=== PATIENT | male | born 1955 ===

== ENCOUNTER 2016-08-17 10:22 | Emergency (ER) | payer OTHER ==
[2016-08-17 10:29] VITALS: BMI 25.7
[2016-08-17 10:32] VITALS: RESP 19; O2SAT 100
--- NOTE | 2016-08-17 10:59 | ED PDOC ---
Hyperglycemia/Hypoglycemia Time Seen by Provider: 08/17/16 10:47 Chief Complaint (Provider): High glucose History Per: Patient History/Exam Limitations: no limitations : The patient does not have any of the infectious symptoms listed except for those marked. Treatment Prior To Provider Evaluation: Accucheck Additional Complaint(s): Pt sent from [employer] at his job for elevated glucose, does not know level. Pt states he is on Insulin and Glyburide for diabetes but ran out of Glyburide 1 month ago. Denies CP, SOB, nausea, vomiting, polyuria, polydypsia. Past Medical History Reviewed: Nursing Documentation, Vital Signs Vital Signs: Last Vital Signs Temp 97.6 F 08/17/16 10:29 Pulse 71 08/17/16 10:29 Resp 19 08/17/16 10:29 BP 160/91 H 08/17/16 10:29 Pulse Ox 100 08/17/16 10:29 - Medical History PMH: Arthritis (Bilateral Shoulder), Diabetes, HTN, Pneumonia Denies: Chronic Kidney Disease - Family History Family History: States: Diabetes - Living Arrangements Living Arrangements: With Family - Social History Current smoker - smoking cessation education provided: No Alcohol: None - Home Medications Home Medications: Ambulatory Orders Medication Instructions Recorded Glyburide 10 mg PO DAILY 05/31/14 Metformin HCl 1,000 mg PO BID 05/31/14 Albuterol/Ipratropium [Duoneb 3 3 ml INH RQ4 PRN #0 neb 06/10/14 mg/0.5 mg (3 ml) UD] Albuterol/Ipratropium [Duoneb 3 3 ml INH RQID #0 neb 06/10/14 mg/0.5 mg (3 ml) UD] Ferrous Sulfate [Feosol] 324 mg PO BID #0 ect 06/10/14 Lisinopril [Zestril] 20 mg PO DAILY #0 tab 06/10/14 amLODIPine [Norvasc] 10 mg PO DAILY #0 tab 06/10/14 Ciprofloxacin HCl [Cipro] 500 mg PO BID #20 tab 06/14/14 MetFORMIN [glucoPHAGE] 1,000 mg PO BID #0 tab 06/14/14 glyBURIDE [Micronase] 5 mg PO QAM #14 tab 08/17/16 - Allergies Allergies/Adverse Reactions: Allergies Allergy/AdvReac Type Severity Reaction Status Date / Time No Known Allergies Allergy Verified 05/30/14 18:17 Review of Systems Constitutional: Negative for: Fever, Chills Cardiovascular: Negative for: Chest Pain Respiratory: Negative for: Cough, Shortness of Breath Gastrointestinal: Negative for: Nausea, Vomiting, Abdominal Pain, Diarrhea Genitourinary Male: Negative for: Dysuria Skin: Negative for: Rash Physical Exam - Reviewed Nursing Documentation Reviewed: Yes Vital Signs Reviewed: Yes - Physical Exam Appears: Positive for: Well, No Acute Distress Skin: Positive for: Normal Color, Warm, Dry Eye Exam: Positive for: Normal appearance, EOMI, PERRL Cardiovascular/Chest: Positive for: Regular Rate, Rhythm Respiratory: Positive for: Normal Breath Sounds Gastrointestinal/Abdominal: Positive for: Normal Exam, Bowel Sounds, Soft. Negative for: Tenderness Extremity: Positive for: Normal ROM Neurologic/Psych: Positive for: Alert, outpatient psychiatrist II-XII, Oriented. Negative for: Motor/Sensory Deficits - Laboratory Results Result Diagrams: 08/17/16 11:33 08/17/16 11:33 Urine dip results: Positive for: Blood, Glucose, Protein. Negative for: Leukocyte Esterase, Nitrate, Ketones, Bilirubin - ECG O2 Sat by Pulse Oximetry: 100 Disposition - Clinical Impression Clinical Impression: Diabetes mellitus - Disposition Referrals: [facility] [Outside] Disposition: Routine/Home Disposition Time: 11:59 Condition: GOOD Prescriptions: glyBURIDE [Micronase] 5 mg PO QAM #14 tab Instructions: Diabetes Mellitus Type 2 in Adults (ED) Print Language: BENGALI
[2016-08-17] MEDS: Sodium Chloride 0.9% 500 ML IV STA (11:28)
[2016-08-17 11:42] LABS: BASO % 0.7 % (0.0-2.0); EOS # 0.1 K/uL (0.0-0.7); EOS % 2.4 % (0.0-4.0); HEMATOCRIT 37.1 % (35.0-51.0); LYMPH # 1.8 K/uL (1.0-4.3); LYMPH % 32.8 % (20.0-40.0); MEAN CORPUSCULAR HEMOGLOBIN 30.3 pg (27.0-31.0); MEAN CORPUSCULAR HGB CONC 34.5 g/dL (33.0-37.0); MEAN PLATELET VOLUME 11.5 fl (7.2-11.7); MONO # 0.6 K/uL (0.0-0.8); MONO % 10.5 % (0.0-10.0); NEUT % 53.6 % (50.0-75.0); NRBC % 0.1 % (0.0-0.0); WHITE BLOOD COUNT 5.5 K/uL (4.8-10.8)
[2016-08-17 11:46] LABS: MEAN CELL VOLUME 87.7 fl (80.0-94.0)
[2016-08-17 11:55] LABS: ALB/GLOB RATIO 1.2 (1.0-2.1); ALKALINE PHOSPHATASE 152 U/L (38-126); ALT/SGPT 41 U/L (21-72); AST/SGOT 40 U/L (17-59); BILIRUBIN,TOTAL 0.5 mg/dl (0.2-1.3); BLOOD UREA NITROGEN 16 mg/dl (9-20); CALCIUM 9.2 mg/dL (8.4-10.2); CARBON DIOXIDE 27 mmol/L (22-30); CHLORIDE 102 mmol/L (98-107); GFR AFRICAN-AMERICAN > 60; GLUCOSE,RANDOM 135 mg/dL (75-110); POTASSIUM 4.2 MMOL/L (3.6-5.0); SODIUM 141 mmol/l (132-148)
[2016-08-17 12:58] VITALS: BP 132/74; PULSE 74; TEMP 98.3
== END 2016-08-17 12:58 | disposition home or self-care (01) ==
LOC: H.ER 10:22
DX: E11.9 Type 2 diabetes mellitus without complications (principal); Z79.84 Long term (current) use of oral hypoglycemic drugs; I10 Essential (primary) hypertension

== ENCOUNTER 2016-10-04 11:05 | Day surgery (SDC) | payer SELFPAY ==
[2016-10-04] MEDS ORDERED: Lactated Ringer's 500 ML IV ONE (11:56)
[2016-10-04 12:11] VITALS: TEMP 97
[2016-10-04] MEDS ORDERED: Propofol 10 mg/ml Inj (20 ML) ONE (12:33)
[2016-10-04 13:05] VITALS: O2SAT 100
[2016-10-04 13:25] VITALS: BP 146/79; PULSE 60; RESP 13
== END 2016-10-04 13:27 | disposition home or self-care (01) ==
LOC: H.ENDO 11:05
PROVIDERS: ATTEND Internal Medicine Gastroenterology
DX: Z12.11 Encounter for screening for malignant neoplasm of colon (principal); K64.8 Other hemorrhoids; E11.9 Type 2 diabetes mellitus without complications; E78.5 Hyperlipidemia, unspecified

== ENCOUNTER 2016-10-20 15:53 | Emergency (ER) | payer OTHER, SELFPAY ==
[2016-10-20 15:53] VITALS: BMI 25.7
[2016-10-20 16:03] VITALS: BP 121/88; PULSE 107; RESP 16; TEMP 99; O2SAT 100
--- NOTE | 2016-10-20 16:35 | ED PDOC ---
Upper Extremity Pain/Injury Time Seen by Provider: 10/20/16 16:20 Chief Complaint (Nursing): Upper Extremity Problem/Injury Chief Complaint (Provider): Foot pain History Per: Patient Additional Complaint(s): 61 yo female, PMH of DM, HTN and High Cholesterol, presents to ED for evaluation of draining wound to right foot x 4 days with chills. Patient also c/ o bilateral shoulder pain x 1 day, denies injury or trauma. Past Medical History Reviewed: Historical Data, Nursing Documentation, Vital Signs Vital Signs: Last Vital Signs Temp 99.0 F 10/20/16 15:57 Pulse 107 H 10/20/16 15:57 Resp 16 10/20/16 15:57 BP 121/88 10/20/16 15:57 Pulse Ox 100 10/20/16 15:57 - Medical History PMH: Arthritis (Bilateral Shoulder), Diabetes, HTN, Hypercholesterolemia, Pneumonia Denies: Chronic Kidney Disease - Surgical History Surgical History: No Surg Hx - Family History Family History: States: Diabetes - Living Arrangements Living Arrangements: With Family - Social History Current smoker - smoking cessation education provided: No Alcohol: Social Drugs: Denies - Home Medications Home Medications: Ambulatory Orders Medication Instructions Recorded Glyburide 10 mg PO DAILY 05/31/14 MetFORMIN [glucoPHAGE] 1,000 mg PO BID #0 tab 06/14/14 glyBURIDE [Micronase] 5 mg PO QAM #14 tab 08/17/16 Insulin Lispro [Humalog (Insulin PRN 10/04/16 Lispro)] Amoxicillin/Clavulanate [Augmentin 1 tab PO BID #14 tab 10/20/16 875 MG-125 MG] Mupirocin 2% Cream [Bactroban 30 applic TOP BID #1 tube 10/20/16 Cream] - Allergies Allergies/Adverse Reactions: Allergies Allergy/AdvReac Type Severity Reaction Status Date / Time No Known Allergies Allergy Verified 10/20/16 15:57 Review of Systems ROS Statement: Except As Marked, All Systems Reviewed And Found Negative Skin: Positive for: Other (ulceration) Physical Exam - Reviewed Nursing Documentation Reviewed: Yes Vital Signs Reviewed: Yes - Physical Exam Appears: Positive for: Well, Non-toxic, No Acute Distress Head Exam: Positive for: ATRAUMATIC, NORMAL INSPECTION, NORMOCEPHALIC Skin: Positive for: Normal Color, Warm, DRY Eye Exam: Positive for: EOMI, Normal appearance, PERRL ENT: Positive for: Normal ENT Inspection Neck: Positive for: Normal, Painless ROM Cardiovascular/Chest: Positive for: Regular Rate, Rhythm Respiratory: Positive for: CNT, Normal Breath Sounds Gastrointestinal/Abdominal: Positive for: Normal Exam, Bowel Sounds, Soft Back: Positive for: Normal Inspection Extremity: Positive for: Normal ROM Neurologic/Psych: Positive for: Alert, Oriented Comments: right great toe: (+) ruptured blister area, no surrounding edema or erythema - ECG O2 Sat by Pulse Oximetry: 100 Medical Decision Making Medical Decision Making: XR: NAd, as read by SONG Started on Augmentin PO and referred to podiatry clinic. Wound care discussed at length Disposition - Clinical Impression Clinical Impression: Foot ulcer - Patient ED Disposition Is Patient to be Admitted: No - Disposition Referrals: Podiatry Clinic [Outside] Disposition: Routine/Home Disposition Time: 19:05 Condition: STABLE Prescriptions: Amoxicillin/Clavulanate [Augmentin 875 MG-125 MG] 1 tab PO BID #14 tab Mupirocin 2% Cream [Bactroban Cream] 30 applic TOP BID #1 tube Instructions: Blister (ED) - POA Present On Arrival: None
[2016-10-20] MEDS ORDERED: Amoxicillin-Clav 875-125 mg Tab PO ONE ×2 (16:43→17:00)
--- NOTE | 2016-10-20 17:42 | RAD ---
PROCEDURE: Right Foot Radiographs. HISTORY: ulceration COMPARISON: None available. FINDINGS: BONES: No acute displaced fracture. Calcaneal enthesophyte. JOINTS: No dislocation. SOFT TISSUES: Approximately 10 mm soft tissue lucency involving the medial soft tissues of the distal 1st phalanx. Soft tissue swelling. Vascular calcifications. No evidence of radiopaque foreign body. OTHER FINDINGS: None. IMPRESSION: Approximately 10 mm soft tissue lucency involving the medial soft tissues of the distal 1st phalanx, consistent with provided history of ulceration. Soft tissue swelling.
== END 2016-10-20 19:19 | disposition home or self-care (01) ==
LOC: H.ER 15:53
DX: L97.501 Non-pressure chronic ulcer of other part of unspecified foot limited to breakdown of skin (principal); E11.9 Type 2 diabetes mellitus without complications; E78.00 Pure hypercholesterolemia, unspecified; I10 Essential (primary) hypertension; Z79.4 Long term (current) use of insulin

== ENCOUNTER 2016-10-31 08:34 | Inpatient (IN) | payer OTHER ==
[2016-10-31 08:34] VITALS: BMI 25.7
--- NOTE | 2016-10-31 10:04 | ED PDOC ---
HPI: CCC, URI, Sore Throat Chief Complaint (Provider): Cough, Cold, Congestion History Per: Patient History/Exam Limitations: language barrier ([employer]ro[employer] # [id number]) Onset/Duration Of Symptoms: Hrs (24) Current Symptoms Are (Timing): Still Present Sick Contacts (Context): None Associated Symptoms: Fever, Chills, Cough, Sputum (intermittent greenish sputum) , Myalgias, Nasal Congestion. denies: Neck Pain, Sinus Drainage, Nausea, Vomiting, Diarrhea <Miguel Hastings - Last Filed: 10/31/16 12:43> <Awa Davenport - Last Filed: 10/31/16 15:02> Time Seen by Provider: 10/31/16 09:08 Chief Complaint (Nursing): Cough, Cold, Congestion Additional Complaint(s): Pt. is here today complaining of cold like symptoms including fever, chills, and cough onset over the course of 24 hours. Pt. reports cough is dry but intermittently productive with greenish sputum. Pt. does admit to taking augmentin and Tylenol for "infection" of his big toe on the Right foot. Pt. states he has finished his augmentin yesterday. Pt. reports his toe feels better and only has mild pain in his toe currently. On ROS, pt. denies any headache, chest pain, abdominal pain, nausea, vomiting, diarrhea, fever, chills , dizziness, syncope, lightheadedness, hematuria, dysuria, joint pain, or flank pain. Pt. also states takes his Diabetes medications regularly and that his sugar this morning was 200. (Miguel Hastings) Past Medical History - Medical History PMH: Arthritis (Bilateral Shoulder), Diabetes, HTN, Hypercholesterolemia, Pneumonia Denies: Chronic Kidney Disease - Surgical History Surgical History: No Surg Hx - Family History Family History: States: Diabetes - Social History Current smoker - smoking cessation education provided: No Ex-Smoker (has not smoked in the last 12 months): No Alcohol: None Drugs: Denies <Miguel Hastings - Last Filed: 10/31/16 12:43> <Awa Davenport - Last Filed: 10/31/16 15:02> Vital Signs: Last Vital Signs Temp 97.9 F 10/31/16 13:59 Pulse 85 10/31/16 13:59 Resp 18 10/31/16 14:17 BP 181/91 H 10/31/16 13:59 Pulse Ox 97 10/31/16 13:59 - Home Medications Home Medications: Ambulatory Orders Medication Instructions Recorded MetFORMIN [glucoPHAGE] 1,000 mg PO BID #0 tab 06/14/14 Ferrous Sulfate [Ferosul] 325 mg PO BID 10/31/16 Insulin Aspart Prot/Insuln Asp 10 unit SC BID 10/31/16 [Novolog Mix 70-30 Vial] Multivitamin [Multi-Vitamin Daily] 1 tab PO DAILY 10/31/16 Simvastatin [Zocor] 20 mg PO HS 10/31/16 glyBURIDE [Micronase] 5 mg PO BID 10/31/16 - Allergies Allergies/Adverse Reactions: Allergies Allergy/AdvReac Type Severity Reaction Status Date / Time No Known Allergies Allergy Verified 10/31/16 08:51 Curb-65 Severity Score - CURB-65 Severity Score Confusion: No Bun >19mg/dl (>7mmol/L): No Respiratory Rate greater than/equal to 30: No Systolic BP <90 or Diastolic BP less than/equal 60mmHg: No Age >64: No Curb-65 Score: 0 Percentage 30-day mortality: 0.6% <VenkataMiguel - Last Filed: 10/31/16 12:43> Review of Systems Constitutional: Positive for: Fever (See HPI), Chills (See HPI), Weakness (See HPI) <Miguel Hastings - Last Filed: 10/31/16 12:43> Physical Exam - Reviewed Vital Signs Reviewed: Yes - Physical Exam Appears: Positive for: Non-toxic, No Acute Distress Eye Exam: Positive for: Normal appearance, EOMI, PERRL Neck: Positive for: Painless ROM, Supple Cardiovascular/Chest: Positive for: Tachycardia. Negative for: Murmur Respiratory: Positive for: Normal Breath Sounds. Negative for: Wheezing, Respiratory Distress Gastrointestinal/Abdominal: Positive for: Soft. Negative for: Tenderness Back: Negative for: L CVA Tenderness, R CVA Tenderness Extremity: Positive for: Other (Pedal pulses +1 bilaterally, + RT 1st toe swollen and mildly tender, warm, but no erythema, discharge, or trauma noted) <Miguel Hastings - Last Filed: 10/31/16 12:43> - Laboratory Results Result Diagrams: 10/31/16 10:15 10/31/16 10:15 - ECG O2 Sat by Pulse Oximetry: 98 - Radiology X-Ray: Viewed By Me - Progress Re-evaluation Time: 12:15 Condition: Unchanged <Miguel Hastings - Last Filed: 10/31/16 12:43> - Laboratory Results Result Diagrams: 10/31/16 10:15 10/31/16 10:15 <Awa Davenport - Last Filed: 10/31/16 15:02> - Progress ED Course And Treament: CBC, CMP, Lactic Acid, VBG with Shock panel, BCx x2, UA, UCx Accucheck Normal Saline Bolus x 1 liter Podiatry Consult- 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 Zosyn and Vancomycin (Miguel Hastings) Medical Decision Making <Miguel Hastings - Last Filed: 10/31/16 12:43> <Awa Davenport - Last Filed: 10/31/16 15:02> Medical Decision Makin y.o. male with hx of Diabetes who just finished a course of Augmentin yesterday for Rt. foot Toe "infection" comes in complaining of fever, chills, and weakness found to have WBC of 12 and low blood pressue of 92/55 with a HR of 112 with possible infected RT. foot toe to be admitted for SIRS critera and Rt Foot toe cellulitis. Pt. given one dose of Zosyn and Vancomycin I.V. in the E.D. [facility] called and on board. Pt. with repeat Vitals shows 142/80 with a heart rate of 74 and normal sinus rhythm EKG to be admitted to med surge unit. RT. Foot x-ray official reading pending. (Miguel Hastings) 61 yo with toe pain/redness, tachycardia, hypotension. - induration L 1st digit - IV Abx (Awa Davenport) Disposition - Patient ED Disposition Is Patient to be Admitted: Yes Discussed With DrSarah: Awa Davenport - Disposition Disposition Time: 12:41 <Miguel Hastings - Last Filed: 10/31/16 12:43> <Awa Davenport - Last Filed: 10/31/16 15:02> - Clinical Impression Clinical Impression: SIRS (systemic inflammatory response syndrome), Cellulitis in diabetic foot - Disposition Condition: FAIR
[2016-10-31] MEDS: Sodium Chloride 0.9% 1,000 ML IV SCH ×6 (10:27→22:25)
[2016-10-31 10:29] LABS: VENOUS BLOOD GAS BASE EXCESS 3.3 mmol/L (0.0-2.0); VENOUS BLOOD GAS PCO2 58 mmHg (40-60); VENOUS BLOOD PH 7.33 (7.32-7.43)
[2016-10-31 10:32] LABS: BASO % 0.3 % (0.0-2.0); EOS # 0.2 K/uL (0.0-0.7); EOS % 1.5 % (0.0-4.0); HEMATOCRIT 34.9 % (35.0-51.0); LYMPH # 1.5 K/uL (1.0-4.3); LYMPH % 12.6 % (20.0-40.0); MEAN CELL VOLUME 87.2 fl (80.0-94.0); MEAN CORPUSCULAR HEMOGLOBIN 30.3 pg (27.0-31.0); MEAN CORPUSCULAR HGB CONC 34.8 g/dL (33.0-37.0); MEAN PLATELET VOLUME 8.2 fl (7.2-11.7); MONO # 0.7 K/uL (0.0-0.8); MONO % 5.6 % (0.0-10.0); NEUT # 9.7 K/uL (1.8-7.0); NRBC % 0.1 % (0.0-0.0); RED CELL DISTRIBUTION WIDTH 13.1 % (11.5-14.5); WHITE BLOOD COUNT 12.1 K/uL (4.8-10.8)
[2016-10-31 10:39] LABS: RBC URINE 3 /hpf (0-3); URINE BILIRUBIN NEGATIVE (NEGATIVE); URINE BLOOD NEGATIVE (NEGATIVE); URINE COLOR YELLOW (YELLOW); URINE GLUCOSE (UA) >=500 mg/dL (Normal); URINE KETONE NEGATIVE (NEGATIVE); URINE LEUKOCYTE ESTERASE NEG Leu/uL (Negative); URINE PROTEIN >=500 mg/dL (NEGATIVE); URINE UROBILINOGEN 0.2-1.0 mg/dL (0.2-1.0); WBC URINE 2 /hpf (0-5)
[2016-10-31 10:45] LABS: ALKALINE PHOSPHATASE 153 U/L (38-126); ALT/SGPT 39 U/L (21-72); AST/SGOT 38 U/L (17-59); BILIRUBIN,TOTAL < 0.1 mg/dl (0.2-1.3); BLOOD UREA NITROGEN 18 mg/dl (9-20); CALCIUM 9.3 mg/dL (8.4-10.2); CARBON DIOXIDE 30 mmol/L (22-30); CHLORIDE 101 mmol/L (98-107); GFR AFRICAN-AMERICAN > 60; GLUCOSE,RANDOM 138 mg/dL (75-110); POTASSIUM 4.7 MMOL/L (3.6-5.0); SODIUM 141 mmol/l (132-148); TOTAL PROTEIN 8.2 G/DL (6.3-8.2)
[2016-10-31] MEDS ORDERED: Piperacillin/Tazobact 4.5 GM in Sodium Chloride 0.9% 100 ML IVPB STA (11:51)
[2016-10-31] MEDS ORDERED: Vancomycin 1 g Inj ONE (12:22)
--- NOTE | 2016-10-31 12:30 | RAD ---
PROCEDURE: Right Foot Radiographs. HISTORY: 1st toe infection COMPARISON: None. FINDINGS: BONES: Normal. No fracture. JOINTS: Normal. SOFT TISSUES: Soft tissue swelling seen at the big toe. No evidence of soft tissue pneumatosis. Vascular calcifications seen also in the right foot. OTHER FINDINGS: None. IMPRESSION: No radiographic evidence of osteomyelitis.
--- NOTE | 2016-10-31 13:08 | CP.PCM.HP ---
History of Present Illness - History of Present Illness History of Present Illness: 61 year old male with PMH of uncontrolled DM, HLD presents to ED with complaint of 2 day history of myalgias, generalized fatigue, productive cough with sputum production and associated dizziness this AM while at work. PAtient took theraflu for symptoms. Endorses that right foot infection began approximately 2 weeks ago, began as blister that ruptured on medial aspect of great toe. Patient proceeded to come to [facility] ED for treatment and was prescribed a 10 day course of augmentin. ROS: +dizziness, fatigue, +cough, +green sputum, denies headache, fever, chills , dyspnea, chest pain, abdominal pain, nausea, vomiting, diarrhea, pedal edema. 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 Kahn 03/2016 PMH: uncontrolled DM, HLD Medications: Glyburide 5mg PO BID Metforming 1000mg PO BID Novolog 70/30 10 units SC BID Simvastatin 20mg PO Qhs Allergies: NKDA Surgical Hx: right knee cyst, neck cyst (posterior) Social hx: denies smoking, etoh, illicit drug use ED course: VS: T:99, HR:112, BP:92/55 RR: 20 spo2: 98% CBC: leukocytosis CMP: Cr:1.3 [WNL however increased from pts baseline (0.8)], otherwise unremarkable Alk phos: elevated ESR 97 Foot XR: soft tissue swelling seen at the big toe, no evidence of soft tissue pneumatosis, vascular calcifications seen. no radiographic evidence of osteomyelitis. Zosyn and Vanco x 1 1L NS bolus Present on Admission - Present on Admission Any Indicators Present on Admission: No Past Patient History - Infectious Disease Hx of Infectious Diseases: None - Tetanus Immunizations Tetanus Immunization: Unknown - Past Medical History & Family History Past Medical History?: Yes - Past Social History Alcohol: None Drugs: Denies - CARDIAC Hx Hypercholesterolemia: Yes - PULMONARY Hx Pneumonia: Yes - NEUROLOGICAL Hx Neurological Disorder: No - RENAL Hx Chronic Kidney Disease: No - ENDOCRINE/METABOLIC Hx Endocrine Disorders: Yes Hx Diabetes Mellitus Type 2: Yes - HEMATOLOGICAL/ONCOLOGICAL Hx Blood Disorders: No - INTEGUMENTARY Hx Dermatological Problems: No - MUSCULOSKELETAL/RHEUMATOLOGICAL Hx Arthritis: Yes (Bilateral Shoulder) - GASTROINTESTINAL Hx Gastrointestinal Disorders: No - GENITOURINARY/GYNECOLOGICAL Hx Genitourinary Disorders: No - PSYCHIATRIC Hx Psychophysiologic Disorder: No Hx Substance Use: No - SURGICAL HISTORY Hx Surgeries: Yes Hx Cataract Extraction: Yes - ANESTHESIA Hx Anesthesia: Yes Hx Anesthesia Reactions: No Meds Allergies/Adverse Reactions: Allergies Allergy/AdvReac Type Severity Reaction Status Date / Time No Known Allergies Allergy Verified 10/31/16 08:51 Physical Exam - Constitutional Appears: Non-toxic, No Acute Distress - Head Exam Head Exam: NORMAL INSPECTION - Eye Exam Eye Exam: Normal appearance - ENT Exam ENT Exam: Mucous Membranes Moist - Respiratory Exam Respiratory Exam: Clear to Auscultation Bilateral, NORMAL BREATHING PATTERN - Cardiovascular Exam Cardiovascular Exam: REGULAR RHYTHM, +S1, +S2 - GI/Abdominal Exam GI & Abdominal Exam: Normal Bowel Sounds, Soft. absent: Tenderness - Rectal Exam Rectal Exam: Deferred - Extremities Exam Extremities exam: Positive for: pedal pulses present. Negative for: calf tenderness, pedal edema Additional comments: right great toe wrapped in bandage, wound not visualized, clean and dry no foul odor appreciated - Neurological Exam Neurological exam: Alert, CN II-XII Intact, Oriented x3 - Psychiatric Exam Psychiatric exam: Normal Affect, Normal Mood - Skin Skin Exam: Dry, Normal Color Additional comments: skin right great toe not visualized. Results - Vital Signs Recent Vital Signs: Last Vital Signs Temp 99 F 10/31/16 08:51 Pulse 112 H 10/31/16 08:51 Resp 20 10/31/16 08:51 BP 92/55 L 10/31/16 08:51 Pulse Ox 98 10/31/16 12:43 - Labs Result Diagrams: 10/31/16 10:15 10/31/16 10:15 Assessment & Plan - Assessment and Plan (Free Text) Assessment: 61 year old male with PMH of uncontrolled DM and HLD presented to ED with chills , cough dizziness with hx of right great to infection that failed outpatient treatment with augmentin. Patient was admitted and started on IV antibiotics to treat cellulitis, rule out osteomyelitis. 1. Diabetic foot infection -liekly secondary to cellulitis vs osteomyelitis; ESR 97 -failed out patient treatment with 10 day course of PO augmentin -given 1 dose zosyn, 1 dose vancomycin. will continue for now, consult ID for further recommendations -continue IVF -blood, wound and urine cultures pending -Xray foot: soft tissue swelling seen at the big toe, no evidence of soft tissue pneumatosis, vascular calcifications seen. no radiographic evidence of osteomyelitis. -monitor vital signs for fever, tachycardia, hypotension Follow up: CBC, BMP, CRP, procalcitonin, blood, wound and urine cultures -consider MRI right foot rule out osteomyelitis 2. Cough -given hx of cough with associated chills and sputum production, will rule out pneumonia -follow up CXR report - on broad spectrum antibiotics -monitor oxygen saturation 3. Uncontrolled DM - last HgA1c: 12.0 in 09/21/2016 -- hold metformin 1000mg PO BID for now --continue with home medications: Glybyride 5mg PO BID and Novolog 70/30: 10 units SC q12 - Accuchecks - consistent carbohydrate diet - Insulin Sliding scale - hx of microalbuminuria and increase in creatinine this admission, will monitor creatinine, consider starting PEYTON inhibitor 4: Hyperlipidemia -controlled, ASCVD risk: 9.2% -Total cholesterol 173, LDL 90, HDL 43 -Triglycerides: 145 -continue Simvastatin 20mg qhs 5. DVT prophylaxis -lovenox 40mg SC
--- NOTE | 2016-10-31 13:40 | CARD ---
APPROVED REPORT EKG Measurement Heart [id number] <Conclusion> Normal sinus rhythm Normal ECG
--- NOTE | 2016-10-31 14:10 | CP.PCM.CON ---
History of Present Illness - History of Present Illness History of Present Illness: 61 y/o male with pmhx of uncontrolled DM, HLD seen in the ED after podiatry consultation for pain and swelling in right big toe. Patient states that he noticed pain and swelling in his toe for about 2 weeks. He states that he was given antibiotics and just finished taking the pills yesterday but the toe is still swollen. Patient reports cough, dizziness and fatigue so he came to the ED today. He denies any other pedal complaints. Patient denies nausea, fever, shortness of breath, chest pain. Patient denies any trauma to the toe. pmhx: uncontrolled DM, HLD pshx: unable to obtain SH: denies All: NKDA Review of Systems - Constitutional Constitutional: As Per HPI Past Patient History - Infectious Disease Hx of Infectious Diseases: None - Tetanus Immunizations Tetanus Immunization: Unknown - Past Medical History & Family History Past Medical History?: Yes - Past Social History Alcohol: None Drugs: Denies - CARDIAC Hx Hypercholesterolemia: Yes Hx Hypertension: Yes - PULMONARY Hx Pneumonia: Yes - NEUROLOGICAL Hx Neurological Disorder: No - HEENT Hx HEENT Problems: Yes - RENAL Hx Chronic Kidney Disease: No - ENDOCRINE/METABOLIC Hx Endocrine Disorders: Yes Hx Diabetes Mellitus Type 2: Yes - HEMATOLOGICAL/ONCOLOGICAL Hx Blood Disorders: No - INTEGUMENTARY Hx Dermatological Problems: No - MUSCULOSKELETAL/RHEUMATOLOGICAL Hx Arthritis: Yes (Bilateral Shoulder) - GASTROINTESTINAL Hx Gastrointestinal Disorders: No - GENITOURINARY/GYNECOLOGICAL Hx Genitourinary Disorders: No - PSYCHIATRIC Hx Psychophysiologic Disorder: No Hx Substance Use: No - SURGICAL HISTORY Hx Surgeries: Yes Hx Cataract Extraction: Yes - ANESTHESIA Hx Anesthesia: Yes Hx Anesthesia Reactions: No Meds Allergies/Adverse Reactions: Allergies Allergy/AdvReac Type Severity Reaction Status Date / Time No Known Allergies Allergy Verified 10/31/16 08:51 - Medications Medications: Current Medications Acetaminophen (Tylenol 325mg Tab) 650 mg PO Q6 PRN PRN Reason: Fever >100.4 F Atorvastatin Calcium (Lipitor) 10 mg PO HS RACHEL Enoxaparin Sodium (Lovenox) 40 mg SC DAILY [facility] PRN Reason: Protocol Glyburide (Micronase) 5 mg PO BID [facility] Home Med (Insulin Aspart Prot/Insuln Asp [Novolog Mix 70-30 Vial]) 10 unit SC BID [facility] Sodium Chloride (Sodium Chloride 0.9%) 1,000 mls @ 1,000 mls/hr IV .Q1H RACHEL Stop: 11/01/16 10:00 Last Admin: 10/31/16 10:27 Dose: 1,000 mls/hr Physical Exam - Constitutional Appears: Well, Non-toxic, No Acute Distress - Extremities Exam Additional comments: O: Vasc: DP 2/4, PT 1/4 b/l, TG wnl, CFT < 3 sec to all digits, nonpitting edema to R hallux neuro: grossly diminished derm: localized edema to right hallux, mild erythema, pre ulcerative lesion to dorosmedial hallux with no drainage, no purulence, mild fluctuance, no malodor, no tunneling or undermining, no ascending cellulitis ortho: mild pain on palpation to R hallux - Neurological Exam Neurological exam: Alert, Oriented x3 - Psychiatric Exam Psychiatric exam: Normal Affect, Normal Mood Results - Vital Signs Recent Vital Signs: Last Vital Signs Temp 97.9 F 10/31/16 13:59 Pulse 85 10/31/16 13:59 Resp 18 10/31/16 13:59 BP 181/91 H 10/31/16 13:59 Pulse Ox 97 10/31/16 13:59 - Labs Result Diagrams: 10/31/16 10:15 10/31/16 10:15 Labs: Laboratory Results - last 24 hr 10/31/16 12:45 Influenza Typ A,B (EIA) Negative for flu a/b Assessment & Plan - Assessment and Plan (Free Text) Assessment: 61 y/o male with pmhx of uncontrolled DM, HLD, seen at bedside in ED for right hallux infection secondary to uncontrolled diabetes Plan: patient evaluated and chart reviewed discussed in detail with attending Dr. Bui labs and vitals reviewed; afebrile, WBC 12.1, ESR 97 wound cx obtained applied DSD to right foot ID consult placed continue IV abx X rays show right hallux soft tissue swelling, no evidence of OM podiatry will continue to follow
[2016-10-31] MEDS: Insulin Lispro (humaLOG) 100 Units/ml Inj SC SCH ×2 (16:44→22:24)
[2016-10-31] MEDS: Enoxaparin 40 mg Syringe SC SCH (16:45)
[2016-10-31] MEDS: Insulin Lispro Mix 75/25 100 units/ml (HumaLog) 10ml SC SCH (16:49)
--- NOTE | 2016-10-31 17:33 | CP.PCM.CON ---
History of Present Illness - History of Present Illness History of Present Illness: Infectious Disease Consultation note- Asked to see this patient at the request of family practice team for right toe ulcer r/o OM. HPI- Patient is a pleasant 61 year old male with pmh of uncontrolled DM II, hyperlipidemia who is admitted with right great toe ulcer that apparently started as a small boil 2 weeks ago from rubbing from his shoes and apparently at that time pt. came to ED to be evaluated and he was given a cream for his foot fungus and was d/c on augmentin to treat the ulcer and since the ulcer has not improved and he is now admitted fro IV antibiotics and further evaluation. Pt. states initially he did have some minimal discharge but for the past 10 days or so it has been dry. He denies any fever or chills. he also states he has been having some cough for past few days with mild phlegm yellow color. denies any sob. pt. was found to have minimal elevation in wbc on admission along with very high ESR and hence I'm asked to evaluate and help with antibiotic management and rule out OM. PMD: [facility], last seen by Dr. Santana (internal communications writer) Last seen in podiatry clinic with Dr. Kahn 03/2016 PMH: uncontrolled DM, HLD Medications: Glyburide 5mg PO BID Metforming 1000mg PO BID Novolog 70/30 10 units SC BID Simvastatin 20mg PO Qhs Allergies: NKDA Surgical Hx: right knee cyst, neck cyst (posterior) Social hx: denies smoking, etoh, illicit drug use Review of Systems - Review of Systems Review of Systems: ROS- denies any fever or chills, denies any RAMIREZ, denies any N/V, mild cough with yellow phlegm, denies any sob, denies any chest pain, denies any abd. pain, denies any diarrhea, denies any dysurea. denies any injury or trauma to the toe right great toe with small ulcer for 2 weeks, minimal discharge, denies any malodor, states has had bad toe fungus for few years denies any previous ulcers anywhere Past Patient History - Infectious Disease Hx of Infectious Diseases: None - Tetanus Immunizations Tetanus Immunization: Unknown - Past Medical History & Family History Past Medical History?: Yes - Past Social History Smoking Status: Never Smoked Alcohol: None Drugs: Denies - CARDIAC Hx Hypercholesterolemia: Yes - NEUROLOGICAL Hx Neurological Disorder: No - HEENT Hx HEENT Problems: Yes - RENAL Hx Chronic Kidney Disease: No - ENDOCRINE/METABOLIC Hx Endocrine Disorders: Yes Hx Diabetes Mellitus Type 2: Yes - HEMATOLOGICAL/ONCOLOGICAL Hx Blood Disorders: No - INTEGUMENTARY Hx Dermatological Problems: No - MUSCULOSKELETAL/RHEUMATOLOGICAL Hx Arthritis: Yes (Bilateral Shoulder) - GASTROINTESTINAL Hx Gastrointestinal Disorders: No - GENITOURINARY/GYNECOLOGICAL Hx Genitourinary Disorders: No - PSYCHIATRIC Hx Psychophysiologic Disorder: No Hx Substance Use: No - SURGICAL HISTORY Hx Surgeries: Yes Hx Cataract Extraction: Yes - ANESTHESIA Hx Anesthesia: Yes Hx Anesthesia Reactions: No Meds Allergies/Adverse Reactions: Allergies Allergy/AdvReac Type Severity Reaction Status Date / Time No Known Allergies Allergy Verified 10/31/16 08:51 - Medications Medications: Current Medications Acetaminophen (Tylenol 325mg Tab) 650 mg PO Q6 PRN PRN Reason: Fever >100.4 F Atorvastatin Calcium (Lipitor) 10 mg PO HS [facility] Enoxaparin Sodium (Lovenox) 40 mg SC DAILY [facility] PRN Reason: Protocol Last Admin: 10/31/16 16:45 Dose: 40 mg Glyburide (Micronase) 5 mg PO BID [facility] Last Admin: 10/31/16 16:45 Dose: 5 mg Sodium Chloride (Sodium Chloride 0.9%) 1,000 mls @ 1,000 mls/hr IV .Q1H [facility] Stop: 11/01/16 10:00 Last Admin: 10/31/16 10:27 Dose: 1,000 mls/hr Vancomycin HCl 1 gm/ Sodium (Chloride) 250 mls @ 166.667 mls/hr IVPB Q12 [facility] Piperacillin Sod/Tazobactam (Sod 3.375 gm/ Sodium Chloride) 100 mls @ 100 mls/ hr IVPB Q6 [facility] Insulin Human Lispro (Humalog) 0 units SC ACHS [facility] PRN Reason: Protocol Last Admin: 10/31/16 16:44 Dose: Not Given Insulin Lispro Protam/Lispro Human (Humalog Mix 75/25) 10 units SC BID [facility] Last Admin: 10/31/16 16:49 Dose: 10 units Physical Exam - Constitutional Appears: Non-toxic, No Acute Distress - Head Exam Head Exam: ATRAUMATIC - Eye Exam Eye Exam: EOMI, PERRL - ENT Exam ENT Exam: Normal Oropharynx - Neck Exam Neck exam: Positive for: Full Rom - Respiratory Exam Respiratory Exam: Clear to Auscultation Bilateral, NORMAL BREATHING PATTERN - Cardiovascular Exam Cardiovascular Exam: RRR, +S1, +S2 - GI/Abdominal Exam GI & Abdominal Exam: Normal Bowel Sounds, Soft Additional comments: NT, ND - Extremities Exam Additional comments: No edema in B/L LE right medial great toe with 3 x 4 cm round ulcer with small opening but dry, no active discharge, has minimal malodor, no surrounding erythema, not warm to touch, minimal edema in right great toe region severe onychomycosis of the right great toe and the second and third toes. - Neurological Exam Neurological exam: Alert, Oriented x3 Results - Vital Signs Recent Vital Signs: Last Vital Signs Temp 98.4 F 10/31/16 16:18 Pulse 74 10/31/16 16:18 Resp 20 10/31/16 16:18 BP 161/82 H 10/31/16 16:18 Pulse Ox 100 10/31/16 16:18 - Labs Result Diagrams: 10/31/16 10:15 10/31/16 10:15 Labs: Laboratory Results - last 24 hr 10/31/16 10/31/16 12:45 16:36 POC Glucose (mg/dL) 263 H Influenza Typ A,B (EIA) Negative for flu a/b Laboratory Results - last 72 hr 10/31/16 10/31/16 10/31/16 10:15 10:15 10:15 WBC 12.1 H D RBC 4.01 L Hgb 12.2 Hct 34.9 L MCV 87.2 MCH 30.3 MCHC 34.8 RDW 13.1 Plt Count 368 D MPV 8.2 Neut % (Auto) 80.0 H Lymph % (Auto) 12.6 L [place] % (Auto) 5.6 Eos % (Auto) 1.5 Baso % (Auto) 0.3 Neut # 9.7 H Lymph # 1.5 [place] # 0.7 Eos # 0.2 Baso # 0.0 ESR pO2 VBG pH VBG pCO2 VBG HCO3 VBG Total CO2 VBG O2 Sat (Calc) VBG Base Excess VBG Potassium A-a O2 Difference Glucose Lactate FiO2 Crit Value Called To Crit Value Called By Crit Value Read Back Blood Gas Notified Time Sodium 141 Potassium 4.7 Chloride 101 Carbon Dioxide 30 Anion Gap 15 BUN 18 Creatinine 1.3 Est GFR ( Amer) > 60 Est GFR (Non-Af Amer) 57 POC Glucose (mg/dL) Random Glucose 138 H Lactic Acid 1.7 Calcium 9.3 Total Bilirubin < 0.1 L AST 38 ALT 39 Alkaline Phosphatase 153 H Total Protein 8.2 Albumin 4.0 Globulin 4.2 H Albumin/Globulin Ratio 1.0 Venous Blood Potassium Urine Color Urine Clarity Urine pH Ur Specific Laurier Urine Protein Urine Glucose (UA) Urine Ketones Urine Blood Urine Nitrate Urine Bilirubin Urine Urobilinogen Ur Leukocyte Esterase Urine RBC (Auto) Urine Microscopic WBC Hyaline Casts Influenza Typ A,B (EIA) 10/31/16 10/31/16 10/31/16 10:15 10:30 12:19 WBC RBC Hgb Hct MCV MCH MCHC RDW Plt Count MPV Neut % (Auto) Lymph % (Auto) [place] % (Auto) Eos % (Auto) Baso % (Auto) Neut # Lymph # [place] # Eos # Baso # ESR 97 H pO2 17 L VBG pH 7.33 VBG pCO2 58 VBG HCO3 26.0 VBG Total CO2 32.4 H VBG O2 Sat (Calc) 38.6 L VBG Base Excess 3.3 H VBG Potassium 4.7 A-a O2 Difference 60.0 Glucose 138 H Lactate 1.7 FiO2 21.0 Crit Value Called To Dr clayton leo Crit Value Called By 15 Crit Value Read Back Y Blood Gas Notified Time 1028 Sodium 137.0 Potassium Chloride 103.0 Carbon Dioxide Anion Gap BUN Creatinine Est GFR ( Amer) Est GFR (Non-Af Amer) POC Glucose (mg/dL) Random Glucose Lactic Acid Calcium Total Bilirubin AST ALT Alkaline Phosphatase Total Protein Albumin Globulin Albumin/Globulin Ratio Venous Blood Potassium 4.7 Urine Color Yellow Urine Clarity Clear Urine pH 6.0 Ur Specific Laurier 1.023 Urine Protein >=500 Urine Glucose (UA) >=500 Urine Ketones Negative Urine Blood Negative Urine Nitrate Negative Urine Bilirubin Negative Urine Urobilinogen 0.2-1.0 Ur Leukocyte Esterase Neg Urine RBC (Auto) 3 Urine Microscopic WBC 2 Hyaline Casts >20 H Influenza Typ A,B (EIA) 10/31/16 10/31/16 12:45 16:36 WBC RBC Hgb Hct MCV MCH MCHC RDW Plt Count MPV Neut % (Auto) Lymph % (Auto) [place] % (Auto) Eos % (Auto) Baso % (Auto) Neut # Lymph # [place] # Eos # Baso # ESR pO2 VBG pH VBG pCO2 VBG HCO3 VBG Total CO2 VBG O2 Sat (Calc) VBG Base Excess VBG Potassium A-a O2 Difference Glucose Lactate FiO2 Crit Value Called To Crit Value Called By Crit Value Read Back Blood Gas Notified Time Sodium Potassium Chloride Carbon Dioxide Anion Gap BUN Creatinine Est GFR ( Amer) Est GFR (Non-Af Amer) POC Glucose (mg/dL) 263 H Random Glucose Lactic Acid Calcium Total Bilirubin AST ALT Alkaline Phosphatase Total Protein Albumin Globulin Albumin/Globulin Ratio Venous Blood Potassium Urine Color Urine Clarity Urine pH Ur Specific [place]ier Urine Protein Urine Glucose (UA) Urine Ketones Urine Blood Urine Nitrate Urine Bilirubin Urine Urobilinogen Ur Leukocyte Esterase Urine RBC (Auto) Urine Microscopic WBC Hyaline Casts Influenza Typ A,B (EIA) Negative for flu a/b Accession No. : [id number] Patient Name / ID : ALEXI SCHUSTER / [id number] Exam Date : 10/31/2016 11:13:39 ( Approved ) Study Comment : Sex / Age : M / 61Y Creator : Yazan Craven Dictator : Yazan Craven Raw Hide Trimmer : Licensed Certified Orthotist : Yazan Craven Approver2 : Report Date : 10/31/2016 12:28:14 My Comment : PROCEDURE: Right Foot Radiographs. HISTORY: 1st toe infection COMPARISON: None. FINDINGS: BONES: Normal. No fracture. JOINTS: Normal. SOFT TISSUES: Soft tissue swelling seen at the big toe. No evidence of soft tissue pneumatosis. Vascular calcifications seen also in the right foot. OTHER FINDINGS: None. IMPRESSION: No radiographic evidence of osteomyelitis. Assessment & Plan (1) Foot ulcer Status: Acute (2) Diabetes mellitus Status: Acute (3) Cellulitis in diabetic foot Status: Acute - Assessment and Plan (Free Text) Assessment: A/P- 61 year old male with DM II admitted with right great toe ulcer, rule out OM. pt. is clinically not septic. He is afebrile and has only minimal leukocytosis, however, he has high ESR and hence OM must be ruled out specially since the ulcer has been in place for past 2 weeks. plain foot xray as per report no evidence of OM, however, not the best test for rule out OM. plan- if no contraindications advise to get MRI of the right foot and toe and rule out OM. if possible bedside bone bx and culture so that can have targeted antibiotic therapy. check blood cx x 2. advise to continue with vanco and zosyn for broad spectrum antibiotic coverage pending further results. keep vanco trough <15. Thank you for allowing me to take part in the care of this patient. Pt. seen and examined with the family practice resident and plan discussed. All above also d/w patient and he verbalizes full understanding of all above.
[2016-10-31] MEDS: Piperacillin/Tazobact 3.375 GM in Sodium Chloride 0.9% 100 ML IVPB SCH (22:16)
[2016-11-01] MEDS: Sodium Chloride 0.9% 1,000 ML IV SCH ×6 (01:00→05:03)
[2016-11-01] MEDS: Piperacillin/Tazobact 3.375 GM in Sodium Chloride 0.9% 100 ML IVPB SCH ×4 (03:50→20:08)
[2016-11-01] MEDS ORDERED: guaiFENesin 200 mg/10 ml Syrup UD PO ONE (03:57)
[2016-11-01 06:38] LABS: HEMATOCRIT 33.9 % (35.0-51.0); MEAN CELL VOLUME 87.3 fl (80.0-94.0); MEAN CORPUSCULAR HEMOGLOBIN 29.4 pg (27.0-31.0); MEAN CORPUSCULAR HGB CONC 33.6 g/dL (33.0-37.0); WHITE BLOOD COUNT 7.2 K/uL (4.8-10.8)
[2016-11-01 06:59] LABS: BLOOD UREA NITROGEN 11 mg/dl (9-20); CALCIUM 8.6 mg/dL (8.4-10.2); CARBON DIOXIDE 27 mmol/L (22-30); CHLORIDE 102 mmol/L (98-107); GFR AFRICAN-AMERICAN > 60; GLUCOSE,RANDOM 161 mg/dL (75-110); POTASSIUM 4.2 MMOL/L (3.6-5.0); SODIUM 138 mmol/l (132-148)
--- NOTE | 2016-11-01 08:16 | CP.PCM.PN ---
Subjective - Date & Time of Evaluation Date of Evaluation: 11/01/16 Time of Evaluation: 07:30 - Subjective Subjective: No acute events overnight. Patient remained afebrile, BP elevated. Patient seen and examined bedside. Complaining of persistent cough. No pain in his foot. Denies headache, dyspnea, chest pain, abdominal pain n/v. Tolerating PO diet. Worried about when he can return to work, as his employer is already giving him trouble for not being at work. Patient is for MRI of his right foot today. Objective - Vital Signs/Intake and Output Vital Signs (last 24 hours): Temp Pulse Resp BP Pulse Ox 98.6 F 64 20 155/75 H 99 11/01/16 01:12 11/01/16 01:12 11/01/16 01:12 11/01/16 01:12 11/01/16 01:12 - Medications Medications: Current Medications Acetaminophen (Tylenol 325mg Tab) 650 mg PO Q6 PRN PRN Reason: Fever >100.4 F Atorvastatin Calcium (Lipitor) 10 mg PO HS [facility] Last Admin: 10/31/16 22:16 Dose: 10 mg Enoxaparin Sodium (Lovenox) 40 mg SC DAILY [facility] PRN Reason: Protocol Last Admin: 10/31/16 16:45 Dose: 40 mg Glyburide (Micronase) 5 mg PO BID [facility] Last Admin: 10/31/16 16:45 Dose: 5 mg Sodium Chloride (Sodium Chloride 0.9%) 1,000 mls @ 1,000 mls/hr IV .Q1H [facility] Stop: 11/01/16 10:00 Last Admin: 11/01/16 05:03 Dose: Not Given Vancomycin HCl 1 gm/ Sodium (Chloride) 250 mls @ 166.667 mls/hr IVPB Q12 [facility] Last Admin: 10/31/16 20:35 Dose: 166.667 mls/hr Piperacillin Sod/Tazobactam (Sod 3.375 gm/ Sodium Chloride) 100 mls @ 100 mls/ hr IVPB Q6 [facility] Last Admin: 11/01/16 03:50 Dose: 100 mls/hr Insulin Human Lispro (Humalog) 0 units SC ACHS [facility] PRN Reason: Protocol Last Admin: 10/31/16 22:24 Dose: Not Given Insulin Lispro Protam/Lispro Human (Humalog Mix 75/25) 10 units SC BID [facility] Last Admin: 10/31/16 16:49 Dose: 10 units - Labs Labs: 11/01/16 05:50 11/01/16 05:50 - Constitutional Appears: Non-toxic, No Acute Distress - Head Exam Head Exam: NORMAL INSPECTION - Eye Exam Eye Exam: Normal appearance - ENT Exam ENT Exam: Mucous Membranes Moist - Respiratory Exam Respiratory Exam: Clear to Ausculation Bilateral, NORMAL BREATHING PATTERN - Cardiovascular Exam Cardiovascular Exam: REGULAR RHYTHM, +S1, +S2 - GI/Abdominal Exam GI & Abdominal Exam: Soft, Normal Bowel Sounds. absent: Tenderness - Extremities Exam Extremities Exam: Normal Inspection (right toe wrapped in dressing. wound not visualized) - Neurological Exam Neurological Exam: Alert, Awake, CN II-XII Intact, Oriented x3 - Psychiatric Exam Psychiatric exam: Normal Affect, Normal Mood - Skin Skin Exam: Dry Assessment and Plan - Assessment and Plan (Free Text) Assessment: 61 year old male with PMH of uncontrolled DM and HLD presented to ED with chills , cough dizziness with hx of right great to infection that failed outpatient treatment with augmentin. Patient was admitted and started on IV antibiotics to treat right toe infections likely secondary to cellulitis, rule out osteomyelitis. 1. Sepsis -resolving given patients leukocytosis has resolved, WBC: 7.2, no tachycardia, afebrile intially patient presented with Sepsis -HR 112, BP 92/59, leukocytosis: 12.1, infection of right toe; s/p failed out patient treatment with 10 day course of PO augmentin -likely secondary to diabetic foot infeciton, ?cellulitis vs osteomyelitis; ESR 97, leukocytosis resolved, procalcitonin <0.05, afebrile -day 2 IV zosyn and vanco -ivf held due to BP- monitor -blood, wound and urine cultures pending -Xray foot: soft tissue swelling seen at the big toe, no evidence of soft tissue pneumatosis, vascular calcifications seen. no radiographic evidence of osteomyelitis. -monitor vital signs for fever, tachycardia, hypotension Follow up: CRP, blood, wound and urine cultures, vanco trough 21:30 -patient is for MRI right foot today, follow up report -if MRI + for osteo, discuss with podiatry discontinuing lovenox in AM if patient is to go to OR. -cbc, bmp in AM. 2. diabetic foot infection -on zosyn and vanco day 2. -for MRI today 3. Elevated BP without hx of HTN -no hx of hypertension -monitor -start lisinopril 10mg 3. Cough -given hx of cough with associated chills and sputum production, will rule out pneumonia -CXR negative - on broad spectrum antibiotics -start tessalon 3. Uncontrolled DM - last HgA1c: 12.0 in 09/21/2016 - hold metformin 1000mg PO BID for now - home medications: discontinue glyburide, continue Novolog 70/30: 10 units SC q12 - Insulin Sliding scale - Accuchecks - consistent carbohydrate diet - hx of microalbuminuria -creatinine at baseline: start PEYTON inhibitor given pt has microalbuminuria 4: Hyperlipidemia -controlled, ASCVD risk: 9.2% -Total cholesterol 173, LDL 90, HDL 43 -Triglycerides: 145 -continue Simvastatin 20mg qhs, increase upon discharge to 40mg 5. DVT prophylaxis -lovenox 40mg SC
--- NOTE | 2016-11-01 09:00 | CP.PCM.PN ---
Subjective - Date & Time of Evaluation Date of Evaluation: 11/01/16 Time of Evaluation: 08:58 - Subjective Subjective: 61 y/o male seen at bedside with attending Dr. Bui for edematous right big toe. Patient denies any acute events overnight. He states that he has mild pain in his right big toe. He denies any other pedal complaints. Dressing c/d/i. Patient denies n/f/v/c/d/sob. Objective - Vital Signs/Intake and Output Vital Signs (last 24 hours): Temp Pulse Resp BP Pulse Ox 98.2 F 63 20 164/90 H 98 11/01/16 08:20 11/01/16 08:20 11/01/16 08:20 11/01/16 08:20 11/01/16 08:20 - Medications Medications: Current Medications Acetaminophen (Tylenol 325mg Tab) 650 mg PO Q6 PRN PRN Reason: Fever >100.4 F Atorvastatin Calcium (Lipitor) 10 mg PO HS [facility] Last Admin: 10/31/16 22:16 Dose: 10 mg Enoxaparin Sodium (Lovenox) 40 mg SC DAILY [facility] PRN Reason: Protocol Last Admin: 10/31/16 16:45 Dose: 40 mg Glyburide (Micronase) 5 mg PO BID [facility] Last Admin: 10/31/16 16:45 Dose: 5 mg Sodium Chloride (Sodium Chloride 0.9%) 1,000 mls @ 1,000 mls/hr IV .Q1H [facility] Stop: 11/01/16 10:00 Last Admin: 11/01/16 05:03 Dose: Not Given Vancomycin HCl 1 gm/ Sodium (Chloride) 250 mls @ 166.667 mls/hr IVPB Q12 [facility] Last Admin: 10/31/16 20:35 Dose: 166.667 mls/hr Piperacillin Sod/Tazobactam (Sod 3.375 gm/ Sodium Chloride) 100 mls @ 100 mls/ hr IVPB Q6 [facility] Last Admin: 11/01/16 03:50 Dose: 100 mls/hr Insulin Human Lispro (Humalog) 0 units SC ACHS [facility] PRN Reason: Protocol Last Admin: 10/31/16 22:24 Dose: Not Given Insulin Lispro Protam/Lispro Human (Humalog Mix 75/25) 10 units SC BID [facility] Last Admin: 10/31/16 16:49 Dose: 10 units - Labs Labs: 11/01/16 05:50 11/01/16 05:50 - Constitutional Appears: Well, Non-toxic, No Acute Distress - Extremities Exam Additional comments: O: Vasc: DP 2/4, PT 1/4 b/l, TG wnl, CFT < 3 sec to all digits, nonpitting edema to Right hallux, 2x the size of the left hallux neuro: grossly diminished derm: localized edema to right hallux, mild erythema, pre ulcerative lesion to dorosmedial hallux with no drainage, no purulence, mild fluctuance, no malodor, no tunneling or undermining, no ascending cellulitis ortho: mild pain on palpation to R hallux - Neurological Exam Neurological Exam: Alert, Awake, Oriented x3 - Psychiatric Exam Psychiatric exam: Normal Affect, Normal Mood Assessment and Plan - Assessment and Plan (Free Text) Assessment: 61 y/o male with pmhx of uncontrolled DM, HLD, seen at bedside in ED for right hallux infection secondary to uncontrolled diabetes, rule out OM Plan: patient evaluated and chart reviewed seen at bedside with attending Dr. Bui labs and vitals reviewed; afebrile, WBC 7.2, ESR 97 wound cx obtained applied DSD to right foot ID consult placed- recommends MRI awaiting MRI results continue IV abx - Vanco, Zosyn ordered GABRIEL/PVR to assess vascularity to extremities discussed with patient the possibility if whether the toe can be salvageable based on the depth of the infection podiatry will continue to follow
[2016-11-01] MEDS: Insulin Lispro (humaLOG) 100 Units/ml Inj SC SCH ×5 (09:26→22:23)
[2016-11-01] MEDS: Insulin Lispro Mix 75/25 100 units/ml (HumaLog) 10ml SC SCH ×2 (09:26→17:04)
[2016-11-01] MEDS: Enoxaparin 40 mg Syringe SC SCH (09:27)
--- NOTE | 2016-11-01 10:02 | RAD ---
HISTORY: cough COMPARISON: Comparison is made to 06/08/2014 TECHNIQUE: Chest PA and lateral FINDINGS: LUNGS: No evidence of focal infiltrate or consolidation in the lungs. PLEURA: No significant pleural effusion identified. No pneumothorax apparent. CARDIOVASCULAR: Normal. OSSEOUS STRUCTURES: No significant abnormalities. VISUALIZED UPPER ABDOMEN: Normal. OTHER FINDINGS: None. IMPRESSION: No radiographic evidence of pneumonia.
[2016-11-01] MEDS ORDERED: Gadodiamide 287 MG/ML VIAL (15ML) IV ONE (12:55)
--- NOTE | 2016-11-01 16:48 | MRI ---
PROCEDURE: MRI of the right foot. HISTORY: r/o osteomyelitis COMPARISON: Comparison is made to the previous x-ray dated 10/20/2016 and 10/31/2016 TECHNIQUE: Axial coronal and sagittal MRI images of the right foot were obtained before and after IV contrast administration. FINDINGS: Study demonstrates heterogeneous in bone marrow edema and possible small cortical erosion at the distal phalanx and distal portion of the proximal phalanx of the right big toe suspicious for osteomyelitis. Heterogeneous soft tissue edema and increased enhancement of the soft tissue at the recto more prominent distally consistent with infection/inflammatory process. No evidence of discrete abscess formation. Small amount of fluid seen at the interphalangeal joint of the big toe and the possibility of septic arthritis is not totally excluded. There is mild to moderate hallux valgus deformity noted. IMPRESSION: Findings suspicious for osteomyelitis involving the distal portion of the proximal phalanx and the distal phalanx of the right big toe as described above. Small amount of joint effusion seen at the interphalangeal joint and the possibility of septic arthritis is not totally excluded. Soft tissue edema and inflammatory changes without evidence of discrete fluid collection.
[2016-11-02] MEDS: Piperacillin/Tazobact 3.375 GM in Sodium Chloride 0.9% 100 ML IVPB SCH ×3 (02:10→14:46)
[2016-11-02 03:06] LABS: RBC URINE 2 /hpf (0-3); URINE BACTERIA RARE (<OCC); URINE BILIRUBIN NEGATIVE (NEGATIVE); URINE BLOOD NEGATIVE (NEGATIVE); URINE COLOR YELLOW (YELLOW); URINE GLUCOSE (UA) 50 mg/dL (Normal); URINE KETONE NEGATIVE (NEGATIVE); URINE LEUKOCYTE ESTERASE NEG Leu/uL (Negative); URINE PROTEIN 100 mg/dL (NEGATIVE); URINE UROBILINOGEN 0.2-1.0 mg/dL (0.2-1.0); WBC URINE < 1 /hpf (0-5)
--- NOTE | 2016-11-02 06:40 | CP.PCM.PN ---
Subjective - Date & Time of Evaluation Date of Evaluation: 11/02/16 Time of Evaluation: 08:00 - Subjective Subjective: Overnight: + night sweat, afebrile. hypertensive. Patient reports he feels well. He is seen sitting upright in chair, eating breakfast. Has no pain. Patient refusing surgical intervention due to social issues. Patient lives alone in [place], has no support,and is unable to quit working. Objective - Vital Signs/Intake and Output Vital Signs (last 24 hours): Temp Pulse Resp BP Pulse Ox 98.7 F 64 18 168/84 H 97 11/02/16 00:34 11/02/16 00:34 11/02/16 00:34 11/02/16 00:34 11/02/16 00:34 - Medications Medications: Current Medications Acetaminophen (Tylenol 325mg Tab) 650 mg PO Q6 PRN PRN Reason: Fever >100.4 F Atorvastatin Calcium (Lipitor) 10 mg PO HS [facility] Last Admin: 11/01/16 21:28 Dose: 10 mg Enoxaparin Sodium (Lovenox) 40 mg SC DAILY [facility] PRN Reason: Protocol Last Admin: 11/01/16 09:27 Dose: 40 mg Guaifenesin/Codeine Phosphate (Robitussin W/Codeine) 5 ml PO Q6 PRN PRN Reason: Cough Vancomycin HCl 1 gm/ Sodium (Chloride) 250 mls @ 166.667 mls/hr IVPB Q12 [facility] Last Admin: 11/01/16 21:25 Dose: 166.667 mls/hr Piperacillin Sod/Tazobactam (Sod 3.375 gm/ Sodium Chloride) 100 mls @ 100 mls/ hr IVPB 0200,0800,1400,2000 [facility] Last Admin: 11/02/16 02:10 Dose: 100 mls/hr Insulin Human Lispro (Humalog) 0 units SC ACHS [facility] PRN Reason: Protocol Last Admin: 11/01/16 22:23 Dose: Not Given Insulin Lispro Protam/Lispro Human (Humalog Mix 75/25) 10 units SC BID [facility] Last Admin: 11/01/16 17:04 Dose: 10 units Lisinopril (Zestril) 10 mg PO DAILY [facility] Last Admin: 11/01/16 17:02 Dose: 10 mg - Labs Labs: 11/01/16 05:50 11/01/16 05:50 - Constitutional Appears: No Acute Distress - Head Exam Head Exam: NORMAL INSPECTION - Eye Exam Eye Exam: EOMI, Normal appearance - ENT Exam ENT Exam: Mucous Membranes Moist - Respiratory Exam Respiratory Exam: Clear to Ausculation Bilateral, NORMAL BREATHING PATTERN - Cardiovascular Exam Cardiovascular Exam: REGULAR RHYTHM, +S1, +S2 - GI/Abdominal Exam GI & Abdominal Exam: Soft, Normal Bowel Sounds. absent: Tenderness - Extremities Exam Extremities Exam: absent: Pedal Edema, Tenderness Additional comments: toe not visualized due to dressing. - Neurological Exam Neurological Exam: Alert, Awake, CN II-XII Intact, Oriented x3 - Psychiatric Exam Psychiatric exam: Normal Affect, Normal Mood - Skin Skin Exam: Dry Assessment and Plan - Assessment and Plan (Free Text) Assessment: Assessment: 61 year old male with PMH of uncontrolled DM and HLD presented to ED with chills , cough dizziness with hx of right great to infection that failed outpatient treatment with augmentin. Patient was admitted and started on IV antibiotics to treat right toe infections likely secondary osteomyelitis vs septic arthritis. Patient is refusing surgival intervention due to financial reasons. 1. diabetic foot infection -secondary to osteomyelitis vs septic arthritis. -afebrile, no tachycardia -day 3 iv abx: zosyn and vancomycin -Cultures: blood: negative x 24 hrs. wound: acitinobacter baumannii, coagulase negative staph, sensitivities reviewed. urine: gram neg balwinder -labs reviewed: vanco trough: 11.3, -crp >15, ESR: 97, BUN/Cr WNL -podiatry recommending surgery, patient is refusing at this time. -Awaiting ID recommendations Follow up: cbc, bmp in AM 2. Sepsis -resolved. 3. Elevated BP without hx of HTN -new onset, uncontrolled: add norvasc, continue lisinopril 10 mg -likely due to stress vs undiagnosed htn -monitor 3. Cough -CXR negative - on broad spectrum antibiotics -cough syrup 3. Uncontrolled DM - last HgA1c: 12.0 in 09/21/2016 - hold metformin 1000mg PO BID for now - home medications: discontinue glyburide, continue Novolog 70/30: 10 units SC q12 - increase based on requirements. - Insulin Sliding scale - Accuchecks - consistent carbohydrate diet - hx of microalbuminuria -creatinine at baseline: start PEYTON inhibitor given pt has microalbuminuria 4: Hyperlipidemia -controlled, ASCVD risk: 9.2% -Total cholesterol 173, LDL 90, HDL 43 -Triglycerides: 145 -continue Simvastatin 20mg qhs, increase upon discharge to 40mg 5. DVT prophylaxis -lovenox 40mg SC
--- NOTE | 2016-11-02 08:17 | CP.PCM.PN ---
Subjective - Date & Time of Evaluation Date of Evaluation: 11/02/16 Time of Evaluation: 08:14 - Subjective Subjective: 61 y/o male seen at bedside for edematous right big toe. Patient denies any acute events overnight. He states that he has mild pain in his right big toe. He denies any other pedal complaints. Dressing c/d/i. Patient denies n/f/v/c/d/ sob. Objective - Vital Signs/Intake and Output Vital Signs (last 24 hours): Temp Pulse Resp BP Pulse Ox 98.6 F 64 20 184/88 H 98 11/02/16 07:28 11/02/16 07:28 11/02/16 07:28 11/02/16 07:28 11/02/16 07:28 - Medications Medications: Current Medications Acetaminophen (Tylenol 325mg Tab) 650 mg PO Q6 PRN PRN Reason: Fever >100.4 F Atorvastatin Calcium (Lipitor) 10 mg PO HS [facility] Last Admin: 11/01/16 21:28 Dose: 10 mg Enoxaparin Sodium (Lovenox) 40 mg SC DAILY [facility] PRN Reason: Protocol Last Admin: 11/01/16 09:27 Dose: 40 mg Guaifenesin/Codeine Phosphate (Robitussin W/Codeine) 5 ml PO Q6 PRN PRN Reason: Cough Vancomycin HCl 1 gm/ Sodium (Chloride) 250 mls @ 166.667 mls/hr IVPB Q12 [facility] Last Admin: 11/01/16 21:25 Dose: 166.667 mls/hr Piperacillin Sod/Tazobactam (Sod 3.375 gm/ Sodium Chloride) 100 mls @ 100 mls/ hr IVPB 0200,0800,1400,2000 [facility] Last Admin: 11/02/16 02:10 Dose: 100 mls/hr Insulin Human Lispro (Humalog) 0 units SC ACHS [facility] PRN Reason: Protocol Last Admin: 11/01/16 22:23 Dose: Not Given Insulin Lispro Protam/Lispro Human (Humalog Mix 75/25) 10 units SC BID [facility] Last Admin: 11/01/16 17:04 Dose: 10 units Lisinopril (Zestril) 10 mg PO DAILY [facility] Last Admin: 11/01/16 17:02 Dose: 10 mg - Labs Labs: 11/01/16 05:50 11/01/16 05:50 - Constitutional Appears: Well, Non-toxic, No Acute Distress - Extremities Exam Additional comments: O: Vasc: DP 2/4, PT 1/4 b/l, TG wnl, CFT < 3 sec to all digits, nonpitting edema to Right hallux, 2x the size of the left hallux neuro: grossly diminished derm: localized edema to right hallux, mild erythema, pre ulcerative lesion to dorosmedial hallux with no drainage, no purulence, mild fluctuance, no malodor, no tunneling or undermining, no ascending cellulitis ortho: mild pain on palpation to R hallux - Neurological Exam Neurological Exam: Alert, Awake, Oriented x3 - Psychiatric Exam Psychiatric exam: Normal Affect, Normal Mood Assessment and Plan - Assessment and Plan (Free Text) Assessment: 61 y/o male with pmhx of uncontrolled DM, HLD, seen at bedside in ED for right hallux infection secondary to uncontrolled diabetes, rule out OM Plan: patient evaluated and chart reviewed discussed with attending Dr. Bui labs and vitals reviewed; afebrile wound cx obtained- preliminary result: gram negative balwinder applied DSD to right foot MRI of right foot-suspicious of OM at the proximal and distal phalanx of R hallux, possible septic arthritis continue IV abx - Vanco, Zosyn f/u GABRIEL/PVR after discussing with Dr. Bui, ID, and medicine team- we explained all of the risks, benefits, complications of amputation vs. IV antibiotics after thorough discussion, patient decided to have amputation performed tomorrow patient going to OR tomorrow am 9:45 for hallux amputation patient to Be NPO after midnight podiatry will continue to follow
[2016-11-02] MEDS: Insulin Lispro (humaLOG) 100 Units/ml Inj SC SCH ×4 (08:18→21:57)
[2016-11-02] MEDS: Insulin Lispro Mix 75/25 100 units/ml (HumaLog) 10ml SC SCH ×2 (08:19→16:21)
[2016-11-02] MEDS: Enoxaparin 40 mg Syringe SC SCH (08:19)
[2016-11-02 09:13] LABS: BLOOD UREA NITROGEN 18 mg/dl (9-20); CALCIUM 8.9 mg/dL (8.4-10.2); CARBON DIOXIDE 26 mmol/L (22-30); CHLORIDE 102 mmol/L (98-107); GFR AFRICAN-AMERICAN > 60; GLUCOSE,RANDOM 250 mg/dL (75-110); POTASSIUM 4.9 MMOL/L (3.6-5.0); SODIUM 135 mmol/l (132-148)
[2016-11-02] MEDS ORDERED: Lidocaine 1% Inj (20ml) ONE (13:59)
--- NOTE | 2016-11-02 14:27 | PCM.SURG1 ---
Surgeon's Initial Post Op Note - Surgeon's Notes Surgeon: Ewa Alford Television Installer Helper: None Type of Anesthesia: Local Pre-Operative Diagnosis: Poor venous access Operative Findings: Patent left basilic vein. Post-Operative Diagnosis: Poor venous access Operation Performed: Single lumen picc placement left basilic vein, 39 cm. Tip in SVC. Specimen/Specimens Removed: None Estimated Blood Loss: EBL {In ML}: 2 Blood Products Given: N/A Drains Used: No Drains Post-Op Condition: Fair Date of Surgery/Procedure: 11/02/16 Time of Surgery/Procedure: 14:20
--- NOTE | 2016-11-02 15:54 | CP.PCM.PN ---
Subjective - Date & Time of Evaluation Date of Evaluation: 11/02/16 Time of Evaluation: 17:00 - Subjective Subjective: ID Note- Pt. seen and examined with family practice resident. Pt. denies any fever or chills and states he feels fine. MRI was reported as OM and spoke with the solution engineer who states pt. would benefit from toe amputation, however, pt. is hesitant about this. pt. states he must go back to work. Objective - Vital Signs/Intake and Output Vital Signs (last 24 hours): Temp Pulse Resp BP Pulse Ox 97.7 F 69 20 188/90 H 99 11/02/16 14:50 11/02/16 14:50 11/02/16 14:50 11/02/16 14:50 11/02/16 14:50 - Medications Medications: Current Medications Acetaminophen (Tylenol 325mg Tab) 650 mg PO Q6 PRN PRN Reason: Fever >100.4 F Amlodipine Besylate (Norvasc) 5 mg PO DAILY [facility] Atorvastatin Calcium (Lipitor) 10 mg PO HS [facility] Last Admin: 11/01/16 21:28 Dose: 10 mg Enoxaparin Sodium (Lovenox) 40 mg SC DAILY [facility] PRN Reason: Protocol Last Admin: 11/02/16 08:19 Dose: 40 mg Guaifenesin/Codeine Phosphate (Robitussin W/Codeine) 5 ml PO Q6 PRN PRN Reason: Cough Vancomycin HCl 1 gm/ Sodium (Chloride) 250 mls @ 166.667 mls/hr IVPB Q12 [facility] Last Admin: 11/02/16 10:08 Dose: 166.667 mls/hr Piperacillin Sod/Tazobactam (Sod 3.375 gm/ Sodium Chloride) 100 mls @ 100 mls/ hr IVPB 0200,0800,1400,2000 [facility] Last Admin: 11/02/16 14:46 Dose: 100 mls/hr Insulin Human Lispro (Humalog) 0 units SC ACHS [facility] PRN Reason: Protocol Last Admin: 11/02/16 12:23 Dose: 4 units Insulin Lispro Protam/Lispro Human (Humalog Mix 75/25) 10 units SC BID [facility] Last Admin: 11/02/16 08:19 Dose: 10 units Lisinopril (Zestril) 10 mg PO DAILY [facility] Last Admin: 11/02/16 08:17 Dose: 10 mg - Labs Labs: - Additional Findings Additional findings: - Constitutional Appears: Non-toxic, No Acute Distress - Head Exam Head Exam: ATRAUMATIC - Eye Exam Eye Exam: EOMI, PERRL - ENT Exam ENT Exam: Normal Oropharynx - Neck Exam Neck exam: Positive for: Full Rom - Respiratory Exam Respiratory Exam: Clear to Auscultation Bilateral, NORMAL BREATHING PATTERN - Cardiovascular Exam Cardiovascular Exam: RRR, +S1, +S2 - GI/Abdominal Exam GI & Abdominal Exam: Normal Bowel Sounds, Soft Additional comments: NT, ND - Extremities Exam Additional comments: No edema in B/L LE right medial great toe with 3 x 4 cm round ulcer with small opening but dry, no active discharge, no malodor now no surrounding erythema, not warm to touch, minimal edema in right great toe region severe onychomycosis of the right great toe and the second and third toes. - Neurological Exam Neurological exam: Alert, Oriented x 3 Laboratory Results - last 72 hr 10/31/16 10/31/16 10/31/16 09:59 10:15 10:15 WBC 12.1 H D RBC 4.01 L Hgb 12.2 Hct 34.9 L MCV 87.2 MCH 30.3 MCHC 34.8 RDW 13.1 Plt Count 368 D MPV 8.2 Neut % (Auto) 80.0 H Lymph % (Auto) 12.6 L [place] % (Auto) 5.6 Eos % (Auto) 1.5 Baso % (Auto) 0.3 Neut # 9.7 H Lymph # 1.5 [place] # 0.7 Eos # 0.2 Baso # 0.0 ESR pO2 VBG pH VBG pCO2 VBG HCO3 VBG Total CO2 VBG O2 Sat (Calc) VBG Base Excess VBG Potassium A-a O2 Difference Glucose Lactate FiO2 Crit Value Called To Crit Value Called By Crit Value Read Back Blood Gas Notified Time Sodium 141 Potassium 4.7 Chloride 101 Carbon Dioxide 30 Anion Gap 15 BUN 18 Creatinine 1.3 Est GFR ( Amer) > 60 Est GFR (Non-Af Amer) 57 POC Glucose (mg/dL) 162 H Random Glucose 138 H Lactic Acid Calcium 9.3 Total Bilirubin < 0.1 L AST 38 ALT 39 Alkaline Phosphatase 153 H C-React Prot High Sens Total Protein 8.2 Albumin 4.0 Globulin 4.2 H Albumin/Globulin Ratio 1.0 Procalcitonin Venous Blood Potassium Urine Color Urine Clarity Urine pH Ur Specific [place] Urine Protein Urine Glucose (UA) Urine Ketones Urine Blood Urine Nitrate Urine Bilirubin Urine Urobilinogen Ur Leukocyte Esterase Urine RBC (Auto) Urine Microscopic WBC Urine Bacteria Hyaline Casts Vancomycin Trough Complement C3 Complement C4 Influenza Typ A,B (EIA) 10/31/16 10/31/16 10/31/16 10:15 10:15 10:30 WBC RBC Hgb Hct MCV MCH MCHC RDW Plt Count MPV Neut % (Auto) Lymph % (Auto) [place] % (Auto) Eos % (Auto) Baso % (Auto) Neut # Lymph # [place] # Eos # Baso # ESR pO2 17 L VBG pH 7.33 VBG pCO2 58 VBG HCO3 26.0 VBG Total CO2 32.4 H VBG O2 Sat (Calc) 38.6 L VBG Base Excess 3.3 H VBG Potassium 4.7 A-a O2 Difference 60.0 Glucose 138 H Lactate 1.7 FiO2 21.0 Crit Value Called To Dr clayton leo Crit Value Called By 15 Crit Value Read Back Y Blood Gas Notified Time 1028 Sodium 137.0 Potassium Chloride 103.0 Carbon Dioxide Anion Gap BUN Creatinine Est GFR ( Amer) Est GFR (Non-Af Amer) POC Glucose (mg/dL) Random Glucose Lactic Acid 1.7 Calcium Total Bilirubin AST ALT Alkaline Phosphatase C-React Prot High Sens Total Protein Albumin Globulin Albumin/Globulin Ratio Procalcitonin Venous Blood Potassium 4.7 Urine Color Yellow Urine Clarity Clear Urine pH 6.0 Ur Specific [place] 1.023 Urine Protein >=500 Urine Glucose (UA) >=500 Urine Ketones Negative Urine Blood Negative Urine Nitrate Negative Urine Bilirubin Negative Urine Urobilinogen 0.2-1.0 Ur Leukocyte Esterase Neg Urine RBC (Auto) 3 Urine Microscopic WBC 2 Urine Bacteria Hyaline Casts >20 H Vancomycin Trough Complement C3 Complement C4 Influenza Typ A,B (EIA) 10/31/16 10/31/16 10/31/16 12:19 12:45 13:15 WBC RBC Hgb Hct MCV MCH MCHC RDW Plt Count MPV Neut % (Auto) Lymph % (Auto) [place] % (Auto) Eos % (Auto) Baso % (Auto) Neut # Lymph # [place] # Eos # Baso # ESR 97 H pO2 VBG pH VBG pCO2 VBG HCO3 VBG Total CO2 VBG O2 Sat (Calc) VBG Base Excess VBG Potassium A-a O2 Difference Glucose Lactate FiO2 Crit Value Called To Crit Value Called By Crit Value Read Back Blood Gas Notified Time Sodium Potassium Chloride Carbon Dioxide Anion Gap BUN Creatinine Est GFR ( Amer) Est GFR (Non-Af Amer) POC Glucose (mg/dL) Random Glucose Lactic Acid Calcium Total Bilirubin AST ALT Alkaline Phosphatase C-React Prot High Sens Total Protein Albumin Globulin Albumin/Globulin Ratio Procalcitonin < 0.05 L Venous Blood Potassium Urine Color Urine Clarity Urine pH Ur Specific [place] Urine Protein Urine Glucose (UA) Urine Ketones Urine Blood Urine Nitrate Urine Bilirubin Urine Urobilinogen Ur Leukocyte Esterase Urine RBC (Auto) Urine Microscopic WBC Urine Bacteria Hyaline Casts Vancomycin Trough Complement C3 Complement C4 Influenza Typ A,B (EIA) Negative for flu a/b 10/31/16 10/31/16 11/01/16 16:36 22:24 05:37 WBC RBC Hgb Hct MCV MCH MCHC RDW Plt Count MPV Neut % (Auto) Lymph % (Auto) [place] % (Auto) Eos % (Auto) Baso % (Auto) Neut # Lymph # [place] # Eos # Baso # ESR pO2 VBG pH VBG pCO2 VBG HCO3 VBG Total CO2 VBG O2 Sat (Calc) VBG Base Excess VBG Potassium A-a O2 Difference Glucose Lactate FiO2 Crit Value Called To Crit Value Called By Crit Value Read Back Blood Gas Notified Time Sodium Potassium Chloride Carbon Dioxide Anion Gap BUN Creatinine Est GFR ( Amer) Est GFR (Non-Af Amer) POC Glucose (mg/dL) 263 H 207 H 178 H Random Glucose Lactic Acid Calcium Total Bilirubin AST ALT Alkaline Phosphatase C-React Prot High Sens Total Protein Albumin Globulin Albumin/Globulin Ratio Procalcitonin Venous Blood Potassium Urine Color Urine Clarity Urine pH Ur Specific [place] Urine Protein Urine Glucose (UA) Urine Ketones Urine Blood Urine Nitrate Urine Bilirubin Urine Urobilinogen Ur Leukocyte Esterase Urine RBC (Auto) Urine Microscopic WBC Urine Bacteria Hyaline Casts Vancomycin Trough Complement C3 Complement C4 Influenza Typ A,B (EIA) 11/01/16 11/01/16 11/01/16 05:50 05:50 05:50 WBC 7.2 RBC 3.88 L Hgb 11.4 L Hct 33.9 L MCV 87.3 MCH 29.4 MCHC 33.6 RDW 13.0 Plt Count 369 MPV Neut % (Auto) Lymph % (Auto) [place] % (Auto) Eos % (Auto) Baso % (Auto) Neut # Lymph # [place] # Eos # Baso # ESR pO2 VBG pH VBG pCO2 VBG HCO3 VBG Total CO2 VBG O2 Sat (Calc) VBG Base Excess VBG Potassium A-a O2 Difference Glucose Lactate FiO2 Crit Value Called To Crit Value Called By Crit Value Read Back Blood Gas Notified Time Sodium 138 Potassium 4.2 Chloride 102 Carbon Dioxide 27 Anion Gap 13 BUN 11 Creatinine 0.8 Est GFR ( Amer) > 60 Est GFR (Non-Af Amer) > 60 POC Glucose (mg/dL) Random Glucose 161 H Lactic Acid Calcium 8.6 Total Bilirubin AST ALT Alkaline Phosphatase C-React Prot High Sens > 15.00 H Total Protein Albumin Globulin Albumin/Globulin Ratio Procalcitonin Venous Blood Potassium Urine Color Urine Clarity Urine pH Ur Specific [place] Urine Protein Urine Glucose (UA) Urine Ketones Urine Blood Urine Nitrate Urine Bilirubin Urine Urobilinogen Ur Leukocyte Esterase Urine RBC (Auto) Urine Microscopic WBC Urine Bacteria Hyaline Casts Vancomycin Trough Complement C3 Complement C4 Influenza Typ A,B (EIA) 11/01/16 11/01/16 11/01/16 11:20 16:01 20:31 WBC RBC Hgb Hct MCV MCH MCHC RDW Plt Count MPV Neut % (Auto) Lymph % (Auto) [place] % (Auto) Eos % (Auto) Baso % (Auto) Neut # Lymph # [place] # Eos # Baso # ESR pO2 VBG pH VBG pCO2 VBG HCO3 VBG Total CO2 VBG O2 Sat (Calc) VBG Base Excess VBG Potassium A-a O2 Difference Glucose Lactate FiO2 Crit Value Called To Crit Value Called By Crit Value Read Back Blood Gas Notified Time Sodium Potassium Chloride Carbon Dioxide Anion Gap BUN Creatinine Est GFR ( Amer) Est GFR (Non-Af Amer) POC Glucose (mg/dL) 299 H 175 H Random Glucose Lactic Acid Calcium Total Bilirubin AST ALT Alkaline Phosphatase C-React Prot High Sens Total Protein Albumin Globulin Albumin/Globulin Ratio Procalcitonin Venous Blood Potassium Urine Color Urine Clarity Urine pH Ur Specific [place] Urine Protein Urine Glucose (UA) Urine Ketones Urine Blood Urine Nitrate Urine Bilirubin Urine Urobilinogen Ur Leukocyte Esterase Urine RBC (Auto) Urine Microscopic WBC Urine Bacteria Hyaline Casts Vancomycin Trough 11.3 H Complement C3 Complement C4 Influenza Typ A,B (EIA) 11/01/16 11/02/16 11/02/16 22:08 02:30 05:46 WBC RBC Hgb Hct MCV MCH MCHC RDW Plt Count MPV Neut % (Auto) Lymph % (Auto) [place] % (Auto) Eos % (Auto) Baso % (Auto) Neut # Lymph # [place] # Eos # Baso # ESR pO2 VBG pH VBG pCO2 VBG HCO3 VBG Total CO2 VBG O2 Sat (Calc) VBG Base Excess VBG Potassium A-a O2 Difference Glucose Lactate FiO2 Crit Value Called To Crit Value Called By Crit Value Read Back Blood Gas Notified Time Sodium Potassium Chloride Carbon Dioxide Anion Gap BUN Creatinine Est GFR ( Amer) Est GFR (Non-Af Amer) POC Glucose (mg/dL) 148 H 270 H Random Glucose Lactic Acid Calcium Total Bilirubin AST ALT Alkaline Phosphatase C-React Prot High Sens Total Protein Albumin Globulin Albumin/Globulin Ratio Procalcitonin Venous Blood Potassium Urine Color Yellow Urine Clarity Clear Urine pH 7.0 Ur Specific [place] 1.013 Urine Protein 100 Urine Glucose (UA) 50 Urine Ketones Negative Urine Blood Negative Urine Nitrate Negative Urine Bilirubin Negative Urine Urobilinogen 0.2-1.0 Ur Leukocyte Esterase Neg Urine RBC (Auto) 2 Urine Microscopic WBC < 1 Urine Bacteria Rare Hyaline Casts Vancomycin Trough Complement C3 Complement C4 Influenza Typ A,B (EIA) 11/02/16 11/02/16 11/02/16 06:05 09:05 10:49 WBC RBC Hgb Hct MCV MCH MCHC RDW Plt Count MPV Neut % (Auto) Lymph % (Auto) [place] % (Auto) Eos % (Auto) Baso % (Auto) Neut # Lymph # [place] # Eos # Baso # ESR pO2 VBG pH VBG pCO2 VBG HCO3 VBG Total CO2 VBG O2 Sat (Calc) VBG Base Excess VBG Potassium A-a O2 Difference Glucose Lactate FiO2 Crit Value Called To Crit Value Called By Crit Value Read Back Blood Gas Notified Time Sodium 135 Potassium 4.9 Chloride 102 Carbon Dioxide 26 Anion Gap 13 BUN 18 Creatinine 1.0 Est GFR ( Amer) > 60 Est GFR (Non-Af Amer) > 60 POC Glucose (mg/dL) 238 H Random Glucose 250 H Lactic Acid Calcium 8.9 Total Bilirubin AST ALT Alkaline Phosphatase C-React Prot High Sens Total Protein Albumin Globulin Albumin/Globulin Ratio Procalcitonin Venous Blood Potassium Urine Color Urine Clarity Urine pH Ur Specific [place] Urine Protein Urine Glucose (UA) Urine Ketones Urine Blood Urine Nitrate Urine Bilirubin Urine Urobilinogen Ur Leukocyte Esterase Urine RBC (Auto) Urine Microscopic WBC Urine Bacteria Hyaline Casts Vancomycin Trough Complement C3 121.0 Complement C4 35.7 Influenza Typ A,B (EIA) 11/02/16 15:47 WBC RBC Hgb Hct MCV MCH MCHC RDW Plt Count MPV Neut % (Auto) Lymph % (Auto) [place] % (Auto) Eos % (Auto) Baso % (Auto) Neut # Lymph # [place] # Eos # Baso # ESR pO2 VBG pH VBG pCO2 VBG HCO3 VBG Total CO2 VBG O2 Sat (Calc) VBG Base Excess VBG Potassium A-a O2 Difference Glucose Lactate FiO2 Crit Value Called To Crit Value Called By Crit Value Read Back Blood Gas Notified Time Sodium Potassium Chloride Carbon Dioxide Anion Gap BUN Creatinine Est GFR ( Amer) Est GFR (Non-Af Amer) POC Glucose (mg/dL) 226 H Random Glucose Lactic Acid Calcium Total Bilirubin AST ALT Alkaline Phosphatase C-React Prot High Sens Total Protein Albumin Globulin Albumin/Globulin Ratio Procalcitonin Venous Blood Potassium Urine Color Urine Clarity Urine pH Ur Specific [place] Urine Protein Urine Glucose (UA) Urine Ketones Urine Blood Urine Nitrate Urine Bilirubin Urine Urobilinogen Ur Leukocyte Esterase Urine RBC (Auto) Urine Microscopic WBC Urine Bacteria Hyaline Casts Vancomycin Trough Complement C3 Complement C4 Influenza Typ A,B (EIA) Microbiology 10/31/16 12:25 Foot - Right Gram Stain - Final 10/31/16 12:25 Foot - Right Wound Culture - Final Acinetobacter Baumannii Coagulase Neg Staphylococcus 10/31/16 10:15 Blood-Venous Blood Culture - Preliminary NO GROWTH AFTER 48 HOURS 10/31/16 10:10 Blood-Venous Blood Culture - Preliminary NO GROWTH AFTER 48 HOURS 11/01/16 05:50 Blood-Venous Blood Culture - Preliminary NO GROWTH AFTER 24 HOURS 10/31/16 10:15 Urine,Random Urine Culture - Final Gram Negative Torsten Accession No. : [id number] Patient Name / ID : ALEXI SCHUSTER / [id number] Exam Date : 11/01/2016 13:22:32 ( Approved ) Study Comment : Sex / Age : M / 61Y Creator : Yazan Craven Dictator : Yazan Craven C Java Developer : Furniture Manager : Yazan Craven Approver2 : Report Date : 11/01/2016 16:42:56 My Comment : PROCEDURE: MRI of the right foot. HISTORY: r/o osteomyelitis COMPARISON: Comparison is made to the previous x-ray dated 10/20/2016 and 10/31/2016 TECHNIQUE: Axial coronal and sagittal MRI images of the right foot were obtained before and after IV contrast administration. FINDINGS: Study demonstrates heterogeneous in bone marrow edema and possible small cortical erosion at the distal phalanx and distal portion of the proximal phalanx of the right big toe suspicious for osteomyelitis. Heterogeneous soft tissue edema and increased enhancement of the soft tissue at the recto more prominent distally consistent with infection/inflammatory process. No evidence of discrete abscess formation. Small amount of fluid seen at the interphalangeal joint of the big toe and the possibility of septic arthritis is not totally excluded. There is mild to moderate hallux valgus deformity noted. IMPRESSION: Findings suspicious for osteomyelitis involving the distal portion of the proximal phalanx and the distal phalanx of the right big toe as described above. Small amount of joint effusion seen at the interphalangeal joint and the possibility of septic arthritis is not totally excluded. Soft tissue edema and inflammatory changes without evidence of discrete fluid collection. Assessment and Plan (1) Foot ulcer Status: Acute (2) Diabetes mellitus Status: Acute (3) Cellulitis in diabetic foot Status: Acute - Assessment and Plan (Free Text) Assessment: A/P- 61 year old male with DM II admitted with right great toe ulcer, rule out OM. remains afebrile Minimal leukocytosis has resolved. blood cx- neg x2 wound cx- acinetobacter and coag neg staph MRI as per report suggestive of OM. plan- decision in regards to partial toe amputation or total amputation of the great toe as per patient and solution engineer decision. If no amputation then I recommend at least 6 -8 weeks of IV antibiotics namely vancomycin and meropenem to treat the coag neg staph and the acinetobacter. meropenem can be given 1 gram q12 hours and vanco 1 gram q 12hours as well. keep vanco trough <15. check weekly trough and creatinine levels while on vancomycin. check for any hearing deficits while on vanco and if so to notify his PCP and and switch to another abx at that time. 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 pt. to have close f/u with his solution engineer as outpatient. Pt. seen and examined with the family practice resident and plan discussed. All above also d/w patient and he verbalizes full understanding of all above.
[2016-11-02] MEDS: guaiFENesin-Codeine 100-10mg/5ml Syrup (5 ml) UD PO PRN ×2 (16:24→23:20)
[2016-11-02] MEDS ORDERED: Meropenem 1 GM in Sodium Chloride 0.9% 100 ML IVPB SCH (18:15)
[2016-11-02] MEDS ORDERED: Potassium Ch 20mEq in D5-1/2NS 1,000 ML IV SCH (23:59)
[2016-11-03] MEDS: Meropenem 1 GM in Sodium Chloride 0.9% 100 ML IVPB SCH ×3 (04:24→19:55)
--- NOTE | 2016-11-03 06:39 | CP.PCM.PN ---
Subjective - Date & Time of Evaluation Date of Evaluation: 11/03/16 Time of Evaluation: 13:12 - Subjective Subjective: Patient seen and examined post procedure. Patient is in no distress. No pain presently. Sad about his current situation with his foot. Would like to return to his normal activites after this resolves , like work and sports. He feels well, no fevers/chills, abdominal pain, nausea vomting or diarrhea. Right foot wrapped in bandage that is clean and dry, foot elevated. Nurse bedside taking vital signs reviewed by me, within normal limits. Objective - Vital Signs/Intake and Output Vital Signs (last 24 hours): Temp Pulse Resp BP Pulse Ox 97.9 F 71 19 177/87 H 100 11/03/16 00:33 11/03/16 00:33 11/03/16 00:33 11/03/16 00:33 11/03/16 00:33 - Medications Medications: Current Medications Acetaminophen (Tylenol 325mg Tab) 650 mg PO Q6 PRN PRN Reason: Fever >100.4 F Amlodipine Besylate (Norvasc) 5 mg PO DAILY [facility] Last Admin: 11/02/16 16:16 Dose: 5 mg Atorvastatin Calcium (Lipitor) 10 mg PO HS [facility] Last Admin: 11/02/16 21:30 Dose: 10 mg Enoxaparin Sodium (Lovenox) 40 mg SC DAILY [facility] PRN Reason: Protocol Last Admin: 11/02/16 08:19 Dose: 40 mg Guaifenesin/Codeine Phosphate (Robitussin W/Codeine) 5 ml PO Q6 PRN PRN Reason: Cough Last Admin: 11/02/16 23:20 Dose: 5 ml Vancomycin HCl 1 gm/ Sodium (Chloride) 250 mls @ 166.667 mls/hr IVPB Q12 [facility] Last Admin: 11/02/16 21:26 Dose: 166.667 mls/hr Potassium Chloride/Dextrose/Sod Cl (Potassium Chl 20 Meq In D5-1/2ns) 1,000 mls @ 115 mls/hr IV .Q8H42M [facility] Stop: 11/03/16 17:53 Last Admin: 11/02/16 23:24 Dose: 115 mls/hr Meropenem 1 gm/ Sodium (Chloride) 100 mls @ 100 mls/hr IVPB Q8@0400,1200,2000 [facility] Last Admin: 11/03/16 04:24 Dose: 100 mls/hr Insulin Human Lispro (Humalog) 0 units SC ACHS [facility] PRN Reason: Protocol Last Admin: 11/02/16 21:57 Dose: Not Given Insulin Lispro Protam/Lispro Human (Humalog Mix 75/25) 10 units SC BID [facility] Last Admin: 11/02/16 16:21 Dose: 10 units Lisinopril (Zestril) 10 mg PO DAILY [facility] Last Admin: 11/02/16 08:17 Dose: 10 mg - Labs Labs: 11/01/16 05:50 11/02/16 09:05 - Constitutional Appears: No Acute Distress - Head Exam Head Exam: NORMAL INSPECTION - Eye Exam Eye Exam: Normal appearance - ENT Exam ENT Exam: Mucous Membranes Moist - Respiratory Exam Respiratory Exam: Clear to Ausculation Bilateral, NORMAL BREATHING PATTERN - Cardiovascular Exam Cardiovascular Exam: REGULAR RHYTHM, +S1, +S2 - GI/Abdominal Exam GI & Abdominal Exam: Soft, Normal Bowel Sounds. absent: Distended, Guarding, Tenderness - Rectal Exam Rectal Exam: Deferred - Extremities Exam Extremities Exam: absent: Pedal Edema, Tenderness - Neurological Exam Neurological Exam: Alert, Awake, CN II-XII Intact, Oriented x3 Additional comments: nonweightbearing - Skin Skin Exam: Dry, Intact, Normal Color, Warm Assessment and Plan - Assessment and Plan (Free Text) Assessment: POD#0 s/p right 1st partial ray amputation 61 year old male with PMH of uncontrolled DM and HLD presented to ED with chills , cough dizziness with hx of right great to infection that failed outpatient treatment with augmentin. Patient was admitted and started on IV antibiotics. Nonweight bearing status. Resume diet. Pain control. 1. diabetic foot infection -secondary to osteomyelitis s/p right 1st partial ray amputation -afebrile, no tachycardia -day 4 iv abx: vancomycin : BMP WNL -Day 1: Meropenem - Zosyn 10/31 - 11/02 -Cultures: blood: negative x 48 hrs. wound: acitinobacter baumannii, coagulase negative staph, sensitivities reviewed. urine: +gram neg balwinder -podiatry is following -appreciate ID (Dr. Curtis) recommendations Follow up: BMP, CBC in AM, xray right foot s/p surgery. 2. Sepsis -resolved. 3. Elevated BP without hx of HTN -new onset, uncontrolled: add norvasc, continue lisinopril 10 mg -likely due to stress vs undiagnosed htn -BP controlled s/p procedure, possibly secondary to sedation, will monitor 3. Cough -CXR negative - on broad spectrum antibiotics -cough syrup PRN 3. Uncontrolled DM - last HgA1c: 12.0 in 09/21/2016 - hold metformin 1000mg PO BID for now - home medications: increase Novolog 70/30: to 13 units SC q12 - Insulin Sliding scale - Accuchecks - consistent carbohydrate diet - hx of microalbuminuria -creatinine at baseline: start PEYTON inhibitor given pt has microalbuminuria 4: Hyperlipidemia -controlled, ASCVD risk: 9.2% -Total cholesterol 173, LDL 90, HDL 43 -Triglycerides: 145 -continue Simvastatin 20mg qhs, increase upon discharge to 40mg 5. DVT prophylaxis held due to procedure -lovenox 40mg SC
--- NOTE | 2016-11-03 08:05 | CP.PCM.PN ---
Subjective - Date & Time of Evaluation Date of Evaluation: 11/03/16 Time of Evaluation: 08:03 - Subjective Subjective: 61 y/o male seen at bedside this morning for right foot hallux infection. Patient denies any acute events overnight. Patient is going to OR today for right hallux amputation with Dr. Bui. Patient confirms NPO status. He denies any n/f/c/d/v/sob. Dressing remains clean,dry,intact to right lower extremity. Objective - Vital Signs/Intake and Output Vital Signs (last 24 hours): Temp Pulse Resp BP Pulse Ox 97.9 F 71 19 177/87 H 100 11/03/16 00:33 11/03/16 00:33 11/03/16 00:33 11/03/16 00:33 11/03/16 00:33 - Medications Medications: Current Medications Acetaminophen (Tylenol 325mg Tab) 650 mg PO Q6 PRN PRN Reason: Fever >100.4 F Amlodipine Besylate (Norvasc) 5 mg PO DAILY [facility] Last Admin: 11/02/16 16:16 Dose: 5 mg Atorvastatin Calcium (Lipitor) 10 mg PO HS [facility] Last Admin: 11/02/16 21:30 Dose: 10 mg Enoxaparin Sodium (Lovenox) 40 mg SC DAILY [facility] PRN Reason: Protocol Last Admin: 11/02/16 08:19 Dose: 40 mg Guaifenesin/Codeine Phosphate (Robitussin W/Codeine) 5 ml PO Q6 PRN PRN Reason: Cough Last Admin: 11/02/16 23:20 Dose: 5 ml Vancomycin HCl 1 gm/ Sodium (Chloride) 250 mls @ 166.667 mls/hr IVPB Q12 [facility] Last Admin: 11/02/16 21:26 Dose: 166.667 mls/hr Potassium Chloride/Dextrose/Sod Cl (Potassium Chl 20 Meq In D5-1/2ns) 1,000 mls @ 115 mls/hr IV .Q8H42M [facility] Stop: 11/03/16 17:53 Last Admin: 11/02/16 23:24 Dose: 115 mls/hr Meropenem 1 gm/ Sodium (Chloride) 100 mls @ 100 mls/hr IVPB Q8@0400,1200,2000 [facility] Last Admin: 11/03/16 04:24 Dose: 100 mls/hr Insulin Human Lispro (Humalog) 0 units SC ACHS [facility] PRN Reason: Protocol Last Admin: 11/02/16 21:57 Dose: Not Given Insulin Lispro Protam/Lispro Human (Humalog Mix 75/25) 10 units SC BID [facility] Last Admin: 11/02/16 16:21 Dose: 10 units Lisinopril (Zestril) 10 mg PO DAILY [facility] Last Admin: 11/02/16 08:17 Dose: 10 mg - Labs Labs: 11/01/16 05:50 11/02/16 09:05 - Constitutional Appears: Well, Non-toxic, No Acute Distress - Extremities Exam Additional comments: dressing remains clean,dry,intact no calf pain or tenderness to palpation - Neurological Exam Neurological Exam: Alert, Awake, Oriented x3 - Psychiatric Exam Psychiatric exam: Normal Affect, Normal Mood Assessment and Plan - Assessment and Plan (Free Text) Assessment: 61 y/o male seen at bedside for right hallux osteomyelitis, going to OR this morning for right hallux amputation Plan: patient evaluated and chart reviewed discussed in detail with attending Dr. Bui labs and vitals reviewed; afebrile patient to OR this AM for right hallux amp dressing left intact NPO status confirmed Pt understands all risks, benefits and complications of procedure lovenox held Cont. IV abx as per ID, patient received picc line yesterday podiatry will continue to follow while patient remains in house
[2016-11-03] MEDS ORDERED: Lidocaine 1% Inj (20ml) IJ ONE (08:54)
[2016-11-03] MEDS ORDERED: Bupivacaine 0.5% Inj(30mL) IJ ONE (08:54)
[2016-11-03] MEDS ORDERED: Sodium Chloride 0.9% 500 ML IV SCH (09:00)
[2016-11-03] MEDS: Insulin Lispro Mix 75/25 100 units/ml (HumaLog) 10ml SC SCH ×2 (09:00→16:46)
[2016-11-03] MEDS ORDERED: Propofol 10 mg/ml Inj (20 ML) ONE ×2 (09:12→10:30)
[2016-11-03] MEDS ORDERED: Midazolam 2 MG/2 ML VIAL ONE (09:13)
[2016-11-03] MEDS ORDERED: Bupivacaine 0.5% Inj(30mL) ONE (09:17)
[2016-11-03] MEDS ORDERED: Lidocaine 1% Inj (20ml) ONE (09:17)
[2016-11-03] MEDS ORDERED: Bacitracin Ointment 30 GM TUBE ONE (09:44)
[2016-11-03] MEDS ORDERED: Mineral Oil Light Sterile 25 ml ONE (09:44)
[2016-11-03] MEDS ORDERED: Lactated Ringer's 1,000 ML IV ONE (10:04)
[2016-11-03] MEDS ORDERED: ePHEDrine 50 mg/ml Inj ONE (10:15)
[2016-11-03] MEDS ORDERED: HEMOSTATIC MATRIX 10 ML DIS.NEEDLE TOP ONE (11:00)
--- NOTE | 2016-11-03 11:26 | PCM.SURG1 ---
Surgeon's Initial Post Op Note - Surgeon's Notes Surgeon: Dr. Bui Mysql Database Administrator: Dr. Gallo Type of Anesthesia: IV Sedation, Local Anesthesia Administered By: Dr. Montiel Pre-Operative Diagnosis: right foot hallux gangrene Operative Findings: see dictation Post-Operative Diagnosis: same as preop Operation Performed: right 1st partial ray amputation Specimen/Specimens Removed: bone and soft tissue Estimated Blood Loss: EBL {In ML}: 50 Blood Products Given: N/A Drains Used: No Drains Post-Op Condition: Good Date of Surgery/Procedure: 11/03/16 Time of Surgery/Procedure: 10:00
[2016-11-03] MEDS ORDERED: HYDROmorphone 0.5 mg/0.5 ml ISec IVP PRN (11:27)
[2016-11-03] MEDS ORDERED: Oxycodone/Acetaminophen 5/325 mg Tab PO PRN ×2 (11:27)
[2016-11-03 12:09] LABS: HEMATOCRIT 31.6 % (35.0-51.0)
[2016-11-03 12:17] LABS: BLOOD UREA NITROGEN 13 mg/dl (9-20); CALCIUM 8.6 mg/dL (8.4-10.2); CARBON DIOXIDE 25 mmol/L (22-30); CHLORIDE 103 mmol/L (98-107); GFR AFRICAN-AMERICAN > 60; GLUCOSE,RANDOM 245 mg/dL (75-110); POTASSIUM 4.4 MMOL/L (3.6-5.0); SODIUM 134 mmol/l (132-148)
[2016-11-03] MEDS: Insulin Lispro (humaLOG) 100 Units/ml Inj SC SCH ×3 (14:30→22:28)
--- NOTE | 2016-11-03 15:38 | VASCULAR ---
PROCEDURE: Date of procedure: 11/02/2016 Procedure: 1. Placement of a left arm PICC with ultrasound and fluoroscopic guidance, CPT 71253 2. PICC tip confirmation with spot radiograph and is in the superior vena cava Medications: 1 percent lidocaine Total Fluoro time: 6.7 seconds Radiation: 0.66 MGy EBL: 3 cc HISTORY: Bacteremia requiring long-term IV antibiotics TECHNIQUE: Following informed consent and procedure time-out, the patient placed supine on the interventional table and the left arm prepped and draped in the usual sterile fashion. Ultrasound showed a patent and compressible left basilic vein. After the skin was anesthetized with lidocaine, the basilic vein was accessed with micro micropuncture technique using ultrasound guidance. A guidewire was then advanced under fluoroscopic guidance into the superior vena cava. An image documenting ultrasound guidance for vascular access was permanently saved. The length of a single-lumen 5 [place] PICC was trimmed to 39 cm and advanced through a peel-away sheath. The PICC was position with tip of PICC confirm a spot radiograph the superior vena cava. The PICC was secured to the patient's skin. The PICC was flushed. A biopatch and sterile dressing was applied. IMPRESSION: Placement of a single-lumen 5 Australian PICC left basilic vein trimmed to 39 cm. The tip of the PICC is confirmed with spot radiograph and is in the superior vena cava.
--- NOTE | 2016-11-03 17:36 | RAD ---
PROCEDURE: Right Foot Radiographs. HISTORY: s/p right foot surgery COMPARISON: 10/31/2016 preoperative study. FINDINGS: BONES: Postoperative findings following resection of the 1st metatarsal and 1st digit. JOINTS: Normal. SOFT TISSUES: Expected soft tissue findings in the surgical bed. OTHER FINDINGS: None. IMPRESSION: Satisfactory postoperative status following 1st metatarsal ectomy. Considerable plantar soft tissue swelling.
[2016-11-03] MEDS: Lactated Ringer's 1,000 ML IV SCH (19:44)
[2016-11-04] MEDS: Meropenem 1 GM in Sodium Chloride 0.9% 100 ML IVPB SCH ×3 (04:58→20:20)
--- NOTE | 2016-11-04 06:37 | CP.PCM.PN ---
Subjective - Date & Time of Evaluation Date of Evaluation: 11/04/16 Time of Evaluation: 06:37 - Subjective Subjective: 61 y/o male seen at bedside this morning 1 day s/p right foot partial ray amputation. Patient denies any acute events overnight. He denies any n/f/c/d/v/ sob. Dressing remains clean,dry,intact to right lower extremity. Objective - Vital Signs/Intake and Output Vital Signs (last 24 hours): Temp Pulse Resp BP Pulse Ox 97.9 F 78 20 162/80 H 99 11/03/16 23:30 11/03/16 23:30 11/03/16 23:30 11/03/16 23:30 11/03/16 23:30 Intake and Output: 11/03/16 11/04/16 18:59 06:59 Intake Total 950 Balance 950 - Medications Medications: Current Medications Acetaminophen (Tylenol 325mg Tab) 650 mg PO Q6 PRN PRN Reason: Fever >100.4 F Amlodipine Besylate (Norvasc) 5 mg PO DAILY [facility] Last Admin: 11/03/16 08:54 Dose: 5 mg Atorvastatin Calcium (Lipitor) 10 mg PO HS [facility] Last Admin: 11/03/16 21:18 Dose: 10 mg Enoxaparin Sodium (Lovenox) 40 mg SC DAILY [facility] PRN Reason: Protocol Last Admin: 11/02/16 08:19 Dose: 40 mg Guaifenesin/Codeine Phosphate (Robitussin W/Codeine) 5 ml PO Q6 PRN PRN Reason: Cough Last Admin: 11/02/16 23:20 Dose: 5 ml Hydromorphone HCl (Dilaudid) 0.5 mg IVP Q10M PRN PRN Reason: Pain, moderate (4-7) Vancomycin HCl 1 gm/ Sodium (Chloride) 250 mls @ 166.667 mls/hr IVPB Q12 [facility] Last Admin: 11/03/16 20:00 Dose: 166.667 mls/hr Meropenem 1 gm/ Sodium (Chloride) 100 mls @ 100 mls/hr IVPB Q8@0400,1200,2000 [facility] Last Admin: 11/04/16 04:58 Dose: 100 mls/hr Lactated Ringer's (Lactated Ringer's) 1,000 mls @ 125 mls/hr IV .Q8H [facility] Last Admin: 11/03/16 19:44 Dose: Not Given Insulin Human Lispro (Humalog) 0 units SC ACHS [facility] PRN Reason: Protocol Last Admin: 11/03/16 22:28 Dose: 2 units Insulin Lispro Protam/Lispro Human (Humalog Mix 75/25) 13 units SC BID [facility] Lisinopril (Zestril) 10 mg PO DAILY [facility] Last Admin: 11/03/16 08:53 Dose: 10 mg Oxycodone/Acetaminophen (Percocet 5/325 Mg Tab) 1 tab PO Q4 PRN PRN Reason: Pain, Mild (1-3) Stop: 11/06/16 11:28 Oxycodone/Acetaminophen (Percocet 5/325 Mg Tab) 2 tab PO Q4 PRN PRN Reason: Pain, severe (8-10) Stop: 11/06/16 11:28 Last Admin: 11/03/16 22:23 Dose: 2 tab - Labs Labs: 11/03/16 11:58 11/03/16 11:58 - Constitutional Appears: Well, Non-toxic, No Acute Distress - Extremities Exam Additional comments: dressing clean,dry,intact cft < 3 sec no calf pain or tenderness - Neurological Exam Neurological Exam: Alert, Awake, Oriented x3 - Psychiatric Exam Psychiatric exam: Normal Affect, Normal Mood Assessment and Plan - Assessment and Plan (Free Text) Assessment: 61 y/o male seen at bedside 1 day s/p right foot partial 1st ray amputation Plan: patient evaluated and chart reviewed discussed in detail with attending Dr. Bui labs and vitals reviewed; afebrile dressing left intact resume lovenox Cont. IV abx as per ID, patient received picc line podiatry will continue to follow while patient remains in house
[2016-11-04 07:01] LABS: BLOOD UREA NITROGEN 19 mg/dl (9-20); CALCIUM 8.7 mg/dL (8.4-10.2); CARBON DIOXIDE 27 mmol/L (22-30); CHLORIDE 100 mmol/L (98-107); GFR AFRICAN-AMERICAN > 60; GLUCOSE,RANDOM 261 mg/dL (75-110); POTASSIUM 4.4 MMOL/L (3.6-5.0); SODIUM 134 mmol/l (132-148)
[2016-11-04 07:08] LABS: BASO % 0.3 % (0.0-2.0); EOS # 0.2 K/uL (0.0-0.7); EOS % 2.1 % (0.0-4.0); HEMATOCRIT 32.5 % (35.0-51.0); LYMPH # 1.7 K/uL (1.0-4.3); LYMPH % 18.4 % (20.0-40.0); MEAN CELL VOLUME 87.2 fl (80.0-94.0); MEAN CORPUSCULAR HEMOGLOBIN 29.6 pg (27.0-31.0); MEAN CORPUSCULAR HGB CONC 33.9 g/dL (33.0-37.0); MEAN PLATELET VOLUME 8.6 fl (7.2-11.7); MONO # 0.8 K/uL (0.0-0.8); MONO % 8.8 % (0.0-10.0); NEUT # 6.7 K/uL (1.8-7.0); NEUT % 70.4 % (50.0-75.0); RED CELL DISTRIBUTION WIDTH 13.1 % (11.5-14.5); WHITE BLOOD COUNT 9.5 K/uL (4.8-10.8)
--- NOTE | 2016-11-04 07:48 | CP.PCM.PN ---
Subjective - Date & Time of Evaluation Date of Evaluation: 11/04/16 Time of Evaluation: 08:50 - Subjective Subjective: POD#1 s/p right 1st partial ray amputation No acute events overnight. Patient seen and examined bedside. No complaints at present, mild pain in right foot. Tolerating PO diet. Noticed blood glucose was high, reassured patient. Nonweight bearing status. Objective - Vital Signs/Intake and Output Vital Signs (last 24 hours): Temp Pulse Resp BP Pulse Ox 98.8 F 72 20 139/76 99 11/04/16 07:28 11/04/16 07:28 11/04/16 07:28 11/04/16 07:28 11/04/16 07:28 - Medications Medications: Current Medications Acetaminophen (Tylenol 325mg Tab) 650 mg PO Q6 PRN PRN Reason: Fever >100.4 F Amlodipine Besylate (Norvasc) 5 mg PO DAILY [facility] Last Admin: 11/03/16 08:54 Dose: 5 mg Atorvastatin Calcium (Lipitor) 10 mg PO HS [facility] Last Admin: 11/03/16 21:18 Dose: 10 mg Enoxaparin Sodium (Lovenox) 40 mg SC DAILY [facility] PRN Reason: Protocol Last Admin: 11/02/16 08:19 Dose: 40 mg Guaifenesin/Codeine Phosphate (Robitussin W/Codeine) 5 ml PO Q6 PRN PRN Reason: Cough Last Admin: 11/02/16 23:20 Dose: 5 ml Hydromorphone HCl (Dilaudid) 0.5 mg IVP Q10M PRN PRN Reason: Pain, moderate (4-7) Vancomycin HCl 1 gm/ Sodium (Chloride) 250 mls @ 166.667 mls/hr IVPB Q12 [facility] Last Admin: 11/03/16 20:00 Dose: 166.667 mls/hr Meropenem 1 gm/ Sodium (Chloride) 100 mls @ 100 mls/hr IVPB Q8@0400,1200,2000 [facility] Last Admin: 11/04/16 04:58 Dose: 100 mls/hr Lactated Ringer's (Lactated Ringer's) 1,000 mls @ 125 mls/hr IV .Q8H [facility] Last Admin: 11/03/16 19:44 Dose: Not Given Insulin Human Lispro (Humalog) 0 units SC ACHS [facility] PRN Reason: Protocol Last Admin: 11/03/16 22:28 Dose: 2 units Insulin Lispro Protam/Lispro Human (Humalog Mix 75/25) 13 units SC BID [facility] Lisinopril (Zestril) 10 mg PO DAILY [facility] Last Admin: 11/03/16 08:53 Dose: 10 mg Oxycodone/Acetaminophen (Percocet 5/325 Mg Tab) 1 tab PO Q4 PRN PRN Reason: Pain, Mild (1-3) Stop: 11/06/16 11:28 Oxycodone/Acetaminophen (Percocet 5/325 Mg Tab) 2 tab PO Q4 PRN PRN Reason: Pain, severe (8-10) Stop: 11/06/16 11:28 Last Admin: 11/03/16 22:23 Dose: 2 tab - Labs Labs: 11/04/16 05:55 11/04/16 05:55 Assessment and Plan - Assessment and Plan (Free Text) Assessment: POD#1 s/p right 1st partial ray amputation 61 year old male with PMH of uncontrolled DM and HLD presented to ED with chills , cough dizziness with hx of right great to infection that failed outpatient treatment with augmentin. Patient was admitted and started on IV antibiotics. Nonweight bearing status. Pain control. Senna for constipation. Patient for OR on Monday AM. 1. diabetic foot infection -secondary to osteomyelitis s/p right 1st partial ray amputation -afebrile, no tachycardia, no leukocytosis -day 5 iv abx: vancomycin : BMP WNL -Day 2: Meropenem - Zosyn 10/31 - 11/02 -Cultures: blood: negative x 72 hrs. wound: acitinobacter baumannii, coagulase negative staph, sensitivities reviewed. urine: +gram neg balwinder -podiatry is following -appreciate ID (Dr. Curtis) recommendations xray: Satisfactory postoperative status following 1st metatarsalectomy. Considerable plantar soft tissue swelling. 2. Sepsis -resolved. 3. Elevated BP without hx of HTN -new onset, improved control. continue norvasc 5mg, continue lisinopril 10 mg -likely due to stress vs undiagnosed htn -will monitor 3. Cough -CXR negative - on broad spectrum antibiotics -cough syrup PRN 3. Uncontrolled DM - last HgA1c: 12.0 in 09/21/2016 - hold metformin 1000mg PO BID for now - home medications: increase Novolog 70/30: to 13 units SC q12 - Insulin Sliding scale - Accuchecks - consistent carbohydrate diet - hx of microalbuminuria -creatinine at baseline: start PEYTON inhibitor given pt has microalbuminuria 4: Hyperlipidemia -controlled, ASCVD risk: 9.2% -Total cholesterol 173, LDL 90, HDL 43 -Triglycerides: 145 -continue Simvastatin 20mg qhs, increase upon discharge to 40mg 5. DVT prophylaxis -lovenox 40mg SC -hold monday night for OR on Monday morning
[2016-11-04] MEDS: guaiFENesin-Codeine 100-10mg/5ml Syrup (5 ml) UD PO PRN ×3 (08:25→22:47)
[2016-11-04] MEDS: Insulin Lispro Mix 75/25 100 units/ml (HumaLog) 10ml SC SCH ×2 (08:28→17:36)
[2016-11-04] MEDS: Insulin Lispro (humaLOG) 100 Units/ml Inj SC SCH ×4 (08:29→22:48)
--- NOTE | 2016-11-04 08:31 | OP ---
PROCEDURE DATE: 11/03/2016 SURGEON: Dr. Bui POND SUPERVISOR: Dr. Edwards, PGY-1 SOLE LEVELER: Dr. Montiel ANESTHESIA: IV sedation with local. PREOPERATIVE DIAGNOSIS: Right hallux osteomyelitis, gangrene, and diabetes. POSTOPERATIVE DIAGNOSIS: Right hallux osteomyelitis, gangrene, and diabetes. NAME OF PROCEDURE: Right Hallux amputaion and partial first ray resectin Right foot INDICATIONS/FINDINGS The patient is a 61-year-old male with the above diagnosis. The patient signed the consent after careful explanation with yi translation of risks, benefits, complication and alternatives for surgical procedure. No guarantees were given nor implied. Deep penetrating right hallux ulceration to bone with extensive necrotic tissue noted. MRI right hallux reveals findings consistent with osteomyelitis. Patient was evaluated by Dr. Barcenas and Dr. Bui reviewed case with Dr. Barcenas. PREPARATION: The patient was brought into the operating room and placed on the operating room table in a supine position. A timeout was performed for identification of the correct patient and procedure. After induction of IV sedation, the patient received a total of 20 mL of a 1:1 mixture of 1% lidocaine plain and 0.5% Marcaine plain in a local block fashion to the right foot. Once local anesthesia was achieved, the right foot was then prepped and draped in normal sterile manner and the procedure began. No tourniquet was used during the procedure. PROCEDURE: Right Hallux amputaion and partial first ray resectin Right foot Attention was then directed to the first metatarsal where a racquet type incision was made circumferentially at the level of the first metatarsophalangeal joint using a #15 blade. The incision was then extended down through the subcutaneous layers down to the level of bone. During the dissection, it was noted that there was deep penetrating right hallux ulceration to bone with extensive necrotic tissue noted. Using a bone clamp to stabilize the toe, the first digit was then disarticulated from the foot at the level of the first metatarsophalangeal joint. This specimen was then passed from the operative field and sent to pathology. Using a fresh #15 blade, all necrotic and nonviable tissue was then excisionally debrided from surgical site. The first metatarsal was protruding into the wound. Next, utilizing a #15 blade, all periosteal tissue was carefully resected of the metatarsal. Using a sagittal saw, the proximal aspect of the first metatarsal shaft was then resected to viable bone margins and passed from the operative field. All rough edges were then smoothed using a rongeur, rasp and sagittal saw. The surgical site was then irrigated with Simpulse 3 liters of sterile saline mixed with bacitracin. 3CC of flow-seal was then injected for hemostasis into the surgical site. Next, one-quarter inch of iodoform packing was used. Then, the right foot was dressed with Xeroform, 4 x 4 gauze, ABD pads, Kerlix and Flex. POSTOPERATIVE CONDITION: The patient tolerated anesthesia and procedure well and was escorted to the PACU with vital signs stable and neurovascular status intact to the right foot. The patient is nonweightbearing to the right lower extremity and podiatry will continue to follow while inhouse and will follow up with Dr. Bui upon discharge. BAYRON EDWARDS DPM Gurvinder Bui DPM cc: [id number] TT: 11/03/2016 18:34:37 sn MTDD
[2016-11-04] MEDS: Lactated Ringer's 1,000 ML IV SCH ×2 (10:35→23:48)
[2016-11-04] MEDS: Oxycodone/Acetaminophen 5/325 mg Tab PO PRN (16:24)
[2016-11-04] MEDS: Docusate-Senna 50 mg-8.6 mg Tab PO SCH (21:37)
[2016-11-05] MEDS: Meropenem 1 GM in Sodium Chloride 0.9% 100 ML IVPB SCH ×3 (04:20→20:34)
[2016-11-05] MEDS: Lactated Ringer's 1,000 ML IV SCH ×3 (04:22→21:41)
[2016-11-05] MEDS: Insulin Lispro (humaLOG) 100 Units/ml Inj SC SCH ×4 (07:50→21:42)
[2016-11-05] MEDS: Enoxaparin 40 mg Syringe SC SCH (08:58)
[2016-11-05] MEDS: Insulin Lispro Mix 75/25 100 units/ml (HumaLog) 10ml SC SCH ×2 (08:59→17:19)
[2016-11-05] MEDS: Oxycodone/Acetaminophen 5/325 mg Tab PO PRN (09:19)
--- NOTE | 2016-11-05 12:57 | CP.PCM.PN ---
Subjective - Date & Time of Evaluation Date of Evaluation: 11/05/16 Time of Evaluation: 12:57 - Subjective Subjective: Patient is POD#2 s/p right 1st partial ray amputation No acute events overnight. Patient seen and examined bedside. No complaints at present, mild pain in right foot alleviated with PO medication. Patient tolerating PO diet. PT following [id number] bearing status. Had normal bowel movement yesterday. Objective - Vital Signs/Intake and Output Vital Signs (last 24 hours): Temp Pulse Resp BP Pulse Ox 98.8 F 82 20 159/78 H 99 11/05/16 08:16 11/05/16 08:16 11/05/16 08:16 11/05/16 09:02 11/05/16 08:16 - Medications Medications: Current Medications Acetaminophen (Tylenol 325mg Tab) 650 mg PO Q6 PRN PRN Reason: Fever >100.4 F Acetaminophen (Tylenol 325mg Tab) 650 mg PO Q6 PRN PRN Reason: Pain, Mild (1-3) Amlodipine Besylate (Norvasc) 10 mg PO DAILY [facility] Atorvastatin Calcium (Lipitor) 10 mg PO HS [facility] Last Admin: 11/04/16 21:37 Dose: 10 mg Enoxaparin Sodium (Lovenox) 40 mg SC DAILY [facility] PRN Reason: Protocol Last Admin: 11/05/16 08:58 Dose: 40 mg Guaifenesin/Codeine Phosphate (Robitussin W/Codeine) 5 ml PO Q6 PRN PRN Reason: Cough Last Admin: 11/04/16 22:47 Dose: 5 ml Vancomycin HCl 1 gm/ Sodium (Chloride) 250 mls @ 166.667 mls/hr IVPB Q12 [facility] Last Admin: 11/05/16 08:57 Dose: 166.667 mls/hr Meropenem 1 gm/ Sodium (Chloride) 100 mls @ 100 mls/hr IVPB Q8@0400,1200,2000 [facility] Last Admin: 11/05/16 04:20 Dose: 100 mls/hr Lactated Ringer's (Lactated Ringer's) 1,000 mls @ 125 mls/hr IV .Q8H [facility] Last Admin: 11/05/16 11:33 Dose: Not Given Insulin Human Lispro (Humalog) 0 units SC ACHS [facility] PRN Reason: Protocol Last Admin: 11/05/16 12:29 Dose: 6 units Insulin Lispro Protam/Lispro Human (Humalog Mix 75/25) 13 units SC BID [facility] Last Admin: 11/05/16 08:59 Dose: 13 units Lisinopril (Zestril) 10 mg PO DAILY [facility] Last Admin: 11/05/16 09:02 Dose: 10 mg Oxycodone/Acetaminophen (Percocet 5/325 Mg Tab) 2 tab PO Q4 PRN PRN Reason: Pain, severe (8-10) Stop: 11/06/16 11:28 Last Admin: 11/03/16 22:23 Dose: 2 tab Oxycodone/Acetaminophen (Percocet 5/325 Mg Tab) 1 tab PO Q4 PRN PRN Reason: Pain, moderate (4-7) Stop: 11/06/16 11:28 Last Admin: 11/05/16 09:19 Dose: 1 tab Senna/Docusate Sodium (Senokot S 50 Mg-8.6 Mg) 2 tab PO [facility] Last Admin: 11/04/16 21:37 Dose: 2 tab Sennosides (Senokot Tab) 8.6 mg PO [facility] Last Admin: 11/04/16 21:37 Dose: 8.6 mg - Labs Labs: 11/04/16 05:55 11/04/16 05:55 Assessment and Plan - Assessment and Plan (Free Text) Assessment: POD#1 s/p right 2st partial ray amputation 61 year old male with PMH of uncontrolled DM and HLD presented to ED with chills , cough dizziness with hx of right great to infection that failed outpatient treatment with augmentin. Patient was admitted and started on IV antibiotics. Nonweight bearing status. Pain control. Senna for constipation. Patient for OR on Monday AM. 1. diabetic foot infection -secondary to osteomyelitis s/p right 1st partial ray amputation -afebrile, no tachycardia, no leukocytosis -day 6 iv abx: vancomycin : BMP WNL -Day 3: Meropenem - Zosyn 10/31 - 11/02 -Cultures: blood: negative x 72 hrs. wound: acitinobacter baumannii, coagulase negative staph, sensitivities reviewed. urine: +gram neg balwinder -podiatry is following -appreciate ID (Dr. Curtis) recommendations xray: Satisfactory postoperative status following 1st metatarsalectomy. Considerable plantar soft tissue swelling. 2. Sepsis -resolved. 3. Elevated BP without hx of HTN -new onset, improved control. Increased norvasc 5 mg to 10 mg; will monitor blood pressure. -continue lisinopril 10 mg -likely due to stress vs undiagnosed htn -will monitor 3. Cough -CXR negative - on broad spectrum antibiotics -cough syrup PRN 3. Uncontrolled DM - last HgA1c: 12.0 in 09/21/2016 - hold metformin 1000mg PO BID for now - home medications: increase Novolog 70/30: to 13 units SC q12 - Insulin Sliding scale - Accuchecks - consistent carbohydrate diet - hx of microalbuminuria -creatinine at baseline: start PEYTON inhibitor given pt has microalbuminuria 4: Hyperlipidemia -controlled, ASCVD risk: 9.2% -Total cholesterol 173, LDL 90, HDL 43 -Triglycerides: 145 -continue Simvastatin 20mg qhs, increase upon discharge to 40mg 5. DVT prophylaxis -lovenox 40mg SC -hold monday night for OR on Monday morning
--- NOTE | 2016-11-05 15:45 | CP.PCM.PN ---
Subjective - Date & Time of Evaluation Date of Evaluation: 11/05/16 Time of Evaluation: 11:00 - Subjective Subjective: 61 y/o male seen at bedside this morning 2 day s/p right foot partial ray amputation. Dressing to Right foot appears clean dry and intact. Patient denies any acute events overnight. Patient denies of any pain to the surgical site except when changing the dressing. He denies any n/f/c/d/v/sob. Objective - Vital Signs/Intake and Output Vital Signs (last 24 hours): Temp Pulse Resp BP Pulse Ox 98.8 F 82 20 159/78 H 99 11/05/16 08:16 11/05/16 08:16 11/05/16 08:16 11/05/16 09:02 11/05/16 08:16 - Medications Medications: Current Medications Acetaminophen (Tylenol 325mg Tab) 650 mg PO Q6 PRN PRN Reason: Fever >100.4 F Acetaminophen (Tylenol 325mg Tab) 650 mg PO Q6 PRN PRN Reason: Pain, Mild (1-3) Amlodipine Besylate (Norvasc) 10 mg PO DAILY [facility] Atorvastatin Calcium (Lipitor) 10 mg PO HS [facility] Last Admin: 11/04/16 21:37 Dose: 10 mg Enoxaparin Sodium (Lovenox) 40 mg SC DAILY [facility] PRN Reason: Protocol Last Admin: 11/05/16 08:58 Dose: 40 mg Guaifenesin/Codeine Phosphate (Robitussin W/Codeine) 5 ml PO Q6 PRN PRN Reason: Cough Last Admin: 11/04/16 22:47 Dose: 5 ml Vancomycin HCl 1 gm/ Sodium (Chloride) 250 mls @ 166.667 mls/hr IVPB Q12 [facility] Last Admin: 11/05/16 08:57 Dose: 166.667 mls/hr Meropenem 1 gm/ Sodium (Chloride) 100 mls @ 100 mls/hr IVPB Q8@0400,1200,2000 [facility] Last Admin: 11/05/16 12:57 Dose: 100 mls/hr Lactated Ringer's (Lactated Ringer's) 1,000 mls @ 125 mls/hr IV .Q8H [facility] Last Admin: 11/05/16 11:33 Dose: Not Given Insulin Human Lispro (Humalog) 0 units SC ACHS [facility] PRN Reason: Protocol Last Admin: 11/05/16 12:29 Dose: 6 units Insulin Lispro Protam/Lispro Human (Humalog Mix 75/25) 13 units SC BID [facility] Last Admin: 11/05/16 08:59 Dose: 13 units Lisinopril (Zestril) 10 mg PO DAILY [facility] Last Admin: 11/05/16 09:02 Dose: 10 mg Oxycodone/Acetaminophen (Percocet 5/325 Mg Tab) 2 tab PO Q4 PRN PRN Reason: Pain, severe (8-10) Stop: 11/06/16 11:28 Last Admin: 11/03/16 22:23 Dose: 2 tab Oxycodone/Acetaminophen (Percocet 5/325 Mg Tab) 1 tab PO Q4 PRN PRN Reason: Pain, moderate (4-7) Stop: 11/06/16 11:28 Last Admin: 11/05/16 09:19 Dose: 1 tab Senna/Docusate Sodium (Senokot S 50 Mg-8.6 Mg) 2 tab PO [facility] Last Admin: 11/04/16 21:37 Dose: 2 tab Sennosides (Senokot Tab) 8.6 mg PO [facility] Last Admin: 11/04/16 21:37 Dose: 8.6 mg - Labs Labs: 11/04/16 05:55 11/04/16 05:55 - Constitutional Appears: Well, Non-toxic, No Acute Distress - Head Exam Head Exam: ATRAUMATIC, NORMAL INSPECTION - Extremities Exam Additional comments: DERM: Right foot 1st ray amputation site is left open for delayed primary closure. the wound edges appear slightly macerated. the base appears granular with healthy bleeding. No erythema is noted, No purulent discharge is noted. No sign of acute infections is noted. Vasc: DP 2/4, PT 1/4 b/l, TG wnl, CFT < 3 sec to all digits, nonpitting edema to Right hallux, 2x the size of the left hallux neuro: grossly diminished ortho: mild pain on palpation to R hallux - Neurological Exam Neurological Exam: Alert, Awake, Oriented x3 - Psychiatric Exam Psychiatric exam: Normal Affect, Normal Mood - Skin Skin Exam: Normal Color, Warm Assessment and Plan - Assessment and Plan (Free Text) Assessment: 61 y/o male 2 days s/p right 1s ray amputation Plan: patient evaluated and chart reviewed discussed with attending Dr. Bui labs and vitals reviewed; afebrile wound cx - preliminary result: gram negative balwinder Right foot irrigated with sterile normal saline, applied packing, DSD, ABD podiatry will continue to follow
[2016-11-05 18:01] LABS: PARTIAL THROMBOPLASTIN TIME 37.3 Seconds (25.6-37.1)
[2016-11-05] MEDS: Docusate-Senna 50 mg-8.6 mg Tab PO SCH (21:41)
[2016-11-05] MEDS: guaiFENesin-Codeine 100-10mg/5ml Syrup (5 ml) UD PO PRN (21:57)
[2016-11-06] MEDS: Meropenem 1 GM in Sodium Chloride 0.9% 100 ML IVPB SCH ×3 (04:22→19:54)
--- NOTE | 2016-11-06 07:16 | CP.PCM.PN ---
Subjective - Date & Time of Evaluation Date of Evaluation: 11/06/16 Time of Evaluation: 08:15 - Subjective Subjective: POD#3 s/p right 1st partial ray amputation due to osteomyelitis Overnight patient reports FS, given snack by nurses, but reports he was asymptomatic Patient seen and examined bedside. Patient awaiting OR monday. Feels well otherwise. Complaint of high FSG, usually administers insulin 30-40 minutes before breakfast/dinner. Has been receiving insulin after meals here. Continues to require insulin coverage with sliding scale. Will adjust dosing/ administration time. Hold Lovenox today for OR tomorrow. Objective - Vital Signs/Intake and Output Vital Signs (last 24 hours): Temp Pulse Resp BP Pulse Ox 97.8 F 75 18 149/79 96 11/05/16 16:08 11/05/16 16:08 11/05/16 16:08 11/05/16 16:08 11/05/16 16:08 - Medications Medications: Current Medications Acetaminophen (Tylenol 325mg Tab) 650 mg PO Q6 PRN PRN Reason: Fever >100.4 F Acetaminophen (Tylenol 325mg Tab) 650 mg PO Q6 PRN PRN Reason: Pain, Mild (1-3) Amlodipine Besylate (Norvasc) 10 mg PO DAILY [facility] Atorvastatin Calcium (Lipitor) 10 mg PO HS [facility] Last Admin: 11/05/16 21:40 Dose: 10 mg Enoxaparin Sodium (Lovenox) 40 mg SC DAILY [facility] PRN Reason: Protocol Last Admin: 11/05/16 08:58 Dose: 40 mg Guaifenesin/Codeine Phosphate (Robitussin W/Codeine) 5 ml PO Q6 PRN PRN Reason: Cough Last Admin: 11/05/16 21:57 Dose: 5 ml Vancomycin HCl 1 gm/ Sodium (Chloride) 250 mls @ 166.667 mls/hr IVPB Q12 [facility] Last Admin: 11/05/16 21:39 Dose: 166.667 mls/hr Meropenem 1 gm/ Sodium (Chloride) 100 mls @ 100 mls/hr IVPB Q8@0400,1200,2000 [facility] Last Admin: 11/06/16 04:22 Dose: 100 mls/hr Lactated Ringer's (Lactated Ringer's) 1,000 mls @ 125 mls/hr IV .Q8H [facility] Last Admin: 11/05/16 21:41 Dose: Not Given Insulin Human Lispro (Humalog) 0 units SC ACHS [facility] PRN Reason: Protocol Last Admin: 11/05/16 21:42 Dose: Not Given Insulin Lispro Protam/Lispro Human (Humalog Mix 75/25) 13 units SC BID [facility] Last Admin: 11/05/16 17:19 Dose: 13 units Lisinopril (Zestril) 10 mg PO DAILY [facility] Last Admin: 11/05/16 09:02 Dose: 10 mg Oxycodone/Acetaminophen (Percocet 5/325 Mg Tab) 2 tab PO Q4 PRN PRN Reason: Pain, severe (8-10) Stop: 11/06/16 11:28 Last Admin: 11/03/16 22:23 Dose: 2 tab Oxycodone/Acetaminophen (Percocet 5/325 Mg Tab) 1 tab PO Q4 PRN PRN Reason: Pain, moderate (4-7) Stop: 11/06/16 11:28 Last Admin: 11/05/16 09:19 Dose: 1 tab Senna/Docusate Sodium (Senokot S 50 Mg-8.6 Mg) 2 tab PO HS [facility] Last Admin: 11/05/16 21:41 Dose: 2 tab Sennosides (Senokot Tab) 8.6 mg PO [facility] Last Admin: 11/05/16 21:41 Dose: 8.6 mg - Labs Labs: 11/04/16 05:55 11/04/16 05:55 PT 12.4 Seconds (9.8-13.1) 11/05/16 16:46 INR 1.1 (0.9-1.2) 11/05/16 16:46 APTT 37.3 Seconds (25.6-37.1) H 11/05/16 16:46 - Constitutional Appears: Well, No Acute Distress - Head Exam Head Exam: NORMAL INSPECTION - Eye Exam Eye Exam: Normal appearance - ENT Exam ENT Exam: Mucous Membranes Moist - Respiratory Exam Respiratory Exam: NORMAL BREATHING PATTERN - Cardiovascular Exam Cardiovascular Exam: REGULAR RHYTHM - GI/Abdominal Exam Additional comments: unremarkable - Extremities Exam Additional comments: wound not visualized. No malodor. - Neurological Exam Neurological Exam: Alert, Awake, CN II-XII Intact, Oriented x3 - Psychiatric Exam Psychiatric exam: Normal Affect, Normal Mood Assessment and Plan - Assessment and Plan (Free Text) Assessment: POD#3 s/p right 1st partial ray amputation due to osteomyelitis 61 year old male with PMH of uncontrolled DM and HLD presented to ED with chills , cough dizziness with hx of right great to infection that failed outpatient treatment with augmentin. Patient was admitted and started on IV antibiotics. Nonweight bearing status. Pain control. Senna for constipation. Patient for OR on Monday AM. NPO aftermidnight. 1. diabetic foot infection -secondary to osteomyelitis s/p right 1st partial ray amputation -day 7 iv abx: vancomycin : BMP WNL -Day 4: Meropenem - Zosyn / - 11/02 -Cultures: blood: negative x 72 hrs. wound: acitinobacter baumannii, coagulase negative staph, sensitivities reviewed. urine: +gram neg balwinder -podiatry is following -ID (Dr. Curtis) is following 2. Sepsis -resolved. 3. Elevated BP without hx of HTN -new onset, improved control. -Norvasc 10mg (DAY 2),continue to monitor blood pressure. -continue lisinopril 10 mg -likely due to stress vs undiagnosed htn 3. Cough -CXR negative - on broad spectrum antibiotics -cough syrup PRN 3. Uncontrolled DM - last HgA1c: 12.0 in 09/21/2016 - hold metformin 1000mg PO BID for now - home medications: increase Novolog 70/30: to 13 units SC q12, will try and have pt administered before meals. if no improvement, will consider increasing morning dose. - Insulin Sliding scale - Accuchecks - consistent carbohydrate diet - hx of microalbuminuria -creatinine at baseline: start PEYTON inhibitor given pt has microalbuminuria 4: Hyperlipidemia -controlled, ASCVD risk: 9.2% -Total cholesterol 173, LDL 90, HDL 43 -Triglycerides: 145 -continue Simvastatin 20mg qhs, increase upon discharge to 40mg
[2016-11-06] MEDS: Lactated Ringer's 1,000 ML IV SCH ×4 (07:57→21:22)
[2016-11-06] MEDS: Insulin Lispro Mix 75/25 100 units/ml (HumaLog) 10ml SC SCH ×2 (09:38→21:25)
[2016-11-06] MEDS: Insulin Lispro (humaLOG) 100 Units/ml Inj SC SCH ×5 (09:38→21:23)
--- NOTE | 2016-11-06 11:46 | CP.PCM.PN ---
Addendum entered and electronically signed by Devan Peterson DPM 11/06/16 22:00: Patient to OR tomorrow ( 11/07/16) at 7: 45 am for right foot 1st ray delayed primary closure. Patient will be on NPO after midnight. Original Note: Subjective - Date & Time of Evaluation Date of Evaluation: 11/06/16 Time of Evaluation: 12:38 - Subjective Subjective: 61 y/o male seen at bedside this morning 3 days s/p right foot partial ray amputation. Dressing to Right foot appears clean dry and intact. Patient denies any acute events overnight. Patient denies of any pain to the surgical site today. He denies any n/f/c/d/v/sob. Objective - Vital Signs/Intake and Output Vital Signs (last 24 hours): Temp Pulse Resp BP Pulse Ox 98.2 F 70 20 153/69 H 100 11/06/16 08:21 11/06/16 08:21 11/06/16 08:21 11/06/16 08:21 11/06/16 08:21 - Medications Medications: Current Medications Acetaminophen (Tylenol 325mg Tab) 650 mg PO Q6 PRN PRN Reason: Fever >100.4 F Acetaminophen (Tylenol 325mg Tab) 650 mg PO Q6 PRN PRN Reason: Pain, Mild (1-3) Amlodipine Besylate (Norvasc) 10 mg PO DAILY [facility] Last Admin: 11/06/16 08:15 Dose: 10 mg Atorvastatin Calcium (Lipitor) 10 mg PO HS [facility] Last Admin: 11/05/16 21:40 Dose: 10 mg Enoxaparin Sodium (Lovenox) 40 mg SC DAILY [facility] PRN Reason: Protocol Last Admin: 11/05/16 08:58 Dose: 40 mg Guaifenesin/Codeine Phosphate (Robitussin W/Codeine) 5 ml PO Q6 PRN PRN Reason: Cough Last Admin: 11/05/16 21:57 Dose: 5 ml Vancomycin HCl 1 gm/ Sodium (Chloride) 250 mls @ 166.667 mls/hr IVPB Q12 [facility] Last Admin: 11/06/16 08:16 Dose: 166.667 mls/hr Meropenem 1 gm/ Sodium (Chloride) 100 mls @ 100 mls/hr IVPB Q8@0400,1200,2000 [facility] Last Admin: 11/06/16 04:22 Dose: 100 mls/hr Lactated Ringer's (Lactated Ringer's) 1,000 mls @ 125 mls/hr IV .Q8H [facility] Last Admin: 11/06/16 07:57 Dose: Not Given Insulin Human Lispro (Humalog) 0 units SC ACHS [facility] PRN Reason: Protocol Last Admin: 11/06/16 09:39 Dose: 4 units Insulin Lispro Protam/Lispro Human (Humalog Mix 75/25) 13 units SC Q12 [facility] Last Admin: 11/06/16 09:38 Dose: 13 units Lisinopril (Zestril) 10 mg PO DAILY [facility] Last Admin: 11/06/16 08:16 Dose: 10 mg Senna/Docusate Sodium (Senokot S 50 Mg-8.6 Mg) 2 tab PO HS [facility] Last Admin: 11/05/16 21:41 Dose: 2 tab Sennosides (Senokot Tab) 8.6 mg PO [facility] Last Admin: 11/05/16 21:41 Dose: 8.6 mg - Labs Labs: 11/04/16 05:55 11/04/16 05:55 PT 12.4 Seconds (9.8-13.1) 11/05/16 16:46 INR 1.1 (0.9-1.2) 11/05/16 16:46 APTT 37.3 Seconds (25.6-37.1) H 11/05/16 16:46 - Constitutional Appears: Well, Non-toxic, No Acute Distress - Extremities Exam Additional comments: DERM: Right foot 1st ray amputation site is left open for delayed primary closure. the wound edges appear slightly macerated. the base appears granular with healthy bleeding. No erythema is noted, No purulent discharge is noted. No sign of acute infections is noted. Vasc: DP 2/4, PT 1/4 b/l, TG wnl, CFT < 3 sec to all digits, nonpitting edema to Right hallux, 2x the size of the left hallux neuro: grossly diminished ortho: mild pain on palpation to R hallux - Neurological Exam Neurological Exam: Alert, Awake, Oriented x3 - Psychiatric Exam Psychiatric exam: Normal Affect, Normal Mood - Skin Skin Exam: Normal Color, Warm Assessment and Plan - Assessment and Plan (Free Text) Assessment: 61 y/o male 3 days s/p right 1s ray amputation Plan: patient evaluated and chart reviewed discussed with attending Dr. Bui labs and vitals reviewed; afebrile wound cx - preliminary result: gram negative balwinder Right foot irrigated with sterile normal saline, applied packing, Betadine soaked DSD, ABD podiatry will continue to follow
[2016-11-06] MEDS ORDERED: Povidone Iodine Topical 10% Sol ONE (15:12)
[2016-11-06] MEDS ORDERED: Oxycodone/Acetaminophen 5/325 mg Tab PO PRN (15:32)
[2016-11-06] MEDS: Docusate-Senna 50 mg-8.6 mg Tab PO SCH (21:23)
[2016-11-07] MEDS: Lactated Ringer's 1,000 ML IV SCH ×3 (04:28→23:37)
[2016-11-07] MEDS: Meropenem 1 GM in Sodium Chloride 0.9% 100 ML IVPB SCH ×3 (04:32→20:04)
--- NOTE | 2016-11-07 06:39 | CP.PCM.PN ---
Subjective - Date & Time of Evaluation Date of Evaluation: 11/07/16 Time of Evaluation: 06:30 - Subjective Subjective: 61 y/o male seen at bedside this morning 4 days s/p right foot partial amputation. Pt seen resting comfortably in bed at time of visit, AAOx3 NAD. Admits to NPO since midnight last night. Denies f/n/v/c/sob/cp at this time. Is aware and ready for OR this morning with Dr. Bui to close the wound. Objective - Vital Signs/Intake and Output Vital Signs (last 24 hours): Temp Pulse Resp BP Pulse Ox 98.5 F 70 20 134/63 99 11/07/16 01:00 11/07/16 01:00 11/07/16 01:00 11/07/16 01:00 11/07/16 01:00 - Medications Medications: Current Medications Acetaminophen (Tylenol 325mg Tab) 650 mg PO Q6 PRN PRN Reason: Fever >100.4 F Acetaminophen (Tylenol 325mg Tab) 650 mg PO Q6 PRN PRN Reason: Pain, Mild (1-3) Amlodipine Besylate (Norvasc) 10 mg PO DAILY [facility] Last Admin: 11/06/16 08:15 Dose: 10 mg Atorvastatin Calcium (Lipitor) 10 mg PO HS [facility] Last Admin: 11/06/16 21:22 Dose: 10 mg Enoxaparin Sodium (Lovenox) 40 mg SC DAILY [facility] PRN Reason: Protocol Last Admin: 11/05/16 08:58 Dose: 40 mg Guaifenesin/Codeine Phosphate (Robitussin W/Codeine) 5 ml PO Q6 PRN PRN Reason: Cough Last Admin: 11/05/16 21:57 Dose: 5 ml Vancomycin HCl 1 gm/ Sodium (Chloride) 250 mls @ 166.667 mls/hr IVPB Q12 [facility] Last Admin: 11/06/16 21:26 Dose: 166.667 mls/hr Meropenem 1 gm/ Sodium (Chloride) 100 mls @ 100 mls/hr IVPB Q8@0400,1200,2000 [facility] Last Admin: 11/07/16 04:32 Dose: 100 mls/hr Lactated Ringer's (Lactated Ringer's) 1,000 mls @ 125 mls/hr IV .Q8H [facility] Last Admin: 11/07/16 04:28 Dose: Not Given Insulin Human Lispro (Humalog) 0 units SC ACHS [facility] PRN Reason: Protocol Last Admin: 11/06/16 21:23 Dose: 2 units Insulin Lispro Protam/Lispro Human (Humalog Mix 75/25) 13 units SC Q12 [facility] Last Admin: 11/06/16 21:25 Dose: 13 units Lisinopril (Zestril) 10 mg PO DAILY [facility] Last Admin: 11/06/16 08:16 Dose: 10 mg Oxycodone/Acetaminophen (Percocet 5/325 Mg Tab) 1 tab PO Q6 PRN PRN Reason: Pain, moderate (4-7) Stop: 11/09/16 15:33 Last Admin: 11/06/16 15:43 Dose: 1 tab Senna/Docusate Sodium (Senokot S 50 Mg-8.6 Mg) 2 tab PO HS [facility] Last Admin: 11/06/16 21:23 Dose: 2 tab - Labs Labs: 11/04/16 05:55 11/04/16 05:55 PT 12.4 Seconds (9.8-13.1) 11/05/16 16:46 INR 1.1 (0.9-1.2) 11/05/16 16:46 APTT 37.3 Seconds (25.6-37.1) H 11/05/16 16:46 - Constitutional Appears: Well, Non-toxic, No Acute Distress - Extremities Exam Additional comments: Dressing to right foot appears c/d/i with no strikethrough evident - Neurological Exam Neurological Exam: Alert, Awake, Oriented x3 - Psychiatric Exam Psychiatric exam: Normal Affect, Normal Mood Assessment and Plan - Assessment and Plan (Free Text) Assessment: 61 y/o male 4 days s/p right 1s ray amputation Plan: Pt S&E at bedside Chart labs and vitals reviewed NPO status was confirmed All Pre-op testing and clearance was in the chart Pt has exhausted all conservative treatment at this time and no requires sx intervention Pt was explained procedure and post-operative course All pt's questions were answered to satisfaction No guarantees were made Pt understands all risks, benefits and complications of procedure Pt is for OR this morning 11/07 for delayed primary closed right foot surgical wound.
[2016-11-07] MEDS: Insulin Lispro (humaLOG) 100 Units/ml Inj SC SCH ×4 (07:12→22:48)
[2016-11-07] MEDS ORDERED: Lidocaine 1% Inj (20ml) ONE (07:21)
[2016-11-07] MEDS ORDERED: Bupivacaine 0.5% Inj(30mL) ONE (07:21)
[2016-11-07] MEDS ORDERED: Mineral Oil Light Sterile 25 ml ONE (07:21)
[2016-11-07] MEDS ORDERED: Bacitracin Ointment 30 GM TUBE ONE (07:22)
[2016-11-07] MEDS ORDERED: Propofol 10 mg/ml Inj (20 ML) ONE (07:29)
[2016-11-07] MEDS ORDERED: Midazolam 2 MG/2 ML VIAL ONE (07:29)
[2016-11-07] MEDS ORDERED: Lactated Ringer's 1,000 ML IV ONE (07:41)
--- NOTE | 2016-11-07 07:41 | CP.PCM.PN ---
Subjective - Date & Time of Evaluation Date of Evaluation: 11/07/16 Time of Evaluation: 07:41 - Subjective Subjective: POD#4 s/p right 1st partial ray amputation due to osteomyelitis, with delayed closure on 11/07/16 Patient in OR for delayed closure of wound. As per nurse, patient maintained NPO status. 10:00: Patient seen and examined post-op. No complaints at time of visit. Requesting food and shower. He feels well otherwise, denies nausea or pain. Start regular diet. Pain medication as per anesthesia/podiatry. Will inquire about recommendations with podiatry. Continue IV antibiotics. Objective - Vital Signs/Intake and Output Vital Signs (last 24 hours): Temp Pulse Resp BP Pulse Ox 99.0 F 76 20 149/71 99 11/07/16 07:33 11/07/16 07:33 11/07/16 07:33 11/07/16 07:33 11/07/16 07:33 - Medications Medications: Current Medications Acetaminophen (Tylenol 325mg Tab) 650 mg PO Q6 PRN PRN Reason: Fever >100.4 F Acetaminophen (Tylenol 325mg Tab) 650 mg PO Q6 PRN PRN Reason: Pain, Mild (1-3) Amlodipine Besylate (Norvasc) 10 mg PO DAILY [facility] Last Admin: 11/06/16 08:15 Dose: 10 mg Atorvastatin Calcium (Lipitor) 10 mg PO HS [facility] Last Admin: 11/06/16 21:22 Dose: 10 mg Enoxaparin Sodium (Lovenox) 40 mg SC DAILY [facility] PRN Reason: Protocol Last Admin: 11/05/16 08:58 Dose: 40 mg Guaifenesin/Codeine Phosphate (Robitussin W/Codeine) 5 ml PO Q6 PRN PRN Reason: Cough Last Admin: 11/05/16 21:57 Dose: 5 ml Vancomycin HCl 1 gm/ Sodium (Chloride) 250 mls @ 166.667 mls/hr IVPB Q12 [facility] Last Admin: 11/06/16 21:26 Dose: 166.667 mls/hr Meropenem 1 gm/ Sodium (Chloride) 100 mls @ 100 mls/hr IVPB Q8@0400,1200,2000 [facility] Last Admin: 11/07/16 04:32 Dose: 100 mls/hr Lactated Ringer's (Lactated Ringer's) 1,000 mls @ 125 mls/hr IV .Q8H [facility] Last Admin: 11/07/16 04:28 Dose: Not Given Insulin Human Lispro (Humalog) 0 units SC ACHS [facility] PRN Reason: Protocol Last Admin: 11/06/16 21:23 Dose: 2 units Insulin Lispro Protam/Lispro Human (Humalog Mix 75/25) 13 units SC Q12 [facility] Last Admin: 11/06/16 21:25 Dose: 13 units Lisinopril (Zestril) 10 mg PO DAILY [facility] Last Admin: 11/06/16 08:16 Dose: 10 mg Oxycodone/Acetaminophen (Percocet 5/325 Mg Tab) 1 tab PO Q6 PRN PRN Reason: Pain, moderate (4-7) Stop: 11/09/16 15:33 Last Admin: 11/06/16 15:43 Dose: 1 tab Senna/Docusate Sodium (Senokot S 50 Mg-8.6 Mg) 2 tab PO HS [facility] Last Admin: 11/06/16 21:23 Dose: 2 tab - Labs Labs: 11/04/16 05:55 11/04/16 05:55 PT 12.4 Seconds (9.8-13.1) 11/05/16 16:46 INR 1.1 (0.9-1.2) 11/05/16 16:46 APTT 37.3 Seconds (25.6-37.1) H 11/05/16 16:46 - Constitutional Appears: Non-toxic, No Acute Distress (no pain presently) - Head Exam Head Exam: NORMAL INSPECTION - Eye Exam Pupil Exam: NORMAL ACCOMODATION - ENT Exam ENT Exam: Normal Exam - Respiratory Exam Respiratory Exam: NORMAL BREATHING PATTERN - Cardiovascular Exam Cardiovascular Exam: REGULAR RHYTHM, +S1, +S2 - GI/Abdominal Exam GI & Abdominal Exam: Soft, Normal Bowel Sounds. absent: Tenderness - Extremities Exam Additional comments: RLE: wrapped in dressing that is clean dry and intact. - Neurological Exam Neurological Exam: Alert, Awake, CN II-XII Intact, Oriented x3 - Psychiatric Exam Psychiatric exam: Normal Affect, Normal Mood - Skin Skin Exam: Normal Color Assessment and Plan - Assessment and Plan (Free Text) Assessment: POD#4 s/p right 1st partial ray amputation due to osteomyelitis, with delayed closure on 11/07/16 61 year old male with PMH of uncontrolled DM and HLD presented to ED with chills , cough dizziness with hx of right great to infection that failed outpatient treatment with augmentin. Patient was admitted and started on IV antibiotics. Nonweight bearing status. Pain control. Senna for constipation. 1. Diabetic Foot Infection -secondary to osteomyelitis s/p right 1st partial ray amputation now s/p delayed wound closure this AM. -day 8 iv abx: vancomycin : BMP WNL -Day 5: Meropenem - Zosyn 10/31 - 11/02 -Cultures: blood: negative x 72 hrs. wound: acitinobacter baumannii, coagulase negative staph, sensitivities reviewed. urine: +gram neg balwinder -podiatry is following -ID (Dr. Curtis) is following -f/u vanco level 2. Sepsis -resolved. 3. Elevated BP without hx of HTN -new onset, improved control. -Norvasc 10mg -continue lisinopril 10 mg -likely due to stress vs undiagnosed htn 3. Cough -CXR negative - on broad spectrum antibiotics -cough syrup PRN 3. Uncontrolled DM - last HgA1c: 12.0 in 09/21/2016 - hold metformin 1000mg PO BID for now - home medications: increase Novolog 70/30: to 13 units SC q12 - Insulin Sliding scale - Accuchecks - consistent carbohydrate diet - hx of microalbuminuria -creatinine at baseline: start PEYTON inhibitor given pt has microalbuminuria 4: Hyperlipidemia -controlled, ASCVD risk: 9.2% -Total cholesterol 173, LDL 90, HDL 43 -Triglycerides: 145 -continue Simvastatin 20mg qhs, increase upon discharge to 40mg
[2016-11-07] MEDS ORDERED: Vancomycin 1 g Inj IVPB ONE (07:55)
[2016-11-07] MEDS ORDERED: ePHEDrine 50 mg/ml Inj ONE (08:08)
[2016-11-07] MEDS: Insulin Lispro Mix 75/25 100 units/ml (HumaLog) 10ml SC SCH ×2 (08:31→22:45)
[2016-11-07] MEDS ORDERED: HYDROmorphone 0.5 mg/0.5 ml ISec IVP PRN (08:47)
--- NOTE | 2016-11-07 08:48 | PCM.SURG1 ---
Surgeon's Initial Post Op Note - Surgeon's Notes Surgeon: Dr. Bui Clinical Secretary: Dr. Mi PGY-1 Type of Anesthesia: MAC, Local Anesthesia Administered By: Dr. Mcclure Pre-Operative Diagnosis: open wound right foot Operative Findings: see operative report Post-Operative Diagnosis: same Operation Performed: skin plasty/wound closure right foot Specimen/Specimens Removed: none Estimated Blood Loss: EBL {In ML}: 5 Blood Products Given: N/A Drains Used: No Drains Post-Op Condition: Good Date of Surgery/Procedure: 11/07/16 Time of Surgery/Procedure: 07:45
[2016-11-07] MEDS: Docusate-Senna 50 mg-8.6 mg Tab PO SCH (22:47)
[2016-11-08] MEDS: Meropenem 1 GM in Sodium Chloride 0.9% 100 ML IVPB SCH ×3 (04:20→19:53)
[2016-11-08] MEDS: Lactated Ringer's 1,000 ML IV SCH ×5 (04:20→20:25)
--- NOTE | 2016-11-08 06:53 | CP.PCM.PN ---
Subjective - Date & Time of Evaluation Date of Evaluation: 11/08/16 Time of Evaluation: 08:30 - Subjective Subjective: POD#5 s/p right 1st partial ray amputation due to osteomyelitis, with delayed closure on 11/07/16 No acute events overnight. Patient seen and examined bedside. Has PICC line on left arm. No complaints of pain at present. Tolerating regular diet. Will be evaluated by PT. Discussed with podiatry, partial weight bearing status. Patient needs packing removed in the AM. Will discuss with ID regarding duration of antibiotics. Denies fevers, chest pain, dyspnea, abdominal pain, pedal edema. Objective - Vital Signs/Intake and Output Vital Signs (last 24 hours): Temp Pulse Resp BP Pulse Ox 99.2 F 86 19 128/61 97 11/08/16 00:50 11/08/16 00:50 11/08/16 00:50 11/08/16 00:50 11/08/16 00:50 Intake and Output: 11/07/16 11/08/16 18:59 06:59 Intake Total 460 Balance 460 - Medications Medications: Current Medications Acetaminophen (Tylenol 325mg Tab) 650 mg PO Q6 PRN PRN Reason: Fever >100.4 F Acetaminophen (Tylenol 325mg Tab) 650 mg PO Q6 PRN PRN Reason: Pain, Mild (1-3) Amlodipine Besylate (Norvasc) 10 mg PO DAILY [facility] Last Admin: 11/07/16 11:30 Dose: 10 mg Atorvastatin Calcium (Lipitor) 10 mg PO HS [facility] Last Admin: 11/07/16 22:47 Dose: 10 mg Enoxaparin Sodium (Lovenox) 40 mg SC DAILY [facility] PRN Reason: Protocol Last Admin: 11/05/16 08:58 Dose: 40 mg Vancomycin HCl 1 gm/ Sodium (Chloride) 250 mls @ 166.667 mls/hr IVPB Q12 [facility] Last Admin: 11/07/16 22:44 Dose: 166.667 mls/hr Meropenem 1 gm/ Sodium (Chloride) 100 mls @ 100 mls/hr IVPB Q8@0400,1200,2000 [facility] Last Admin: 11/08/16 04:20 Dose: 100 mls/hr Lactated Ringer's (Lactated Ringer's) 1,000 mls @ 125 mls/hr IV .Q8H [facility] Last Admin: 11/08/16 05:38 Dose: Not Given Insulin Human Lispro (Humalog) 0 units SC ACHS [facility] PRN Reason: Protocol Last Admin: 11/07/16 22:48 Dose: Not Given Insulin Lispro Protam/Lispro Human (Humalog Mix 75/25) 13 units SC Q12 [facility] Last Admin: 11/07/16 22:45 Dose: 13 units Lisinopril (Zestril) 10 mg PO DAILY [facility] Last Admin: 11/07/16 11:30 Dose: 10 mg Oxycodone/Acetaminophen (Percocet 5/325 Mg Tab) 1 tab PO Q6 PRN PRN Reason: Pain, moderate (4-7) Stop: 11/09/16 15:33 Last Admin: 11/06/16 15:43 Dose: 1 tab Senna/Docusate Sodium (Senokot S 50 Mg-8.6 Mg) 2 tab PO HS [facility] Last Admin: 11/07/16 22:47 Dose: 2 tab - Labs Labs: 11/04/16 05:55 11/04/16 05:55 PT 12.4 Seconds (9.8-13.1) 11/05/16 16:46 INR 1.1 (0.9-1.2) 11/05/16 16:46 APTT 37.3 Seconds (25.6-37.1) H 11/05/16 16:46 - Constitutional Appears: Non-toxic, No Acute Distress - Head Exam Head Exam: NORMAL INSPECTION - Eye Exam Eye Exam: Normal appearance - ENT Exam ENT Exam: Mucous Membranes Moist - Respiratory Exam Respiratory Exam: NORMAL BREATHING PATTERN - Cardiovascular Exam Cardiovascular Exam: REGULAR RHYTHM - GI/Abdominal Exam GI & Abdominal Exam: Soft, Normal Bowel Sounds. absent: Distended, Firm, Tenderness - Extremities Exam Extremities Exam: absent: Pedal Edema Additional comments: RLE: wrapped in banadge, appears clean and dry. no malodor. Dressing was not removed. Wound was not visualized. RUE: picc in place. no erythema/drainage - Neurological Exam Neurological Exam: Alert, Awake, CN II-XII Intact, Oriented x3 - Psychiatric Exam Psychiatric exam: Normal Affect, Normal Mood - Skin Skin Exam: Dry. absent: Pallor Assessment and Plan - Assessment and Plan (Free Text) Assessment: POD#5 s/p right 1st partial ray amputation due to osteomyelitis, with delayed closure on 11/07/16 61 year old male with PMH of uncontrolled DM and HLD admitted for right diabetic foot infection. Found to have osteomyelitis. Status post surgery with delayed closure. Patient has a PICC line on left side, is on IV antibiotics. Partial weight bearing status. Pain control. Senna for constipation. 1. Diabetic Foot Infection -secondary to osteomyelitis s/p right 1st partial ray amputation now s/p delayed wound closure 11/07/16 - PICC line LEFT arm -day 9 iv abx: vancomycin. renal function WNL. -Day 6: Meropenem - Zosyn 10/31 - 11/02 -Cultures: blood: negative x 5 days.. wound: acitinobacter baumannii, coagulase negative staph, sensitivities reviewed. urine: +gram neg balwinder -podiatry is following. -ID (Dr. Curtis) is following. 2. Sepsis -resolved. 3. Elevated BP without hx of HTN -new onset, improved control. -Norvasc 10mg -continue lisinopril 10 mg -likely due to stress vs undiagnosed htn 3. Cough -CXR negative - on broad spectrum antibiotics -cough syrup PRN 3. Uncontrolled DM - last HgA1c: 12.0 in 09/21/2016 - hold metformin 1000mg PO BID: will start Metformin 500mg PO, start glipizide 5mg po daily - Hold PM dose of Humalog mix 75/25 - Insulin Sliding scale - Accuchecks - consistent carbohydrate diet - hx of microalbuminuria -creatinine at baseline: start PEYTON inhibitor given pt has microalbuminuria 4: Hyperlipidemia -controlled, ASCVD risk: 9.2% -Total cholesterol 173, LDL 90, HDL 43 -Triglycerides: 145 -continue Simvastatin 20mg qhs, increase upon discharge to 40mg
[2016-11-08 07:59] LABS: HEMATOCRIT 29.1 % (35.0-51.0); MEAN CELL VOLUME 88.3 fl (80.0-94.0); MEAN CORPUSCULAR HEMOGLOBIN 29.6 pg (27.0-31.0); MEAN CORPUSCULAR HGB CONC 33.6 g/dL (33.0-37.0); RED CELL DISTRIBUTION WIDTH 13.4 % (11.5-14.5); WHITE BLOOD COUNT 9.8 K/uL (4.8-10.8)
[2016-11-08 08:18] LABS: BLOOD UREA NITROGEN 19 mg/dl (9-20); CALCIUM 8.7 mg/dL (8.4-10.2); CARBON DIOXIDE 29 mmol/L (22-30); CHLORIDE 101 mmol/L (98-107); GFR AFRICAN-AMERICAN > 60; GLUCOSE,RANDOM 166 mg/dL (75-110); POTASSIUM 4.3 MMOL/L (3.6-5.0); SODIUM 137 mmol/l (132-148)
--- NOTE | 2016-11-08 08:35 | CP.PCM.PN ---
Subjective - Date & Time of Evaluation Date of Evaluation: 11/08/16 Time of Evaluation: 08:30 - Subjective Subjective: 61 y/o male was seen at beside today for 5 days s/p right 1st ray amputation and s/p day 1 of primary wound closure. Pt is AAOx3 and NAD. Seen resting comfortably at bedside. Denies any discomfort/pain. Patient denies any n/v/sob/f /cp or chills at this moment. No other pedal complaints at this time. Objective - Vital Signs/Intake and Output Vital Signs (last 24 hours): Temp Pulse Resp BP Pulse Ox 98.7 F 63 18 133/67 96 11/08/16 07:37 11/08/16 07:37 11/08/16 07:37 11/08/16 07:37 11/08/16 07:37 - Medications Medications: Current Medications Acetaminophen (Tylenol 325mg Tab) 650 mg PO Q6 PRN PRN Reason: Fever >100.4 F Acetaminophen (Tylenol 325mg Tab) 650 mg PO Q6 PRN PRN Reason: Pain, Mild (1-3) Amlodipine Besylate (Norvasc) 10 mg PO DAILY [facility] Last Admin: 11/07/16 11:30 Dose: 10 mg Atorvastatin Calcium (Lipitor) 10 mg PO HS [facility] Last Admin: 11/07/16 22:47 Dose: 10 mg Enoxaparin Sodium (Lovenox) 40 mg SC DAILY [facility] PRN Reason: Protocol Last Admin: 11/05/16 08:58 Dose: 40 mg Vancomycin HCl 1 gm/ Sodium (Chloride) 250 mls @ 166.667 mls/hr IVPB Q12 [facility] Last Admin: 11/07/16 22:44 Dose: 166.667 mls/hr Meropenem 1 gm/ Sodium (Chloride) 100 mls @ 100 mls/hr IVPB Q8@0400,1200,2000 [facility] Last Admin: 11/08/16 04:20 Dose: 100 mls/hr Lactated Ringer's (Lactated Ringer's) 1,000 mls @ 125 mls/hr IV .Q8H [facility] Last Admin: 11/08/16 05:38 Dose: Not Given Insulin Human Lispro (Humalog) 0 units SC ACHS [facility] PRN Reason: Protocol Last Admin: 11/07/16 22:48 Dose: Not Given Insulin Lispro Protam/Lispro Human (Humalog Mix 75/25) 13 units SC Q12 [facility] Last Admin: 11/07/16 22:45 Dose: 13 units Lisinopril (Zestril) 10 mg PO DAILY [facility] Last Admin: 11/07/16 11:30 Dose: 10 mg Oxycodone/Acetaminophen (Percocet 5/325 Mg Tab) 1 tab PO Q6 PRN PRN Reason: Pain, moderate (4-7) Stop: 11/09/16 15:33 Last Admin: 11/06/16 15:43 Dose: 1 tab Senna/Docusate Sodium (Senokot S 50 Mg-8.6 Mg) 2 tab PO HS [facility] Last Admin: 11/07/16 22:47 Dose: 2 tab - Labs Labs: 11/08/16 06:50 11/08/16 06:50 PT 12.4 Seconds (9.8-13.1) 11/05/16 16:46 INR 1.1 (0.9-1.2) 11/05/16 16:46 APTT 37.3 Seconds (25.6-37.1) H 11/05/16 16:46 - Constitutional Appears: Well, Non-toxic, No Acute Distress - Extremities Exam Additional comments: Dressing to right foot appears C/D/I with no strikethrough noted. - Neurological Exam Neurological Exam: Alert, Awake, Oriented x3 - Psychiatric Exam Psychiatric exam: Normal Affect, Normal Mood Assessment and Plan - Assessment and Plan (Free Text) Assessment: 61 y/o male day 1 s/p delayed primary closure of right foot wound . Plan: Patient was seen and evaluated at bedside Discussed plan with Dr. Bui Chart labs and vitals reviewed Packing to be pulled with resuturing tomorrow morning 11/09/16 Weight bearing as tolerated to heel with surgical shoe PT recommends discharge home Patient is stable on podiatry standpoint Will continue to monitor in house
[2016-11-08] MEDS: Insulin Lispro (humaLOG) 100 Units/ml Inj SC SCH ×4 (09:16→21:39)
[2016-11-08] MEDS: Insulin Lispro Mix 75/25 100 units/ml (HumaLog) 10ml SC SCH (09:16)
[2016-11-08] MEDS: Enoxaparin 40 mg Syringe SC SCH (11:53)
[2016-11-08] MEDS: Docusate-Senna 50 mg-8.6 mg Tab PO SCH (21:24)
[2016-11-09] MEDS: Meropenem 1 GM in Sodium Chloride 0.9% 100 ML IVPB SCH ×2 (03:26→11:50)
[2016-11-09] MEDS: Lactated Ringer's 1,000 ML IV SCH (03:28)
--- NOTE | 2016-11-09 05:42 | OP ---
PROCEDURE DATE: 11/07/2016 SURGEON: Dr. Gurvinder Bui. CASE REVIEWER: Dr. John, PGY-1. BATH HOUSE ATTENDANT: Dr. Mcclure. ANESTHESIA: IV sedation with local. PREOPERATIVE DIAGNOSIS: Right foot open wound. POSTOPERATIVE DIAGNOSIS: Right foot open wound. NAME OF PROCEDURE: Skin plasty with wound closure of right foot. INDICATIONS: The patient is a 61-year-old male with the above diagnosis. Of note, the patient is 3 days status post a partial first ray amputation secondary to diagnosed osteomyelitis of the right foot. The patient signed the consent after careful explanation of all risks, benefits, complications, and alternatives for surgical procedure. No guarantees were given nor implied. The patient is receiving IV vancomycin and meropenem on the floors. N.p.o. status was confirmed prior to taking patient to the operating room. PREPARATION: The patient was brought into the operating room and placed on the operating table in a supine position. Ankle tourniquet was not required for this procedure. After induction of IV sedation, the patient received a total of 20 mL of a 1:1 mixture consisting of 0.5% Marcaine plain and 1% lidocaine plain in a local block fashion to the right foot. Once local anesthesia was achieved, the right foot was then prepped and draped in the usual sterile manner. An Esmarch was also utilized to exsanguinate the right foot at the ankle level and the procedure began. DESCRIPTION OF PROCEDURE: Attention was then drawn to the previous surgical incision of the right foot at medial distal aspect where an open gaping wound was noted, measuring approximately 8.0 x 3.0 x 3.0 cm. It should also be noted that the wound bed and wound borders were 100% granular and appeared to be healing well. No evidence of purulent discharge noted. Attention was then drawn to the wound borders where a #15 blade was utilized to freshen the wound border edges of the perimeter of the wound. Next, a fresh # 15 blade was utilized to debulk subcutaneous tissue of the wound bed to allow for adequate closure of the wound. Next, Simpulse pulse lavage was utilized with normal saline and bacitracin to copiously flush the wound bed. Once the wound bed was cleansed 1/4-inch plain packing was utilized to pack the wound bed to allow for adequate drainage. Using a hemostat, the packing was advanced from distally to proximally through the wound and tails were left with suture and secured with coban to be pulled later this week at bedside. Next number 4-0 nylon suture was utilized to reapproximate the skin edges of the wound. Next, #3-0 nylon suture was utilized to finish the closure of the wound using both horizontal mattress in an interrupted suture technique. At this time, the foot was then cleansed with normal sterile saline and dried. Next, Betadine soaked Adaptic was placed over the incision site, and the foot was then dressed with DSD, Kerlix, and a lightly wrapped Flex bandage. Dr. Bui , was present during the entire case. POSTOPERATIVE CONDITION: The patient tolerated the anesthesia and procedure well, and was escorted to the recovery room with vital signs stable and neurovascular status intact to the right foot. The patient will remain nonweightbearing postoperatively today. We will have physical therapy evaluate the patient, and will transition the patient to full weightbearing to the heel as tolerated with a surgical shoe tomorrow. The patient will be followed closely on the floors, and will follow up with Dr. Bui as an outpatient in the office to have sutures removed in 2-3 weeks. PRINCE JOHN DPEwa Gurvinder Bui DPM cc: [id number] TT: 11/08/2016 14:10:27 [place]
--- NOTE | 2016-11-09 07:07 | CP.PCM.PN ---
Subjective - Date & Time of Evaluation Date of Evaluation: 11/09/16 Time of Evaluation: 07:30 - Subjective Subjective: POD#6 s/p right 1st partial ray amputation due to osteomyelitis, POD#2 s/p delayed closure No acute events overnight. Patient seen and examined bedside with podiatry team. Dressing removed, packing removed. No complaints this AM. Tolerating PO diet. Able to ambulate-partial weight bearing, heel strike only. Pt has PICC line, currently on Meropenem and Vancomycin. As per ID will continue IV antibiotics for 9 more days. Awaiting further input from ID. Objective - Vital Signs/Intake and Output Vital Signs (last 24 hours): Temp Pulse Resp BP Pulse Ox 98.4 F 74 18 99/62 L 96 11/09/16 00:09 11/09/16 00:09 11/09/16 00:09 11/09/16 00:09 11/09/16 00:09 - Medications Medications: Current Medications Acetaminophen (Tylenol 325mg Tab) 650 mg PO Q6 PRN PRN Reason: Fever >100.4 F Acetaminophen (Tylenol 325mg Tab) 650 mg PO Q6 PRN PRN Reason: Pain, Mild (1-3) Last Admin: 11/08/16 21:28 Dose: 650 mg Amlodipine Besylate (Norvasc) 10 mg PO DAILY [facility] Last Admin: 11/08/16 09:17 Dose: 10 mg Atorvastatin Calcium (Lipitor) 10 mg PO HS [facility] Last Admin: 11/08/16 21:23 Dose: 10 mg Enoxaparin Sodium (Lovenox) 40 mg SC DAILY [facility] PRN Reason: Protocol Last Admin: 11/08/16 11:53 Dose: 40 mg Vancomycin HCl 1 gm/ Sodium (Chloride) 250 mls @ 166.667 mls/hr IVPB Q12 [facility] Last Admin: 11/08/16 21:28 Dose: 166.667 mls/hr Meropenem 1 gm/ Sodium (Chloride) 100 mls @ 100 mls/hr IVPB Q8@0400,1200,2000 [facility] Last Admin: 11/09/16 03:26 Dose: 100 mls/hr Lactated Ringer's (Lactated Ringer's) 1,000 mls @ 125 mls/hr IV .Q8H [facility] Last Admin: 11/09/16 03:28 Dose: 125 mls/hr Insulin Human Lispro (Humalog) 0 units SC ACHS [facility] PRN Reason: Protocol Last Admin: 11/08/16 21:39 Dose: Not Given Insulin Lispro Protam/Lispro Human (Humalog Mix 75/25) 13 units SC Q12 [facility] Last Admin: 11/08/16 09:16 Dose: 13 units Lisinopril (Zestril) 10 mg PO DAILY [facility] Last Admin: 11/08/16 09:20 Dose: 10 mg Metformin HCl (Glucophage) 500 mg PO DAILY [facility] Last Admin: 11/08/16 13:13 Dose: 500 mg Oxycodone/Acetaminophen (Percocet 5/325 Mg Tab) 1 tab PO Q6 PRN PRN Reason: Pain, moderate (4-7) Stop: 11/09/16 15:33 Last Admin: 11/06/16 15:43 Dose: 1 tab Senna/Docusate Sodium (Senokot S 50 Mg-8.6 Mg) 2 tab PO HS [facility] Last Admin: 11/08/16 21:24 Dose: Not Given - Labs Labs: 11/08/16 06:50 11/08/16 06:50 PT 12.4 Seconds (9.8-13.1) 11/05/16 16:46 INR 1.1 (0.9-1.2) 11/05/16 16:46 APTT 37.3 Seconds (25.6-37.1) H 11/05/16 16:46 - Constitutional Appears: Non-toxic, No Acute Distress - Head Exam Head Exam: NORMAL INSPECTION - Eye Exam Eye Exam: Normal appearance - ENT Exam ENT Exam: Mucous Membranes Moist - Neck Exam Neck Exam: Full ROM - Respiratory Exam Respiratory Exam: Clear to Ausculation Bilateral, NORMAL BREATHING PATTERN - Cardiovascular Exam Cardiovascular Exam: REGULAR RHYTHM, +S1, +S2 - GI/Abdominal Exam GI & Abdominal Exam: Soft, Normal Bowel Sounds. absent: Tenderness - Extremities Exam Extremities Exam: absent: Pedal Edema, Tenderness Additional comments: right foot: incision clean and dry. packing removed, minimal blood visible. no active bleeding. - Neurological Exam Neurological Exam: Alert, Awake, CN II-XII Intact, Oriented x3 - Psychiatric Exam Psychiatric exam: Normal Affect, Normal Mood - Skin Skin Exam: Dry, Intact Assessment and Plan - Assessment and Plan (Free Text) Assessment: POD#6 s/p right 1st partial ray amputation due to osteomyelitis, POD#2 s/p delayed closure 61 year old male with PMH of uncontrolled DM and HLD admitted for right diabetic foot infection. Found to have osteomyelitis. Status post surgery with delayed closure. Patient has a PICC line on left side, is on IV antibiotics. Partial weight bearing status. Pain control. Senna for constipation. 1. Diabetic Foot Infection -secondary to osteomyelitis s/p right 1st partial ray amputation now s/p delayed wound closure 6 -Bone pathology report reviewed: gangrene skin and soft tissue with acute osteomyelitis, bone margin no osteomyleitis, skin tissue with focal necrosis. - PICC line LEFT arm -day 10 iv abx: vancomycin. renal function WNL. Vanco trough: 15.8 -Day 7: Meropenem -Zosyn 10/31 - 11/02 -Cultures: blood: negative x 5 days.. wound: acitinobacter baumannii, coagulase negative staph, sensitivities reviewed. urine: +gram neg balwinder -podiatry is following. -ID (Dr. Curtis) is following. Awaiting further input regarding medications. 2. Sepsis -resolved. 3. Elevated BP without hx of HTN -new onset, improved control. -Norvasc 10mg -continue lisinopril 10 mg -likely due to stress vs undiagnosed htn 3. Cough - on broad spectrum antibiotics - cough syrup PRN 3. Uncontrolled DM - last HgA1c: 12.0 in 09/21/2016 - hold metformin 1000mg PO BID: will start Metformin 500mg PO, start glipizide 10 mg po daily - Hold Humalog mix 75/25 - Insulin Sliding scale - Accuchecks - consistent carbohydrate diet - hx of microalbuminuria -creatinine at baseline: start PEYTON inhibitor given pt has microalbuminuria 4: Hyperlipidemia -controlled, ASCVD risk: 9.2% -Total cholesterol 173, LDL 90, HDL 43 -Triglycerides: 145 -continue Simvastatin 20mg qhs, increase upon discharge to 40mg
--- NOTE | 2016-11-09 07:46 | CP.PCM.PN ---
Subjective - Date & Time of Evaluation Date of Evaluation: 11/09/16 Time of Evaluation: 08:00 - Subjective Subjective: 61 y/o male seen at bedside today for POD#5 s/p partial 1st ray amputation, right foot (DOS: 11/04/16) and POD#2 s/p delayed primary closure (DOS: 11/07/16). Patient appears AAOx3 and NAD. Patient denies any pain to surgical site, says he has been ambulating with surgical shoe without difficulty. Patient denies n/v /f/d/sob/cp. No other pedal complaints. Objective - Vital Signs/Intake and Output Vital Signs (last 24 hours): Temp Pulse Resp BP Pulse Ox 98.8 F 74 20 110/55 L 100 11/09/16 07:42 11/09/16 07:42 11/09/16 07:42 11/09/16 07:42 11/09/16 07:42 - Medications Medications: Current Medications Acetaminophen (Tylenol 325mg Tab) 650 mg PO Q6 PRN PRN Reason: Fever >100.4 F Acetaminophen (Tylenol 325mg Tab) 650 mg PO Q6 PRN PRN Reason: Pain, Mild (1-3) Last Admin: 11/08/16 21:28 Dose: 650 mg Amlodipine Besylate (Norvasc) 10 mg PO DAILY [facility] Last Admin: 11/08/16 09:17 Dose: 10 mg Atorvastatin Calcium (Lipitor) 10 mg PO HS [facility] Last Admin: 11/08/16 21:23 Dose: 10 mg Enoxaparin Sodium (Lovenox) 40 mg SC DAILY [facility] PRN Reason: Protocol Last Admin: 11/08/16 11:53 Dose: 40 mg Vancomycin HCl 1 gm/ Sodium (Chloride) 250 mls @ 166.667 mls/hr IVPB Q12 [facility] Last Admin: 11/08/16 21:28 Dose: 166.667 mls/hr Meropenem 1 gm/ Sodium (Chloride) 100 mls @ 100 mls/hr IVPB Q8@0400,1200,2000 [facility] Last Admin: 11/09/16 03:26 Dose: 100 mls/hr Lactated Ringer's (Lactated Ringer's) 1,000 mls @ 125 mls/hr IV .Q8H [facility] Last Admin: 06/21/17 03:28 Dose: 125 mls/hr Insulin Human Lispro (Humalog) 0 units SC ACHS [facility] PRN Reason: Protocol Last Admin: 11/08/16 21:39 Dose: Not Given Insulin Lispro Protam/Lispro Human (Humalog Mix 75/25) 13 units SC Q12 [facility] Last Admin: 11/08/16 09:16 Dose: 13 units Lisinopril (Zestril) 10 mg PO DAILY [facility] Last Admin: 11/08/16 09:20 Dose: 10 mg Metformin HCl (Glucophage) 500 mg PO DAILY [facility] Last Admin: 11/08/16 13:13 Dose: 500 mg Oxycodone/Acetaminophen (Percocet 5/325 Mg Tab) 1 tab PO Q6 PRN PRN Reason: Pain, moderate (4-7) Stop: 11/09/16 15:33 Last Admin: 11/06/16 15:43 Dose: 1 tab Senna/Docusate Sodium (Senokot S 50 Mg-8.6 Mg) 2 tab PO HS [facility] Last Admin: 11/08/16 21:24 Dose: Not Given - Labs Labs: 11/08/16 06:50 11/08/16 06:50 PT 12.4 Seconds (9.8-13.1) 11/05/16 16:46 INR 1.1 (0.9-1.2) 11/05/16 16:46 APTT 37.3 Seconds (25.6-37.1) H 11/05/16 16:46 - Constitutional Appears: Well, Non-toxic, No Acute Distress - Extremities Exam Additional comments: Right foot focused: Dressing appears c.d.i with no strikethrough noted. VASC- DP/PT pulses are palpable, TG runs warm to cool, cap refill < 3 sec to digits x 4, no pedal edema DERM: Sutures appear well-approximated with no dehiscence noted, no erythema, no purulence, no fluctuance, no malodor, no ascending cellulitis NEURO: pedal sensation is diminished ORTHO: slight tenderness noted on palpation of incision site - Neurological Exam Neurological Exam: Alert, Awake, Oriented x3 - Psychiatric Exam Psychiatric exam: Normal Affect Assessment and Plan - Assessment and Plan (Free Text) Assessment: 61 y/o male POD#5 right partial 1st ray amputation and POD#2 delayed primary closure right foot wound Plan: Patient seen and evaluated at bedside Discussed with attending Dr. Bui Chart, labs, and vitals reviewed: afebrile, Packing pulled and proximal and distal ends of incision sutured in place. Pt tolerated well without incident. Patient is WBAT to R heel with surgical shoe, keep dressing c.d.i PT recommends discharge home Bone pathology report reviewed: gangrene skin and soft tissue with acute osteomyelitis, bone margin no osteomyleitis, skin tissue with focal necrosis. Per ID Dr. Curtis: 7-10 days of IV abx (cipro 400 mg IV BID + vanco 1 gram qd Then switch to 1 week oral abx cipro 500 mg BID + clindamycin 600 mg q8 PO . Patient stable from podiatry standpoint. Will continue to follow while in house.
[2016-11-09] MEDS: Insulin Lispro (humaLOG) 100 Units/ml Inj SC SCH ×4 (08:32→23:02)
[2016-11-09] MEDS: Enoxaparin 40 mg Syringe SC SCH (08:36)
--- NOTE | 2016-11-09 09:02 | CP.PCM.PN ---
Subjective - Date & Time of Evaluation Date of Evaluation: 11/09/16 Time of Evaluation: 07:45 - Subjective Subjective: No acute events overnight. Patient seen and examined bedside with podiatry team. Dressing removed, packing removed. No complaints this AM. Tolerating PO diet. Able to ambulate-partial weight bearing, heel strike only. As per ID will continue IV antibiotics for 9 more days. Currently on Meropenem and Vancomycin. Pt has PICC. Awaiting further input from ID. Objective - Vital Signs/Intake and Output Vital Signs (last 24 hours): Temp Pulse Resp BP Pulse Ox 98.8 F 73 20 110/70 100 11/09/16 07:42 11/09/16 08:40 11/09/16 07:42 11/09/16 08:40 11/09/16 07:42 - Medications Medications: Current Medications Acetaminophen (Tylenol 325mg Tab) 650 mg PO Q6 PRN PRN Reason: Fever >100.4 F Acetaminophen (Tylenol 325mg Tab) 650 mg PO Q6 PRN PRN Reason: Pain, Mild (1-3) Last Admin: 11/08/16 21:28 Dose: 650 mg Amlodipine Besylate (Norvasc) 10 mg PO DAILY [facility] Last Admin: 11/09/16 08:39 Dose: 10 mg Atorvastatin Calcium (Lipitor) 10 mg PO HS [facility] Last Admin: 11/08/16 21:23 Dose: 10 mg Enoxaparin Sodium (Lovenox) 40 mg SC DAILY [facility] PRN Reason: Protocol Last Admin: 11/09/16 08:36 Dose: 40 mg Vancomycin HCl 1 gm/ Sodium (Chloride) 250 mls @ 166.667 mls/hr IVPB Q12 [facility] Last Admin: 11/09/16 08:45 Dose: 166.667 mls/hr Meropenem 1 gm/ Sodium (Chloride) 100 mls @ 100 mls/hr IVPB Q8@0400,1200,2000 [facility] Last Admin: 11/09/16 03:26 Dose: 100 mls/hr Lactated Ringer's (Lactated Ringer's) 1,000 mls @ 125 mls/hr IV .Q8H [facility] Last Admin: 11/09/16 03:28 Dose: 125 mls/hr Insulin Human Lispro (Humalog) 0 units SC ACHS [facility] PRN Reason: Protocol Last Admin: 11/09/16 08:32 Dose: 3 units Insulin Lispro Protam/Lispro Human (Humalog Mix 75/25) 13 units SC Q12 [facility] Last Admin: 11/08/16 09:16 Dose: 13 units Lisinopril (Zestril) 10 mg PO DAILY [facility] Last Admin: 11/09/16 08:40 Dose: 10 mg Metformin HCl (Glucophage) 500 mg PO DAILY [facility] Last Admin: 11/09/16 08:36 Dose: 500 mg Oxycodone/Acetaminophen (Percocet 5/325 Mg Tab) 1 tab PO Q6 PRN PRN Reason: Pain, moderate (4-7) Stop: 11/09/16 15:33 Last Admin: 11/06/16 15:43 Dose: 1 tab Senna/Docusate Sodium (Senokot S 50 Mg-8.6 Mg) 2 tab PO HS [facility] Last Admin: 11/08/16 21:24 Dose: Not Given - Labs Labs: 11/08/16 06:50 11/08/16 06:50 PT 12.4 Seconds (9.8-13.1) 11/05/16 16:46 INR 1.1 (0.9-1.2) 11/05/16 16:46 APTT 37.3 Seconds (25.6-37.1) H 11/05/16 16:46
--- NOTE | 2016-11-09 14:02 | CP.PCM.PCO ---
Assessment & Plan (1) Foot ulcer Assessment and Plan: Status: Acute (2) Diabetes mellitus Assessment and Plan: Since pt. is s/p partial toe amputation by podiatry adn as per podiatry team all the necrotic bone was excised and since he has remained afebrile with normal wbc count he no longer would require superintendent container terminal antibiotics since the treatment of choice is debridement/amputation which he had done. Hence advise only 7-10 days of abx namely cipro 400 mg IV BID for the acinectobacter and vanco 1 gram daily for the coag neg staph. after IV abc pt. can be switched to a week of oral abx namely oral cipro 500 mg BID along with clindamycin 600 mg q8 PO . All above d/w Dr.Pierre Griggs and the team. Status: Acute (3) Cellulitis in diabetic foot Status: Acute
[2016-11-09] MEDS: Ciprofloxacin 400mg/200ml D5W 400 MG/200 ML BAG IVPB SCH (21:20)
[2016-11-09] MEDS: Docusate-Senna 50 mg-8.6 mg Tab PO SCH (23:03)
--- NOTE | 2016-11-10 06:44 | CP.PCM.PN ---
Subjective - Date & Time of Evaluation Date of Evaluation: 11/10/16 Time of Evaluation: 08:15 - Subjective Subjective: POD#7 s/p right 1st partial ray amputation due to osteomyelitis, POD#3 s/p delayed closure No acute events overnight. No pain. Tolerating regular diet. Continue with IV antibiotics. Patient is feeling well. Metformin 500mg BID, Glipizide 10mg , Will monitor glucose. Objective - Vital Signs/Intake and Output Vital Signs (last 24 hours): Temp Pulse Resp BP Pulse Ox 98.6 F 75 18 134/70 98 11/10/16 00:28 11/10/16 00:28 11/10/16 00:28 11/10/16 00:28 11/10/16 00:28 - Medications Medications: Current Medications Acetaminophen (Tylenol 325mg Tab) 650 mg PO Q6 PRN PRN Reason: Fever >100.4 F Acetaminophen (Tylenol 325mg Tab) 650 mg PO Q6 PRN PRN Reason: Pain, Mild (1-3) Last Admin: 11/08/16 21:28 Dose: 650 mg Amlodipine Besylate (Norvasc) 10 mg PO DAILY [facility] Last Admin: 11/09/16 08:39 Dose: 10 mg Atorvastatin Calcium (Lipitor) 10 mg PO HS [facility] Last Admin: 11/09/16 23:02 Dose: 10 mg Enoxaparin Sodium (Lovenox) 40 mg SC DAILY [facility] PRN Reason: Protocol Last Admin: 11/09/16 08:36 Dose: 40 mg Glipizide (Glucotrol) 10 mg PO ACB [facility] Last Admin: 11/09/16 12:19 Dose: 10 mg Ciprofloxacin (Cipro 400mg/200ml Dsw) 400 mg in 200 mls @ 200 mls/hr IVPB Q12 [facility] Last Admin: 11/09/16 21:20 Dose: 200 mls/hr Vancomycin HCl 1 gm/ Sodium (Chloride) 250 mls @ 166.667 mls/hr IVPB DAILY [facility] Insulin Human Lispro (Humalog) 0 units SC ACHS [facility] PRN Reason: Protocol Last Admin: 11/09/16 23:02 Dose: Not Given Insulin Lispro Protam/Lispro Human (Humalog Mix 75/25) 13 units SC Q12 [facility] Last Admin: 11/08/16 09:16 Dose: 13 units Lisinopril (Zestril) 10 mg PO DAILY [facility] Last Admin: 11/09/16 08:40 Dose: 10 mg Metformin HCl (Glucophage) 500 mg PO BIDWM [facility] Last Admin: 11/09/16 16:53 Dose: 500 mg Senna/Docusate Sodium (Senokot S 50 Mg-8.6 Mg) 2 tab PO HS [facility] Last Admin: 11/09/16 23:03 Dose: Not Given - Labs Labs: 11/08/16 06:50 11/08/16 06:50 PT 12.4 Seconds (9.8-13.1) 11/05/16 16:46 INR 1.1 (0.9-1.2) 11/05/16 16:46 APTT 37.3 Seconds (25.6-37.1) H 11/05/16 16:46 - Constitutional Appears: Non-toxic, In Acute Distress - Head Exam Head Exam: NORMAL INSPECTION - Eye Exam Eye Exam: Normal appearance - ENT Exam ENT Exam: Mucous Membranes Moist - Respiratory Exam Respiratory Exam: Clear to Ausculation Bilateral, NORMAL BREATHING PATTERN - GI/Abdominal Exam GI & Abdominal Exam: Soft, Normal Bowel Sounds. absent: Distended, Guarding, Tenderness - Extremities Exam Additional comments: RLE dressing intact - Neurological Exam Neurological Exam: Alert, Awake, CN II-XII Intact - Psychiatric Exam Psychiatric exam: Normal Affect, Normal Mood - Skin Skin Exam: Dry, Intact Assessment and Plan - Assessment and Plan (Free Text) Assessment: POD#7 s/p right 1st partial ray amputation due to osteomyelitis, POD#3 s/p delayed closure 61 year old male with PMH of uncontrolled DM and HLD admitted for right diabetic foot infection. Found to have osteomyelitis. Status post surgery with delayed closure. Patient has a PICC line on left side, is on IV antibiotics. Partial weight bearing status. Pain control. Senna for constipation. 1. Diabetic Foot Infection -secondary to osteomyelitis s/p right 1st partial ray amputation now s/p delayed wound closure 11/07/16, culture + for acitinobacter baumannii, coagulase negative staph, sensitivities reviewed. -PICC line LEFT arm -Appreciate antibiotic recommendations from ID:7-10 days of IV abx (cipro 400 mg IV BID + vanco 1 gram qd, Then switch to 1 week oral abx cipro 500 mg BID + clindamycin 600 mg q8 PO . -day 11 iv abx: vancomycin. -Meropenem 11/03-11/09 -Zosyn 10/31 - 11/02 2. Sepsis -resolved. 3. Elevated BP without hx of HTN -new onset, controlled. -Norvasc 10mg -continue lisinopril 10 mg -likely due to stress vs undiagnosed htn 3. Cough - on broad spectrum antibiotics - cough syrup PRN 3. Uncontrolled DM - last HgA1c: 12.0 in 09/21/2016 - hold metformin 1000mg PO BID: increase Metformin 500mg to BID, start glipizide 10 mg po daily - Hold Humalog mix 75/25 - Insulin Sliding scale - Accuchecks 4: Hyperlipidemia -controlled, ASCVD risk: 9.2% -Total cholesterol 173, LDL 90, HDL 43-Triglycerides: 145 -continue Simvastatin 20mg qhs, increase upon discharge to 40mg
--- NOTE | 2016-11-10 07:06 | CP.PCM.PN ---
Subjective - Date & Time of Evaluation Date of Evaluation: 11/10/16 Time of Evaluation: 07:04 - Subjective Subjective: 61 y/o M seen at bedside for POD#6 (DOS: 11/04/16) partial 1st ray amputation and POD#3 (DOS: 11/07/16) delayed primary closure. Patient seen resting comfortably and NAD. Patient denies any pain to surgical site. Patient denies N/ V/F/D/C/CP/SOB. No other pedal complaints. Objective - Vital Signs/Intake and Output Vital Signs (last 24 hours): Temp Pulse Resp BP Pulse Ox 98.6 F 75 18 134/70 98 11/10/16 00:28 11/10/16 00:28 11/10/16 00:28 11/10/16 00:28 11/10/16 00:28 - Medications Medications: Current Medications Acetaminophen (Tylenol 325mg Tab) 650 mg PO Q6 PRN PRN Reason: Fever >100.4 F Acetaminophen (Tylenol 325mg Tab) 650 mg PO Q6 PRN PRN Reason: Pain, Mild (1-3) Last Admin: 11/08/16 21:28 Dose: 650 mg Amlodipine Besylate (Norvasc) 10 mg PO DAILY [facility] Last Admin: 11/09/16 08:39 Dose: 10 mg Atorvastatin Calcium (Lipitor) 10 mg PO HS [facility] Last Admin: 11/09/16 23:02 Dose: 10 mg Enoxaparin Sodium (Lovenox) 40 mg SC DAILY [facility] PRN Reason: Protocol Last Admin: 11/09/16 08:36 Dose: 40 mg Glipizide (Glucotrol) 10 mg PO ACB [facility] Last Admin: 11/09/16 12:19 Dose: 10 mg Ciprofloxacin (Cipro 400mg/200ml Dsw) 400 mg in 200 mls @ 200 mls/hr IVPB Q12 [facility] Last Admin: 11/09/16 21:20 Dose: 200 mls/hr Vancomycin HCl 1 gm/ Sodium (Chloride) 250 mls @ 166.667 mls/hr IVPB DAILY [facility] Insulin Human Lispro (Humalog) 0 units SC ACHS [facility] PRN Reason: Protocol Last Admin: 11/09/16 23:02 Dose: Not Given Insulin Lispro Protam/Lispro Human (Humalog Mix 75/25) 13 units SC Q12 [facility] Last Admin: 11/08/16 09:16 Dose: 13 units Lisinopril (Zestril) 10 mg PO DAILY [facility] Last Admin: 11/09/16 08:40 Dose: 10 mg Metformin HCl (Glucophage) 500 mg PO BIDWM [facility] Last Admin: 11/09/16 16:53 Dose: 500 mg Senna/Docusate Sodium (Senokot S 50 Mg-8.6 Mg) 2 tab PO HS [facility] Last Admin: 11/09/16 23:03 Dose: Not Given - Labs Labs: 11/08/16 06:50 11/08/16 06:50 PT 12.4 Seconds (9.8-13.1) 11/05/16 16:46 INR 1.1 (0.9-1.2) 11/05/16 16:46 APTT 37.3 Seconds (25.6-37.1) H 11/05/16 16:46 - Constitutional Appears: Well, Non-toxic, No Acute Distress - Extremities Exam Additional comments: Focused RLE exam: Vasc: DP and PT pulses palpable. Skin temperature warm to cool from proximal to distal. CFT WNL to all digits tested. Neuro: Gross sensation diminished. Derm: Sutures appear well-approximated with no wound dehiscence noted. No erythema, fluctuance, malodor noted. Ortho: Tenderness to palpation noted to surgical site. - Neurological Exam Neurological Exam: Alert, Awake, Oriented x3 - Psychiatric Exam Psychiatric exam: Normal Affect, Normal Mood Assessment and Plan - Assessment and Plan (Free Text) Assessment: 61 y/o male POD#6 right partial 1st ray amp and POD#3 delayed primary closure right foot wound Plan: Patient seen and evaluated at bedside. Discussed with attending Dr. Bui Chart, labs, vitals reviewed Continue WB as tolerated to right heel Dressings changed with betadine soaked adaptic, 4x4s, kerlix, and PEYTON PT recommends discharge home. Appreciate antibiotic recommendations from ID:7-10 days of IV abx (cipro 400 mg IV BID + vanco 1 gram qd Then switch to 1 week oral abx cipro 500 mg BID + clindamycin 600 mg q8 PO . Patient stable from podiatry standpoint, will continue to follow while in-house Pt will follow-up with Dr. Bui in 2 weeks in office for removal of surgery.
[2016-11-10] MEDS: Ciprofloxacin 400mg/200ml D5W 400 MG/200 ML BAG IVPB SCH (08:05)
[2016-11-10] MEDS: Enoxaparin 40 mg Syringe SC SCH (08:13)
[2016-11-10] MEDS: Insulin Lispro (humaLOG) 100 Units/ml Inj SC SCH ×2 (08:17→12:47)
--- NOTE | 2016-11-10 14:58 | CP.PCM.DIS ---
Provider - Provider Date of Admission: 10/31/16 12:34 Attending physician: Yohana Saunders MD Consults: Infectious Disease Time Spent in preparation of Discharge (in minutes): 30 Diagnosis - Discharge Diagnosis (1) Osteomyelitis Status: Acute Hospital Course - Lab Results Lab Results: Microbiology 11/03/16 12:00 Foot - Right Gram Stain - Final 11/03/16 12:00 Foot - Right Wound Culture - Final No Growth 11/01/16 05:50 Blood-Venous Blood Culture - Final NO GROWTH AFTER 5 DAYS 11/01/16 05:50 Blood-Venous Gram Stain - Final TEST NOT PERFORMED 10/31/16 10:15 Blood-Venous Blood Culture - Final NO GROWTH AFTER 5 DAYS 10/31/16 10:15 Blood-Venous Gram Stain - Final TEST NOT PERFORMED 10/31/16 10:10 Blood-Venous Blood Culture - Final NO GROWTH AFTER 5 DAYS 10/31/16 10:10 Blood-Venous Gram Stain - Final 10/31/16 12:25 Foot - Right Gram Stain - Final 10/31/16 12:25 Foot - Right Wound Culture - Final Acinetobacter Baumannii Coagulase Neg Staphylococcus 10/31/16 10:15 Urine,Random Urine Culture - Final Gram Negative [place] No Known Allergies Allergy (Verified 10/31/16 08:51) Micro Results 11/03/16 12:00 Foot - Right Gram Stain - Final 11/03/16 12:00 Foot - Right Wound Culture - Final No Growth 11/01/16 05:50 Blood-Venous Blood Culture - Final NO GROWTH AFTER 5 DAYS 11/01/16 05:50 Blood-Venous Gram Stain - Final TEST NOT PERFORMED Most Recent Lab Values WBC 9.8 K/uL (4.8-10.8) 11/08/16 06:50 RBC 3.30 Mil/uL (4.40-5.90) L 11/08/16 06:50 Hgb 9.8 g/dL (12.0-18.0) L 11/08/16 06:50 Hct 29.1 % (35.0-51.0) L 11/08/16 06:50 MCV 88.3 fl (80.0-94.0) 11/08/16 06:50 MCH 29.6 pg (27.0-31.0) 11/08/16 06:50 MCHC 33.6 g/dL (33.0-37.0) 11/08/16 06:50 RDW 13.4 % (11.5-14.5) 11/08/16 06:50 Plt Count 350 K/uL (130-400) 11/08/16 06:50 MPV 8.6 fl (7.2-11.7) 11/04/16 05:55 Neut % (Auto) 70.4 % (50.0-75.0) 11/04/16 05:55 Lymph % (Auto) 18.4 % (20.0-40.0) L 11/04/16 05:55 [place] % (Auto) 8.8 % (0.0-10.0) 11/04/16 05:55 Eos % (Auto) 2.1 % (0.0-4.0) 11/04/16 05:55 Baso % (Auto) 0.3 % (0.0-2.0) 11/04/16 05:55 Neut # 6.7 K/uL (1.8-7.0) 11/04/16 05:55 Lymph # 1.7 K/uL (1.0-4.3) 11/04/16 05:55 [place] # 0.8 K/uL (0.0-0.8) 11/04/16 05:55 Eos # 0.2 K/uL (0.0-0.7) 11/04/16 05:55 Baso # 0.0 K/uL (0.0-0.2) 11/04/16 05:55 ESR 97 mm/hr (0-20) H 10/31/16 12:19 PT 12.4 Seconds (9.8-13.1) 11/05/16 16:46 INR 1.1 (0.9-1.2) 11/05/16 16:46 APTT 37.3 Seconds (25.6-37.1) H 11/05/16 16:46 pO2 17 mm/Hg (30-55) L 10/31/16 10:30 VBG pH 7.33 (7.32-7.43) 10/31/16 10:30 VBG pCO2 58 mmHg (40-60) 10/31/16 10:30 VBG HCO3 26.0 mmol/L 10/31/16 10:30 VBG Total CO2 32.4 mmol/L (22-28) H 10/31/16 10:30 VBG O2 Sat (Calc) 38.6 % (40-65) L 10/31/16 10:30 VBG Base Excess 3.3 mmol/L (0.0-2.0) H 10/31/16 10:30 VBG Potassium 4.7 mmol/L (3.6-5.2) 10/31/16 10:30 A-a O2 Difference 60.0 mm/Hg 10/31/16 10:30 Sodium 137.0 mmol/L (132-148) 10/31/16 10:30 Chloride 103.0 mmol/L (98-107) 10/31/16 10:30 Glucose 138 mg/dL (75-110) H 10/31/16 10:30 Lactate 1.7 mmol/L (0.7-2.1) 10/31/16 10:30 FiO2 21.0 % 10/31/16 10:30 Crit Value Called To Dr clayton leo 10/31/16 10:30 Crit Value Called By 15 10/31/16 10:30 Crit Value Read Back Y 10/31/16 10:30 Blood Gas Notified Time 1028 10/31/16 10:30 Sodium 137 mmol/l (132-148) 11/08/16 06:50 Potassium 4.3 MMOL/L (3.6-5.0) 11/08/16 06:50 Chloride 101 mmol/L (98-107) 11/08/16 06:50 Carbon Dioxide 29 mmol/L (22-30) 11/08/16 06:50 Anion Gap 12 (10-20) 11/08/16 06:50 BUN 19 mg/dl (9-20) 11/08/16 06:50 Creatinine 1.0 mg/dL (0.8-1.5) 11/08/16 06:50 Est GFR ( Amer) > 60 11/08/16 06:50 Est GFR (Non-Af Amer) > 60 11/08/16 06:50 POC Glucose (mg/dL) 332 mg/dL (65-110) H 11/10/16 10:50 Random Glucose 166 mg/dL (75-110) H 11/08/16 06:50 Lactic Acid 1.7 MMOL/L (0.7-2.1) 10/31/16 10:15 Calcium 8.7 mg/dL (8.4-10.2) 11/08/16 06:50 Total Bilirubin < 0.1 mg/dl (0.2-1.3) L 10/31/16 10:15 AST 38 U/L (17-59) 10/31/16 10:15 ALT 39 U/L (21-72) 10/31/16 10:15 Alkaline Phosphatase 153 U/L (38-126) H 10/31/16 10:15 C-React Prot High Sens > 15.00 mg/L (1.00-3.00) H 11/01/16 05:50 Total Protein 8.2 G/DL (6.3-8.2) 10/31/16 10:15 Albumin 4.0 g/dL (3.5-5.0) 10/31/16 10:15 Globulin 4.2 gm/dL (2.2-3.9) H 10/31/16 10:15 Albumin/Globulin Ratio 1.0 (1.0-2.1) 10/31/16 10:15 Procalcitonin < 0.05 NG/ML (0.19-0.49) L 10/31/16 13:15 Venous Blood Potassium 4.7 mmol/L (3.6-5.2) 10/31/16 10:30 Urine Color Yellow (YELLOW) 11/02/16 02:30 Urine Clarity Clear (Clear) 11/02/16 02:30 Urine pH 7.0 (5.0-8.0) 11/02/16 02:30 Ur Specific [place] 1.013 (1.003-1.030) 11/02/16 02:30 Urine Protein 100 mg/dL (NEGATIVE) 11/02/16 02:30 Urine Glucose (UA) 50 mg/dL (Normal) 11/02/16 02:30 Urine Ketones Negative mg/dL (NEGATIVE) 11/02/16 02:30 Urine Blood Negative (NEGATIVE) 11/02/16 02:30 Urine Nitrate Negative (NEGATIVE) 11/02/16 02:30 Urine Bilirubin Negative (NEGATIVE) 11/02/16 02:30 Urine Urobilinogen 0.2-1.0 mg/dL (0.2-1.0) 11/02/16 02:30 Ur Leukocyte Esterase Neg [place]/uL (Negative) 11/02/16 02:30 Urine RBC (Auto) 2 /hpf (0-3) 11/02/16 02:30 Urine Microscopic WBC < 1 /hpf (0-5) 11/02/16 02:30 Urine Bacteria Rare (<OCC) 11/02/16 02:30 Hyaline Casts >20 /hpf (0-2) H 10/31/16 10:15 Vancomycin Trough 15.8 ug/mL (5.0-10.0) H 11/08/16 20:20 Random Vancomycin 24.3 ug/mL 11/07/16 11:10 Complement C3 121.0 mg/dL (88.0-165.0) 11/02/16 06:05 Complement C4 35.7 mg/dL (14.0-44.0) 11/02/16 06:05 Tot Complement (CH50) >60 U/mL (31-60) H 11/02/16 06:05 Influenza Typ A,B (EIA) Negative for flu a/b (NEGATIVE) 10/31/16 12:45 - Hospital Course Hospital Course: 61 year old male patient with uncontrolled diabetes admitted for right hallux infection that failed outpatient treatment with PO antibiotics. Patient is POD# 7 s/p right 1st partial ray amputation due to osteomyelitis, POD#3 s/p delayed closure of wound and has completed 11 days of IV antibiotics which included, vancomycin, zosyn, meropenem and ciprofloxacin for +wound culture for : acitinobacter baumannii, coagulase negative staph. urine culture +, blood cultures negative. Patient remained afebrile and without leukocytosis for the duration of the admission. ESR was elevated. Patient has left arm PICC line and will be discharged with the line for 8 more days of continued treatement with IV ciprofloxacin 400mg qday, and IV Vancomycin 1gm qday. Patient will need adjustment of DM medications as outpatient. Discharged with 8 days of IV ciprofloxacin 400mg daily and 8 days of IV vancomycin 1gm daily Will have repeat labs and removal of PICC after last dose of IV antibiotics. Resume home medications Novolin 70/30 10 units BID Metformin 1000 mg BID Discontinue Glyburide. Start Lisinopril 5mg daily Glipizide 10mg daily Rx sent to [facility]. Discharge Plan - Discharge Medications Prescriptions: GlipiZIDE [Glucotrol] 10 mg PO ACB #30 tab Glipizide [Glucotrol] 10 mg PO DAILY #30 tablet Lisinopril [Zestril] 5 mg PO DAILY #30 tablet Lisinopril [Zestril] 5 mg PO DAILY #30 tab Simvastatin 40 mg PO HS #30 tablet - Follow Up Plan Condition: FAIR Disposition: HOME/ ROUTINE Additional Instructions: Follow up with at [facility] with Dr. Pierce at 09:00AM Referrals: Gurvinder Bui, DPM [[facility]] -
[2016-11-10 16:02] VITALS: BP 129/65; PULSE 75; RESP 16; TEMP 98.1; O2SAT 98
== END 2016-11-10 18:20 | disposition home or self-care (01) | DRG 581 ==
LOC: H.ER 08:34 → H.ERHOLD 12:34 → H.MEDSURG1 13:41
PROVIDERS: ADMIT Family Medicine Geriatric Medicine; ATTEND Family Medicine Geriatric Medicine
PROC: 02HV33Z Insertion of Infusion Device into Superior Vena Cava, Percutaneous Approach (ICD-10-PCS; principal; 2016-11-02)
PROC: 0Y6P0Z0 Detachment at Right 1st Toe, Complete, Open Approach (ICD-10-PCS; 2016-11-03)
PROC: 0QBN0ZZ Excision of Right Metatarsal, Open Approach (ICD-10-PCS; 2016-11-03)
PROC: 0JBQ0ZZ Excision of Right Foot Subcutaneous Tissue and Fascia, Open Approach (ICD-10-PCS; 2016-11-03)
PROC: 0HQMXZZ Repair Right Foot Skin, External Approach (ICD-10-PCS; 2016-11-07)
PROC: 0HDMXZZ Extraction of Right Foot Skin, External Approach (ICD-10-PCS; 2016-11-07)
DX: A41.9 Sepsis, unspecified organism (principal); M86.171 Other acute osteomyelitis, right ankle and foot; E11.52 Type 2 diabetes mellitus with diabetic peripheral angiopathy with gangrene; E11.621 Type 2 diabetes mellitus with foot ulcer; E11.65 Type 2 diabetes mellitus with hyperglycemia; L97.519 Non-pressure chronic ulcer of other part of right foot with unspecified severity; E11.69 Type 2 diabetes mellitus with other specified complication; B95.7 Other staphylococcus as the cause of diseases classified elsewhere; M19.012 Primary osteoarthritis, left shoulder; M19.011 Primary osteoarthritis, right shoulder; E78.00 Pure hypercholesterolemia, unspecified; E78.5 Hyperlipidemia, unspecified; K59.00 Constipation, unspecified; R03.0 Elevated blood-pressure reading, without diagnosis of hypertension; R05 Cough

== ENCOUNTER 2018-04-09 14:17 | Inpatient (IN) | payer OTHER, SELFPAY ==
[2018-04-09 14:17] VITALS: BMI 27.4
[2018-04-09 16:01] LABS: BASO % 0.3 % (0.0-2.0); EOS # 0.1 K/uL (0.0-0.7); EOS % 0.8 % (0.0-4.0); HEMOGLOBIN 11.7 g/dL (12.0-18.0); LYMPH # 1.1 K/uL (1.0-4.3); LYMPH % 9.9 % (20.0-40.0); MEAN CELL VOLUME 89.4 fl (80.0-94.0); MEAN CORPUSCULAR HEMOGLOBIN 29.6 pg (27.0-31.0); MEAN CORPUSCULAR HGB CONC 33.1 g/dL (33.0-37.0); MONO # 1.1 K/uL (0.0-0.8); MONO % 10.4 % (0.0-10.0); NEUT # 8.5 K/uL (1.8-7.0); NEUT % 78.6 % (50.0-75.0); PLATELET COUNT 197 K/uL (130-400); RBC 3.96 Mil/uL (4.40-5.90); WHITE BLOOD COUNT 10.9 K/uL (4.8-10.8)
[2018-04-09 16:07] LABS: INR 1.1; PROTHROMBIN TIME 12.2 Seconds (9.8-13.1)
[2018-04-09 16:10] LABS: PARTIAL THROMBOPLASTIN TIME 31.2 Seconds (25.6-37.1)
[2018-04-09] MEDS ORDERED: Tdap Vaccine 0.5 ml Vial (10-64 yrs) IM ONE ×2 (16:25→19:07)
[2018-04-09] MEDS ORDERED: Piperacillin/Tazobact 4.5 GM in Sodium Chloride 0.9% 100 ML IVPB STA (16:26)
[2018-04-09 16:27] LABS: ALB/GLOB RATIO 1.1 (1.0-2.1); ALBUMIN 3.8 g/dL (3.5-5.0); CALCIUM 8.7 mg/dL (8.4-10.2)
[2018-04-09] MEDS ORDERED: Sodium Chloride 0.9% 1,000 ML IV STA (16:31)
--- NOTE | 2018-04-09 16:34 | ED PDOC ---
Lower Extremity Pain/Injury Time Seen by Provider: 04/09/18 15:18 Chief Complaint (Nursing): Lower Extremity Problem/Injury Chief Complaint (Provider): Lower Extremity Problem/Injury History Per: Patient History/Exam Limitations: no limitations Onset/Duration Of Symptoms: Days (x3 days ago) Current Symptoms Are (Timing): Still Present Additional Complaint(s): Neymar Germain is a 63 year old male with a past medical history of diabetes, who presents to the emergency room after sustaining an injury to his left foot, onset x3 days ago. Patient states he stepped on a nail that went through the shoe. He is complaining of his foot being red, painful, and swollen. Patient denies any fever. PMD: No provider Past Medical History Reviewed: Historical Data, Nursing Documentation, Vital Signs Vital Signs: Last Vital Signs Temp 98.9 F 04/09/18 14:32 Pulse 85 04/09/18 14:32 Resp 16 04/09/18 14:32 BP 120/62 04/09/18 14:32 Pulse Ox 100 04/09/18 14:32 - Medical History PMH: Arthritis (Bilateral Shoulder), Diabetes, HTN, Hypercholesterolemia, Pneumonia Denies: Chronic Kidney Disease - Surgical History Surgical History: No Surg Hx - Family History Family History: States: Diabetes - Home Medications Home Medications: Ambulatory Orders Medication Instructions Recorded Aspirin [Ecotrin] 81 mg PO DAILY 04/09/18 Insulin NPH Hum/Reg Insulin Hm 10 unit SC BID 04/09/18 [Humulin 70-30 Vial] - Allergies Allergies/Adverse Reactions: Allergies Allergy/AdvReac Type Severity Reaction Status Date / Time No Known Allergies Allergy Verified 04/09/18 14:31 Review of Systems ROS Statement: Except As Marked, All Systems Reviewed And Found Negative Musculoskeletal: Positive for: Foot Pain (left swollen, red foot pain) Physical Exam - Reviewed Nursing Documentation Reviewed: Yes Vital Signs Reviewed: Yes - Physical Exam Appears: Positive for: Non-toxic, No Acute Distress Head Exam: Positive for: ATRAUMATIC, NORMOCEPHALIC Skin: Positive for: Normal Color Cardiovascular/Chest: Positive for: Regular Rate, Rhythm. Negative for: Murmur Respiratory: Positive for: Normal Breath Sounds. Negative for: Respiratory Distress Extremity: Positive for: Other (left foot on the plantar distal puncture wound with erythema and edema; looks macerated 3rd digit with black discoloration sensation intact; anterior erythematous with edema (-) creptitus; hot to touch) - Laboratory Results Result Diagrams: 04/11/18 08:12 04/11/18 08:12 - ECG O2 Sat by Pulse Oximetry: 100 (RA) Pulse Ox Interpretation: Normal Medical Decision Making Medical Decision Making: Initial Time: 15:42 Initial Impression: Cellulitis with toe gangrene Plan: 15:18 --Provider contacted Podiatry after seeing patient 15:42 --EKG --CMP --ED urine dipstick --Cbc with differential --PTT --PT --Chest xray --Glucose POC --Sodium chloride 1,000 ml --Blood culture --Glucose blood --Foot left x-ray 1625 --Adacel 10-64 yrs 0.5 ml IM --Sodium chloride 1,000 ml --Vancomycin inj 1 gm sodium chloride 0.9% 250 ml IVPB --Zosyn 4.5 gm Sodium chloride 0.9% 100 ml IVPB --Admited to hospital 16:48 --Humulin R 8 untis IV 16:45 Patient instructed NPO after breakfast tomorrow with possible OR. Foot X-ray FINDINGS: BONES: Normal. No fracture. JOINTS: Normal. SOFT TISSUES: Normal. No visualized radiopaque foreign body. OTHER FINDINGS: None. IMPRESSION: No significant or acute findings to account for/ related to the clinical presentation. Chest X-ray FINDINGS: LUNGS: Clear. PLEURA: No pneumothorax or pleural fluid seen. CARDIOVASCULAR: No aortic atherosclerotic calcification present. Normal. OSSEOUS STRUCTURES: No significant abnormalities. VISUALIZED UPPER ABDOMEN: Normal. OTHER FINDINGS: None. IMPRESSION: No active disease. No acute/significant interval changes. Scribe Attestation: Documented by Zeferino Maldonado, acting as a scribe for Awa Davenport MD. Provider Scribe Attestation: All medical record entries made by the Scribe were at my direction and personally dictated by me. I have reviewed the chart and agree that the record accurately reflects my personal performance of the history, physical exam, medical decision making, and the department course for this patient. I have also personally directed, reviewed, and agree with the discharge instructions and disposition. Disposition - Clinical Impression Clinical Impression: Cellulitis in diabetic foot, Toe gangrene - Patient ED Disposition Is Patient to be Admitted: Yes - Disposition Disposition Time: 16:35 Condition: STABLE - Pt Status Changed To: Hospital Disposition Of: Inpatient - Admit Certification Admit to Inpatient:: After my assessment, the patient will require hospitaliza tion for at least two midnights. This is because of the severity of symptoms shown, intensity of services needed, and/or the medical risk in this patient being treated as an outpatient. - POA Present On Arrival: Poor Glycemic Control
[2018-04-09] MEDS ORDERED: Insulin Regular 100 units/ml IV STA (16:48)
--- NOTE | 2018-04-09 17:03 | RAD ---
Date of service: 04/09/2018 PROCEDURE: CHEST RADIOGRAPH, 1 VIEW HISTORY: Admission COMPARISON: 10/31/2016 FINDINGS: LUNGS: Clear. PLEURA: No pneumothorax or pleural fluid seen. CARDIOVASCULAR: No aortic atherosclerotic calcification present. Normal. OSSEOUS STRUCTURES: No significant abnormalities. VISUALIZED UPPER ABDOMEN: Normal. OTHER FINDINGS: None. IMPRESSION: No active disease. No acute/significant interval changes.
--- NOTE | 2018-04-09 17:04 | RAD ---
Date of service: 04/09/2018 PROCEDURE: Left Foot Radiographs. HISTORY: Puncture wound COMPARISON: None. FINDINGS: BONES: Normal. No fracture. JOINTS: Normal. SOFT TISSUES: Normal. No visualized radiopaque foreign body. OTHER FINDINGS: None. IMPRESSION: No significant or acute findings to account for/ related to the clinical presentation.
--- NOTE | 2018-04-09 17:08 | CP.PCM.HP ---
History of Present Illness - History of Present Illness History of Present Illness: This is a 63 yo male with PMH of DM2 on insulin, Hypercholesterlemia controlled with diet, present to ED due to Foot pain. 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 On Monday morning he woke up and noticed that his leg is swollen and puss was coming out and it was painful to touch. Today morning his foot became more swollen and his middle toe became dark, he also checked his sugar and it was over 300 (normally he have it 140-160) that when he decided to come to ER for check up. Allergy: none PMD: Dr. 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 Full Code Surrogate: Brother, Arya Huitron ED course Upon admission patient Vitals WNL With WBC of 10.8 BMP: GFR <58 with Bun of 27 possible GEMA Foot xray No significant or acute findings to account for/ related to the clinical presentation. Chest xray: negative for acute disease Tetanus vaccine given BLood culture ordered Patient put on fluid 1L Vancomycin inj 1 gm sodium chloride 0.9% 250 ml IVPB Zosyn 4.5 gm Sodium chloride 0.9% 100 ml IVPB Podiatry consulted, Patient to be NPO after breakfast for possible OR Patient was admitted for Left food cellulites with middle toe gangrene Present on Admission - Present on Admission Any Indicators Present on Admission: No Review of Systems - Constitutional Constitutional: Chills. absent: Anorexia, Fatigue, Fever, Headache, Increased Appetite, Malaise, Night Sweats, Weight Loss - EENT Eyes: absent: Blind Spots, Blurred Vision, Change in Vision Ears: absent: Decreased Hearing, Ear Discharge, Dizziness Nose/Mouth/Throat: As Per HPI. absent: Epistaxis - Cardiovascular Cardiovascular: As Per HPI. absent: Chest Pain, Chest Pain at Rest, Chest Pain with Activity, Claudication, Diaphoresis - Respiratory Respiratory: absent: Cough, Dyspnea, Hemoptysis, Snoring, Stridor - Gastrointestinal Gastrointestinal: As Per HPI. absent: Bloating, Change in Bowel Habits, Coffee Ground Emesis, Diarrhea - Genitourinary Genitourinary: absent: Dysuria, Pyuria, Nocturia - Musculoskeletal Musculoskeletal: Tingling. absent: Abnormal Gait, Arthralgias, Back Pain, Loss of Height, Numbness - Integumentary Integumentary: Wounds. absent: Bleeding Lesions, Dry Skin - Neurological Neurological: absent: Dizziness, Numbness, Focal Weakness, Radicular Pain, Tremor, Weakness - Psychiatric Psychiatric: absent: Behavioral Changes, Difficulty Concentrating, Paranoia - Endocrine Endocrine: absent: Change in Libido, Deepening of Voice, Excessive Sweating - Hematologic/Lymphatic Hematologic: As Per HPI Past Patient History - Infectious Disease Hx of Infectious Diseases: None - Tetanus Immunizations Tetanus Immunization: Unknown - Past Medical History & Family History Past Medical History?: Yes - Past Social History Smoking Status: Never Smoked - CARDIAC Hx Hypercholesterolemia: Yes Hx Hypertension: Yes - PULMONARY Hx Pneumonia: Yes - NEUROLOGICAL Hx Neurological Disorder: No - HEENT Hx HEENT Problems: Yes - RENAL Hx Chronic Kidney Disease: No - ENDOCRINE/METABOLIC Hx Endocrine Disorders: Yes Hx Diabetes Mellitus Type 2: Yes - HEMATOLOGICAL/ONCOLOGICAL Hx Blood Disorders: No - INTEGUMENTARY Hx Dermatological Problems: No - MUSCULOSKELETAL/RHEUMATOLOGICAL Hx Arthritis: Yes (Bilateral Shoulder) - GASTROINTESTINAL Hx Gastrointestinal Disorders: No - GENITOURINARY/GYNECOLOGICAL Hx Genitourinary Disorders: No - PSYCHIATRIC Hx Psychophysiologic Disorder: No Hx Substance Use: No - SURGICAL HISTORY Hx Musculoskeletal Surgery: Yes (left great toe) Other/Comment: Rt knee I&D, picc-line left arm - ANESTHESIA Hx Anesthesia: Yes Hx Anesthesia Reactions: No Meds Allergies/Adverse Reactions: Allergies Allergy/AdvReac Type Severity Reaction Status Date / Time No Known Allergies Allergy Verified 04/09/18 14:31 Physical Exam - Constitutional Appears: Well, Non-toxic, No Acute Distress - Head Exam Head Exam: ATRAUMATIC, NORMAL INSPECTION, NORMOCEPHALIC - Eye Exam Eye Exam: EOMI, Normal appearance, PERRL Pupil Exam: NORMAL ACCOMODATION, PERRL - ENT Exam ENT Exam: Mucous Membranes Moist, Normal Exam - Neck Exam Neck exam: Positive for: Normal Inspection. Negative for: Lymphadenopathy - Respiratory Exam Respiratory Exam: Clear to Auscultation Bilateral, NORMAL BREATHING PATTERN - Cardiovascular Exam Cardiovascular Exam: REGULAR RHYTHM, +S1, +S2 - GI/Abdominal Exam GI & Abdominal Exam: Normal Bowel Sounds, Soft - Extremities Exam Extremities exam: Positive for: calf tenderness, tenderness, pedal pulses present Additional comments: LEFT foot wrapped with gauze from podiatry, there is a lesion/ulcer noted under middle toe, gangrenous middle phalange, celulites dorsal foot with lesion noted. Pedal edema from foot to knee, warm and tender to touch, calf tenderness noted. RIGHT: Hallux not present, surgical scar noted. - Back Exam Additional comments: surgical scar noted on back due to abscess drainage - Neurological Exam Neurological exam: Alert, Normal Gait, Oriented x3 - Psychiatric Exam Psychiatric exam: Normal Affect, Normal Mood - Skin Skin Exam: Dry, Intact, Normal Color, Warm Results - Vital Signs Recent Vital Signs: Last Vital Signs Temp 98.9 F 04/09/18 14:32 Pulse 85 04/09/18 14:32 Resp 16 04/09/18 14:32 BP 120/62 04/09/18 14:32 Pulse Ox 100 04/09/18 16:35 - Labs Result Diagrams: 04/09/18 15:55 04/09/18 15:55 Labs: Laboratory Results - last 24 hr 04/09/18 04/09/18 04/09/18 15:47 15:55 15:55 WBC 10.9 H RBC 3.96 L Hgb 11.7 L Hct 35.4 MCV 89.4 MCH 29.6 MCHC 33.1 RDW 13.0 Plt Count 197 D MPV 10.0 Neut % (Auto) 78.6 H Lymph % (Auto) 9.9 L Parker % (Auto) 10.4 H Eos % (Auto) 0.8 Baso % (Auto) 0.3 Neut # (Auto) 8.5 H Lymph # (Auto) 1.1 Parker # (Auto) 1.1 H Eos # (Auto) 0.1 Baso # (Auto) 0.0 PT INR APTT Sodium 130 L Potassium 4.8 Chloride 94 L Carbon Dioxide 26 Anion Gap 15 BUN 27 H Creatinine 1.5 Est GFR ( Amer) 58 Est GFR (Non-Af Amer) 48 POC Glucose (mg/dL) 373 H Random Glucose 403 H* D Calcium 8.7 Total Bilirubin 0.5 AST 42 ALT 47 Alkaline Phosphatase 149 H Total Protein 7.3 Albumin 3.8 Globulin 3.5 Albumin/Globulin Ratio 1.1 04/09/18 15:55 WBC RBC Hgb Hct MCV MCH MCHC RDW Plt Count MPV Neut % (Auto) Lymph % (Auto) Parker % (Auto) Eos % (Auto) Baso % (Auto) Neut # (Auto) Lymph # (Auto) Parker # (Auto) Eos # (Auto) Baso # (Auto) PT 12.2 INR 1.1 APTT 31.2 Sodium Potassium Chloride Carbon Dioxide Anion Gap BUN Creatinine Est GFR ( Amer) Est GFR (Non-Af Amer) POC Glucose (mg/dL) Random Glucose Calcium Total Bilirubin AST ALT Alkaline Phosphatase Total Protein Albumin Globulin Albumin/Globulin Ratio Assessment & Plan - Assessment and Plan (Free Text) Assessment: This is a 63 yo male with PMH of DM2 on insulin, Hypercholesterlemia controlled with diet, present to ED due to Foot pain. Patient was seen by podiatry, patient will be admitted to treat middle toe gangrene with left foot cellulites Left Middle toe gangrene with cellulites Afebrile, WBC 10.8 tetanus vaccine given in ED Podiatry consulted, NPO after breakfast, possible OR tomorrow Vancomycin inj 1 gm sodium chloride 0.9% 250 ml IVPB Day 1 Zosyn 4.5 gm Sodium chloride 0.9% 100 ml IVPB day 1 F/u CBC, CMP tomorrow F/u EKG report from ED Follow up further podiatry recommendation Uncontrolled diabetes Chronic, Uncontrolled Sliding scale hypoglycemia protocol Acute kidney injury Received 1 L in ED Will continue with d5 45% normal saline at 125ml/hr Pseudohyponatremia Na 130 most likely due to Hyperglycemia. Calf tenderness evaluate for DVT F/u U/S of Left foot. Hypercholesterolemia Low cholesterol diet DVT prophilaxis SCD
[2018-04-09] MEDS ORDERED: Dextrose 50% SYRINGE Inj (50 ml) IV PRN (17:50)
[2018-04-09] MEDS ORDERED: Glucagon Recombinant 1 mg Inj IM PRN (17:50)
[2018-04-09 17:59] LABS: LYMPHOCYTE 9 % (20-50); MONOCYTE 7 % (0-10); NEUTROPHIL 84 % (42-75); PLATELET ESTIMATE NORMAL (NORMAL); TOTAL CELLS COUNTED 100
[2018-04-09] MEDS ORDERED: Dextrose 5%/0.45% NS 1,000 ML IV SCH (18:00)
[2018-04-09] MEDS ORDERED: Insulin Regular 100 units/ml ONE (19:07)
[2018-04-09] MEDS ORDERED: Vancomycin 1 g Inj ONE (19:08)
[2018-04-09] MEDS: Sodium Chloride 0.9% 1,000 ML IV STA ×2 (19:11→21:12)
[2018-04-09] MEDS: Insulin Lispro (humaLOG) 100 Units/ml Inj SC SCH (23:20)
[2018-04-10] MEDS: Piperacillin/Tazobact 4.5 GM in Sodium Chloride 0.9% 100 ML IVPB SCH ×3 (00:08→16:49)
[2018-04-10 06:17] LABS: BASO % 0.5 % (0.0-2.0); EOS # 0.2 K/uL (0.0-0.7); EOS % 2.3 % (0.0-4.0); HEMOGLOBIN 10.7 g/dL (12.0-18.0); LYMPH # 1.1 K/uL (1.0-4.3); LYMPH % 11.8 % (20.0-40.0); MEAN CELL VOLUME 91.3 fl (80.0-94.0); MEAN CORPUSCULAR HEMOGLOBIN 30.2 pg (27.0-31.0); MEAN PLATELET VOLUME 9.6 fl (7.2-11.7); MONO # 1.1 K/uL (0.0-0.8); NEUT % 73.4 % (50.0-75.0); NRBC % 0.2 % (0.0-0.0); RBC 3.54 Mil/uL (4.40-5.90); WHITE BLOOD COUNT 9.5 K/uL (4.8-10.8)
[2018-04-10 06:38] LABS: ALB/GLOB RATIO 0.9 (1.0-2.1); ALT/SGPT 48 U/L (21-72); AST/SGOT 43 U/L (17-59); BLOOD UREA NITROGEN 21 mg/dl (9-20); CALCIUM 7.9 mg/dL (8.4-10.2); GFR NON-AFRICAN AMERICAN > 60
[2018-04-10] MEDS ORDERED: Povidone Iodine Topical 10% Sol ONE (08:04)
[2018-04-10] MEDS ORDERED: Insulin Detemir 100 Units/ml Inj SC STA (08:12)
[2018-04-10] MEDS: Insulin Lispro (humaLOG) 100 Units/ml Inj SC SCH ×4 (08:44→22:16)
[2018-04-10] MEDS ORDERED: Lidocaine 1% Inj (20ml) ONE (09:04)
[2018-04-10] MEDS ORDERED: Bupivacaine HCl 0.5% PF (30 ml) Inj ONE (09:04)
--- NOTE | 2018-04-10 09:07 | CARD ---
APPROVED REPORT Date of service: 04/09/2018 EKG Measurement Heart [id number] <Conclusion> Normal sinus rhythm Normal ECG
[2018-04-10] MEDS ORDERED: Propofol 10 mg/ml Inj (20 ML) ONE (09:19)
[2018-04-10] MEDS ORDERED: Midazolam 2 MG/2 ML VIAL ONE (09:19)
[2018-04-10] MEDS ORDERED: Bupivacaine 0.5% Inj(30mL) IJ ONE (09:25)
[2018-04-10] MEDS ORDERED: Lidocaine 2% Inj (20ml) IJ ONE (09:25)
[2018-04-10] MEDS ORDERED: Sodium Chloride 0.9% 1,000 ML IV SCH (09:30)
[2018-04-10] MEDS ORDERED: Lactated Ringer's 1,000 ML IV ONE (09:35)
[2018-04-10] MEDS ORDERED: Succinylcholine 200 mg/10 ml Inj IV ONE (09:54)
--- NOTE | 2018-04-10 09:55 | US ---
Date of service: 04/09/2018 HISTORY: calf tenderness. PRIORS: None. FINDINGS: 2-D, color and duplex Doppler analysis of the lower extremity venous circulation using routine protocol from the femoral veins through the popliteal veins. Venous compressibility: Normal. Flow and augmentation patterns: Normal. Visualized veins upper third of calf: Normal. Chavarria cyst: None. Incidentally noted left inguinal lymph node, 11 mm in short axis. IMPRESSION: No sonographic or Doppler evidence for DVT in left lower extremity. The preliminary findings for this examination were reported by [facility] Radiology at 8 p.m. on 04/09/2018. There is concurrence of this report with the preliminary findings.
--- NOTE | 2018-04-10 10:10 | CP.PCM.CON ---
History of Present Illness - History of Present Illness History of Present Illness: Podiatry consult note for Dr. Grullon 63 yo male with pmhx of DM seen and evaluated in ED after stepping on a nail with his left foot on Monday. States that he was wearing workboots at the time and the nail went through the shoe. States that he did not notice much pain at first but saw the discoloration and associated pain in his third toe so came to the ED. States he cleaned the area himself with soap and water when he noticed i t. 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 States he had his right great toe amputated in the past. Denies N/V/F/C/SOB/CP today and has no other pedal complaints. PMHx - IDDM PSHx - right great toe amputation All - NKDA Past Patient History - Infectious Disease Hx of Infectious Diseases: None - Tetanus Immunizations Tetanus Immunization: Unknown - Past Medical History & Family History Past Medical History?: Yes - Past Social History Smoking Status: Never Smoked - CARDIAC Hx Cardiac Disorders: Yes - PULMONARY Hx Respiratory Disorders: Yes - NEUROLOGICAL Hx Neurological Disorder: No - HEENT Hx HEENT Problems: No - RENAL Hx Chronic Kidney Disease: No - ENDOCRINE/METABOLIC Hx Endocrine Disorders: Yes - HEMATOLOGICAL/ONCOLOGICAL Hx Blood Disorders: No - INTEGUMENTARY Hx Dermatological Problems: No - MUSCULOSKELETAL/RHEUMATOLOGICAL Hx Musculoskeletal Disorders: Yes - GASTROINTESTINAL Hx Gastrointestinal Disorders: No - GENITOURINARY/GYNECOLOGICAL Hx Genitourinary Disorders: No - PSYCHIATRIC Hx Psychophysiologic Disorder: No - SURGICAL HISTORY Hx Surgeries: Yes Hx Musculoskeletal Surgery: Yes (left great toe) Other/Comment: Rt knee I&D, picc-line left arm, neck cyst removal. - ANESTHESIA Hx Anesthesia: Yes Hx Anesthesia Reactions: No Meds Allergies/Adverse Reactions: Allergies Allergy/AdvReac Type Severity Reaction Status Date / Time No Known Allergies Allergy Verified 04/09/18 14:31 - Medications Medications: Current Medications Acetaminophen (Tylenol 325mg Tab) 650 mg PO Q6 PRN PRN Reason: Fever >100.4 F Last Admin: 04/09/18 23:10 Dose: 650 mg Dextrose (Dextrose 50% Inj) 0 ml IV STAT PRN; Protocol PRN Reason: Hypoglycemia Protocol Dextrose (Glutose 15) 0 gm PO ONCE PRN; Protocol PRN Reason: Hypoglycemia Protocol Glucagon (Glucagen Diagnostic Kit) 0 mg IM STAT PRN; Protocol PRN Reason: Hypoglycemia Protocol Vancomycin HCl 1 gm/ Sodium (Chloride) 250 mls @ 166.667 mls/hr IVPB DAILY RACHEL; Protocol Piperacillin Sod/Tazobactam (Sod 4.5 gm/ Sodium Chloride) 100 mls @ 100 mls/hr IVPB Q8 RACHEL; Protocol Last Admin: 04/10/18 08:27 Dose: 100 mls/hr Sodium Chloride (Sodium Chloride 0.9%) 1,000 mls @ 0 mls/hr IV .Q0M RACHEL Stop: 04/11/18 09:25 Insulin Human Lispro (Humalog) 0 units SC ACHS RACHEL; Protocol Last Admin: 04/10/18 08:44 Dose: 8 unit Physical Exam - Constitutional Appears: Well, Non-toxic, No Acute Distress - Head Exam Head Exam: ATRAUMATIC, NORMOCEPHALIC - Extremities Exam Additional comments: LLE focused Vasc: DP and PT pulses palpable; cap refill <3 seconds to digits 1,2,4,5; temp gradient warm to warm from proximal to distal; edema noted to the LE compared to contralateral limb Derm: evidence of puncture wound on plantar surface 1 cm proximal to the third digit, possible evidence of exit wound but no drainage or open wound at site on dorsum of foot where superficial abrasion exists; third digit exhibits gangrenous changes and darkening with purple/black development, mild fluctuance at the distal aspect of the digit, maceration/open wound present in second interspace with mild drainage, serosanguinous drainage present; erythema appreciated at the forefoot adjacent to puncture wound and third digit; signs of infection noted Ortho: pain on palpation of the third digit and upon motion of digit; no pain on ROM at the ankle or upon palpation of the proximal leg - Neurological Exam Neurological exam: Alert, Oriented x3 - Psychiatric Exam Psychiatric exam: Normal Affect, Normal Mood Results - Vital Signs Recent Vital Signs: Last Vital Signs Temp 97.5 F L 04/10/18 07:51 Pulse 71 04/10/18 07:51 Resp 20 04/10/18 07:51 BP 162/80 H 04/10/18 07:51 Pulse Ox 98 04/10/18 07:51 - Labs Result Diagrams: 04/10/18 05:55 04/10/18 05:55 Labs: Laboratory Results - last 24 hr 04/09/18 04/09/18 04/09/18 15:47 15:55 15:55 WBC 10.9 H RBC 3.96 L Hgb 11.7 L Hct 35.4 MCV 89.4 MCH 29.6 MCHC 33.1 RDW 13.0 Plt Count 197 D MPV 10.0 Neut % (Auto) 78.6 H Lymph % (Auto) 9.9 L [place] % (Auto) 10.4 H Eos % (Auto) 0.8 Baso % (Auto) 0.3 Neut # (Auto) 8.5 H Lymph # (Auto) 1.1 [place] # (Auto) 1.1 H Eos # (Auto) 0.1 Baso # (Auto) 0.0 Neutrophils % (Manual) 84 H Lymphocytes % (Manual) 9 L Monocytes % (Manual) 7 Platelet Estimate Normal RBC Morphology Normal PT INR APTT Sodium 130 L Potassium 4.8 Chloride 94 L Carbon Dioxide 26 Anion Gap 15 BUN 27 H Creatinine 1.5 Est GFR ( Amer) 58 Est GFR (Non-Af Amer) 48 POC Glucose (mg/dL) 373 H Random Glucose 403 H* D Calcium 8.7 Total Bilirubin 0.5 AST 42 ALT 47 Alkaline Phosphatase 149 H Total Protein 7.3 Albumin 3.8 Globulin 3.5 Albumin/Globulin Ratio 1.1 TSH 3rd Generation 1.07 04/09/18 04/09/18 04/09/18 15:55 20:18 23:12 WBC RBC Hgb Hct MCV MCH MCHC RDW Plt Count MPV Neut % (Auto) Lymph % (Auto) [place] % (Auto) Eos % (Auto) Baso % (Auto) Neut # (Auto) Lymph # (Auto) [place] # (Auto) Eos # (Auto) Baso # (Auto) Neutrophils % (Manual) Lymphocytes % (Manual) Monocytes % (Manual) Platelet Estimate RBC Morphology PT 12.2 INR 1.1 APTT 31.2 Sodium Potassium Chloride Carbon Dioxide Anion Gap BUN Creatinine Est GFR ( Amer) Est GFR (Non-Af Amer) POC Glucose (mg/dL) 331 H 368 H Random Glucose Calcium Total Bilirubin AST ALT Alkaline Phosphatase Total Protein Albumin Globulin Albumin/Globulin Ratio TSH 3rd Generation 04/09/18 04/10/18 04/10/18 23:16 05:34 05:55 WBC 9.5 RBC 3.54 L Hgb 10.7 L Hct 32.4 L MCV 91.3 MCH 30.2 MCHC 33.0 RDW 13.0 Plt Count 222 MPV 9.6 Neut % (Auto) 73.4 Lymph % (Auto) 11.8 L [place] % (Auto) 12.0 H Eos % (Auto) 2.3 Baso % (Auto) 0.5 Neut # (Auto) 7.0 Lymph # (Auto) 1.1 [place] # (Auto) 1.1 H Eos # (Auto) 0.2 Baso # (Auto) 0.0 Neutrophils % (Manual) Lymphocytes % (Manual) Monocytes % (Manual) Platelet Estimate RBC Morphology PT INR APTT Sodium Potassium Chloride Carbon Dioxide Anion Gap BUN Creatinine Est GFR ( Amer) Est GFR (Non-Af Amer) POC Glucose (mg/dL) 321 H 352 H Random Glucose Calcium Total Bilirubin AST ALT Alkaline Phosphatase Total Protein Albumin Globulin Albumin/Globulin Ratio TSH 3rd Generation 04/10/18 04/10/18 05:55 09:18 WBC RBC Hgb Hct MCV MCH MCHC RDW Plt Count MPV Neut % (Auto) Lymph % (Auto) [place] % (Auto) Eos % (Auto) Baso % (Auto) Neut # (Auto) Lymph # (Auto) [place] # (Auto) Eos # (Auto) Baso # (Auto) Neutrophils % (Manual) Lymphocytes % (Manual) Monocytes % (Manual) Platelet Estimate RBC Morphology PT INR APTT Sodium 132 Potassium 5.1 H Chloride 101 Carbon Dioxide 23 Anion Gap 13 BUN 21 H Creatinine 1.2 Est GFR ( Amer) > 60 Est GFR (Non-Af Amer) > 60 POC Glucose (mg/dL) 318 H Random Glucose 346 H Calcium 7.9 L Total Bilirubin 0.5 AST 43 ALT 48 Alkaline Phosphatase 131 H Total Protein 6.3 Albumin 3.0 L D Globulin 3.2 Albumin/Globulin Ratio 0.9 L TSH 3rd Generation Assessment & Plan - Assessment and Plan (Free Text) Assessment: 63M pmhx IDDM with puncture wound and associated gangrenous changes at left third digit Plan: Patient seen and evaluated Discussed in detail with Dr. Grullon Febrile, WBC 10.9 Started on Vanc/zosyn in ED L foot x-ray - no significant or acute findings LE venous US - no DVT Possible amputation for tomorrow, NPO after breakfast Discussed with patient significance of toe changes and infection and patient demonstrated understanding and is agreeable to amputation Will follow while in house Thank you for the consult - Date & Time Date: 04/09/18 Time: 16:00
--- NOTE | 2018-04-10 10:27 | CP.PCM.PN ---
Subjective - Date & Time of Evaluation Date of Evaluation: 04/10/18 Time of Evaluation: 10:24 - Subjective Subjective: Podiatry progress note for Dr. Grullon 63M seen and evaluated at bedside. Resting comfortably. Reports mild fever and states that he is having some pain in his left foot but pain medication helps. States that he is aware of the possible risk of infection spreading and agreeable to amputation of third toe. States that he has not eaten yet this morning and ate last night at 11:30PM. States that he has not had reactions to anesthesia in the past. Denies N/V/CP/SOB today. Objective - Vital Signs/Intake and Output Vital Signs (last 24 hours): Temp Pulse Resp BP Pulse Ox 97.5 F L 71 20 162/80 H 98 04/10/18 07:51 04/10/18 07:51 04/10/18 07:51 04/10/18 07:51 04/10/18 07:51 Intake and Output: 04/10/18 04/10/18 06:59 18:59 Intake Total 1000 Balance 1000 - Medications Medications: Current Medications Acetaminophen (Tylenol 325mg Tab) 650 mg PO Q6 PRN PRN Reason: Fever >100.4 F Last Admin: 04/09/18 23:10 Dose: 650 mg Dextrose (Dextrose 50% Inj) 0 ml IV STAT PRN; Protocol PRN Reason: Hypoglycemia Protocol Dextrose (Glutose 15) 0 gm PO ONCE PRN; Protocol PRN Reason: Hypoglycemia Protocol Glucagon (Glucagen Diagnostic Kit) 0 mg IM STAT PRN; Protocol PRN Reason: Hypoglycemia Protocol Vancomycin HCl 1 gm/ Sodium (Chloride) 250 mls @ 166.667 mls/hr IVPB DAILY RACHEL; Protocol Piperacillin Sod/Tazobactam (Sod 4.5 gm/ Sodium Chloride) 100 mls @ 100 mls/hr IVPB Q8 RACHEL; Protocol Last Admin: 04/10/18 08:27 Dose: 100 mls/hr Sodium Chloride (Sodium Chloride 0.9%) 1,000 mls @ 0 mls/hr IV .Q0M RACHEL Stop: 04/11/18 09:25 Insulin Human Lispro (Humalog) 0 units SC ACHS RACHEL; Protocol Last Admin: 04/10/18 08:44 Dose: 8 unit - Labs Labs: 04/10/18 05:55 04/10/18 05:55 PT 12.2 Seconds (9.8-13.1) 04/09/18 15:55 INR 1.1 04/09/18 15:55 APTT 31.2 Seconds (25.6-37.1) 04/09/18 15:55 - Constitutional Appears: Well, Non-toxic, No Acute Distress - Head Exam Head Exam: ATRAUMATIC, NORMOCEPHALIC - Extremities Exam Additional comments: LLE focused Vasc: DP and PT pulses palpable; cap refill <3 seconds to digits 1,2,4,5; temp gradient warm to warm from proximal to distal; edema noted to the LE compared to contralateral limb Derm: evidence of puncture wound on plantar surface 1 cm proximal to the third digit, possible evidence of exit wound but no drainage or open wound at site on dorsum of foot where superficial abrasion exists; third digit exhibits gangrenous changes and darkening with purple/black development - gotten more severe overnight as toe looks completely black today, mild fluctuance at the distal aspect of the digit, maceration/open wound present in second interspace with mild drainage, serosanguinous drainage present; erythema appreciated at the forefoot adjacent to puncture wound and third digit; signs of infection noted Ortho: pain on palpation of the third digit and upon motion of digit; no pain on ROM at the ankle or upon palpation of the proximal leg Neuro: gross and protective sensation mildly diminished - Neurological Exam Neurological Exam: Alert, Awake, Oriented x3 - Psychiatric Exam Psychiatric exam: Normal Affect, Normal Mood Assessment and Plan - Assessment and Plan (Free Text) Assessment: 63M pmhx IDDM with puncture wound and associated gangrenous changes at left third digit Plan: Patient seen and evaluated Discussed in detail with Dr. Grullon Febrile, WBC 9.5 Continue abx regimen L foot x-ray - no significant or acute findings LE venous US - no DVT Discussed risks and benefits with patient regarding amputation of third digit, patient demonstrated understanding and is agreeable to amputation NPO status confirmed Will follow while in house and patient will follow up with Dr. Grullon upon discharge
[2018-04-10] MEDS ORDERED: Oxycodone/Acetaminophen 5/325 mg Tab PO PRN (11:00)
--- NOTE | 2018-04-10 11:14 | CP.PCM.PN ---
<Gregorio Miranda - Last Filed: 04/10/18 11:07> Subjective - Date & Time of Evaluation Date of Evaluation: 04/10/18 Time of Evaluation: 11:07 - Subjective Subjective: 63 y/o male patient seen and evaluated at the PACU S/P left 3rd toe amputation because of cellulitis of the left LE and gangrene of the left 3rd toe. Patient state that he is doing well. No pain since yesterday. No overnight acute events. No overnight F/N/V/C or SOB. No N/V or SOB after the surgery. Objective - Vital Signs/Intake and Output Vital Signs (last 24 hours): Temp Pulse Resp BP Pulse Ox 98 F 74 20 112/61 100 04/10/18 10:30 04/10/18 10:30 04/10/18 10:30 04/10/18 10:30 04/10/18 10:30 Intake and Output: 04/10/18 04/10/18 06:59 18:59 Intake Total 1000 0 Balance 1000 0 - Medications Medications: Current Medications Acetaminophen (Tylenol 325mg Tab) 650 mg PO Q6 PRN PRN Reason: Fever >100.4 F Last Admin: 04/09/18 23:10 Dose: 650 mg Acetaminophen (Tylenol 325mg Tab) 650 mg PO Q6 PRN PRN Reason: Pain, Mild (1-3) Dextrose (Dextrose 50% Inj) 0 ml IV STAT PRN; Protocol PRN Reason: Hypoglycemia Protocol Dextrose (Glutose 15) 0 gm PO ONCE PRN; Protocol PRN Reason: Hypoglycemia Protocol Glucagon (Glucagen Diagnostic Kit) 0 mg IM STAT PRN; Protocol PRN Reason: Hypoglycemia Protocol Hydromorphone HCl (Dilaudid) 0.5 mg IVP Q5M PRN PRN Reason: Pain, severe (8-10) Stop: 04/10/18 12:33 Vancomycin HCl 1 gm/ Sodium (Chloride) 250 mls @ 166.667 mls/hr IVPB DAILY [facility]; Protocol Piperacillin Sod/Tazobactam (Sod 4.5 gm/ Sodium Chloride) 100 mls @ 100 mls/hr IVPB Q8 [facility]; Protocol Last Admin: 04/10/18 08:27 Dose: 100 mls/hr Sodium Chloride (Sodium Chloride 0.9%) 1,000 mls @ 0 mls/hr IV .Q0M [facility] Stop: 04/11/18 09:25 Insulin Human Lispro (Humalog) 0 units SC ACHS [facility]; Protocol Last Admin: 04/10/18 08:44 Dose: 8 unit Ondansetron HCl (Zofran Inj) 4 mg IVP ONCE PRN PRN Reason: Nausea/Vomiting Stop: 04/10/18 12:33 Oxycodone/Acetaminophen (Percocet 5/325 Mg Tab) 2 tab PO Q4 PRN PRN Reason: Pain, severe (8-10) Stop: 04/13/18 11:01 Oxycodone/Acetaminophen (Percocet 5/325 Mg Tab) 1 tab PO Q4 PRN PRN Reason: Pain, moderate (4-7) Stop: 04/13/18 11:01 - Labs Labs: 04/10/18 05:55 04/10/18 05:55 PT 12.2 Seconds (9.8-13.1) 04/09/18 15:55 INR 1.1 04/09/18 15:55 APTT 31.2 Seconds (25.6-37.1) 04/09/18 15:55 - Constitutional Appears: Well, No Acute Distress - Head Exam Head Exam: ATRAUMATIC, NORMOCEPHALIC - Eye Exam Eye Exam: EOMI, Normal appearance, PERRL Pupil Exam: NORMAL ACCOMODATION, PERRL - ENT Exam ENT Exam: Mucous Membranes Moist, Normal Exam - Neck Exam Neck Exam: Full ROM, Normal Inspection - Respiratory Exam Respiratory Exam: Clear to Ausculation Bilateral, NORMAL BREATHING PATTERN - Cardiovascular Exam Cardiovascular Exam: REGULAR RHYTHM, RRR - GI/Abdominal Exam GI & Abdominal Exam: Soft, Normal Bowel Sounds - Extremities Exam Extremities Exam: Full ROM, Normal Capillary Refill, Normal Inspection Additional comments: LEFT foot wrapped with dressing and leatha bandage S/P left 3rd toe amputation. - Back Exam Back Exam: NORMAL INSPECTION - Neurological Exam Neurological Exam: Alert, Awake, Oriented x3 Neuro motor strength exam: Left Upper Extremity: 5, Right Upper Extremity: 5, Left Lower Extremity: 5, Right Lower Extremity: 5 - Psychiatric Exam Psychiatric exam: Normal Affect, Normal Mood - Skin Skin Exam: Dry, Intact, Normal Color, Warm Assessment and Plan - Assessment and Plan (Free Text) Assessment: 63 y/o male patient seen and evaluated at the PACU S/P left 3rd toe amputation because of cellulitis of the left LE and gangrene of the left 3rd toe Plan: Left Middle toe gangrene with cellulites Afebrile, WBC 9.5 Podiatry consulted, Reccs appreciated Continue Vancomycin inj 1 gm sodium chloride 0.9% 250 ml IVPB Day 1 Continue Zosyn 4.5 gm Sodium chloride 0.9% 100 ml IVPB day 1 Left 3rd toe amputation done today in the OR under local anesthesia and IV sedation. c/w pain medications according to the pain level Uncontrolled diabetes (CAD equivalant) Chronic, Uncontrolled c/w Sliding scale hypoglycemia protocol Ordered Eccho; F/U results Acute kidney injury continue with d5 45% normal saline at 125ml/hr Pseudohyponatremia Na 132 today Calf tenderness evaluate for DVT U/S of Left LE negative for DVT. Hypercholesterolemia Low cholesterol diet DVT prophilaxis SCD <Elvia Cerda - Last Filed: 04/10/18 16:24> Objective - Vital Signs/Intake and Output Vital Signs (last 24 hours): Temp Pulse Resp BP Pulse Ox 100 F H 85 20 157/78 H 96 04/10/18 14:28 04/10/18 15:54 04/10/18 15:54 04/10/18 15:54 04/10/18 15:54 Intake and Output: 04/10/18 04/10/18 06:59 18:59 Intake Total 1000 120 Balance 1000 120 - Medications Medications: Current Medications Acetaminophen (Tylenol 325mg Tab) 650 mg PO Q6 PRN PRN Reason: Fever >100.4 F Last Admin: 04/10/18 14:28 Dose: 650 mg Acetaminophen (Tylenol 325mg Tab) 650 mg PO Q6 PRN PRN Reason: Pain, Mild (1-3) Dextrose (Dextrose 50% Inj) 0 ml IV STAT PRN; Protocol PRN Reason: Hypoglycemia Protocol Dextrose (Glutose 15) 0 gm PO ONCE PRN; Protocol PRN Reason: Hypoglycemia Protocol Glucagon (Glucagen Diagnostic Kit) 0 mg IM STAT PRN; Protocol PRN Reason: Hypoglycemia Protocol Vancomycin HCl 1 gm/ Sodium (Chloride) 250 mls @ 166.667 mls/hr IVPB DAILY [facility]; Protocol Piperacillin Sod/Tazobactam (Sod 4.5 gm/ Sodium Chloride) 100 mls @ 100 mls/hr IVPB Q8 [facility]; Protocol Last Admin: 04/10/18 08:27 Dose: 100 mls/hr Sodium Chloride (Sodium Chloride 0.9%) 1,000 mls @ 0 mls/hr IV .Q0M [facility] Stop: 04/11/18 09:25 Insulin Human Lispro (Humalog) 0 units SC ACHS [facility]; Protocol Last Admin: 04/10/18 12:34 Dose: 4 unit Insulin Lispro Protam/Lispro Human (Humalog Mix 75/25) 10 units SC BID [facility] Oxycodone/Acetaminophen (Percocet 5/325 Mg Tab) 2 tab PO Q4 PRN PRN Reason: Pain, severe (8-10) Stop: 04/13/18 11:01 Oxycodone/Acetaminophen (Percocet 5/325 Mg Tab) 1 tab PO Q4 PRN PRN Reason: Pain, moderate (4-7) Stop: 04/13/18 11:01 - Labs Labs: 04/10/18 14:33 04/10/18 05:55 PT 12.2 Seconds (9.8-13.1) 04/09/18 15:55 INR 1.1 04/09/18 15:55 APTT 31.2 Seconds (25.6-37.1) 04/09/18 15:55 Attending/Attestation - Attestation I have personally seen and examined this patient.: Yes I have fully participated in the care of the patient.: Yes I have reviewed all pertinent clinical information, including history, physical exam and plan: Yes Notes (Text): 1. Left 3rd Digit Gangrene with Foot Cellulitis - s/p 3rd Digit Amputation and Metatarsal Head Resection - cont IV vanco and Zosyn - PT for crutch training 2. DM type II with Hyperglycemia with Insulin Use - accucheck -start 75/25 Insulin 10 bid 3. HTN -start Losartan 50 mg daily
--- NOTE | 2018-04-10 11:35 | PCM.SURG1 ---
Surgeon's Initial Post Op Note - Surgeon's Notes Surgeon: Dr. Antony Grullon Preflight Inspector: Jojo Marquez, PGY 1 Vasu Goetz MS4 Type of Anesthesia: IV Sedation, Local Anesthesia Administered By: Dr. jones Pre-Operative Diagnosis: left third toe gangrene Operative Findings: see dictaation. materials: none. injectibles: 18 cc of 1% lidocaine plain and .5% marcaine plain Post-Operative Diagnosis: left third digit gangrene with necrotic changes to the third metatarsal and fourth digit Operation Performed: Left third digit amputation and metatarsal head resection with wound vac application Specimen/Specimens Removed: bone pathology- 3rd digit and metatarsal head. Estimated Blood Loss: EBL {In ML}: 50 Blood Products Given: N/A Drains Used: No Drains Post-Op Condition: Good Date of Surgery/Procedure: 04/10/18 Time of Surgery/Procedure: 11:35
--- NOTE | 2018-04-10 12:10 | RAD ---
Date of service: 04/10/2018 PROCEDURE: Left Foot Radiographs. HISTORY: s/p left third digit amp and met head resection COMPARISON: None. FINDINGS: BONES: Limited portable examination. Status post amputation 3rd digit distal diaphysis of the 3rd metatarsal. No acute fracture. Remaining visualized osseous structures are intact. JOINTS: Normal. SOFT TISSUES: Surgical drain is seen in the dorsal soft tissues of the foot. OTHER FINDINGS: None. IMPRESSION: Status post amputation 3rd digit.
[2018-04-10 16:01] LABS: MEAN CELL VOLUME 91.1 fl (80.0-94.0); MEAN CORPUSCULAR HGB CONC 32.9 g/dL (33.0-37.0); RBC 3.33 Mil/uL (4.40-5.90); RED CELL DISTRIBUTION WIDTH 12.8 % (11.5-14.5); WHITE BLOOD COUNT 9.3 K/uL (4.8-10.8)
[2018-04-10] MEDS ORDERED: Insulin Lispro Mix 75/25 100 units/ml (HumaLog) 10ml SC SCH (17:00)
[2018-04-10 17:27] LABS: HEMOGLOBIN 9.4 g/dL (12.0-18.0)
[2018-04-10] MEDS: Oxycodone/Acetaminophen 5/325 mg Tab PO PRN (17:37)
--- NOTE | 2018-04-10 18:37 | CP.PCM.PCO ---
Assessment/Plan - Assessment and Plan (Free Text) Assessment: S/p Left third digit amputation and metatarsal head resection Pt seen and examined by bedside post op. Post-up course sig for elevated Temp, as high as 101.6 but has gradually decreased. Pt is awake, alert and oriented. Endorsing minimal pain in LLE but well controlled with pain meds. Noted moving LLE, ankle and knee. Denies chest pain, dyspnea, palpatations, n/v/d/c, tolerating PO post op. VS reviewed, afebrile, low grade GEN: NAD C: S1S2 no additional heart sounds L: clear breath sounds b/l A: Bs+ NT Neuro: AAO x 3 Ext: LLE in dressing, mild edema in the distal leg, NT. Moving ankle, knees. Leg is normal temp. A/P: 63 YO male, s/p Left third digit amputation and metatarsal head resection with wound vac application. Doing well post-op. -fever likely from anesthetic, currently improving -cont to monitor vitals -Tylenol for fever prn -Pain management
[2018-04-11] MEDS: Piperacillin/Tazobact 4.5 GM in Sodium Chloride 0.9% 100 ML IVPB SCH ×3 (00:25→17:51)
[2018-04-11 08:20] LABS: HEMOGLOBIN 9.9 g/dL (12.0-18.0); MEAN CELL VOLUME 91.5 fl (80.0-94.0); MEAN CORPUSCULAR HEMOGLOBIN 30.2 pg (27.0-31.0); RBC 3.27 Mil/uL (4.40-5.90); WHITE BLOOD COUNT 11.7 K/uL (4.8-10.8)
[2018-04-11] MEDS: Insulin Lispro (humaLOG) 100 Units/ml Inj SC SCH ×4 (08:30→22:21)
[2018-04-11 08:48] LABS: BLOOD UREA NITROGEN 16 mg/dl (9-20); CALCIUM 7.6 mg/dL (8.4-10.2); GFR NON-AFRICAN AMERICAN > 60
[2018-04-11] MEDS: Insulin Lispro Mix 75/25 100 units/ml (HumaLog) 10ml SC SCH ×2 (09:48→17:53)
--- NOTE | 2018-04-11 10:04 | CP.PCM.CON ---
History of Present Illness - History of Present Illness History of Present Illness: Evaluation for PVD in patient presenting with gangrenous toes post traumatic nail injury HPI: As per admit HPI This is a 63 yo male with PMH of DM2 on insulin, Hypercholesterlemia controlled with diet, present to ED due to Foot pain. 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 On Monday morning he woke up and noticed that his leg is swollen and puss was coming out and it was painful to touch. Today morning his foot became more swollen and his middle toe became dark, he also checked his sugar and it was over 300 (normally he have it 140-160) that when he decided to come to ER for check up. Allergy: none PMD: Dr. 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 Full Code Surrogate: Brother, Arya Huitron Review of Systems - Review of Systems Systems not reviewed;Unavailable: Acuity of Condition - Constitutional Constitutional: As Per HPI - EENT Eyes: As Per HPI Ears: As Per HPI Nose/Mouth/Throat: As Per HPI - Cardiovascular Cardiovascular: As Per HPI - Respiratory Respiratory: As Per HPI - Gastrointestinal Gastrointestinal: As Per HPI - Genitourinary Genitourinary: As Per HPI - Reproductive: Male Reproductive:Male: As Per HPI - Musculoskeletal Musculoskeletal: As Per HPI - Integumentary Integumentary: As Per HPI - Neurological Neurological: As Per HPI - Psychiatric Psychiatric: As Per HPI - Endocrine Endocrine: As Per HPI - Hematologic/Lymphatic Hematologic: As Per HPI Past Patient History - Infectious Disease Hx of Infectious Diseases: None - Tetanus Immunizations Tetanus Immunization: Unknown - Past Medical History & Family History Past Medical History?: Yes - Past Social History Smoking Status: Never Smoked - CARDIAC Hx Cardiac Disorders: Yes - PULMONARY Hx Respiratory Disorders: Yes - NEUROLOGICAL Hx Neurological Disorder: No - HEENT Hx HEENT Problems: No - RENAL Hx Chronic Kidney Disease: No - ENDOCRINE/METABOLIC Hx Endocrine Disorders: Yes - HEMATOLOGICAL/ONCOLOGICAL Hx Blood Disorders: No - INTEGUMENTARY Hx Dermatological Problems: No - MUSCULOSKELETAL/RHEUMATOLOGICAL Hx Musculoskeletal Disorders: Yes - GASTROINTESTINAL Hx Gastrointestinal Disorders: No - GENITOURINARY/GYNECOLOGICAL Hx Genitourinary Disorders: No - PSYCHIATRIC Hx Psychophysiologic Disorder: No - SURGICAL HISTORY Hx Surgeries: Yes Hx Musculoskeletal Surgery: Yes (left great toe) Other/Comment: Rt knee I&D, picc-line left arm, neck cyst removal. - ANESTHESIA Hx Anesthesia: Yes Hx Anesthesia Reactions: No Meds Allergies/Adverse Reactions: Allergies Allergy/AdvReac Type Severity Reaction Status Date / Time No Known Allergies Allergy Verified 04/09/18 14:31 - Medications Medications: Current Medications Acetaminophen (Tylenol 325mg Tab) 650 mg PO Q6 PRN PRN Reason: Fever >100.4 F Last Admin: 04/10/18 14:28 Dose: 650 mg Acetaminophen (Tylenol 325mg Tab) 650 mg PO Q6 PRN PRN Reason: Pain, Mild (1-3) Dextrose (Dextrose 50% Inj) 0 ml IV STAT PRN; Protocol PRN Reason: Hypoglycemia Protocol Dextrose (Glutose 15) 0 gm PO ONCE PRN; Protocol PRN Reason: Hypoglycemia Protocol Docusate Sodium (Colace) 100 mg PO BID [facility] Last Admin: 04/11/18 08:25 Dose: 100 mg Ferrous Sulfate (Feosol) 325 mg PO DAILY [facility] Last Admin: 04/11/18 08:28 Dose: 325 mg Glucagon (Glucagen Diagnostic Kit) 0 mg IM STAT PRN; Protocol PRN Reason: Hypoglycemia Protocol Vancomycin HCl 1 gm/ Sodium (Chloride) 250 mls @ 166.667 mls/hr IVPB DAILY [facility]; Protocol Last Admin: 04/11/18 08:43 Dose: 166.667 mls/hr Piperacillin Sod/Tazobactam (Sod 4.5 gm/ Sodium Chloride) 100 mls @ 100 mls/hr IVPB Q8 [facility]; Protocol Last Admin: 04/11/18 08:42 Dose: 100 mls/hr Insulin Human Lispro (Humalog) 0 units SC ACHS [facility]; Protocol Last Admin: 04/11/18 08:30 Dose: 4 unit Insulin Lispro Protam/Lispro Human (Humalog Mix 75/25) 15 units SC BID [facility] Losartan Potassium (Cozaar) 50 mg PO DAILY [facility] Last Admin: 04/11/18 08:26 Dose: 50 mg Oxycodone/Acetaminophen (Percocet 5/325 Mg Tab) 2 tab PO Q4 PRN PRN Reason: Pain, severe (8-10) Stop: 04/13/18 11:01 Last Admin: 04/10/18 17:37 Dose: 2 tab Oxycodone/Acetaminophen (Percocet 5/325 Mg Tab) 1 tab PO Q4 PRN PRN Reason: Pain, moderate (4-7) Stop: 04/13/18 11:01 Physical Exam - Constitutional Appears: Well - Head Exam Head Exam: ATRAUMATIC, NORMAL INSPECTION, NORMOCEPHALIC - Eye Exam Eye Exam: EOMI, Normal appearance, PERRL Pupil Exam: NORMAL ACCOMODATION, PERRL - ENT Exam ENT Exam: Mucous Membranes Moist, Normal Exam - Neck Exam Neck exam: Positive for: Normal Inspection - Respiratory Exam Respiratory Exam: Clear to Auscultation Bilateral, NORMAL BREATHING PATTERN - Cardiovascular Exam Cardiovascular Exam: REGULAR RHYTHM - GI/Abdominal Exam GI & Abdominal Exam: Normal Bowel Sounds, Soft. absent: Tenderness - Extremities Exam Additional comments: gangrenous toes - Back Exam Back exam: NORMAL INSPECTION - Neurological Exam Neurological exam: Alert, CN II-XII Intact, Normal Gait, Oriented x3, Reflexes Normal - Psychiatric Exam Psychiatric exam: Normal Affect, Normal Mood - Skin Skin Exam: Dry, Intact, Normal Color, Warm Results - Vital Signs Recent Vital Signs: Last Vital Signs Temp 99.6 F 04/11/18 08:34 Pulse 85 04/11/18 08:34 Resp 20 04/11/18 08:34 BP 169/81 H 04/11/18 08:34 Pulse Ox 95 04/11/18 08:34 - Labs Result Diagrams: 04/11/18 08:12 04/11/18 08:12 Labs: Laboratory Results - last 24 hr 04/09/18 04/10/18 04/10/18 15:55 05:34 09:18 WBC RBC Hgb Hct MCV MCH MCHC RDW Plt Count Sodium 130 L Potassium 4.8 Chloride 94 L Carbon Dioxide 26 Anion Gap 15 BUN 27 H Creatinine 1.5 Est GFR ( Amer) 58 Est GFR (Non-Af Amer) 48 POC Glucose (mg/dL) 352 H 318 H Random Glucose 403 H* D Calcium 8.7 Total Bilirubin 0.5 AST 42 ALT 47 Alkaline Phosphatase 149 H Total Protein 7.3 Albumin 3.8 Globulin 3.5 Albumin/Globulin Ratio 1.1 TSH 3rd Generation 1.07 Vancomycin Trough Blood Type Blood Type Confirm Antibody Screen BBK History Checked 04/10/18 04/10/18 04/10/18 10:35 14:33 16:08 WBC 9.3 RBC 3.33 L Hgb 10.0 L Hct 30.3 L MCV 91.1 MCH 30.0 MCHC 32.9 L RDW 12.8 Plt Count 211 Sodium Potassium Chloride Carbon Dioxide Anion Gap BUN Creatinine Est GFR ( Amer) Est GFR (Non-Af Amer) POC Glucose (mg/dL) 254 H 263 H Random Glucose Calcium Total Bilirubin AST ALT Alkaline Phosphatase Total Protein Albumin Globulin Albumin/Globulin Ratio TSH 3rd Generation Vancomycin Trough Blood Type Blood Type Confirm Antibody Screen BBK History Checked 04/10/18 04/10/18 04/10/18 16:46 18:16 21:00 WBC RBC Hgb 9.4 L Hct 28.1 L MCV MCH MCHC RDW Plt Count Sodium Potassium Chloride Carbon Dioxide Anion Gap BUN Creatinine Est GFR ( Amer) Est GFR (Non-Af Amer) POC Glucose (mg/dL) Random Glucose Calcium Total Bilirubin AST ALT Alkaline Phosphatase Total Protein Albumin Globulin Albumin/Globulin Ratio TSH 3rd Generation Vancomycin Trough Blood Type O POSITIVE Blood Type Confirm O POSITIVE Antibody Screen Negative BBK History Checked No verified bt 04/10/18 04/11/18 04/11/18 22:14 05:00 08:12 WBC 11.7 H RBC 3.27 L Hgb 9.9 L Hct 30.0 L MCV 91.5 MCH 30.2 MCHC 33.0 RDW 13.0 Plt Count 227 Sodium Potassium Chloride Carbon Dioxide Anion Gap BUN Creatinine Est GFR ( Amer) Est GFR (Non-Af Amer) POC Glucose (mg/dL) 245 H 273 H Random Glucose Calcium Total Bilirubin AST ALT Alkaline Phosphatase Total Protein Albumin Globulin Albumin/Globulin Ratio TSH 3rd Generation Vancomycin Trough Blood Type Blood Type Confirm Antibody Screen BBK History Checked 04/11/18 04/11/18 08:12 08:12 WBC RBC Hgb Hct MCV MCH MCHC RDW Plt Count Sodium 131 L Potassium 4.4 Chloride 100 Carbon Dioxide 22 Anion Gap 13 BUN 16 Creatinine 1.2 Est GFR ( Amer) > 60 Est GFR (Non-Af Amer) > 60 POC Glucose (mg/dL) Random Glucose 262 H Calcium 7.6 L Total Bilirubin AST ALT Alkaline Phosphatase Total Protein Albumin Globulin Albumin/Globulin Ratio TSH 3rd Generation Vancomycin Trough 9.6 Blood Type Blood Type Confirm Antibody Screen BBK History Checked Assessment & Plan (1) PVD (peripheral vascular disease) Status: Acute (2) Cellulitis in diabetic foot Status: Acute (3) Toe gangrene Status: Acute (4) Diabetes mellitus Status: Acute
[2018-04-11] MEDS ORDERED: Tetanus/Diphtheria Toxoids 0.5 ml Syringe IM ONE (11:05)
[2018-04-11 11:08] LABS: HDL CHOLESTEROL 25 MG/DL (30-70)
--- NOTE | 2018-04-11 11:09 | CP.PCM.PN ---
<Gregorio Miranda - Last Filed: 04/11/18 10:56> Subjective - Date & Time of Evaluation Date of Evaluation: 04/11/18 Time of Evaluation: 10:56 - Subjective Subjective: 63 y/o male patient seen and evaluated at the bedside 1 day S/P left 3rd toe amputation because of cellulitis of the left LE and gangrene of the left 3rd toe. Patient state that he is doing well. No pain since yesterday. Patient had some fever yesterday. He denies any overnight N/V/C or SOB. No N/V or SOB after the surgery. Objective - Vital Signs/Intake and Output Vital Signs (last 24 hours): Temp Pulse Resp BP Pulse Ox 99.6 F 85 20 169/81 H 95 04/11/18 08:34 04/11/18 08:34 04/11/18 08:34 04/11/18 08:34 04/11/18 08:34 - Medications Medications: Current Medications Acetaminophen (Tylenol 325mg Tab) 650 mg PO Q6 PRN PRN Reason: Fever >100.4 F Last Admin: 04/10/18 14:28 Dose: 650 mg Acetaminophen (Tylenol 325mg Tab) 650 mg PO Q6 PRN PRN Reason: Pain, Mild (1-3) Aspirin (Aspirin Chewable) 81 mg PO DAILY [facility] Atorvastatin Calcium (Lipitor) 20 mg PO DAILY [facility] Clopidogrel Bisulfate (Plavix) 75 mg PO DAILY [facility] Dextrose (Dextrose 50% Inj) 0 ml IV STAT PRN; Protocol PRN Reason: Hypoglycemia Protocol Dextrose (Glutose 15) 0 gm PO ONCE PRN; Protocol PRN Reason: Hypoglycemia Protocol Docusate Sodium (Colace) 100 mg PO BID [facility] Last Admin: 04/11/18 08:25 Dose: 100 mg Ferrous Sulfate (Feosol) 325 mg PO DAILY [facility] Last Admin: 04/11/18 08:28 Dose: 325 mg Glucagon (Glucagen Diagnostic Kit) 0 mg IM STAT PRN; Protocol PRN Reason: Hypoglycemia Protocol Vancomycin HCl 1 gm/ Sodium (Chloride) 250 mls @ 166.667 mls/hr IVPB DAILY [facility]; Protocol Last Admin: 04/11/18 08:43 Dose: 166.667 mls/hr Piperacillin Sod/Tazobactam (Sod 4.5 gm/ Sodium Chloride) 100 mls @ 100 mls/hr IVPB Q8 [facility]; Protocol Last Admin: 04/11/18 08:42 Dose: 100 mls/hr Insulin Human Lispro (Humalog) 0 units SC ACHS [facility]; Protocol Last Admin: 04/11/18 08:30 Dose: 4 unit Insulin Lispro Protam/Lispro Human (Humalog Mix 75/25) 15 units SC BID [facility] Last Admin: 04/11/18 09:48 Dose: 15 units Losartan Potassium (Cozaar) 50 mg PO DAILY [facility] Last Admin: 04/11/18 08:26 Dose: 50 mg Oxycodone/Acetaminophen (Percocet 5/325 Mg Tab) 2 tab PO Q4 PRN PRN Reason: Pain, severe (8-10) Stop: 04/13/18 11:01 Last Admin: 04/10/18 17:37 Dose: 2 tab Oxycodone/Acetaminophen (Percocet 5/325 Mg Tab) 1 tab PO Q4 PRN PRN Reason: Pain, moderate (4-7) Stop: 04/13/18 11:01 - Labs Labs: 04/11/18 08:12 04/11/18 08:12 PT 12.2 Seconds (9.8-13.1) 04/09/18 15:55 INR 1.1 04/09/18 15:55 APTT 31.2 Seconds (25.6-37.1) 04/09/18 15:55 - Constitutional Appears: Well, Non-toxic, No Acute Distress - Head Exam Head Exam: ATRAUMATIC, NORMOCEPHALIC - Cardiovascular Exam Cardiovascular Exam: REGULAR RHYTHM, RRR - GI/Abdominal Exam GI & Abdominal Exam: Soft, Normal Bowel Sounds - Extremities Exam Extremities Exam: Full ROM, Normal Capillary Refill Additional comments: LEFT foot wrapped with dressing and leatha bandage S/P left 3rd toe amputation. - Back Exam Back Exam: NORMAL INSPECTION - Neurological Exam Neurological Exam: Alert, Awake, Oriented x3 Neuro motor strength exam: Left Upper Extremity: 5, Right Upper Extremity: 5, Left Lower Extremity: 5, Right Lower Extremity: 5 - Psychiatric Exam Psychiatric exam: Normal Affect, Normal Mood - Skin Skin Exam: Dry, Intact, Normal Color, Warm Assessment and Plan - Assessment and Plan (Free Text) Assessment: 63 y/o male patient seen and evaluated at the bedside 1 day S/P left 3rd toe amputation because of cellulitis of the left LE and gangrene of the left 3rd toe Plan: Left Middle toe gangrene with cellulites Afebrile, WBC 11.7 Podiatry consulted, Reccs appreciated Continue Vancomycin inj 1 gm sodium chloride 0.9% 250 ml IVPB Day 2 Continue Zosyn 4.5 gm Sodium chloride 0.9% 100 ml IVPB day 2 Left 3rd toe amputation done today in the OR under local anesthesia and IV sedation. c/w pain medications according to the patient's pain level Ordered TD vaccine shot 0.5 ml IM injection Uncontrolled diabetes (CAD equivalant) Chronic, Uncontrolled c/w Sliding scale Lispro 15 units SC BID hypoglycemia protocol Ordered Eccho; F/U results Pseudohyponatremia Na 131 today Calf tenderness evaluate for DVT U/S of Left LE negative for DVT. Hypercholesterolemia Low cholesterol diet DVT prophilaxis SCD <Elvia Cerda Bonita - Last Filed: 04/11/18 18:22> Objective - Vital Signs/Intake and Output Vital Signs (last 24 hours): Temp Pulse Resp BP Pulse Ox 98.7 F 72 18 124/63 96 04/11/18 16:06 04/11/18 16:06 04/11/18 16:06 04/11/18 16:06 04/11/18 16:06 - Medications Medications: Current Medications Acetaminophen (Tylenol 325mg Tab) 650 mg PO Q6 PRN PRN Reason: Fever >100.4 F Last Admin: 04/10/18 14:28 Dose: 650 mg Acetaminophen (Tylenol 325mg Tab) 650 mg PO Q6 PRN PRN Reason: Pain, Mild (1-3) Aspirin (Aspirin Chewable) 81 mg PO DAILY [facility] Last Admin: 04/11/18 12:09 Dose: 81 mg Atorvastatin Calcium (Lipitor) 20 mg PO DAILY [facility] Clopidogrel Bisulfate (Plavix) 75 mg PO DAILY [facility] Last Admin: 04/11/18 12:09 Dose: 75 mg Dextrose (Dextrose 50% Inj) 0 ml IV STAT PRN; Protocol PRN Reason: Hypoglycemia Protocol Dextrose (Glutose 15) 0 gm PO ONCE PRN; Protocol PRN Reason: Hypoglycemia Protocol Docusate Sodium (Colace) 100 mg PO BID [facility] Last Admin: 04/11/18 16:18 Dose: 100 mg Ferrous Sulfate (Feosol) 325 mg PO DAILY [facility] Last Admin: 04/11/18 08:28 Dose: 325 mg Glucagon (Glucagen Diagnostic Kit) 0 mg IM STAT PRN; Protocol PRN Reason: Hypoglycemia Protocol Vancomycin HCl 1 gm/ Sodium (Chloride) 250 mls @ 166.667 mls/hr IVPB DAILY [facility]; Protocol Last Admin: 04/11/18 08:43 Dose: 166.667 mls/hr Piperacillin Sod/Tazobactam (Sod 4.5 gm/ Sodium Chloride) 100 mls @ 100 mls/hr IVPB Q8 [facility]; Protocol Last Admin: 04/11/18 17:51 Dose: 100 mls/hr Insulin Human Lispro (Humalog) 0 units SC ACHS [facility]; Protocol Last Admin: 04/11/18 16:18 Dose: 2 unit Insulin Lispro Protam/Lispro Human (Humalog Mix 75/25) 15 units SC BID [facility] Last Admin: 04/11/18 17:53 Dose: 15 units Losartan Potassium (Cozaar) 50 mg PO DAILY [facility] Last Admin: 04/11/18 08:26 Dose: 50 mg Oxycodone/Acetaminophen (Percocet 5/325 Mg Tab) 2 tab PO Q4 PRN PRN Reason: Pain, severe (8-10) Stop: 04/13/18 11:01 Last Admin: 04/11/18 14:43 Dose: 2 tab Oxycodone/Acetaminophen (Percocet 5/325 Mg Tab) 1 tab PO Q4 PRN PRN Reason: Pain, moderate (4-7) Stop: 04/13/18 11:01 - Labs Labs: 04/11/18 08:12 04/11/18 08:12 PT 12.2 Seconds (9.8-13.1) 04/09/18 15:55 INR 1.1 04/09/18 15:55 APTT 31.2 Seconds (25.6-37.1) 04/09/18 15:55 Attending/Attestation - Attestation I have personally seen and examined this patient.: Yes I have fully participated in the care of the patient.: Yes I have reviewed all pertinent clinical information, including history, physical exam and plan: Yes Notes (Text): 1. Left 3rd Digit Gangrene with Foot Cellulitis - s/p 3rd Digit Amputation and Metatarsal Head Resection - cont IV vanco and Zosyn - PT for crutch training - + popliteal and Dorsalis pedis pulse 2. DM type II with Hyperglycemia with Insulin Use - accucheck -Increase 75/25 Insulin 15 bid 3. HTN -start Losartan 50 mg daily
[2018-04-11 11:19] LABS: LDL CHOLESTEROL 61 mg/dL (0-129)
[2018-04-11] MEDS ORDERED: Iodixanol 320 MG/ML 100 ML BOTTLE IV ONE ×2 (12:24→12:25)
[2018-04-11] MEDS ORDERED: Sodium Chloride 0.9% 50 ML IV ONE (12:25)
--- NOTE | 2018-04-11 13:30 | CP.PCM.PN ---
Subjective - Date & Time of Evaluation Date of Evaluation: 04/11/18 Time of Evaluation: 13:27 - Subjective Subjective: Podiatry progress note for Dr. Mitchel SantoM seen and evaluated at bedside POD 1 left third digit and metatarsal head amputation. VAC in place and functioning. Patient states he was able to sleep last night with no acute events. States he is in no pain today. Denies N/V/F/C/SOB/CP and has no other pedal complaints. Objective - Vital Signs/Intake and Output Vital Signs (last 24 hours): Temp Pulse Resp BP Pulse Ox 99.6 F 85 20 169/81 H 95 04/11/18 08:34 04/11/18 08:34 04/11/18 08:34 04/11/18 08:34 04/11/18 08:34 - Medications Medications: Current Medications Acetaminophen (Tylenol 325mg Tab) 650 mg PO Q6 PRN PRN Reason: Fever >100.4 F Last Admin: 04/10/18 14:28 Dose: 650 mg Acetaminophen (Tylenol 325mg Tab) 650 mg PO Q6 PRN PRN Reason: Pain, Mild (1-3) Aspirin (Aspirin Chewable) 81 mg PO DAILY [facility] Last Admin: 04/11/18 12:09 Dose: 81 mg Atorvastatin Calcium (Lipitor) 20 mg PO DAILY [facility] Clopidogrel Bisulfate (Plavix) 75 mg PO DAILY [facility] Last Admin: 04/11/18 12:09 Dose: 75 mg Dextrose (Dextrose 50% Inj) 0 ml IV STAT PRN; Protocol PRN Reason: Hypoglycemia Protocol Dextrose (Glutose 15) 0 gm PO ONCE PRN; Protocol PRN Reason: Hypoglycemia Protocol Docusate Sodium (Colace) 100 mg PO BID [facility] Last Admin: 04/11/18 08:25 Dose: 100 mg Ferrous Sulfate (Feosol) 325 mg PO DAILY [facility] Last Admin: 04/11/18 08:28 Dose: 325 mg Glucagon (Glucagen Diagnostic Kit) 0 mg IM STAT PRN; Protocol PRN Reason: Hypoglycemia Protocol Vancomycin HCl 1 gm/ Sodium (Chloride) 250 mls @ 166.667 mls/hr IVPB DAILY [facility]; Protocol Last Admin: 04/11/18 08:43 Dose: 166.667 mls/hr Piperacillin Sod/Tazobactam (Sod 4.5 gm/ Sodium Chloride) 100 mls @ 100 mls/hr IVPB Q8 [facility]; Protocol Last Admin: 04/11/18 08:42 Dose: 100 mls/hr Insulin Human Lispro (Humalog) 0 units SC ACHS [facility]; Protocol Last Admin: 04/11/18 12:10 Dose: 6 unit Insulin Lispro Protam/Lispro Human (Humalog Mix 75/25) 15 units SC BID [facility] Last Admin: 04/11/18 09:48 Dose: 15 units Losartan Potassium (Cozaar) 50 mg PO DAILY [facility] Last Admin: 04/11/18 08:26 Dose: 50 mg Oxycodone/Acetaminophen (Percocet 5/325 Mg Tab) 2 tab PO Q4 PRN PRN Reason: Pain, severe (8-10) Stop: 04/13/18 11:01 Last Admin: 04/10/18 17:37 Dose: 2 tab Oxycodone/Acetaminophen (Percocet 5/325 Mg Tab) 1 tab PO Q4 PRN PRN Reason: Pain, moderate (4-7) Stop: 04/13/18 11:01 - Labs Labs: 04/11/18 08:12 04/11/18 08:12 PT 12.2 Seconds (9.8-13.1) 04/09/18 15:55 INR 1.1 04/09/18 15:55 APTT 31.2 Seconds (25.6-37.1) 04/09/18 15:55 - Constitutional Appears: Well, Non-toxic, No Acute Distress - Head Exam Head Exam: ATRAUMATIC, NORMOCEPHALIC - Extremities Exam Additional comments: LLE focused Vasc: DP and PT pulses palpable; cap refill <3 seconds to remaining digits; temp gradient warm to cool from proximal to distal; mild edema noted to lower extremity, nonpitting Neuro: gross and protective sensation intact Derm: surgical site VAC dressing taken down - site is clean and dry, no evidence of hematoma or much sanguinous drainage; no sinus tract appreciated or tunneling; distal aspect and tissue adjacent to fourth digit is dark and potentially nonviable, will continue to monitor; granular tissue appreciated at wound bed Ortho: mild pain on palpation of surgical site, no pain proximally at midfoot or rearfoot/LE - Neurological Exam Neurological Exam: Alert, Awake, Oriented x3 - Psychiatric Exam Psychiatric exam: Normal Affect, Normal Mood Assessment and Plan - Assessment and Plan (Free Text) Assessment: 63M POD 1 left third digit and metatarsal head amputation Plan: Patient seen and evaluated Discussed in detail with Dr. Grullon VAC dressing taken down and wound cleansed with sterile saline VAC reapplied, functioning - about 7cc appreciated in canister this morning Wound cx - no growth after 24 hours Blood cx - no growth after 24 hours X-ray - no signs of OM noted Vascular consult, Dr. Rossi - recs appreciated Abdominal angio ordered - f/u results Continue medications per medicine Podiatry will continue to follow
[2018-04-11] MEDS: Oxycodone/Acetaminophen 5/325 mg Tab PO PRN (14:43)
--- NOTE | 2018-04-11 14:53 | CT ---
Date of service: 04/11/2018 PROCEDURE: CT Angiography Abdomen, Pelvis and Lower Extremity with Contrast HISTORY: gangrene of toes COMPARISON: None available. TECHNIQUE: Technique: CT angiography of the abdomen, pelvis and bilateral lower extremities performed in the arterial phase of enhancement. Coronal and sagittal reformats, and well as rotating MIP images of the vessels generated at the workstation. Intravenous contrast dose: 100 cubic centimeters Visipaque 320 Radiation dose: Total exam DLP = 999.69 mGy-cm. This CT exam was performed using one or more of the following dose reduction techniques: Automated exposure control, adjustment of the mA and/or kV according to patient size, and/or use of iterative reconstruction technique. FINDINGS: CT ANGIOGRAPHY: ABDOMINAL AORTA:: MAJOR AORTIC BRANCHES: Celiac [place]: Unremarkable. Superior mesenteric artery: Unremarkable. Inferior mesenteric artery: Unremarkable. Renal arteries: Unremarkable. PELVIC ARTERIES: Right Common Iliac: Unremarkable. Right External Iliac: Unremarkable. Right Internal Iliac: Unremarkable. Left Common Iliac: Unremarkable. Left External Iliac: Unremarkable. Left Internal Iliac: Unremarkable. RIGHT LOWER EXTREMITY ARTERIES: Right Common Femoral: Unremarkable. Right Superficial Femoral: Unremarkable. Right Profunda Femoris: Unremarkable. Right Popliteal:Unremarkable. Right Anterior Tibial: There is no stenosis anterior tibial are artery. However, moderate calcific plaque of the distal anterior tibial artery extending into the pelvis pedis artery. No stenosis. Right Tibioperoneal Trunk: Unremarkable. Right Posterior Tibial: Patent. There is moderate calcific plaque in the distal posterior tibial artery extending into the lateral plantar artery. Right Peroneal: Unremarkable. Right dorsalis pedis : Unremarkable. LEFT LOWER EXTREMITY ARTERIES: Left Common Femoral: Unremarkable. Left Superficial Femoral: Unremarkable. Left Profunda Femoris: Unremarkable. Left Popliteal: Unremarkable. Left Anterior Tibial: Anterior tibial is patent no stenosis. However, there is moderate calcific plaque in the distal anterior tibial artery extending a dorsalis pedis artery. Left Tibioperoneal Trunk: Unremarkable. Left Posterior Tibial: Patent with no stenosis. There is distal calcific plaque extending to the lateral plantar artery. Left Peronea: Unremarkable. Left Dorsalis pedis: Unremarkable. NON-ANGIOGRAPHIC ASPECT OF THE EXAM: LOWER THORAX: Unremarkable. LIVER: Unremarkable. No gross lesion or ductal dilatation. GALLBLADDER AND BILE DUCTS: Unremarkable. PANCREAS: Unremarkable. No gross lesion or ductal dilatation. SPLEEN: Unremarkable. ADRENALS: Unremarkable. No mass. KIDNEYS AND URETERS: Unremarkable. No hydronephrosis. No solid mass. STOMACH AND BOWEL: Limited evaluation of PO contrast. No obstruction. There is circumferential slight thickening of the rectum. APPENDIX: Normal appendix. PERITONEUM: Unremarkable. No free fluid. No free air. LYMPH NODES: Unremarkable. No enlarged lymph nodes. BLADDER: Unremarkable. REPRODUCTIVE: Unremarkable. BONES: No acute fracture. OTHER FINDINGS: None. IMPRESSION: CT ANGIOGRAM ABDOMEN/PELVIS: 1. Unremarkable CT angiogram of the abdomen pelvis. RIGHT LOWER EXTREMITY CT ANGIOGRAM: 1. Essentially unremarkable CT angiogram right lower extremity. There is no significant peripheral disease and no stenosis. There is a wire over moderate calcific plaque of the distal anterior tibial artery and posterior tibial artery extending into the pedal vessels. LEFT LOWER EXTREMITY CT ANGIOGRAM: 1. Essentially unremarkable CT angiogram left lower extremity. There is no significant peripheral disease and no stenosis. There is a wire over moderate calcific plaque of the distal anterior tibial artery and posterior tibial artery extending into the pedal vessels. NONVASCULAR FINDINGS: Circumferential thickening of the rectum. This is of uncertain significance. Correlation with recent colonoscopy is recommended.
--- NOTE | 2018-04-11 16:50 | CARD ---
APPROVED REPORT Date of service: 04/11/2018 EXAM: Two-dimensional and M-mode echocardiogram with Doppler and color Doppler. Other Information Quality : GoodRhythm : NSR INDICATION LV Function:SystolicDiastolic 2D DIMENSIONS IVSd0.89 (0.7-1.1cm)LVDd3.75 (3.9-5.9cm) LVOT Diameter2.11 (1.8-2.4cm)PWd1.06 (0.7-1.1cm) IVSs1.23 (0.8-1.2cm)LVDs2.62 (2.5-4.0cm) FS (%) 30.1 %PWs1.15 (0.8-1.2cm) M-Mode DIMENSIONS Left Atrium (MM)3.74 (2.5-4.0cm)Aortic Root3.76 (2.2-3.7cm) Aortic Cusp Exc.2.03 (1.5-2.0cm) Aortic Valve AoV Peak Jxanyahf757.5cm/sAoV VTI32.4cmAO Peak GR.9mmHg LVOT Peak Qoerhdiv807.8cm/sLVOT VTI24.34cmAO Mean GR.6mmHg KAHLIL (VMAX)1.21tr3LFO (VTI)1.50cm2 Mitral Valve MV E Kogjsjlz91.3cm/sMV DECEL MBEB367loQS A Hsazipdj53.5cm/s MV NJD70jgV/A ratio1.1MVA (PHT)4.07cm2 TDI Lateral E' Peak V10.59cm/sMedial E' Peak V7.74cm/sE/Lateral E'7.1 E/Medial E'9.7 LEFT VENTRICLE The left ventricle is normal size. There is normal left ventricular wall thickness. The left ventricular systolic function is normal. The estimated ejection fraction is 60-65% No regional wall motion abnormalities noted.. Transmitral Doppler flow pattern is Grade I-abnormal relaxation pattern. No left ventricle thrombus noted on this study. There is no ventricular septal defect visualized. There is no left ventricular aneurysm. There is no mass noted in the left ventricle. RIGHT VENTRICLE The right ventricle is normal size. There is normal right ventricular wall thickness. The right ventricular systolic function is normal. ATRIA The left atrium size is normal. The right atrium size is normal. The interatrial septum is intact with no evidence for an atrial septal defect. AORTIC VALVE The aortic valve is normal in structure. No aortic regurgitation is present. There is no aortic valvular stenosis. There is no aortic valvular vegetation. MITRAL VALVE The mitral valve is normal in structure. There is no evidence of mitral valve prolapse. There is no mitral valve stenosis. There is no mitral valve regurgitation noted. TRICUSPID VALVE The tricuspid valve is normal in structure. There is trace tricuspid valve regurgitation noted. There is no tricuspid valve prolapse or vegetation. There is no tricuspid valve stenosis. PULMONIC VALVE The pulmonary valve is normal in structure. There is no pulmonic valvular regurgitation. There is no pulmonic valvular stenosis. GREAT VESSELS The aortic root is normal in size. The ascending aorta is normal in size. The pulmonary artery is normal. The IVC is normal in size and collapses >50% with inspiration. PERICARDIAL EFFUSION There is no pericardial effusion. There is no pleural effusion. <Conclusion> The estimated ejection fraction is 60-65% Transmitral Doppler flow pattern is Grade I-abnormal relaxation pattern. The left atrium size is normal. There is trace tricuspid valve regurgitation noted.
--- NOTE | 2018-04-11 23:31 | OP ---
PROCEDURE DATE: 04/10/2018 PATIENT AGE: A 63-year-old male. SURGEON: Antony Diamond DPM [employer] SUPERVISOR: Jojo Marquez, PGY-1 ANESTHESIOLOGIST: Isabel Mcclure MD ANESTHESIA: IV sedation with local anesthesia, 18 mL of 1:1 mixture of 0.5% Marcaine plain and 1% lidocaine plain. PREOPERATIVE DIAGNOSIS: Gangrenous changes to the left third toe. POSTOPERATIVE DIAGNOSIS: Gangrenous changes to the left third toe and possible osteomyelitis of the third metatarsal with nonviable tissue in the fourth digit. NAME OF THE PROCEDURE: Left partial third ray amputation with wound vacuum-assisted closure application. INDICATIONS: The patient is a 63-year-old male with the above diagnosis. The patient has exhausted all conservative treatments at this time and now requires surgical intervention. The patient signed the consent after careful explanation of risks, benefits, complications, alternatives for the surgical procedure. No guarantees were given nor implied. PREPARATION: The patient was brought into the operating room and placed on the operating room table in a supine position. Time-out was performed for identification of the correct patient and procedure. After induction of IV sedation, the patient received a total of 18 mL of 1:1 mixture of 1% lidocaine plain and 0.5% Marcaine plain. No tourniquet was used during the procedure. The left foot and ankle were then prepped and draped in a normal sterile manner. DESCRIPTION OF PROCEDURE: Attention was directed to the distal dorsal aspect of the left third toe where gangrenous changes in the third toe were noted. A necrotic scab was also noted on the dorsal aspect of the left third midfoot area. A racquet type incision was made from the dorsal aspect of the third metatarsal to the focus of the third digit. Using a sterile #15 blade, incision was made, taking care of all neurovascular structures. The incision was then extended down to the subcutaneous layer down to the level of the bone. Using a bone clamp to stabilize the third toe, the third toe was then disarticulated from the foot at the level of the MPJ, and the third digit was passed off from the operative field and sent to Pathology. Using a fresh #15 blade, nonviable tissue was then excised from the site. At this time, necrotic tissue was noted on the dorsal aspect of the third metatarsal. The necrotic tissue was then excisionally debrided. Using a sagittal saw, the head and distal one third of the third metatarsal was resected and passed from the operative field and sent to Pathology. Wound cultures from the wound were also taken at this time. The wound was then copiously flushed with sterile saline water. A wound VAC was then applied to the wound, and the wound was left open. The wound VAC was at 125 mmHg and was properly sealed. The left foot was then dressed with gauze, ABD dressing, and Kerlix. The patient will be followed on the floor. POSTOPERATIVE CONDITION: The patient tolerated the local anesthesia and procedure well and was escorted to the recovery room with neurovascular status intact in the left foot and vital signs stable. The patient is to remain nonweightbearing at this time. The patient will be followed on the floor by Podiatry. The patient will continue to receive IV antibiotics while inpatient at the hospital. JOOJ MARQUEZ Antony Diamond DPM [employer]UNCION
[2018-04-12] MEDS: Piperacillin/Tazobact 4.5 GM in Sodium Chloride 0.9% 100 ML IVPB SCH ×3 (00:15→16:58)
[2018-04-12] MEDS: Oxycodone/Acetaminophen 5/325 mg Tab PO PRN (05:48)
[2018-04-12 06:24] LABS: HEMOGLOBIN 9.3 g/dL (12.0-18.0); MEAN CELL VOLUME 89.5 fl (80.0-94.0); MEAN CORPUSCULAR HEMOGLOBIN 30.4 pg (27.0-31.0); RBC 3.06 Mil/uL (4.40-5.90); RED CELL DISTRIBUTION WIDTH 12.9 % (11.5-14.5); WHITE BLOOD COUNT 10.1 K/uL (4.8-10.8)
[2018-04-12 06:35] LABS: BLOOD UREA NITROGEN 12 mg/dl (9-20); CALCIUM 7.8 mg/dL (8.4-10.2); GFR NON-AFRICAN AMERICAN > 60
--- NOTE | 2018-04-12 07:49 | CP.PCM.PN ---
Subjective - Date & Time of Evaluation Date of Evaluation: 04/12/18 Time of Evaluation: 11:36 - Subjective Subjective: The patient was seen and examined at bedside this morning. There are no acute events overnight, NAD. Patient had CT angio yesterday which was unremarkable. Patient denies pain and is sitting comfortably in bed. Patient has no other complaints, denies headache, chest pain, dyspnea, abdominal pain, nausea, vomiting, diarrhea, dysuria, or fever. Objective - Vital Signs/Intake and Output Vital Signs (last 24 hours): Temp Pulse Resp BP Pulse Ox 99.3 F 76 19 139/77 98 04/12/18 02:39 04/12/18 02:39 04/12/18 02:39 04/12/18 02:39 04/12/18 02:39 - Medications Medications: Current Medications Acetaminophen (Tylenol 325mg Tab) 650 mg PO Q6 PRN PRN Reason: Fever >100.4 F Last Admin: 04/10/18 14:28 Dose: 650 mg Acetaminophen (Tylenol 325mg Tab) 650 mg PO Q6 PRN PRN Reason: Pain, Mild (1-3) Aspirin (Aspirin Chewable) 81 mg PO DAILY [facility] Last Admin: 04/11/18 12:09 Dose: 81 mg Atorvastatin Calcium (Lipitor) 20 mg PO DAILY [facility] Clopidogrel Bisulfate (Plavix) 75 mg PO DAILY [facility] Last Admin: 04/11/18 12:09 Dose: 75 mg Dextrose (Dextrose 50% Inj) 0 ml IV STAT PRN; Protocol PRN Reason: Hypoglycemia Protocol Dextrose (Glutose 15) 0 gm PO ONCE PRN; Protocol PRN Reason: Hypoglycemia Protocol Docusate Sodium (Colace) 100 mg PO BID [facility] Last Admin: 04/11/18 16:18 Dose: 100 mg Ferrous Sulfate (Feosol) 325 mg PO DAILY [facility] Last Admin: 04/11/18 08:28 Dose: 325 mg Glucagon (Glucagen Diagnostic Kit) 0 mg IM STAT PRN; Protocol PRN Reason: Hypoglycemia Protocol Vancomycin HCl 1 gm/ Sodium (Chloride) 250 mls @ 166.667 mls/hr IVPB DAILY [facility]; Protocol Last Admin: 04/11/18 08:43 Dose: 166.667 mls/hr Piperacillin Sod/Tazobactam (Sod 4.5 gm/ Sodium Chloride) 100 mls @ 100 mls/hr IVPB Q8 [facility]; Protocol Last Admin: 04/12/18 00:15 Dose: 100 mls/hr Insulin Human Lispro (Humalog) 0 units SC ACHS [facility]; Protocol Last Admin: 04/11/18 22:21 Dose: Not Given Insulin Lispro Protam/Lispro Human (Humalog Mix 75/25) 15 units SC BID [facility] Last Admin: 04/11/18 17:53 Dose: 15 units Losartan Potassium (Cozaar) 50 mg PO DAILY [facility] Last Admin: 04/11/18 08:26 Dose: 50 mg Oxycodone/Acetaminophen (Percocet 5/325 Mg Tab) 2 tab PO Q4 PRN PRN Reason: Pain, severe (8-10) Stop: 04/13/18 11:01 Last Admin: 04/12/18 05:48 Dose: 2 tab Oxycodone/Acetaminophen (Percocet 5/325 Mg Tab) 1 tab PO Q4 PRN PRN Reason: Pain, moderate (4-7) Stop: 04/13/18 11:01 - Labs Labs: 04/12/18 06:05 04/12/18 06:05 PT 12.2 Seconds (9.8-13.1) 04/09/18 15:55 INR 1.1 04/09/18 15:55 APTT 31.2 Seconds (25.6-37.1) 04/09/18 15:55 - Constitutional Appears: Non-toxic, No Acute Distress - Head Exam Head Exam: ATRAUMATIC, NORMAL INSPECTION, NORMOCEPHALIC - Eye Exam Eye Exam: Normal appearance - ENT Exam ENT Exam: Mucous Membranes Moist - Respiratory Exam Respiratory Exam: Clear to Ausculation Bilateral, NORMAL BREATHING PATTERN. absent: Decreased Breath Sounds, Rales, Rhonchi, Wheezes, Respiratory Distress - Cardiovascular Exam Cardiovascular Exam: REGULAR RHYTHM, RRR. absent: Tachycardia - GI/Abdominal Exam GI & Abdominal Exam: Soft, Normal Bowel Sounds. absent: Distended, Tenderness - Extremities Exam Additional comments: LEFT foot wrapped with dressing and leatha bandage S/P left 3rd toe amputation. - Neurological Exam Neurological Exam: Alert, Awake, Oriented x3 - Psychiatric Exam Psychiatric exam: Normal Affect, Normal Mood - Skin Skin Exam: Dry, Normal Color, Warm Assessment and Plan - Assessment and Plan (Free Text) Assessment: 63 y/o man w/ pmh of IDDM2 seen and evaluated at the bedside POD#2 S/P left 3rd toe amputation because of cellulitis of the left LE and gangrene of the left 3rd toe Plan: Left Middle toe gangrene with cellulites Afebrile, WBC 10.1 Podiatry consulted, Reccs appreciated Continue Vancomycin inj 1 gm sodium chloride 0.9% 250 ml IVPB Day 3 Continue Zosyn 4.5 gm Sodium chloride 0.9% 100 ml IVPB day 3 POD#2 s/p Left 3rd toe amputation done in the OR under local anesthesia and IV sedation. c/w pain medications according to the patient's pain level Ordered TD vaccine shot 0.[address] angio 04/11/2018: unremarkable CTA of the abdomen/pelvis Uncontrolled diabetes (CAD equivalant) Chronic, Uncontrolled c/w Sliding scale Lispro 15 units SC BID hypoglycemia protocol Echo: EF 60-65%, normal size of left atrium, trace tricuspid regurgitation Pseudohyponatremia Na 131 today Calf tenderness evaluate for DVT U/S of Left LE negative for DVT. Hypercholesterolemia Low cholesterol diet DVT prophilaxis lovenox 40 mg SC daily
[2018-04-12] MEDS: Insulin Lispro Mix 75/25 100 units/ml (HumaLog) 10ml SC SCH ×2 (09:25→16:59)
[2018-04-12] MEDS: Insulin Lispro (humaLOG) 100 Units/ml Inj SC SCH ×4 (09:26→23:17)
--- NOTE | 2018-04-12 10:18 | CP.PCM.PN ---
Subjective - Date & Time of Evaluation Date of Evaluation: 04/12/18 Time of Evaluation: 10:14 - Subjective Subjective: Podiatry progress note for Dr. Grullon 63M seen and evaluated at bedside POD 2 left third digit and metatarsal head amputation. VAC in place and functioning. Patient states he was able to sleep last night with no acute events. States he is in no pain today. Denies N/V/F/C/SOB/CP and has no other pedal complaints. Objective - Vital Signs/Intake and Output Vital Signs (last 24 hours): Temp Pulse Resp BP Pulse Ox 97.4 F L 68 60 H 132/75 96 04/12/18 08:01 04/12/18 09:24 04/12/18 08:01 04/12/18 09:24 04/12/18 08:01 - Medications Medications: Current Medications Acetaminophen (Tylenol 325mg Tab) 650 mg PO Q6 PRN PRN Reason: Fever >100.4 F Last Admin: 04/10/18 14:28 Dose: 650 mg Acetaminophen (Tylenol 325mg Tab) 650 mg PO Q6 PRN PRN Reason: Pain, Mild (1-3) Aspirin (Aspirin Chewable) 81 mg PO DAILY [facility] Last Admin: 04/12/18 09:24 Dose: 81 mg Atorvastatin Calcium (Lipitor) 20 mg PO DAILY [facility] Last Admin: 04/12/18 09:24 Dose: 20 mg Clopidogrel Bisulfate (Plavix) 75 mg PO DAILY [facility] Last Admin: 04/12/18 09:24 Dose: 75 mg Dextrose (Dextrose 50% Inj) 0 ml IV STAT PRN; Protocol PRN Reason: Hypoglycemia Protocol Dextrose (Glutose 15) 0 gm PO ONCE PRN; Protocol PRN Reason: Hypoglycemia Protocol Docusate Sodium (Colace) 100 mg PO BID [facility] Last Admin: 04/12/18 09:24 Dose: 100 mg Ferrous Sulfate (Feosol) 325 mg PO DAILY [facility] Last Admin: 04/12/18 09:24 Dose: 325 mg Glucagon (Glucagen Diagnostic Kit) 0 mg IM STAT PRN; Protocol PRN Reason: Hypoglycemia Protocol Vancomycin HCl 1 gm/ Sodium (Chloride) 250 mls @ 166.667 mls/hr IVPB DAILY [facility]; Protocol Last Admin: 04/12/18 09:29 Dose: 166.667 mls/hr Piperacillin Sod/Tazobactam (Sod 4.5 gm/ Sodium Chloride) 100 mls @ 100 mls/hr IVPB Q8 [facility]; Protocol Last Admin: 04/12/18 09:28 Dose: 100 mls/hr Insulin Human Lispro (Humalog) 0 units SC ACHS [facility]; Protocol Last Admin: 04/12/18 09:26 Dose: 2 unit Insulin Lispro Protam/Lispro Human (Humalog Mix 75/25) 15 units SC BID [facility] Last Admin: 04/12/18 09:25 Dose: 15 units Losartan Potassium (Cozaar) 50 mg PO DAILY [facility] Last Admin: 04/12/18 09:24 Dose: 50 mg Oxycodone/Acetaminophen (Percocet 5/325 Mg Tab) 2 tab PO Q4 PRN PRN Reason: Pain, severe (8-10) Stop: 04/13/18 11:01 Last Admin: 04/12/18 05:48 Dose: 2 tab Oxycodone/Acetaminophen (Percocet 5/325 Mg Tab) 1 tab PO Q4 PRN PRN Reason: Pain, moderate (4-7) Stop: 04/13/18 11:01 - Labs Labs: 04/12/18 06:05 04/12/18 06:05 PT 12.2 Seconds (9.8-13.1) 04/09/18 15:55 INR 1.1 04/09/18 15:55 APTT 31.2 Seconds (25.6-37.1) 04/09/18 15:55 - Constitutional Appears: Well, Non-toxic - Head Exam Head Exam: ATRAUMATIC - Extremities Exam Additional comments: wound vac functioning at 125 mmHg from previous note: LLE focused Vasc: DP and PT pulses palpable; cap refill <3 seconds to remaining digits; temp gradient warm to cool from proximal to distal; mild edema noted to lower extremity, nonpitting Neuro: gross and protective sensation intact Derm: surgical site VAC dressing taken down - site is clean and dry, no evidence of hematoma or much sanguinous drainage; no sinus tract appreciated or tunneling; distal aspect and tissue adjacent to fourth digit is dark and potentially nonviable, will continue to monitor; granular tissue appreciated at wound bed Ortho: mild pain on palpation of surgical site, no pain proximally at midfoot or rearfoot/LE - Neurological Exam Neurological Exam: Alert, Normal Gait - Psychiatric Exam Psychiatric exam: Normal Affect Assessment and Plan - Assessment and Plan (Free Text) Assessment: 63M POD 2 left third digit and metatarsal head amputation Plan: Patient seen and evaluated Discussed in detail with Dr. Grullon 9cc appreciated in canister this morning Wound cx - no growth after 24 hours Blood cx - no growth after 24 hours X-ray - no signs of OM noted Vascular consult, Dr. Rossi - reckatherine appreciated Abdominal angio ordered - f/u results bone pathology pending Continue medications per medicine Podiatry will continue to follow
[2018-04-12] MEDS: Enoxaparin 40 mg Syringe SC SCH (16:59)
[2018-04-13] MEDS: Piperacillin/Tazobact 4.5 GM in Sodium Chloride 0.9% 100 ML IVPB SCH ×3 (00:49→16:51)
--- NOTE | 2018-04-13 06:47 | CP.PCM.PN ---
Subjective - Date & Time of Evaluation Date of Evaluation: 04/13/18 Time of Evaluation: 12:20 - Subjective Subjective: The patient was seen and examined at bedside this morning. There are no acute events overnight, NAD. Patient denies pain and is sitting comfortably in bed. Patient has no other complaints, denies headache, chest pain, dyspnea, abdominal pain, nausea, vomiting, diarrhea, dysuria, or fever. Objective - Vital Signs/Intake and Output Vital Signs (last 24 hours): Temp Pulse Resp BP Pulse Ox 99.9 F H 77 18 148/67 96 04/13/18 00:07 04/13/18 02:00 04/13/18 00:07 04/13/18 02:00 04/13/18 00:07 - Medications Medications: Current Medications Acetaminophen (Tylenol 325mg Tab) 650 mg PO Q6 PRN PRN Reason: Fever >100.4 F Last Admin: 04/10/18 14:28 Dose: 650 mg Acetaminophen (Tylenol 325mg Tab) 650 mg PO Q6 PRN PRN Reason: Pain, Mild (1-3) Aspirin (Aspirin Chewable) 81 mg PO DAILY [facility] Last Admin: 04/12/18 09:24 Dose: 81 mg Atorvastatin Calcium (Lipitor) 20 mg PO DAILY [facility] Last Admin: 04/12/18 09:24 Dose: 20 mg Clopidogrel Bisulfate (Plavix) 75 mg PO DAILY [facility] Last Admin: 04/12/18 09:24 Dose: 75 mg Dextrose (Dextrose 50% Inj) 0 ml IV STAT PRN; Protocol PRN Reason: Hypoglycemia Protocol Dextrose (Glutose 15) 0 gm PO ONCE PRN; Protocol PRN Reason: Hypoglycemia Protocol Docusate Sodium (Colace) 100 mg PO BID [facility] Last Admin: 04/12/18 17:00 Dose: 100 mg Enoxaparin Sodium (Lovenox) 40 mg SC DAILY [facility]; Protocol Last Admin: 04/12/18 16:59 Dose: 40 mg Ferrous Sulfate (Feosol) 325 mg PO DAILY [facility] Last Admin: 04/12/18 09:24 Dose: 325 mg Glucagon (Glucagen Diagnostic Kit) 0 mg IM STAT PRN; Protocol PRN Reason: Hypoglycemia Protocol Vancomycin HCl 1 gm/ Sodium (Chloride) 250 mls @ 166.667 mls/hr IVPB DAILY [facility]; Protocol Last Admin: 04/12/18 09:29 Dose: 166.667 mls/hr Piperacillin Sod/Tazobactam (Sod 4.5 gm/ Sodium Chloride) 100 mls @ 100 mls/hr IVPB Q8 [facility]; Protocol Last Admin: 04/13/18 00:49 Dose: 100 mls/hr Insulin Human Lispro (Humalog) 0 units SC ACHS [facility]; Protocol Last Admin: 04/12/18 23:17 Dose: Not Given Insulin Lispro Protam/Lispro Human (Humalog Mix 75/25) 15 units SC BID [facility] Last Admin: 04/12/18 16:59 Dose: 15 units Losartan Potassium (Cozaar) 50 mg PO DAILY [facility] Last Admin: 04/12/18 09:24 Dose: 50 mg Oxycodone/Acetaminophen (Percocet 5/325 Mg Tab) 2 tab PO Q4 PRN PRN Reason: Pain, severe (8-10) Stop: 04/13/18 11:01 Last Admin: 04/12/18 05:48 Dose: 2 tab Oxycodone/Acetaminophen (Percocet 5/325 Mg Tab) 1 tab PO Q4 PRN PRN Reason: Pain, moderate (4-7) Stop: 04/13/18 11:01 - Labs Labs: 04/12/18 06:05 04/12/18 06:05 PT 12.2 Seconds (9.8-13.1) 04/09/18 15:55 INR 1.1 04/09/18 15:55 APTT 31.2 Seconds (25.6-37.1) 04/09/18 15:55 - Constitutional Appears: Non-toxic, No Acute Distress - Head Exam Head Exam: ATRAUMATIC, NORMAL INSPECTION, NORMOCEPHALIC - Eye Exam Eye Exam: Normal appearance - ENT Exam ENT Exam: Mucous Membranes Moist - Neck Exam Neck Exam: Full ROM. absent: Tenderness - Respiratory Exam Respiratory Exam: Clear to Ausculation Bilateral, NORMAL BREATHING PATTERN. absent: Decreased Breath Sounds, Rales, Rhonchi, Wheezes, Respiratory Distress - Cardiovascular Exam Cardiovascular Exam: REGULAR RHYTHM, RRR - GI/Abdominal Exam GI & Abdominal Exam: Soft, Normal Bowel Sounds. absent: Distended, Tenderness - Extremities Exam Additional comments: LEFT foot wrapped with dressing and leatha bandage S/P left 3rd toe amputation. - Neurological Exam Neurological Exam: Alert, Awake, Oriented x3 - Psychiatric Exam Psychiatric exam: Normal Affect, Normal Mood - Skin Skin Exam: Dry, Normal Color, Warm Assessment and Plan - Assessment and Plan (Free Text) Assessment: 63 y/o man w/ pmh of IDDM2 seen and evaluated at the bedside POD#3 S/P left 3rd toe amputation because of cellulitis of the left LE and gangrene of the left 3rd toe Plan: Left Middle toe gangrene with cellulites Afebrile, WBC 10.1 Podiatry consulted, Reccs appreciated Continue Vancomycin inj 1 gm sodium chloride 0.9% 250 ml IVPB Day 4 Continue Zosyn 4.5 gm Sodium chloride 0.9% 100 ml IVPB day 4 POD#3 s/p Left 3rd toe amputation done in the OR under local anesthesia and IV sedation. c/w pain medications according to the patient's pain level Ordered TD vaccine shot 0.[address] angio 04/11/2018: unremarkable CTA of the abdomen/pelvis awaiting pathology results Uncontrolled diabetes (CAD equivalant) Chronic, Uncontrolled c/w Sliding scale Lispro 15 units SC BID hypoglycemia protocol Echo: EF 60-65%, normal size of left atrium, trace tricuspid regurgitation Pseudohyponatremia Na 131 today Calf tenderness evaluate for DVT U/S of Left LE negative for DVT. Hypercholesterolemia Low cholesterol diet DVT prophilaxis lovenox 40 mg SC daily
[2018-04-13] MEDS: Enoxaparin 40 mg Syringe SC SCH (09:28)
[2018-04-13] MEDS: Insulin Lispro Mix 75/25 100 units/ml (HumaLog) 10ml SC SCH ×2 (09:31→16:55)
[2018-04-13] MEDS: Insulin Lispro (humaLOG) 100 Units/ml Inj SC SCH ×4 (09:32→22:30)
--- NOTE | 2018-04-13 16:14 | CP.PCM.PN ---
Subjective - Date & Time of Evaluation Date of Evaluation: 04/13/18 Time of Evaluation: 16:12 - Subjective Subjective: Podiatry progress note for Dr. Grullon 63M seen and evaluated at bedside POD 3 left third digit and metatarsal head amputation. VAC in place and functioning. Patient states he was able to sleep last night with no acute events. States he is in no pain today. Denies N/V/F/C/SOB/CP and has no other pedal complaints. Objective - Vital Signs/Intake and Output Vital Signs (last 24 hours): Temp Pulse Resp BP Pulse Ox 97.5 F L 92 H 20 149/73 100 04/13/18 08:40 04/13/18 08:40 04/13/18 08:40 04/13/18 08:40 04/13/18 08:40 - Medications Medications: Current Medications Acetaminophen (Tylenol 325mg Tab) 650 mg PO Q6 PRN PRN Reason: Fever >100.4 F Last Admin: 04/10/18 14:28 Dose: 650 mg Acetaminophen (Tylenol 325mg Tab) 650 mg PO Q6 PRN PRN Reason: Pain, Mild (1-3) Aspirin (Aspirin Chewable) 81 mg PO DAILY [facility] Last Admin: 04/13/18 09:29 Dose: 81 mg Atorvastatin Calcium (Lipitor) 20 mg PO DAILY [facility] Last Admin: 04/13/18 09:30 Dose: 20 mg Clopidogrel Bisulfate (Plavix) 75 mg PO DAILY [facility] Last Admin: 04/13/18 09:29 Dose: 75 mg Dextrose (Dextrose 50% Inj) 0 ml IV STAT PRN; Protocol PRN Reason: Hypoglycemia Protocol Dextrose (Glutose 15) 0 gm PO ONCE PRN; Protocol PRN Reason: Hypoglycemia Protocol Docusate Sodium (Colace) 100 mg PO BID [facility] Last Admin: 04/13/18 09:29 Dose: 100 mg Enoxaparin Sodium (Lovenox) 40 mg SC DAILY [facility]; Protocol Last Admin: 04/13/18 09:28 Dose: 40 mg Ferrous Sulfate (Feosol) 325 mg PO DAILY [facility] Last Admin: 04/13/18 09:28 Dose: 325 mg Glucagon (Glucagen Diagnostic Kit) 0 mg IM STAT PRN; Protocol PRN Reason: Hypoglycemia Protocol Vancomycin HCl 1 gm/ Sodium (Chloride) 250 mls @ 166.667 mls/hr IVPB DAILY [facility]; Protocol Last Admin: 04/13/18 09:38 Dose: 166.667 mls/hr Piperacillin Sod/Tazobactam (Sod 4.5 gm/ Sodium Chloride) 100 mls @ 100 mls/hr IVPB Q8 [facility]; Protocol Last Admin: 04/13/18 09:39 Dose: 100 mls/hr Insulin Human Lispro (Humalog) 0 units SC ACHS [facility]; Protocol Last Admin: 04/13/18 12:06 Dose: 4 unit Insulin Lispro Protam/Lispro Human (Humalog Mix 75/25) 15 units SC BID [facility] Last Admin: 04/13/18 09:31 Dose: 15 units Losartan Potassium (Cozaar) 50 mg PO DAILY [facility] Last Admin: 04/13/18 09:28 Dose: 50 mg - Labs Labs: 04/12/18 06:05 04/12/18 06:05 PT 12.2 Seconds (9.8-13.1) 04/09/18 15:55 INR 1.1 04/09/18 15:55 APTT 31.2 Seconds (25.6-37.1) 04/09/18 15:55 - Constitutional Appears: Well, Non-toxic - Head Exam Head Exam: ATRAUMATIC - Extremities Exam Additional comments: LLE focused Vasc: DP and PT pulses palpable; cap refill <3 seconds to remaining digits; temp gradient warm to cool from proximal to distal; mild edema noted to lower extremity, nonpitting Neuro: gross and protective sensation intact Derm: surgical site VAC dressing taken down - site is clean and dry, no evidence of hematoma or much sanguinous drainage; no sinus tract appreciated or tunneling; distal aspect and tissue adjacent to fourth digit is dark and potentially nonviable, will continue to monitor; granular tissue appreciated at wound bed of the third digit metatarsal Ortho: mild pain on palpation of surgical site, no pain proximally at midfoot or rearfoot/LE - Neurological Exam Neurological Exam: Alert, Awake - Psychiatric Exam Psychiatric exam: Normal Affect - Skin Skin Exam: Normal Color Assessment and Plan - Assessment and Plan (Free Text) Assessment: 63M POD 3 left third digit and metatarsal head amputation Plan: Patient seen and evaluated Discussed in detail with Dr. Grullon VAC dressing taken down and wound cleansed with sterile saline VAC reapplied, functioning - about 9cc appreciated in canister this morning Wound cx - no growth after 24 hours Blood cx - no growth after 24 hours X-ray - no signs of OM noted Vascular consult, Dr. Rossi - recs appreciated Abdominal angio ordered - f/u results Pathology: acute OM of the third digit and third met head. Continue medications per medicine Podiatry plan: amputation of the fourth digit as it is nonviable, patient refuses at this time. Will try to convince again. Podiatry will continue to follow
[2018-04-14] MEDS: Piperacillin/Tazobact 4.5 GM in Sodium Chloride 0.9% 100 ML IVPB SCH ×3 (00:22→16:25)
[2018-04-14 08:11] LABS: HEMOGLOBIN 9.9 g/dL (12.0-18.0); MEAN CELL VOLUME 88.8 fl (80.0-94.0); MEAN CORPUSCULAR HEMOGLOBIN 30.5 pg (27.0-31.0); MEAN CORPUSCULAR HGB CONC 34.4 g/dL (33.0-37.0); RBC 3.23 Mil/uL (4.40-5.90); RED CELL DISTRIBUTION WIDTH 13.2 % (11.5-14.5); WHITE BLOOD COUNT 9.2 K/uL (4.8-10.8)
--- NOTE | 2018-04-14 08:19 | CP.PCM.PN ---
Objective - Vital Signs/Intake and Output Vital Signs (last 24 hours): Temp Pulse Resp BP Pulse Ox 98.8 F 69 19 169/83 H 98 04/14/18 08:06 04/14/18 08:06 04/14/18 08:06 04/14/18 08:06 04/14/18 08:06 Intake and Output: 04/14/18 04/14/18 06:59 18:59 Output Total 40 Balance -40 - Medications Medications: Current Medications Acetaminophen (Tylenol 325mg Tab) 650 mg PO Q6 PRN PRN Reason: Fever >100.4 F Last Admin: 04/10/18 14:28 Dose: 650 mg Acetaminophen (Tylenol 325mg Tab) 650 mg PO Q6 PRN PRN Reason: Pain, Mild (1-3) Last Admin: 04/13/18 21:41 Dose: 650 mg Amlodipine Besylate (Norvasc) 5 mg PO DAILY [facility] Aspirin (Aspirin Chewable) 81 mg PO DAILY [facility] Last Admin: 04/13/18 09:29 Dose: 81 mg Atorvastatin Calcium (Lipitor) 20 mg PO DAILY [facility] Last Admin: 04/13/18 09:30 Dose: 20 mg Clopidogrel Bisulfate (Plavix) 75 mg PO DAILY [facility] Last Admin: 04/13/18 09:29 Dose: 75 mg Dextrose (Dextrose 50% Inj) 0 ml IV STAT PRN; Protocol PRN Reason: Hypoglycemia Protocol Dextrose (Glutose 15) 0 gm PO ONCE PRN; Protocol PRN Reason: Hypoglycemia Protocol Docusate Sodium (Colace) 100 mg PO BID [facility] Last Admin: 04/13/18 16:57 Dose: 100 mg Enoxaparin Sodium (Lovenox) 40 mg SC DAILY [facility]; Protocol Last Admin: 04/13/18 09:28 Dose: 40 mg Ferrous Sulfate (Feosol) 325 mg PO DAILY [facility] Last Admin: 04/13/18 09:28 Dose: 325 mg Glucagon (Glucagen Diagnostic Kit) 0 mg IM STAT PRN; Protocol PRN Reason: Hypoglycemia Protocol Vancomycin HCl 1 gm/ Sodium (Chloride) 250 mls @ 166.667 mls/hr IVPB DAILY [facility]; Protocol Last Admin: 04/13/18 09:38 Dose: 166.667 mls/hr Piperacillin Sod/Tazobactam (Sod 4.5 gm/ Sodium Chloride) 100 mls @ 100 mls/hr IVPB Q8 [facility]; Protocol Last Admin: 04/14/18 00:22 Dose: 100 mls/hr Insulin Human Lispro (Humalog) 0 units SC ACHS [facility]; Protocol Last Admin: 04/13/18 22:30 Dose: Not Given Insulin Lispro Protam/Lispro Human (Humalog Mix 75/25) 15 units SC BID [facility] Last Admin: 04/13/18 16:55 Dose: 15 units Losartan Potassium (Cozaar) 50 mg PO DAILY [facility] Last Admin: 04/13/18 09:28 Dose: 50 mg - Labs Labs: 04/14/18 07:50 04/12/18 06:05 PT 12.2 Seconds (9.8-13.1) 04/09/18 15:55 INR 1.1 04/09/18 15:55 APTT 31.2 Seconds (25.6-37.1) 04/09/18 15:55
[2018-04-14 08:26] LABS: BLOOD UREA NITROGEN 11 mg/dl (9-20); CALCIUM 8.4 mg/dL (8.4-10.2); GFR NON-AFRICAN AMERICAN > 60
[2018-04-14] MEDS: Insulin Lispro (humaLOG) 100 Units/ml Inj SC SCH ×4 (08:33→22:38)
[2018-04-14] MEDS: Enoxaparin 40 mg Syringe SC SCH (08:36)
[2018-04-14] MEDS: Insulin Lispro Mix 75/25 100 units/ml (HumaLog) 10ml SC SCH ×2 (08:37→16:24)
--- NOTE | 2018-04-14 15:47 | CP.PCM.CON ---
History of Present Illness - History of Present Illness History of Present Illness: 63 y old had a nail puncture wound and became gangrenous and had metatarsectomy. Currently with no complaints. Past Patient History - Infectious Disease Hx of Infectious Diseases: None - Tetanus Immunizations Tetanus Immunization: Unknown - Past Medical History & Family History Past Medical History?: Yes - Past Social History Smoking Status: Never Smoked - CARDIAC Hx Hypercholesterolemia: Yes Hx Hypertension: Yes - PULMONARY Hx Pneumonia: Yes - NEUROLOGICAL Hx Neurological Disorder: No - HEENT Hx HEENT Problems: No - RENAL Hx Chronic Kidney Disease: No - ENDOCRINE/METABOLIC Hx Endocrine Disorders: Yes - HEMATOLOGICAL/ONCOLOGICAL Hx Blood Disorders: No - INTEGUMENTARY Hx Dermatological Problems: No - MUSCULOSKELETAL/RHEUMATOLOGICAL Hx Arthritis: Yes (Bilateral Shoulder) - GASTROINTESTINAL Hx Gastrointestinal Disorders: No - GENITOURINARY/GYNECOLOGICAL Hx Genitourinary Disorders: No - PSYCHIATRIC Hx Psychophysiologic Disorder: No - SURGICAL HISTORY Hx Surgeries: Yes Hx Musculoskeletal Surgery: Yes (left great toe) Other/Comment: Rt knee I&D, picc-line left arm, neck cyst removal. - ANESTHESIA Hx Anesthesia: Yes Hx Anesthesia Reactions: No Meds Allergies/Adverse Reactions: Allergies Allergy/AdvReac Type Severity Reaction Status Date / Time No Known Allergies Allergy Verified 04/09/18 14:31 - Medications Medications: Current Medications Acetaminophen (Tylenol 325mg Tab) 650 mg PO Q6 PRN PRN Reason: Fever >100.4 F Last Admin: 04/10/18 14:28 Dose: 650 mg Acetaminophen (Tylenol 325mg Tab) 650 mg PO Q6 PRN PRN Reason: Pain, Mild (1-3) Last Admin: 04/13/18 21:41 Dose: 650 mg Amlodipine Besylate (Norvasc) 5 mg PO DAILY [facility] Last Admin: 04/14/18 08:36 Dose: 5 mg Aspirin (Aspirin Chewable) 81 mg PO DAILY [facility] Last Admin: 04/14/18 08:34 Dose: 81 mg Atorvastatin Calcium (Lipitor) 20 mg PO DAILY [facility] Last Admin: 04/14/18 08:35 Dose: 20 mg Clopidogrel Bisulfate (Plavix) 75 mg PO DAILY [facility] Last Admin: 04/14/18 08:36 Dose: 75 mg Dextrose (Dextrose 50% Inj) 0 ml IV STAT PRN; Protocol PRN Reason: Hypoglycemia Protocol Dextrose (Glutose 15) 0 gm PO ONCE PRN; Protocol PRN Reason: Hypoglycemia Protocol Docusate Sodium (Colace) 100 mg PO BID [facility] Last Admin: 04/14/18 08:35 Dose: 100 mg Enoxaparin Sodium (Lovenox) 40 mg SC DAILY [facility]; Protocol Last Admin: 04/14/18 08:36 Dose: 40 mg Ferrous Sulfate (Feosol) 325 mg PO DAILY [facility] Last Admin: 04/14/18 08:35 Dose: 325 mg Glucagon (Glucagen Diagnostic Kit) 0 mg IM STAT PRN; Protocol PRN Reason: Hypoglycemia Protocol Vancomycin HCl 1 gm/ Sodium (Chloride) 250 mls @ 166.667 mls/hr IVPB DAILY [facility]; Protocol Last Admin: 04/14/18 08:41 Dose: 166.667 mls/hr Piperacillin Sod/Tazobactam (Sod 4.5 gm/ Sodium Chloride) 100 mls @ 100 mls/hr IVPB Q8 [facility]; Protocol Last Admin: 04/14/18 08:41 Dose: 100 mls/hr Insulin Human Lispro (Humalog) 0 units SC ACHS [facility]; Protocol Last Admin: 04/14/18 12:26 Dose: 4 unit Insulin Lispro Protam/Lispro Human (Humalog Mix 75/25) 15 units SC BID [facility] Last Admin: 04/14/18 08:37 Dose: 15 units Losartan Potassium (Cozaar) 50 mg PO DAILY [facility] Last Admin: 04/14/18 08:35 Dose: 50 mg Results - Vital Signs Recent Vital Signs: Last Vital Signs Temp 98.8 F 04/14/18 08:06 Pulse 69 04/14/18 08:06 Resp 19 04/14/18 08:06 BP 169/83 H 04/14/18 08:06 Pulse Ox 98 04/14/18 08:06 - Labs Result Diagrams: 04/14/18 07:50 04/14/18 07:50 Labs: Laboratory Results - last 24 hr 04/13/18 04/13/18 04/14/18 15:58 21:04 05:38 WBC RBC Hgb Hct MCV MCH MCHC RDW Plt Count Sodium Potassium Chloride Carbon Dioxide Anion Gap BUN Creatinine Est GFR ( Amer) Est GFR (Non-Af Amer) POC Glucose (mg/dL) 207 H 218 H 182 H Random Glucose Calcium 04/14/18 04/14/18 04/14/18 07:50 07:50 11:17 WBC 9.2 RBC 3.23 L Hgb 9.9 L Hct 28.7 L MCV 88.8 MCH 30.5 MCHC 34.4 RDW 13.2 Plt Count 365 D Sodium 135 Potassium 4.1 Chloride 102 Carbon Dioxide 26 Anion Gap 11 BUN 11 Creatinine 1.1 Est GFR ( Amer) > 60 Est GFR (Non-Af Amer) > 60 POC Glucose (mg/dL) 284 H Random Glucose 195 H Calcium 8.4 Assessment & Plan - Assessment and Plan (Free Text) Assessment: Gangrenous s/p metatarsectomy, clinically stable. Growing Beta hemolytic strep. Since there is no previous hospitalization for wound care and organism is strep. d/c vancomycin. Continue Zosyn. At the time of discharge switch to KEFLEX 250 mg po Q6H for 2 weeks.
--- NOTE | 2018-04-14 17:08 | CP.PCM.PN ---
Subjective - Date & Time of Evaluation Date of Evaluation: 04/14/18 Time of Evaluation: 12:00 - Subjective Subjective: Patient seen and examined bedside.Feeling well. Wound vac to LLE. Afebrile,BP labile No acute issues overnight. pain is controlled . Does not want any more amputation. Objective - Vital Signs/Intake and Output Vital Signs (last 24 hours): Temp Pulse Resp BP Pulse Ox 99.2 F 76 18 159/76 H 98 04/14/18 16:19 04/14/18 16:19 04/14/18 16:19 04/14/18 16:19 04/14/18 16:19 Intake and Output: 04/14/18 04/14/18 06:59 18:59 Output Total 40 Balance -40 - Medications Medications: Current Medications Acetaminophen (Tylenol 325mg Tab) 650 mg PO Q6 PRN PRN Reason: Fever >100.4 F Last Admin: 04/10/18 14:28 Dose: 650 mg Acetaminophen (Tylenol 325mg Tab) 650 mg PO Q6 PRN PRN Reason: Pain, Mild (1-3) Last Admin: 04/13/18 21:41 Dose: 650 mg Amlodipine Besylate (Norvasc) 5 mg PO DAILY [facility] Last Admin: 04/14/18 08:36 Dose: 5 mg Aspirin (Aspirin Chewable) 81 mg PO DAILY [facility] Last Admin: 04/14/18 08:34 Dose: 81 mg Atorvastatin Calcium (Lipitor) 20 mg PO DAILY [facility] Last Admin: 04/14/18 08:35 Dose: 20 mg Clopidogrel Bisulfate (Plavix) 75 mg PO DAILY [facility] Last Admin: 04/14/18 08:36 Dose: 75 mg Dextrose (Dextrose 50% Inj) 0 ml IV STAT PRN; Protocol PRN Reason: Hypoglycemia Protocol Dextrose (Glutose 15) 0 gm PO ONCE PRN; Protocol PRN Reason: Hypoglycemia Protocol Docusate Sodium (Colace) 100 mg PO BID [facility] Last Admin: 04/14/18 16:22 Dose: 100 mg Enoxaparin Sodium (Lovenox) 40 mg SC DAILY [facility]; Protocol Last Admin: 04/14/18 08:36 Dose: 40 mg Ferrous Sulfate (Feosol) 325 mg PO DAILY [facility] Last Admin: 04/14/18 08:35 Dose: 325 mg Glucagon (Glucagen Diagnostic Kit) 0 mg IM STAT PRN; Protocol PRN Reason: Hypoglycemia Protocol Piperacillin Sod/Tazobactam (Sod 4.5 gm/ Sodium Chloride) 100 mls @ 100 mls/hr IVPB Q8 [facility]; Protocol Last Admin: 04/14/18 16:25 Dose: 100 mls/hr Insulin Human Lispro (Humalog) 0 units SC ACHS [facility]; Protocol Last Admin: 04/14/18 16:23 Dose: 4 unit Insulin Lispro Protam/Lispro Human (Humalog Mix 75/25) 15 units SC BID [facility] Last Admin: 04/14/18 16:24 Dose: 15 units Losartan Potassium (Cozaar) 50 mg PO DAILY [facility] Last Admin: 04/14/18 08:35 Dose: 50 mg - Labs Labs: 04/14/18 07:50 04/14/18 07:50 PT 12.2 Seconds (9.8-13.1) 04/09/18 15:55 INR 1.1 04/09/18 15:55 APTT 31.2 Seconds (25.6-37.1) 04/09/18 15:55 - Constitutional Appears: Non-toxic, No Acute Distress - Head Exam Head Exam: ATRAUMATIC, NORMAL INSPECTION, NORMOCEPHALIC - Eye Exam Eye Exam: EOMI, Normal appearance, PERRL Pupil Exam: NORMAL ACCOMODATION - ENT Exam ENT Exam: Mucous Membranes Moist, Normal Exam - Neck Exam Neck Exam: Full ROM, Normal Inspection - Respiratory Exam Respiratory Exam: Clear to Ausculation Bilateral, NORMAL BREATHING PATTERN. absent: Rales, Rhonchi, Wheezes - Cardiovascular Exam Cardiovascular Exam: REGULAR RHYTHM, RRR, +S1, +S2. absent: JVD - GI/Abdominal Exam GI & Abdominal Exam: Soft, Normal Bowel Sounds. absent: Distended, Guarding, Tenderness, Rebound - Rectal Exam Rectal Exam: Deferred - Extremities Exam Extremities Exam: absent: Pedal Edema Additional comments: Left foot dressing and wound vac in place - Back Exam Back Exam: NORMAL INSPECTION - Neurological Exam Neurological Exam: Alert, Awake, CN II-XII Intact, Oriented x3 - Psychiatric Exam Psychiatric exam: Normal Affect, Normal Mood - Skin Skin Exam: Dry, Warm Assessment and Plan - Assessment and Plan (Free Text) Assessment: 63 y/o male with PMH IDDM presented with swelling , redness and pain to his left foot with discoloration of his 3rd toe . He gave history of stepping on a nail 3 days prior Physical exam was significant for edema, erythema to left foot , gangrenous third toe and 2 small open wounds Podiatry consulted and started on Vanco and Zosyn IV Underwent left 3rd toe and 3rd metatarsal head amputation Wound vac in place and pain is controlled Pathology report shows focal OM to the bone fragment from 3rd metatarsal head . Cultures positive for beta hemolytic Streptococcus Group B ID consulted . Will d/c Vancomycin and continue Zosyn IV Plan to d/c on Keflex Po for 2 weeks 1.Left foot and left lower leg cellulitis improved, afebrile, WBc - wnl D/c Vanco and continue Zosyn IV 2.Left foot third toe gangrene & Left 3rd metatarsal head focal OM s/p amputation POD # 4 ID consulted Continue Zosyn IV Plan to d/c on PO Keflex for 2 weeks podiatry on board following with wound care Wound vac in place Non weight bearing to LLE , ambulating with crutches 3.IDDM uncontrolled Continue Lispro 75/35 15 unit SQ Q12 Accuchecks, diabetic diet, insulin coverage 4.Acute blood loss anemia Hgb dropped from 11-9 Started Ferrous sulfate 5.Hypertension chronic Continue Cozaar 50 mg PO QD Started Norvasc 5 mg Po QD 6.Dyslipidemia chronic on statin 7. DVT prophylaxis on Lovenox
[2018-04-15] MEDS: Piperacillin/Tazobact 4.5 GM in Sodium Chloride 0.9% 100 ML IVPB SCH ×3 (00:43→16:21)
[2018-04-15] MEDS: Insulin Lispro Mix 75/25 100 units/ml (HumaLog) 10ml SC SCH ×2 (08:23→16:20)
[2018-04-15] MEDS: Insulin Lispro (humaLOG) 100 Units/ml Inj SC SCH ×4 (08:24→22:52)
[2018-04-15] MEDS: Enoxaparin 40 mg Syringe SC SCH (08:25)
--- NOTE | 2018-04-15 10:20 | CP.PCM.PN ---
Subjective - Date & Time of Evaluation Date of Evaluation: 04/15/18 Time of Evaluation: 10:21 - Subjective Subjective: The patient was seen and examined at bedside this morning. There are no acute events overnight, NAD. Patient denies pain and is sitting comfortably in bed. Patient has no other complaints, denies headache, chest pain, dyspnea, abdominal pain, nausea, vomiting, diarrhea, dysuria, or fever. Patient agreeable for exploration by podiatry and will make final decision based on findings. Objective - Vital Signs/Intake and Output Vital Signs (last 24 hours): Temp Pulse Resp BP Pulse Ox 98.8 F 65 20 160/75 H 98 04/15/18 08:58 04/15/18 08:58 04/15/18 08:58 04/15/18 08:58 04/15/18 08:58 - Medications Medications: Current Medications Acetaminophen (Tylenol 325mg Tab) 650 mg PO Q6 PRN PRN Reason: Fever >100.4 F Last Admin: 04/10/18 14:28 Dose: 650 mg Acetaminophen (Tylenol 325mg Tab) 650 mg PO Q6 PRN PRN Reason: Pain, Mild (1-3) Last Admin: 04/13/18 21:41 Dose: 650 mg Amlodipine Besylate (Norvasc) 5 mg PO DAILY [facility] Last Admin: 04/15/18 08:26 Dose: 5 mg Aspirin (Aspirin Chewable) 81 mg PO DAILY [facility] Last Admin: 04/15/18 08:25 Dose: 81 mg Atorvastatin Calcium (Lipitor) 20 mg PO DAILY [facility] Last Admin: 04/15/18 08:26 Dose: 20 mg Clopidogrel Bisulfate (Plavix) 75 mg PO DAILY [facility] Last Admin: 04/15/18 08:26 Dose: 75 mg Dextrose (Dextrose 50% Inj) 0 ml IV STAT PRN; Protocol PRN Reason: Hypoglycemia Protocol Dextrose (Glutose 15) 0 gm PO ONCE PRN; Protocol PRN Reason: Hypoglycemia Protocol Docusate Sodium (Colace) 100 mg PO BID [facility] Last Admin: 04/15/18 08:25 Dose: 100 mg Enoxaparin Sodium (Lovenox) 40 mg SC DAILY [facility]; Protocol Last Admin: 04/15/18 08:25 Dose: 40 mg Ferrous Sulfate (Feosol) 325 mg PO DAILY [facility] Last Admin: 04/15/18 08:26 Dose: 325 mg Glucagon (Glucagen Diagnostic Kit) 0 mg IM STAT PRN; Protocol PRN Reason: Hypoglycemia Protocol Piperacillin Sod/Tazobactam (Sod 4.5 gm/ Sodium Chloride) 100 mls @ 100 mls/hr IVPB Q8 [facility]; Protocol Last Admin: 04/15/18 08:22 Dose: 100 mls/hr Insulin Human Lispro (Humalog) 0 units SC ACHS [facility]; Protocol Last Admin: 04/15/18 08:24 Dose: 3 unit Insulin Lispro Protam/Lispro Human (Humalog Mix 75/25) 15 units SC BID [facility] Last Admin: 04/15/18 08:23 Dose: 15 units Losartan Potassium (Cozaar) 50 mg PO DAILY [facility] Last Admin: 04/15/18 08:25 Dose: 50 mg - Labs Labs: 04/14/18 07:50 04/14/18 07:50 PT 12.2 Seconds (9.8-13.1) 04/09/18 15:55 INR 1.1 04/09/18 15:55 APTT 31.2 Seconds (25.6-37.1) 04/09/18 15:55 - Constitutional Appears: Non-toxic, No Acute Distress - Head Exam Head Exam: ATRAUMATIC, NORMAL INSPECTION, NORMOCEPHALIC - Eye Exam Eye Exam: EOMI, Normal appearance, PERRL - ENT Exam ENT Exam: Mucous Membranes Moist - Neck Exam Neck Exam: Full ROM. absent: Tenderness - Respiratory Exam Respiratory Exam: Clear to Ausculation Bilateral, NORMAL BREATHING PATTERN. absent: Decreased Breath Sounds, Rales, Rhonchi, Wheezes, Respiratory Distress - Cardiovascular Exam Cardiovascular Exam: REGULAR RHYTHM, RRR, +S1, +S2. absent: JVD, Murmur - GI/Abdominal Exam GI & Abdominal Exam: Soft, Normal Bowel Sounds. absent: Distended, Tenderness - Extremities Exam Extremities Exam: absent: Pedal Edema Additional comments: Left foot dressing and wound vac in place - Neurological Exam Neurological Exam: Alert, Awake, Oriented x3 - Psychiatric Exam Psychiatric exam: Normal Affect, Normal Mood - Skin Skin Exam: Dry, Normal Color, Warm Assessment and Plan - Assessment and Plan (Free Text) Assessment: 63 y/o man w/ pmh of IDDM2 seen and evaluated at the bedside POD#5 S/P left 3rd toe amputation because of cellulitis of the left LE and gangrene of the left 3rd toe Plan: Left Middle toe gangrene with cellulitis - Afebrile, WBC 9.2 - Podiatry consulted, Recommendations appreciated - ID consulted, Recommendations appreciated, on DC c/w Keflex PO for 2 weeks - DC'ed Vancomycin inj 1 gm sodium chloride 0.9% 250 ml IVPB Day 4 - Continue Zosyn 4.5 gm Sodium chloride 0.9% 100 ml IVPB day 6 - POD#5 s/p Left 3rd toe amputation done in the OR under local anesthesia and IV sedation. - c/w pain medications according to the patient's pain level - Ordered TD vaccine shot 0.5 ml IM injection - CT angio 04/11/2018: unremarkable CTA of the abdomen/pelvis - Pathology report shows focal OM to the bone fragment from 3rd metatarsal head - Cultures positive for beta hemolytic Streptococcus Group B - Patient open for podiatry to explore and then make final decision regarding further amputation Uncontrolled diabetes (CAD equivalant) - Chronic, Uncontrolled - c/w Sliding scale - Lispro 15 units SC BID - hypoglycemia protocol - Echo: EF 60-65%, normal size of left atrium, trace tricuspid regurgitation Pseudohyponatremia - resolved - Na 135 today Calf tenderness evaluate for DVT - U/S of Left LE negative for DVT. Hypercholesterolemia - Low cholesterol diet DVT prophilaxis - lovenox 40 mg SC daily
--- NOTE | 2018-04-15 10:20 | CP.PCM.PCO ---
Physician Communication Note - Physician Communication Note Physician Communication Note: patient is agreeable to fourth toe amp, will make final decision on Monday
[2018-04-16] MEDS: Piperacillin/Tazobact 4.5 GM in Sodium Chloride 0.9% 100 ML IVPB SCH ×3 (00:27→16:50)
[2018-04-16] MEDS: Insulin Lispro Mix 75/25 100 units/ml (HumaLog) 10ml SC SCH ×2 (09:33→16:52)
[2018-04-16] MEDS: Insulin Lispro (humaLOG) 100 Units/ml Inj SC SCH ×4 (09:33→22:37)
--- NOTE | 2018-04-16 09:43 | CP.PCM.PN ---
<RubenGregorio - Last Filed: 04/16/18 09:36> Subjective - Date & Time of Evaluation Date of Evaluation: 04/16/18 Time of Evaluation: 09:36 - Subjective Subjective: The patient was seen and examined at bedside this morning. Patient denies any pain in his left foot.Patient is setting in bed comfortably and NAD. Patient has no other complaints, denies headache, chest pain, dyspnea, abdominal pain, nausea, vomiting, diarrhea, dysuria, or fever. Patient denies any acute events overnight. Patient aware that he is going for surgery for debridement of his left foot. Objective - Vital Signs/Intake and Output Vital Signs (last 24 hours): Temp Pulse Resp BP Pulse Ox 98.5 F 68 18 158/75 H 97 04/16/18 08:04 04/16/18 09:34 04/16/18 08:04 04/16/18 09:34 04/16/18 08:04 - Medications Medications: Current Medications Acetaminophen (Tylenol 325mg Tab) 650 mg PO Q6 PRN PRN Reason: Fever >100.4 F Last Admin: 04/10/18 14:28 Dose: 650 mg Acetaminophen (Tylenol 325mg Tab) 650 mg PO Q6 PRN PRN Reason: Pain, Mild (1-3) Last Admin: 04/13/18 21:41 Dose: 650 mg Amlodipine Besylate (Norvasc) 5 mg PO DAILY [facility] Last Admin: 04/16/18 09:34 Dose: 5 mg Aspirin (Aspirin Chewable) 81 mg PO DAILY [facility] Last Admin: 04/16/18 09:32 Dose: 81 mg Atorvastatin Calcium (Lipitor) 20 mg PO DAILY [facility] Last Admin: 04/16/18 09:34 Dose: 20 mg Clopidogrel Bisulfate (Plavix) 75 mg PO DAILY [facility] Last Admin: 04/15/18 08:26 Dose: 75 mg Dextrose (Dextrose 50% Inj) 0 ml IV STAT PRN; Protocol PRN Reason: Hypoglycemia Protocol Dextrose (Glutose 15) 0 gm PO ONCE PRN; Protocol PRN Reason: Hypoglycemia Protocol Docusate Sodium (Colace) 100 mg PO BID [facility] Last Admin: 04/16/18 09:32 Dose: 100 mg Enoxaparin Sodium (Lovenox) 40 mg SC DAILY [facility]; Protocol Last Admin: 04/15/18 08:25 Dose: 40 mg Ferrous Sulfate (Feosol) 325 mg PO DAILY [facility] Last Admin: 04/16/18 09:33 Dose: 325 mg Glucagon (Glucagen Diagnostic Kit) 0 mg IM STAT PRN; Protocol PRN Reason: Hypoglycemia Protocol Piperacillin Sod/Tazobactam (Sod 4.5 gm/ Sodium Chloride) 100 mls @ 100 mls/hr IVPB Q8 [facility]; Protocol Last Admin: 04/16/18 09:34 Dose: 100 mls/hr Insulin Human Lispro (Humalog) 0 units SC ACHS [facility]; Protocol Last Admin: 04/16/18 09:33 Dose: 3 unit Insulin Lispro Protam/Lispro Human (Humalog Mix 75/25) 15 units SC BID [facility] Last Admin: 04/16/18 09:33 Dose: 15 units Losartan Potassium (Cozaar) 50 mg PO DAILY [facility] Last Admin: 04/16/18 09:32 Dose: 50 mg - Labs Labs: 04/14/18 07:50 04/14/18 07:50 PT 12.2 Seconds (9.8-13.1) 04/09/18 15:55 INR 1.1 04/09/18 15:55 APTT 31.2 Seconds (25.6-37.1) 04/09/18 15:55 - Constitutional Appears: Well, Non-toxic, No Acute Distress - Head Exam Head Exam: ATRAUMATIC, NORMOCEPHALIC - Eye Exam Eye Exam: EOMI, Normal appearance, PERRL Pupil Exam: NORMAL ACCOMODATION, PERRL - ENT Exam ENT Exam: Mucous Membranes Moist, Normal Exam - Neck Exam Neck Exam: Full ROM, Normal Inspection - Respiratory Exam Respiratory Exam: Clear to Ausculation Bilateral, NORMAL BREATHING PATTERN - Cardiovascular Exam Cardiovascular Exam: REGULAR RHYTHM, RRR - GI/Abdominal Exam GI & Abdominal Exam: Soft, Normal Bowel Sounds - Extremities Exam Extremities Exam: Normal Capillary Refill Additional comments: Left foot dressing and wound vac in place - Neurological Exam Neurological Exam: Alert, Awake, Oriented x3 Neuro motor strength exam: Left Upper Extremity: 5, Right Upper Extremity: 5, Left Lower Extremity: 5, Right Lower Extremity: 5 - Psychiatric Exam Psychiatric exam: Normal Affect, Normal Mood - Skin Skin Exam: Dry, Intact, Normal Color Assessment and Plan - Assessment and Plan (Free Text) Assessment: 63 y/o man w/ pmh of IDDM2 seen and evaluated at the bedside POD 6 days S/P left 3rd toe amputation because of cellulitis of the left LE and gangrene of the left 3rd toe Plan: Left Middle toe gangrene with cellulitis - Afebrile, WBC 9.2 (04/14) - Podiatry consulted, Recommendations appreciated - ID consulted, Recommendations appreciated. - Continue Zosyn 4.5 gm Sodium chloride 0.9% 100 ml IVPB day 7 - PO Day 6 s/p Left 3rd toe amputation done in the OR under local anesthesia and IV sedation. - c/w pain medications according to the patient's pain level - CT angio 04/11/2018: unremarkable CTA of the abdomen/pelvis - Pathology report shows focal OM to the bone fragment from 3rd metatarsal head - Cultures positive for beta hemolytic Streptococcus Group B - Patient open for podiatry to explore and then make final decision regarding further amputation - Patient is going tomorrow for wound debridemnt of the left foot. - Plavix held starting from today for the surgery. Uncontrolled diabetes (CAD equivalant) - Chronic, Uncontrolled - c/w Sliding scale - Lispro 15 units SC BID - hypoglycemia protocol - Echo: EF 60-65%, normal size of left atrium, trace tricuspid regurgitation Pseudohyponatremia - resolved - Na 135 (04/14) Calf tenderness evaluate for DVT - U/S of Left LE negative for DVT. Hypercholesterolemia - Low cholesterol diet DVT prophilaxis - lovenox 40 mg SC daily <Elvia Cerda - Last Filed: 04/16/18 16:48> Objective - Vital Signs/Intake and Output Vital Signs (last 24 hours): Temp Pulse Resp BP Pulse Ox 98.5 F 68 18 158/75 H 97 04/16/18 08:04 04/16/18 09:34 04/16/18 08:04 04/16/18 09:34 04/16/18 08:04 - Medications Medications: Current Medications Acetaminophen (Tylenol 325mg Tab) 650 mg PO Q6 PRN PRN Reason: Fever >100.4 F Last Admin: 04/10/18 14:28 Dose: 650 mg Acetaminophen (Tylenol 325mg Tab) 650 mg PO Q6 PRN PRN Reason: Pain, Mild (1-3) Last Admin: 04/13/18 21:41 Dose: 650 mg Amlodipine Besylate (Norvasc) 5 mg PO DAILY [facility] Last Admin: 04/16/18 09:34 Dose: 5 mg Aspirin (Aspirin Chewable) 81 mg PO DAILY [facility] Last Admin: 04/16/18 09:32 Dose: 81 mg Atorvastatin Calcium (Lipitor) 20 mg PO DAILY [facility] Last Admin: 04/16/18 09:34 Dose: 20 mg Clopidogrel Bisulfate (Plavix) 75 mg PO DAILY [facility] Last Admin: 04/16/18 12:40 Dose: Not Given Dextrose (Dextrose 50% Inj) 0 ml IV STAT PRN; Protocol PRN Reason: Hypoglycemia Protocol Dextrose (Glutose 15) 0 gm PO ONCE PRN; Protocol PRN Reason: Hypoglycemia Protocol Docusate Sodium (Colace) 100 mg PO BID [facility] Last Admin: 04/16/18 09:32 Dose: 100 mg Enoxaparin Sodium (Lovenox) 40 mg SC DAILY [facility]; Protocol Last Admin: 04/15/18 08:25 Dose: 40 mg Ferrous Sulfate (Feosol) 325 mg PO DAILY [facility] Last Admin: 04/16/18 09:33 Dose: 325 mg Glucagon (Glucagen Diagnostic Kit) 0 mg IM STAT PRN; Protocol PRN Reason: Hypoglycemia Protocol Piperacillin Sod/Tazobactam (Sod 4.5 gm/ Sodium Chloride) 100 mls @ 100 mls/hr IVPB Q8 [facility]; Protocol Last Admin: 04/16/18 09:34 Dose: 100 mls/hr Insulin Human Lispro (Humalog) 0 units SC ACHS [facility]; Protocol Last Admin: 04/16/18 12:41 Dose: 8 unit Insulin Lispro Protam/Lispro Human (Humalog Mix 75/25) 15 units SC BID [facility] Last Admin: 04/16/18 09:33 Dose: 15 units Losartan Potassium (Cozaar) 50 mg PO DAILY [facility] Last Admin: 04/16/18 09:32 Dose: 50 mg - Labs Labs: 04/14/18 07:50 04/14/18 07:50 PT 12.2 Seconds (9.8-13.1) 04/09/18 15:55 INR 1.1 04/09/18 15:55 APTT 31.2 Seconds (25.6-37.1) 04/09/18 15:55 Attending/Attestation - Attestation I have personally seen and examined this patient.: Yes I have fully participated in the care of the patient.: Yes I have reviewed all pertinent clinical information, including history, physical exam and plan: Yes Notes (Text): Plan for Devridement in am. Hold ASA and Plavix. Hold am Insulin dose Increase 75/25 mix Insulin to 20 units Sq bid - after the surgery. cont IV antibiotics Plan to d/c pt on PO Keflex x 2 wks once cleared by Podiatry
--- NOTE | 2018-04-16 14:14 | CP.PCM.PN ---
Subjective - Date & Time of Evaluation Date of Evaluation: 04/16/18 Time of Evaluation: 14:12 - Subjective Subjective: traumatic nail injury s/p amputation of left hallux CTA showed no macrovascular disease Objective - Vital Signs/Intake and Output Vital Signs (last 24 hours): Temp Pulse Resp BP Pulse Ox 98.5 F 68 18 158/75 H 97 04/16/18 08:04 04/16/18 09:34 04/16/18 08:04 04/16/18 09:34 04/16/18 08:04 - Medications Medications: Current Medications Acetaminophen (Tylenol 325mg Tab) 650 mg PO Q6 PRN PRN Reason: Fever >100.4 F Last Admin: 04/10/18 14:28 Dose: 650 mg Acetaminophen (Tylenol 325mg Tab) 650 mg PO Q6 PRN PRN Reason: Pain, Mild (1-3) Last Admin: 04/13/18 21:41 Dose: 650 mg Amlodipine Besylate (Norvasc) 5 mg PO DAILY [facility] Last Admin: 04/16/18 09:34 Dose: 5 mg Aspirin (Aspirin Chewable) 81 mg PO DAILY [facility] Last Admin: 04/16/18 09:32 Dose: 81 mg Atorvastatin Calcium (Lipitor) 20 mg PO DAILY [facility] Last Admin: 04/16/18 09:34 Dose: 20 mg Clopidogrel Bisulfate (Plavix) 75 mg PO DAILY [facility] Last Admin: 04/16/18 12:40 Dose: Not Given Dextrose (Dextrose 50% Inj) 0 ml IV STAT PRN; Protocol PRN Reason: Hypoglycemia Protocol Dextrose (Glutose 15) 0 gm PO ONCE PRN; Protocol PRN Reason: Hypoglycemia Protocol Docusate Sodium (Colace) 100 mg PO BID [facility] Last Admin: 04/16/18 09:32 Dose: 100 mg Enoxaparin Sodium (Lovenox) 40 mg SC DAILY [facility]; Protocol Last Admin: 04/15/18 08:25 Dose: 40 mg Ferrous Sulfate (Feosol) 325 mg PO DAILY [facility] Last Admin: 04/16/18 09:33 Dose: 325 mg Glucagon (Glucagen Diagnostic Kit) 0 mg IM STAT PRN; Protocol PRN Reason: Hypoglycemia Protocol Piperacillin Sod/Tazobactam (Sod 4.5 gm/ Sodium Chloride) 100 mls @ 100 mls/hr IVPB Q8 [facility]; Protocol Last Admin: 04/16/18 09:34 Dose: 100 mls/hr Insulin Human Lispro (Humalog) 0 units SC ACHS [facility]; Protocol Last Admin: 04/16/18 12:41 Dose: 8 unit Insulin Lispro Protam/Lispro Human (Humalog Mix 75/25) 15 units SC BID [facility] Last Admin: 04/16/18 09:33 Dose: 15 units Losartan Potassium (Cozaar) 50 mg PO DAILY [facility] Last Admin: 04/16/18 09:32 Dose: 50 mg - Labs Labs: 04/14/18 07:50 04/14/18 07:50 PT 12.2 Seconds (9.8-13.1) 04/09/18 15:55 INR 1.1 04/09/18 15:55 APTT 31.2 Seconds (25.6-37.1) 04/09/18 15:55 - Constitutional Appears: Well - Head Exam Head Exam: ATRAUMATIC, NORMAL INSPECTION, NORMOCEPHALIC - Eye Exam Eye Exam: EOMI, Normal appearance, PERRL Pupil Exam: NORMAL ACCOMODATION, PERRL - ENT Exam ENT Exam: Mucous Membranes Moist, Normal Exam - Neck Exam Neck Exam: Full ROM, Normal Inspection. absent: Lymphadenopathy - Respiratory Exam Respiratory Exam: Clear to Ausculation Bilateral, NORMAL BREATHING PATTERN - Cardiovascular Exam Cardiovascular Exam: REGULAR RHYTHM, +S1, +S2. absent: Murmur - GI/Abdominal Exam GI & Abdominal Exam: Soft, Normal Bowel Sounds. absent: Tenderness - Extremities Exam Extremities Exam: Full ROM, Normal Capillary Refill, Normal Inspection. absent: Joint Swelling, Pedal Edema - Back Exam Back Exam: NORMAL INSPECTION - Neurological Exam Neurological Exam: Alert, Awake, CN II-XII Intact, Normal Gait, Oriented x3 - Psychiatric Exam Psychiatric exam: Normal Affect, Normal Mood - Skin Skin Exam: Dry, Intact, Normal Color, Warm Assessment and Plan (1) PVD (peripheral vascular disease) Assessment & Plan: microvascular disease CTA shows no obstructive disease asa, plavix, statins, arbs Status: Acute (2) Cellulitis in diabetic foot Assessment & Plan: recheck Hgb A1c endo eval for diabetic control last A1C was 12 Status: Acute (3) Toe gangrene Status: Acute (4) Diabetes mellitus Status: Acute
--- NOTE | 2018-04-16 18:04 | CP.PCM.PN ---
Subjective - Date & Time of Evaluation Date of Evaluation: 04/16/18 Time of Evaluation: 18:02 - Subjective Subjective: Podiatry progress note for Dr. Grullon 63M seen and evaluated at bedside POD 6 left third digit amp. Resting comfortably. Denies any pain to surgical site. Has no other pedal complaints. Dressings are dry and intact. Denies N/V/F/C/SOB/CP. Objective - Vital Signs/Intake and Output Vital Signs (last 24 hours): Temp Pulse Resp BP Pulse Ox 98.7 F 71 20 157/76 H 98 04/16/18 16:48 04/16/18 16:48 04/16/18 16:48 04/16/18 16:48 04/16/18 16:48 - Medications Medications: Current Medications Acetaminophen (Tylenol 325mg Tab) 650 mg PO Q6 PRN PRN Reason: Fever >100.4 F Last Admin: 04/10/18 14:28 Dose: 650 mg Acetaminophen (Tylenol 325mg Tab) 650 mg PO Q6 PRN PRN Reason: Pain, Mild (1-3) Last Admin: 04/13/18 21:41 Dose: 650 mg Amlodipine Besylate (Norvasc) 5 mg PO DAILY [facility] Last Admin: 04/16/18 09:34 Dose: 5 mg Aspirin (Aspirin Chewable) 81 mg PO DAILY [facility] Last Admin: 04/16/18 09:32 Dose: 81 mg Atorvastatin Calcium (Lipitor) 20 mg PO DAILY [facility] Last Admin: 04/16/18 09:34 Dose: 20 mg Clopidogrel Bisulfate (Plavix) 75 mg PO DAILY [facility] Last Admin: 04/16/18 12:40 Dose: Not Given Dextrose (Dextrose 50% Inj) 0 ml IV STAT PRN; Protocol PRN Reason: Hypoglycemia Protocol Dextrose (Glutose 15) 0 gm PO ONCE PRN; Protocol PRN Reason: Hypoglycemia Protocol Docusate Sodium (Colace) 100 mg PO BID [facility] Last Admin: 04/16/18 16:51 Dose: 100 mg Enoxaparin Sodium (Lovenox) 40 mg SC DAILY [facility]; Protocol Last Admin: 04/15/18 08:25 Dose: 40 mg Ferrous Sulfate (Feosol) 325 mg PO DAILY [facility] Last Admin: 04/16/18 09:33 Dose: 325 mg Glucagon (Glucagen Diagnostic Kit) 0 mg IM STAT PRN; Protocol PRN Reason: Hypoglycemia Protocol Piperacillin Sod/Tazobactam (Sod 4.5 gm/ Sodium Chloride) 100 mls @ 100 mls/hr IVPB Q8 [facility]; Protocol Last Admin: 04/16/18 16:50 Dose: 100 mls/hr Insulin Human Lispro (Humalog) 0 units SC ACHS [facility]; Protocol Last Admin: 04/16/18 16:51 Dose: 6 unit Insulin Lispro Protam/Lispro Human (Humalog Mix 75/25) 15 units SC BID [facility] Last Admin: 04/16/18 16:52 Dose: 15 units Losartan Potassium (Cozaar) 50 mg PO DAILY [facility] Last Admin: 04/16/18 09:32 Dose: 50 mg - Labs Labs: 04/14/18 07:50 04/14/18 07:50 PT 12.2 Seconds (9.8-13.1) 04/09/18 15:55 INR 1.1 04/09/18 15:55 APTT 31.2 Seconds (25.6-37.1) 04/09/18 15:55 - Constitutional Appears: Well, Non-toxic, No Acute Distress - Head Exam Head Exam: ATRAUMATIC, NORMOCEPHALIC - Extremities Exam Additional comments: LLE focused Vasc: DP and PT pulses palpable; cap refill <3 seconds to remaining digits; temp gradient warm to cool from proximal to distal; mild edema noted to lower extremity, nonpitting Neuro: gross and protective sensation intact Derm: surgical site VAC dressing taken down - site is clean and dry, no evidence of hematoma or much sanguinous drainage; no sinus tract appreciated or tunneling; distal aspect and tissue adjacent to fourth digit is dark and potentially nonviable, will continue to monitor; granular tissue appreciated at wound bed of the third digit metatarsal Ortho: mild pain on palpation of surgical site, no pain proximally at midfoot or rearfoot/LE - Neurological Exam Neurological Exam: Alert, Awake, Oriented x3 - Psychiatric Exam Psychiatric exam: Normal Affect, Normal Mood Assessment and Plan - Assessment and Plan (Free Text) Assessment: 63M POD 6 left third digit and metatarsal head amputation Plan: Patient seen and evaluated Discussed in detail with Dr. Grullon VAC dressing taken down and wound cleansed with sterile saline Wet to dry dressing applied in surgical site Wound cx - no growth after 24 hours Blood cx - no growth after 24 hours X-ray - no signs of OM noted Vascular consult, Dr. Flo jones appreciated Abdominal angio ordered - no evidence of macrovascular disease Pathology: acute OM of the third digit and third met head. Continue medications per medicine Podiatry plan: amputation of the fourth digit as it is nonviable, patient refuses at this time and insists he only wants a debridement/clean up of the area. Will discuss again prior to surgery tomorrow morning Scheduled for 7:45AM tomorrow morning Podiatry will continue to follow
[2018-04-17] MEDS: Sodium Chloride 0.9% 1,000 ML IV SCH ×3 (00:25→20:15)
[2018-04-17] MEDS: Piperacillin/Tazobact 4.5 GM in Sodium Chloride 0.9% 100 ML IVPB SCH ×3 (00:26→17:05)
[2018-04-17 06:19] LABS: HEMOGLOBIN 9.7 g/dL (12.0-18.0); MEAN CELL VOLUME 89.2 fl (80.0-94.0); MEAN CORPUSCULAR HEMOGLOBIN 30.4 pg (27.0-31.0); MEAN CORPUSCULAR HGB CONC 34.1 g/dL (33.0-37.0); RBC 3.19 Mil/uL (4.40-5.90); RED CELL DISTRIBUTION WIDTH 12.7 % (11.5-14.5)
[2018-04-17 06:51] LABS: BLOOD UREA NITROGEN 19 mg/dl (9-20); CALCIUM 8.4 mg/dL (8.4-10.2); GFR NON-AFRICAN AMERICAN 56
[2018-04-17] MEDS ORDERED: Propofol 10 mg/ml Inj (20 ML) ONE (07:05)
[2018-04-17] MEDS ORDERED: Midazolam 2 MG/2 ML VIAL ONE (07:05)
--- NOTE | 2018-04-17 07:11 | CP.PCM.PN ---
Subjective - Date & Time of Evaluation Date of Evaluation: 04/17/18 Time of Evaluation: 07:09 - Subjective Subjective: Podiatry progress note for Dr. Grullon 63M seen and evaluated at bedside POD 7 left third digit amp. Resting comfortably. Denies any pain to surgical site. Has no other pedal complaints. Dressings are dry and intact. Denies N/V/F/C/SOB/CP. NPO confirmed, is aware of surgery. Objective - Vital Signs/Intake and Output Vital Signs (last 24 hours): Temp Pulse Resp BP Pulse Ox 99 F 73 19 148/74 99 04/17/18 00:40 04/17/18 00:40 04/17/18 00:40 04/17/18 00:40 04/17/18 00:40 - Medications Medications: Current Medications Acetaminophen (Tylenol 325mg Tab) 650 mg PO Q6 PRN PRN Reason: Fever >100.4 F Last Admin: 04/10/18 14:28 Dose: 650 mg Acetaminophen (Tylenol 325mg Tab) 650 mg PO Q6 PRN PRN Reason: Pain, Mild (1-3) Last Admin: 04/13/18 21:41 Dose: 650 mg Amlodipine Besylate (Norvasc) 5 mg PO DAILY [facility] Last Admin: 04/16/18 09:34 Dose: 5 mg Aspirin (Aspirin Chewable) 81 mg PO DAILY [facility] Last Admin: 04/16/18 09:32 Dose: 81 mg Atorvastatin Calcium (Lipitor) 20 mg PO DAILY [facility] Last Admin: 04/16/18 09:34 Dose: 20 mg Clopidogrel Bisulfate (Plavix) 75 mg PO DAILY [facility] Last Admin: 04/16/18 12:40 Dose: Not Given Dextrose (Dextrose 50% Inj) 0 ml IV STAT PRN; Protocol PRN Reason: Hypoglycemia Protocol Dextrose (Glutose 15) 0 gm PO ONCE PRN; Protocol PRN Reason: Hypoglycemia Protocol Docusate Sodium (Colace) 100 mg PO BID [facility] Last Admin: 04/16/18 16:51 Dose: 100 mg Enoxaparin Sodium (Lovenox) 40 mg SC DAILY [facility]; Protocol Last Admin: 04/15/18 08:25 Dose: 40 mg Ferrous Sulfate (Feosol) 325 mg PO DAILY [facility] Last Admin: 04/16/18 09:33 Dose: 325 mg Glucagon (Glucagen Diagnostic Kit) 0 mg IM STAT PRN; Protocol PRN Reason: Hypoglycemia Protocol Piperacillin Sod/Tazobactam (Sod 4.5 gm/ Sodium Chloride) 100 mls @ 100 mls/hr IVPB Q8 [facility]; Protocol Last Admin: 04/17/18 00:26 Dose: 100 mls/hr Sodium Chloride (Sodium Chloride 0.9%) 1,000 mls @ 100 mls/hr IV .Q10H [facility] Stop: 04/18/18 00:13 Last Admin: 04/17/18 00:25 Dose: 100 mls/hr Insulin Human Lispro (Humalog) 0 units SC ACHS [facility]; Protocol Last Admin: 04/16/18 22:37 Dose: Not Given Insulin Lispro Protam/Lispro Human (Humalog Mix 75/25) 15 units SC BID [facility] Last Admin: 04/16/18 16:52 Dose: 15 units Losartan Potassium (Cozaar) 50 mg PO DAILY [facility] Last Admin: 04/16/18 09:32 Dose: 50 mg - Labs Labs: 04/17/18 05:55 04/17/18 05:55 PT 12.2 Seconds (9.8-13.1) 04/09/18 15:55 INR 1.1 04/09/18 15:55 APTT 31.2 Seconds (25.6-37.1) 04/09/18 15:55 - Constitutional Appears: Well, Non-toxic, No Acute Distress - Head Exam Head Exam: ATRAUMATIC, NORMOCEPHALIC - Extremities Exam Additional comments: LLE focused Vasc: DP and PT pulses palpable; cap refill <3 seconds to remaining digits; temp gradient warm to cool from proximal to distal; mild edema noted to lower extremity, nonpitting Neuro: gross and protective sensation intact Derm: no evidence of hematoma or much sanguinous drainage; no sinus tract appreciated or tunneling; distal aspect and tissue adjacent to fourth digit is dark and potentially nonviable, will continue to monitor; granular tissue appreciated at wound bed of the third digit metatarsal Ortho: mild pain on palpation of surgical site, no pain proximally at midfoot or rearfoot/LE - Neurological Exam Neurological Exam: Alert, Awake, Oriented x3 - Psychiatric Exam Psychiatric exam: Normal Affect, Normal Mood Assessment and Plan - Assessment and Plan (Free Text) Assessment: 63M POD 7 left third digit and metatarsal head amputation seen preoperatively for further debridement and possible fourth digit amputation Plan: Pt was seen and examined at bedside Pt NPO status was confirmed All pre-op testing and clearance in chart Pt has exhausted all conservative treatment at this time and is opting for surgical intervention Pt was explained procedure and post-operative course All pt's questions were answered to satisfaction No guarantees were made Pt understands all risks, benefits and complications of procedure Pt will follow-up with Dr. Grullon within 1 week of surgery
[2018-04-17] MEDS ORDERED: Bupivacaine 0.5% Inj(30mL) IJ ONE (07:13)
[2018-04-17] MEDS ORDERED: Lidocaine 1% Inj (20ml) IJ ONE (07:13)
[2018-04-17] MEDS ORDERED: Sodium Chloride 0.9% 1,000 ML IV SCH (07:15)
[2018-04-17] MEDS ORDERED: Bupivacaine 0.25%-Epinephrine 1:200,000 (30 ml) Inj ONE (08:03)
[2018-04-17] MEDS ORDERED: Lidocaine 2% MPF (5 ml) Inj ONE ×2 (08:04→08:08)
[2018-04-17] MEDS: Santyl Collagenase OINTMENT TOP SCH (08:50)
[2018-04-17] MEDS ORDERED: Lactated Ringer's 1,000 ML IV ONE (09:00)
[2018-04-17] MEDS ORDERED: HYDROmorphone 0.5 mg/0.5 ml ISec IVP PRN (09:08)
--- NOTE | 2018-04-17 09:08 | PCM.SURG1 ---
Surgeon's Initial Post Op Note - Surgeon's Notes Surgeon: Dr. Grullon Band Aid Machine Operator: Dr. Mcgarry PGY-2, Dr. Dowd PGY-3 Type of Anesthesia: Block Regional Anesthesia Administered By: Dr. 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 M: Misonix curette, 3-0 Vicryl, Santyl, Adaptic, DSD Post-Operative Diagnosis: same Operation Performed: left foot wound debridement Specimen/Specimens Removed: soft tissue left foot Estimated Blood Loss: EBL {In ML}: 15 Blood Products Given: N/A Drains Used: No Drains Post-Op Condition: Good Date of Surgery/Procedure: 04/17/18 Time of Surgery/Procedure: 09:07
--- NOTE | 2018-04-17 09:09 | PCM.OP ---
Operative Report - Operative Report Date of Surgery/Procedure: 04/17/18 Time of Surgery/Procedure: 07:45 Surgeon: Dr. Antony Grullon Burial Vault Setter: Dr. Mcgarry PGY-2, Dr. Dowd PGY-3 Anesthesia/Sedation: Dr. Ralf Garrido Popliteal and saphenous regional nerve block Pre-Operative Diagnosis: left foot non-healing forefoot interspace ulceration Post-Operative Diagnosis: same Indication for Surgery: The patient is a 63 year-old male with the above diagnoses. The patient has exhausted all conservative treatment at this time and now requires surgical intervention. The patient signed the consent after careful explanation of risks, benefits, complications and alternatives for surgical procedure. No guarantees were given nor implied. NPO status was confirmed prior to taking patient to the operating room. Operative Findings: Preparation: The patient was brought in to the operating room and placed on the operating room table in a supine position. Timeout was performed for identification of the correct patient and procedure. After performance of a popliteal-saphenous regional nerve block, the left lower extremity was then prepped and draped in normal sterile manner and the procedure began. No tourniquet was utilized during the procedure. Procedure/Operation Description: Attention was then directed to the left forefoot, where a non-healing interspace ulceration was present at the site of 3rd digit amputation, measuring approximately 7cm x 4cm x 0.9cm spanning the entirety of the interspace from dorsal to plantar, extending onto the medial aspect of the 4th digit. The wound base was noted to be a mixture of fibrotic and necrotic tissue. At this time, sterile forceps and a #15 blade were utilized to excisionally debride all superficial necrotic tissue noted to wound margins. Next, using the Plum.ioonix debridement curette handle on setting 8, the ulcer was excisionally debrided of superficial fibrotic and non-viable tissue. A deep bleeder was noted and tied off with 3-0 Vicryl suture. All other bleeders were cauterized and ligated as necessary. The site was then flushed with copious amounts of sterile saline using a bulb syringe. A deep wound culture was obtained and sent for pathology. Once again, the site was flushed with sterile saline. The wound site was dressed with Collagenase ointment and dressed with 4x4 gauze, abdominal pads, Kerlix and a light PEYTON bandage. Estimated Blood Loss: 15cc Complications: None Discharge & Condition: Postoperative Condition: The patient tolerated the anesthesia and procedure well and was escorted to the recovery room with vital signs stable and neurovascular status intact to the left lower extremity. Patient may be full weight bearing with a surgical shoe at this time, and is advised to keep his dressing clean, dry and intact. Podiatry will continue to follow patient while he remains in house, and will follow up with Dr. Grullon in the wound care center within one week of discharge. It is of note that the patient adamantly refused amputation of the 4th digit despite the appearance of necrotic tissue and the presence of exposed bone to the dorsum of the 4th digit proximal phalanx. Despite strong recommendation from Dr. Grullon, patient insistent on the only procedure to be the cleaning of the wound, stating he wants to rely antibiotics to treat the infected bone.
--- NOTE | 2018-04-17 09:11 | PCM.ANESB2 ---
Popliteal Nerve Block - Popliteal Nerve Block Date of Procedure: 04/17/18 Anesthesiologist: Ralf Garrido Pre-Procedure Diagnosis: L foot gangrene Post-Procedure Diagnosis: Same Procedure Performed: Popliteal Nerve Block Left - Procedure Popliteal Nerve Block: This procedure was explained to the patient that it is for surgical anesthesia. Consent was obtained after a thorough discussion with the patient regarding the benefits and possible complications of local anesthetic block of the sciatic nerve at the popliteal level. The patient was brought to the operating room and standard monitors are applied. Time-out was held with the circulating nurse to confirm the correct surgery and the appropriate block. After applying oxygen by nasal cannula and administering IV Sedation, patient's operative leg was gently raised and supported and the groove in between the biceps femoris and vastus lateralis muscles was carefully palpated. The skin approximately 8cm above the popliteal crease was then marked. The ultrasound transducer was then applied to the posterior thigh approximately 8cm above the popliteal crease in the transverse plane and the sciatic nerve before its division was visualized lateral to the popliteal artery and in between the bicep femoris and semimembranosus/semitendinosus muscles. After identification, the lateral portion of the thigh was prepped with Chloroprep solution three times and Lidocaine 1% was injected subcutaneously for topical anesthesia. At this point, a # 21 gauge Stimuplex insulated 4 inch needle was inserted into pre-marked area and advanced in a perpendicular direction. The needle was inserted above the ultrasound transducer in-plane towards the sciatic nerve in a [id number] direction. Needle advancement was performed carefully under direct ultrasound visualization. Nerve stimulator was used and dorsiflexion of the Left foot was elicited at a current of 0.3 MA. After repeated negative aspiration, 30cc of 50:50 mix 2% lidocaine with 0.25% bupivacaine with [id number] epinephrine was injected in 5cc aliquots. Under ultrasound guidance the local anesthetics were observed surrounding sciatic nerve . The needle was removed intact and sterile dressing was applied. The patient tolerated the popliteal nerve block well with stable vital signs and was subsequently prepared for the surgery.
--- NOTE | 2018-04-17 09:13 | PCM.ANESB7 ---
Adductor Canal Block - Adductor Canal Block Date of Procedure: 04/17/18 Anesthiologist: Ralf Garrido Pre-Procedure Diagnosis: L foot gangrene Post-Procedure Diagnosis: Same Procedure Performed: Adductor Canal Block Left - Procedure Adductor Canal Block: The procedure was explained to the patient that it is for surgical anesthesia. Consent was obtained after a thorough discussion with the patient regarding the benefits and possible complications of local anesthetic adductor canal block of the femoral nerve. Standard monitors, as defined by the ASA, were applied to the patient. Time-out was held with the circulating nurse to confirm the appropriate block. After applying supplemental oxygen and administering IV Sedation as needed, the patient was placed in supine position with and the operative leg was flexed slightly at the knee and externally rotated as needed, and was kept anatomically stable. The mid-thigh of the left lower extremity was exposed. The ultrasound transducer was then applied transversely along the medial aspect, about midway down the thigh and the femoral artery and vein were identified in appropriate relation with the sartorius muscle. At this time, the femoral nerve was visualized lateral to the femoral artery within the canal. After thorough identification, this area area was prepped with Chloroprep solution three times and 1 % Lidocaine was injected subcutaneously for topical anesthesia. At this point, a #22 gauge Stimuplex 4-inch needle was inserted in-plane in a [id number] orientation, and advanced toward the femoral nerve. Advancement was performed carefully under direct ultrasound visualization. After negative aspiration, 30cc of 50:50 mix 2% lidocaine with 0.25% bupivacaine with [id number] epinephrine was injected in 5cc aliquots. Under ultrasound guidance the local anesthetics were observed spreading around the femoral nerve. The needle was removed intact and sterile dressing was applied. The patient had stable vital signs, was conscious and in no apparent distress. The patient tolerated the femoral nerve block well with stable vital signs and was prepared for subsequent surgery
[2018-04-17] MEDS: Insulin Lispro (humaLOG) 100 Units/ml Inj SC SCH ×4 (09:48→22:41)
--- NOTE | 2018-04-17 12:52 | CP.PCM.DIS ---
Provider - Provider Date of Admission: 04/09/18 16:30 Attending physician: Philipp Toney MD Time Spent in preparation of Discharge (in minutes): 30 Hospital Course - Lab Results Lab Results: Micro Results 04/09/18 15:55 Blood Blood Culture - Final NO GROWTH AFTER 5 DAYS 04/09/18 15:55 Blood Gram Stain - Final TEST NOT PERFORMED 04/09/18 15:55 Blood Blood Culture - Final NO GROWTH AFTER 5 DAYS 04/09/18 15:55 Blood Gram Stain - Final TEST NOT PERFORMED 04/10/18 10:42 Toe Gram Stain - Final 04/10/18 10:42 Toe Wound Culture - Final Beta Hemolytic Strep Group B Most Recent Lab Values WBC 11.0 K/uL (4.8-10.8) H 04/17/18 05:55 RBC 3.19 Mil/uL (4.40-5.90) L 04/17/18 05:55 Hgb 9.7 g/dL (12.0-18.0) L 04/17/18 05:55 Hct 28.5 % (35.0-51.0) L 04/17/18 05:55 MCV 89.2 fl (80.0-94.0) 04/17/18 05:55 MCH 30.4 pg (27.0-31.0) 04/17/18 05:55 MCHC 34.1 g/dL (33.0-37.0) 04/17/18 05:55 RDW 12.7 % (11.5-14.5) 04/17/18 05:55 Plt Count 552 K/uL (130-400) H D 04/17/18 05:55 MPV 9.6 fl (7.2-11.7) 04/10/18 05:55 Neut % (Auto) 73.4 % (50.0-75.0) 04/10/18 05:55 Lymph % (Auto) 11.8 % (20.0-40.0) L 04/10/18 05:55 [place] % (Auto) 12.0 % (0.0-10.0) H 04/10/18 05:55 Eos % (Auto) 2.3 % (0.0-4.0) 04/10/18 05:55 Baso % (Auto) 0.5 % (0.0-2.0) 04/10/18 05:55 Neut # (Auto) 7.0 K/uL (1.8-7.0) 04/10/18 05:55 Lymph # (Auto) 1.1 K/uL (1.0-4.3) 04/10/18 05:55 [place] # (Auto) 1.1 K/uL (0.0-0.8) H 04/10/18 05:55 Eos # (Auto) 0.2 K/uL (0.0-0.7) 04/10/18 05:55 Baso # (Auto) 0.0 K/uL (0.0-0.2) 04/10/18 05:55 Neutrophils % (Manual) 84 % (42-75) H 04/09/18 15:55 Lymphocytes % (Manual) 9 % (20-50) L 04/09/18 15:55 Monocytes % (Manual) 7 % (0-10) 04/09/18 15:55 Platelet Estimate Normal (NORMAL) 04/09/18 15:55 RBC Morphology Normal (NORMAL) 04/09/18 15:55 PT 12.2 Seconds (9.8-13.1) 04/09/18 15:55 INR 1.1 04/09/18 15:55 APTT 31.2 Seconds (25.6-37.1) 04/09/18 15:55 Sodium 135 mmol/l (132-148) 04/17/18 05:55 Potassium 4.6 MMOL/L (3.6-5.0) 04/17/18 05:55 Chloride 102 mmol/L (98-107) 04/17/18 05:55 Carbon Dioxide 26 mmol/L (22-30) 04/17/18 05:55 Anion Gap 12 (10-20) 04/17/18 05:55 BUN 19 mg/dl (9-20) 04/17/18 05:55 Creatinine 1.3 mg/dl (0.8-1.5) 04/17/18 05:55 Est GFR ( Amer) > 60 04/17/18 05:55 Est GFR (Non-Af Amer) 56 04/17/18 05:55 POC Glucose (mg/dL) 259 mg/dL (65-110) H 04/17/18 11:27 Random Glucose 208 mg/dL (75-110) H 04/17/18 05:55 Calcium 8.4 mg/dL (8.4-10.2) 04/17/18 05:55 Total Bilirubin 0.5 mg/dl (0.2-1.3) 04/10/18 05:55 AST 43 U/L (17-59) 04/10/18 05:55 ALT 48 U/L (21-72) 04/10/18 05:55 Alkaline Phosphatase 131 U/L (38-126) H 04/10/18 05:55 Total Protein 6.3 G/DL (6.3-8.2) 04/10/18 05:55 Albumin 3.0 g/dL (3.5-5.0) L D 04/10/18 05:55 Globulin 3.2 gm/dL (2.2-3.9) 04/10/18 05:55 Albumin/Globulin Ratio 0.9 (1.0-2.1) L 04/10/18 05:55 Triglycerides 142 mg/DL (0-149) 04/11/18 10:05 Cholesterol 115 mg/dL (0-199) 04/11/18 10:05 LDL Cholesterol Direct 61 mg/dL (0-129) 04/11/18 10:05 HDL Cholesterol 25 MG/DL (30-70) L 04/11/18 10:05 TSH 3rd Generation 1.07 mIU/ML (0.46-4.68) 04/09/18 15:55 Vancomycin Trough 9.6 ug/mL (5.0-10.0) 04/11/18 08:12 Blood Type O POSITIVE 04/10/18 18:16 Blood Type Confirm O POSITIVE 04/10/18 21:00 Antibody Screen Negative 04/10/18 18:16 BBK History Checked No verified bt 04/10/18 18:16 - Hospital Course Hospital Course: Assessment: 63 y/o man seen and evaluated S/P left foot wound debridement and 6 days S/P left 3rd toe amputation because of cellulitis of the left LE and gangrene of the left 3rd toe. Plan: Left Middle toe gangrene with cellulitis and focal osteomyelitis - Afebrile, WBC 11.0 (04/17) - Podiatry consulted, Recommendations appreciated - ID consulted, Recommendations appreciated. - PO Day 0 s/p left foot wound debridement done in the OR under local anesthesia and IV sedation. - PO Day 6 s/p left 3rd toe amputation done in the OR under local anesthesia and IV sedation. - CT angio 04/11/2018: unremarkable CTA of the abdomen/pelvis - Pathology report shows focal OM to the bone fragment from 3rd metatarsal head - Cultures positive for beta hemolytic Streptococcus Group B - Rx; Keflex 250 mg Q6 H for14 days - Patient will f/u with Podiatry attending upon discharge. Patient is Left Middle toe gangrene with cellulitis on presentation. Patient was started on - vanc,zosyn. Patient went to the OR and did left 3rd toe amputation and VAC applied to the wound then went to the OR again for left foot wound debridement. Patient was discharged home with Keflex 250 mg Q6 H for14 days. patient home medications reconciled. Patient remained totally asymptomatic during hospital stay. After an uneventful hospital stay the patient was discharged to home. There were no acute changes to his prescribed medical regimen. Discharge Exam - Head Exam Head Exam: ATRAUMATIC, NORMOCEPHALIC - Eye Exam Eye Exam: EOMI, Normal appearance, PERRL Pupil Exam: NORMAL ACCOMODATION, PERRL - ENT Exam ENT Exam: Mucous Membranes Moist - Neck Exam Neck exam: Full Rom - Respiratory Exam Respiratory Exam: Clear to PA & Lateral, NORMAL BREATHING PATTERN, UNREMARKABLE - Cardiovascular Exam Cardiovascular Exam: REGULAR RHYTHM, RRR - GI/Abdominal Exam GI & Abdominal Exam: Normal Bowel Sounds, Unremarkable - Extremities Exam Additional comments: Left foot dressing was C/D/I - Neurological Exam Neurological exam: Alert, Oriented x3 - Psychiatric Exam Psychiatric exam: Normal Affect, Normal Mood - Skin Skin Exam: Dry, Intact, Normal Color, Warm Discharge Plan - Discharge Medications Prescriptions: amLODIPine [Norvasc] 5 mg PO DAILY #30 tab Aspirin [Aspirin Chewable] 81 mg PO DAILY #30 chew Atorvastatin [Lipitor] 20 mg PO DAILY #30 tab Cephalexin [cephalexin] 500 mg PO BID #28 cap Clopidogrel [Plavix] 75 mg PO DAILY #30 tab Insulin NPH Hum/Reg Insulin Hm [Humulin 70-30 Vial] 10 unit SC BID #1 vial Losartan [Cozaar] 50 mg PO DAILY #30 tab - Follow Up Plan Condition: STABLE Disposition: HOME/ ROUTINE Instructions: Peripheral Vascular (Arterial) Disease (DC), Cellulitis (Skin Infection), Adult (DC), Gangrene (DC), Necrotizing Fasciitis (DC), Necrotizing Fasciitis (GEN), Cellulitis (DC), Cellulitis (GEN) Additional Instructions: hacer damián con byrd primario dentro 1 semana Referrals: Antony Grullon DPM [Staff Provider] - Tacos Rossi MD [Staff Provider] -
--- NOTE | 2018-04-17 13:11 | CP.PCM.PN ---
Subjective - Date & Time of Evaluation Date of Evaluation: 04/17/18 Time of Evaluation: 13:06 - Subjective Subjective: The patient was seen and examined at bedside s/p left foot wound debridement. Patient denies any pain in his left foot. Patient is setting in bed comfortably and NAD. Patient has no other complaints, denies headache, chest pain, dyspnea, abdominal pain, nausea, vomiting, diarrhea, dysuria, or fever. Patient denies any acute events overnight. Patient to be discharged tomorrow if he is stable on PO Abx. Objective - Vital Signs/Intake and Output Vital Signs (last 24 hours): Temp Pulse Resp BP Pulse Ox 98.0 F 74 20 139/76 97 04/17/18 11:41 04/17/18 11:41 04/17/18 11:41 04/17/18 11:41 04/17/18 11:41 Intake and Output: 04/17/18 04/17/18 06:59 18:59 Intake Total 300 Balance 300 - Medications Medications: Current Medications Acetaminophen (Tylenol 325mg Tab) 650 mg PO Q6 PRN PRN Reason: Fever >100.4 F Last Admin: 04/10/18 14:28 Dose: 650 mg Acetaminophen (Tylenol 325mg Tab) 650 mg PO Q6 PRN PRN Reason: Pain, Mild (1-3) Last Admin: 04/13/18 21:41 Dose: 650 mg Amlodipine Besylate (Norvasc) 5 mg PO DAILY [facility] Last Admin: 04/17/18 10:50 Dose: 5 mg Aspirin (Aspirin Chewable) 81 mg PO DAILY [facility] Last Admin: 04/17/18 09:47 Dose: Not Given Atorvastatin Calcium (Lipitor) 20 mg PO DAILY [facility] Last Admin: 04/16/18 09:34 Dose: 20 mg Clopidogrel Bisulfate (Plavix) 75 mg PO DAILY [facility] Last Admin: 04/16/18 12:40 Dose: Not Given Collagenase (Santyl) 1 applic TOP DAILY [facility] Last Admin: 04/17/18 08:50 Dose: 1 applic Dextrose (Dextrose 50% Inj) 0 ml IV STAT PRN; Protocol PRN Reason: Hypoglycemia Protocol Dextrose (Glutose 15) 0 gm PO ONCE PRN; Protocol PRN Reason: Hypoglycemia Protocol Docusate Sodium (Colace) 100 mg PO BID [facility] Last Admin: 04/17/18 10:48 Dose: 100 mg Enoxaparin Sodium (Lovenox) 40 mg SC DAILY [facility]; Protocol Last Admin: 04/15/18 08:25 Dose: 40 mg Ferrous Sulfate (Feosol) 325 mg PO DAILY [facility] Last Admin: 04/17/18 10:49 Dose: 325 mg Glucagon (Glucagen Diagnostic Kit) 0 mg IM STAT PRN; Protocol PRN Reason: Hypoglycemia Protocol Piperacillin Sod/Tazobactam (Sod 4.5 gm/ Sodium Chloride) 100 mls @ 100 mls/hr IVPB Q8 [facility]; Protocol Last Admin: 04/17/18 10:51 Dose: Not Given Sodium Chloride (Sodium Chloride 0.9%) 1,000 mls @ 100 mls/hr IV .Q10H [facility] Stop: 04/18/18 00:13 Last Admin: 04/17/18 12:06 Dose: Not Given Sodium Chloride (Sodium Chloride 0.9%) 1,000 mls @ 0 mls/hr IV .Q0M [facility] Stop: 04/18/18 07:14 Lactated Ringer's (Lactated Ringer's) 1,000 mls @ 100 mls/hr IV .Q10H [facility] Insulin Human Lispro (Humalog) 0 units SC ACHS [facility]; Protocol Last Admin: 04/17/18 12:30 Dose: 4 unit Insulin Lispro Protam/Lispro Human (Humalog Mix 75/25) 15 units SC BID [facility] Last Admin: 04/16/18 16:52 Dose: 15 units Losartan Potassium (Cozaar) 50 mg PO DAILY [facility] Last Admin: 04/17/18 10:51 Dose: 50 mg - Labs Labs: 04/17/18 05:55 04/17/18 05:55 PT 12.2 Seconds (9.8-13.1) 04/09/18 15:55 INR 1.1 04/09/18 15:55 APTT 31.2 Seconds (25.6-37.1) 04/09/18 15:55 - Constitutional Appears: Well, Non-toxic, No Acute Distress - Head Exam Head Exam: ATRAUMATIC, NORMOCEPHALIC - Eye Exam Eye Exam: EOMI, Normal appearance, PERRL Pupil Exam: NORMAL ACCOMODATION, PERRL - ENT Exam ENT Exam: Mucous Membranes Moist, Normal Exam - Neck Exam Neck Exam: Full ROM, Normal Inspection - Respiratory Exam Respiratory Exam: Clear to Ausculation Bilateral - Cardiovascular Exam Cardiovascular Exam: REGULAR RHYTHM, RRR - GI/Abdominal Exam GI & Abdominal Exam: Soft, Normal Bowel Sounds - Extremities Exam Additional comments: Left foot dressing is C/D/I - Back Exam Back Exam: NORMAL INSPECTION - Neurological Exam Neurological Exam: Alert, Awake, Oriented x3 Neuro motor strength exam: Left Upper Extremity: 5, Right Upper Extremity: 5, Left Lower Extremity: 5, Right Lower Extremity: 5 - Psychiatric Exam Psychiatric exam: Normal Affect, Normal Mood - Skin Skin Exam: Dry, Intact, Normal Color, Warm Assessment and Plan - Assessment and Plan (Free Text) Assessment: 63 y/o man seen and evaluated S/P left foot wound debridement and 6 days S/P left 3rd toe amputation because of cellulitis of the left LE and gangrene of the left 3rd toe. Plan: Left Middle toe gangrene with cellulitis and focal osteomyelitis - Afebrile, WBC 11.0 (04/17) - Podiatry consulted, Recommendations appreciated - ID consulted, Recommendations appreciated. - Continue Zosyn 4.5 gm Sodium chloride 0.9% 100 ml IVPB day 8 - PO Day 0 s/p left foot wound debridement done in the OR under local anesthesia and IV sedation. - PO Day 6 s/p left 3rd toe amputation done in the OR under local anesthesia and IV sedation. - CT angio 04/11/2018: unremarkable CTA of the abdomen/pelvis - Pathology report shows focal OM to the bone fragment from 3rd metatarsal head - Cultures positive for beta hemolytic Streptococcus Group B - Rx; Keflex 250 mg Q6 H for14 days upon D/C - Patient will f/u with Podiatry attending upon discharge. Uncontrolled diabetes (CAD equivalant) - Chronic, Uncontrolled - c/w Sliding scale - Lispro 15 units SC BID - hypoglycemia protocol - Echo: EF 60-65%, normal size of left atrium, trace tricuspid regurgitation Pseudohyponatremia - resolved - Na 135 (04/17) Calf tenderness evaluate for DVT - U/S of Left LE negative for DVT. Hypercholesterolemia - Low cholesterol diet DVT prophilaxis - lovenox 40 mg SC daily
[2018-04-17] MEDS: Lactated Ringer's 1,000 ML IV SCH ×2 (17:09→19:00)
[2018-04-18] MEDS: Piperacillin/Tazobact 4.5 GM in Sodium Chloride 0.9% 100 ML IVPB SCH ×3 (00:53→16:04)
[2018-04-18] MEDS: Lactated Ringer's 1,000 ML IV SCH ×2 (01:01→06:13)
[2018-04-18 08:07] VITALS: O2SAT 98
[2018-04-18] MEDS: Insulin Lispro (humaLOG) 100 Units/ml Inj SC SCH ×2 (08:24→12:38)
[2018-04-18] MEDS: Santyl Collagenase OINTMENT TOP SCH (08:25)
--- NOTE | 2018-04-18 10:54 | CP.PCM.PN ---
Subjective - Date & Time of Evaluation Date of Evaluation: 04/18/18 Time of Evaluation: 10:50 - Subjective Subjective: Podiatry progress note for Dr. Grullon 63M seen and evaluated at bedside POD1 wound debridement. Resting comfortably. Denies acute events overnight. States he is able to eat and void freely. Denies N/V/F/C/SOB/CP and has no other pedal complaints at this time. Objective - Vital Signs/Intake and Output Vital Signs (last 24 hours): Temp Pulse Resp BP Pulse Ox 98.2 F 63 18 154/72 H 98 04/18/18 08:07 04/18/18 08:25 04/18/18 08:07 04/18/18 08:25 04/18/18 08:07 - Medications Medications: Current Medications Acetaminophen (Tylenol 325mg Tab) 650 mg PO Q6 PRN PRN Reason: Fever >100.4 F Last Admin: 04/10/18 14:28 Dose: 650 mg Acetaminophen (Tylenol 325mg Tab) 650 mg PO Q6 PRN PRN Reason: Pain, Mild (1-3) Last Admin: 04/17/18 22:55 Dose: 650 mg Amlodipine Besylate (Norvasc) 5 mg PO DAILY [facility] Last Admin: 04/18/18 08:25 Dose: 5 mg Aspirin (Aspirin Chewable) 81 mg PO DAILY [facility] Last Admin: 04/18/18 08:24 Dose: 81 mg Atorvastatin Calcium (Lipitor) 20 mg PO DAILY [facility] Last Admin: 04/16/18 09:34 Dose: 20 mg Clopidogrel Bisulfate (Plavix) 75 mg PO DAILY [facility] Last Admin: 04/16/18 12:40 Dose: Not Given Collagenase (Santyl) 1 applic TOP DAILY [facility] Last Admin: 04/18/18 08:25 Dose: 1 applic Dextrose (Dextrose 50% Inj) 0 ml IV STAT PRN; Protocol PRN Reason: Hypoglycemia Protocol Dextrose (Glutose 15) 0 gm PO ONCE PRN; Protocol PRN Reason: Hypoglycemia Protocol Docusate Sodium (Colace) 100 mg PO BID [facility] Last Admin: 04/18/18 08:24 Dose: 100 mg Enoxaparin Sodium (Lovenox) 40 mg SC DAILY [facility]; Protocol Last Admin: 04/15/18 08:25 Dose: 40 mg Ferrous Sulfate (Feosol) 325 mg PO DAILY [facility] Last Admin: 04/18/18 08:24 Dose: 325 mg Glucagon (Glucagen Diagnostic Kit) 0 mg IM STAT PRN; Protocol PRN Reason: Hypoglycemia Protocol Piperacillin Sod/Tazobactam (Sod 4.5 gm/ Sodium Chloride) 100 mls @ 100 mls/hr IVPB Q8 [facility]; Protocol Last Admin: 04/18/18 08:22 Dose: 100 mls/hr Lactated Ringer's (Lactated Ringer's) 1,000 mls @ 100 mls/hr IV .Q10H [facility] Last Admin: 04/18/18 06:13 Dose: Not Given Insulin Human Lispro (Humalog) 0 units SC ACHS [facility]; Protocol Last Admin: 04/18/18 08:24 Dose: 4 unit Insulin Lispro Protam/Lispro Human (Humalog Mix 75/25) 15 units SC BID [facility] Last Admin: 04/16/18 16:52 Dose: 15 units Losartan Potassium (Cozaar) 50 mg PO DAILY [facility] Last Admin: 04/18/18 08:24 Dose: 50 mg - Labs Labs: 04/17/18 05:55 04/17/18 05:55 PT 12.2 Seconds (9.8-13.1) 04/09/18 15:55 INR 1.1 04/09/18 15:55 APTT 31.2 Seconds (25.6-37.1) 04/09/18 15:55 - Constitutional Appears: Well, Non-toxic, No Acute Distress - Head Exam Head Exam: ATRAUMATIC, NORMOCEPHALIC - Extremities Exam Additional comments: LLE focused Vasc: DP and PT pulses palpable; cap refill <3 seconds to remaining digits; temp gradient warm to cool from proximal to distal; mild edema noted to lower extremity, nonpitting Neuro: gross and protective sensation intact Derm: no evidence of hematoma, mild sanguinous drainage present; no sinus tract appreciated or tunneling; wound base is 70% granular 30% fibrotic, no pus or purulent drainage appreciated; no streaking, mild periwound erythema present Ortho: mild pain on palpation of surgical site, no pain proximally at midfoot or rearfoot/LE - Neurological Exam Neurological Exam: Alert, Awake, Oriented x3 - Psychiatric Exam Psychiatric exam: Normal Affect, Normal Mood Assessment and Plan - Assessment and Plan (Free Text) Assessment: 63M POD 8 left third digit and metatarsal head amputation and POD 1 surgical site debridement Plan: Patient seen and evaluated Discussed in detail with Dr. Grullon Afebrile, absent leukocytosis Wound cleansed with sterile saline and dressed with gomez, ABD, DSD, and PEYTON D/c on abx per ID Will follow up within [address] Grullon Instructed to keep dressing clean dry and intact Weight bear as tolerated to left heel in surgical shoe with assistive device
--- NOTE | 2018-04-18 11:33 | CP.PCM.DIS ---
Provider - Provider Date of Admission: 04/09/18 16:30 Attending physician: Philipp Toney MD Time Spent in preparation of Discharge (in minutes): 30 Hospital Course - Lab Results Lab Results: Micro Results 04/09/18 15:55 Blood Blood Culture - Final NO GROWTH AFTER 5 DAYS 04/09/18 15:55 Blood Gram Stain - Final TEST NOT PERFORMED 04/09/18 15:55 Blood Blood Culture - Final NO GROWTH AFTER 5 DAYS 04/09/18 15:55 Blood Gram Stain - Final TEST NOT PERFORMED 04/10/18 10:42 Toe Gram Stain - Final 04/10/18 10:42 Toe Wound Culture - Final Beta Hemolytic Strep Group B Most Recent Lab Values WBC 11.0 K/uL (4.8-10.8) H 04/17/18 05:55 RBC 3.19 Mil/uL (4.40-5.90) L 04/17/18 05:55 Hgb 9.7 g/dL (12.0-18.0) L 04/17/18 05:55 Hct 28.5 % (35.0-51.0) L 04/17/18 05:55 MCV 89.2 fl (80.0-94.0) 04/17/18 05:55 MCH 30.4 pg (27.0-31.0) 04/17/18 05:55 MCHC 34.1 g/dL (33.0-37.0) 04/17/18 05:55 RDW 12.7 % (11.5-14.5) 04/17/18 05:55 Plt Count 552 K/uL (130-400) H D 04/17/18 05:55 MPV 9.6 fl (7.2-11.7) 04/10/18 05:55 Neut % (Auto) 73.4 % (50.0-75.0) 04/10/18 05:55 Lymph % (Auto) 11.8 % (20.0-40.0) L 04/10/18 05:55 Page % (Auto) 12.0 % (0.0-10.0) H 04/10/18 05:55 Eos % (Auto) 2.3 % (0.0-4.0) 04/10/18 05:55 Baso % (Auto) 0.5 % (0.0-2.0) 04/10/18 05:55 Neut # (Auto) 7.0 K/uL (1.8-7.0) 04/10/18 05:55 Lymph # (Auto) 1.1 K/uL (1.0-4.3) 04/10/18 05:55 [place] # (Auto) 1.1 K/uL (0.0-0.8) H 04/10/18 05:55 Eos # (Auto) 0.2 K/uL (0.0-0.7) 04/10/18 05:55 Baso # (Auto) 0.0 K/uL (0.0-0.2) 04/10/18 05:55 Neutrophils % (Manual) 84 % (42-75) H 04/09/18 15:55 Lymphocytes % (Manual) 9 % (20-50) L 04/09/18 15:55 Monocytes % (Manual) 7 % (0-10) 04/09/18 15:55 Platelet Estimate Normal (NORMAL) 04/09/18 15:55 RBC Morphology Normal (NORMAL) 04/09/18 15:55 PT 12.2 Seconds (9.8-13.1) 04/09/18 15:55 INR 1.1 04/09/18 15:55 APTT 31.2 Seconds (25.6-37.1) 04/09/18 15:55 Sodium 135 mmol/l (132-148) 04/17/18 05:55 Potassium 4.6 MMOL/L (3.6-5.0) 04/17/18 05:55 Chloride 102 mmol/L (98-107) 04/17/18 05:55 Carbon Dioxide 26 mmol/L (22-30) 04/17/18 05:55 Anion Gap 12 (10-20) 04/17/18 05:55 BUN 19 mg/dl (9-20) 04/17/18 05:55 Creatinine 1.3 mg/dl (0.8-1.5) 04/17/18 05:55 Est GFR ( Amer) > 60 04/17/18 05:55 Est GFR (Non-Af Amer) 56 04/17/18 05:55 POC Glucose (mg/dL) 255 mg/dL (65-110) H 04/18/18 05:31 Random Glucose 208 mg/dL (75-110) H 04/17/18 05:55 Calcium 8.4 mg/dL (8.4-10.2) 04/17/18 05:55 Total Bilirubin 0.5 mg/dl (0.2-1.3) 04/10/18 05:55 AST 43 U/L (17-59) 04/10/18 05:55 ALT 48 U/L (21-72) 04/10/18 05:55 Alkaline Phosphatase 131 U/L (38-126) H 04/10/18 05:55 Total Protein 6.3 G/DL (6.3-8.2) 04/10/18 05:55 Albumin 3.0 g/dL (3.5-5.0) L D 04/10/18 05:55 Globulin 3.2 gm/dL (2.2-3.9) 04/10/18 05:55 Albumin/Globulin Ratio 0.9 (1.0-2.1) L 04/10/18 05:55 Triglycerides 142 mg/DL (0-149) 04/11/18 10:05 Cholesterol 115 mg/dL (0-199) 04/11/18 10:05 LDL Cholesterol Direct 61 mg/dL (0-129) 04/11/18 10:05 HDL Cholesterol 25 MG/DL (30-70) L 04/11/18 10:05 TSH 3rd Generation 1.07 mIU/ML (0.46-4.68) 04/09/18 15:55 Vancomycin Trough 9.6 ug/mL (5.0-10.0) 04/11/18 08:12 Blood Type O POSITIVE 04/10/18 18:16 Blood Type Confirm O POSITIVE 04/10/18 21:00 Antibody Screen Negative 04/10/18 18:16 BBK History Checked No verified bt 04/10/18 18:16 - Hospital Course Hospital Course: Assessment: 63 y/o man seen and evaluated 1 day S/P left foot wound debridement and 6 days S/P left 3rd toe amputation because of cellulitis of the left LE and gangrene of the left 3rd toe. Plan: Left Middle toe gangrene with cellulitis and focal osteomyelitis - Afebrile, WBC 11.0 (04/17) - Podiatry consulted, Recommendations appreciated - ID consulted, Recommendations appreciated. - PO Day 1 s/p left foot wound debridement done in the OR under local anesthesia and IV sedation. - PO Day 6 s/p left 3rd toe amputation done in the OR under local anesthesia and IV sedation. - CT angio 04/11/2018: unremarkable CTA of the abdomen/pelvis - Pathology report shows focal OM to the bone fragment from 3rd metatarsal head - Cultures positive for beta hemolytic Streptococcus Group B - Rx; Keflex 250 mg Q6 H for14 days - Patient will f/u with Podiatry attending upon discharge. Patient is Left Middle toe gangrene with cellulitis on presentation. Patient was started on - vanc,zosyn. Patient went to the OR and did left 3rd toe amputation and VAC applied to the wound then went to the OR again for left foot wound debridement. Patient was discharged home with Keflex 250 mg Q6 H for14 days. patient home medications reconciled. Patient remained totally asymptomatic during hospital stay. After an uneventful hospital stay the patient was discharged to home. There were no acute changes to his prescribed medical regimen. Discharge Exam - Head Exam Head Exam: ATRAUMATIC, NORMOCEPHALIC - Eye Exam Eye Exam: EOMI, Normal appearance, PERRL Pupil Exam: NORMAL ACCOMODATION, PERRL - ENT Exam ENT Exam: Mucous Membranes Moist - Neck Exam Neck exam: Full Rom, Normal Inspection - Respiratory Exam Respiratory Exam: Clear to PA & Lateral, NORMAL BREATHING PATTERN, UNREMARKABLE - Cardiovascular Exam Cardiovascular Exam: REGULAR RHYTHM, RRR - GI/Abdominal Exam GI & Abdominal Exam: Normal Bowel Sounds, Unremarkable - Extremities Exam Additional comments: Left foot dressing was C/D/I - Back Exam Back exam: NORMAL INSPECTION - Neurological Exam Neurological exam: Alert, Oriented x3 - Psychiatric Exam Psychiatric exam: Normal Affect, Normal Mood - Skin Skin Exam: Dry, Intact, Normal Color, Warm Discharge Plan - Discharge Medications Prescriptions: amLODIPine [Norvasc] 5 mg PO DAILY #30 tab Aspirin [Aspirin Chewable] 81 mg PO DAILY #30 chew Atorvastatin [Lipitor] 20 mg PO DAILY #30 tab Cephalexin [cephalexin] 500 mg PO BID #28 cap Clopidogrel [Plavix] 75 mg PO DAILY #30 tab Insulin NPH Hum/Reg Insulin Hm [Humulin 70-30 Vial] 10 unit SC BID #1 vial Losartan [Cozaar] 50 mg PO DAILY #30 tab - Follow Up Plan Condition: STABLE Disposition: HOME/ ROUTINE Instructions: Peripheral Vascular (Arterial) Disease (DC), Gangrene (DC), Weight-Bearing Restrictions, Necrotizing Fasciitis (DC), Cellulitis (DC), Cellulitis (GEN), Necrotizing Fasciitis (GEN) Additional Instructions: hacer damián con byrd primario dentro 1 semana Referrals: Antony Grullon DPM [Staff Provider] - Tacos Rossi MD [Staff Provider] -
[2018-04-18 15:45] VITALS: BP 148/72; PULSE 67; RESP 19; TEMP 98.1
== END 2018-04-18 16:45 | disposition home or self-care (01) | DRG 314 ==
LOC: H.ER 14:17 → H.ERHOLD 16:30 → H.MEDSURG1 22:33
PROVIDERS: ADMIT Hospitalist; ATTEND Hospitalist
PROC: 3E0234Z Introduction of Serum, Toxoid and Vaccine into Muscle, Percutaneous Approach (ICD-10-PCS; principal; 2018-04-09)
PROC: 0Y6U0Z0 Detachment at Left 3rd Toe, Complete, Open Approach (ICD-10-PCS; 2018-04-10)
PROC: 0QBP0ZZ Excision of Left Metatarsal, Open Approach (ICD-10-PCS; 2018-04-10)
PROC: 0JBR0ZZ Excision of Left Foot Subcutaneous Tissue and Fascia, Open Approach (ICD-10-PCS; 2018-04-17)
PROC: 3E0T3BZ Introduction of Anesthetic Agent into Peripheral Nerves and Plexi, Percutaneous Approach (ICD-10-PCS; 2018-04-17)
PROC: 3E0T3BZ Introduction of Anesthetic Agent into Peripheral Nerves and Plexi, Percutaneous Approach (ICD-10-PCS; 2018-04-17)
DX: E11.52 Type 2 diabetes mellitus with diabetic peripheral angiopathy with gangrene (principal); N17.9 Acute kidney failure, unspecified; I96 Gangrene, not elsewhere classified; M86.172 Other acute osteomyelitis, left ankle and foot; E11.621 Type 2 diabetes mellitus with foot ulcer; E11.65 Type 2 diabetes mellitus with hyperglycemia; D62 Acute posthemorrhagic anemia; L03.116 Cellulitis of left lower limb; E87.1 Hypo-osmolality and hyponatremia; S91.332A Puncture wound without foreign body, left foot, initial encounter; Z79.4 Long term (current) use of insulin; Z23 Encounter for immunization; M19.012 Primary osteoarthritis, left shoulder; M19.011 Primary osteoarthritis, right shoulder; E78.00 Pure hypercholesterolemia, unspecified; I10 Essential (primary) hypertension; Z79.82 Long term (current) use of aspirin; Z89.411 Acquired absence of right great toe; Y93.H3 Activity, building and construction; Y92.69 Other specified industrial and construction area as the place of occurrence of the external cause; Y99.0 Civilian activity done for income or pay; B95.1 Streptococcus, group B, as the cause of diseases classified elsewhere; L97.529 Non-pressure chronic ulcer of other part of left foot with unspecified severity; Z53.20 Procedure and treatment not carried out because of patient's decision for unspecified reasons; E78.5 Hyperlipidemia, unspecified; E11.69 Type 2 diabetes mellitus with other specified complication; W22.09XA Striking against other stationary object, initial encounter

== ENCOUNTER 2018-08-08 09:19 | Emergency (ER) | payer SELFPAY ==
[2018-08-08 09:33] VITALS: RESP 18
[2018-08-08 09:34] VITALS: BMI 30.2
[2018-08-08 10:28] LABS: BASO % 0.6 % (0.0-2.0); EOS # 0.3 K/uL (0.0-0.7); EOS % 6.5 % (0.0-4.0); HEMOGLOBIN 10.5 g/dL (12.0-18.0); LYMPH # 1.3 K/uL (1.0-4.3); LYMPH % 26.5 % (20.0-40.0); MEAN CELL VOLUME 80.6 fl (80.0-94.0); MEAN CORPUSCULAR HEMOGLOBIN 27.3 pg (27.0-31.0); MEAN CORPUSCULAR HGB CONC 33.9 g/dL (33.0-37.0); MEAN PLATELET VOLUME 9.4 fl (7.2-11.7); MONO # 0.5 K/uL (0.0-0.8); MONO % 9.3 % (0.0-10.0); NEUT # 2.9 K/uL (1.8-7.0); NEUT % 57.1 % (50.0-75.0); NRBC % 0.1 % (0.0-0.0); RBC 3.83 Mil/uL (4.40-5.90); WHITE BLOOD COUNT 5.1 K/uL (4.8-10.8)
[2018-08-08 10:40] LABS: BLOOD UREA NITROGEN 26 mg/dl (9-20); CALCIUM 9.4 mg/dL (8.4-10.2); GFR NON-AFRICAN AMERICAN > 60
--- NOTE | 2018-08-08 11:08 | ED PDOC ---
Lower Extremity Pain/Injury Time Seen by Provider: 08/08/18 09:51 Chief Complaint (Nursing): Lower Extremity Problem/Injury Chief Complaint (Provider): Lower Extremity Problem/Injury History Per: Patient History/Exam Limitations: no limitations Onset/Duration Of Symptoms: Days Current Symptoms Are (Timing): Still Present Additional Complaint(s): 63 year old male with a past medical history of hypertension, diabetes, hypercholesterolemia, and peripheral vascular disease who is presenting to the ED for evaluation of left leg swelling ongoing for several days. Patient states that for the past several days his left leg and foot have been swollen with pain in the meredith. He admits that he went to [employer] yesterday and adds that he has a chronic wound on left foot. 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 PMD: Melvin Gallego Past Medical History Reviewed: Historical Data, Nursing Documentation, Vital Signs Vital Signs: Last Vital Signs Temp 97.1 F L 08/08/18 09:33 Pulse 83 08/08/18 09:33 Resp 18 08/08/18 09:33 BP 156/72 H 08/08/18 09:33 Pulse Ox 99 08/08/18 09:33 - Medical History PMH: Arthritis (Bilateral Shoulder), Diabetes, HTN, Hypercholesterolemia, Pneumonia Denies: Chronic Kidney Disease Other PMH: Peripheral vascular disease - Surgical History Other surgeries: amputation of toes to both feet by Dr. Lawson in March - Family History Family History: States: Diabetes - Social History Current smoker - smoking cessation education provided: No Alcohol: None Drugs: Denies - Home Medications Home Medications: Ambulatory Orders Medication Instructions Recorded Aspirin [Ecotrin] 81 mg PO DAILY 04/09/18 Acetaminophen [Tylenol 325mg tab] 650 mg PO Q6 PRN tab 04/17/18 Aspirin [Aspirin Chewable] 81 mg PO DAILY #30 chew 04/17/18 Atorvastatin [Lipitor] 20 mg PO DAILY #30 tab 04/17/18 Cephalexin [cephalexin] 500 mg PO BID #28 cap 04/17/18 Clopidogrel [Plavix] 75 mg PO DAILY #30 tab 04/17/18 Collagenase [Santyl] 1 applic TOP DAILY tube 04/17/18 Docusate [Colace] 100 mg PO BID #0 cap 04/17/18 Insulin NPH Hum/Reg Insulin Hm 10 unit SC BID #1 vial 04/17/18 [Humulin 70-30 Vial] Losartan [Cozaar] 50 mg PO DAILY #30 tab 04/17/18 amLODIPine [Norvasc] 5 mg PO DAILY #30 tab 04/17/18 Clindamycin [Cleocin] 300 mg PO TID #21 cap 08/08/18 - Allergies Allergies/Adverse Reactions: Allergies Allergy/AdvReac Type Severity Reaction Status Date / Time No Known Allergies Allergy Verified 08/08/18 09:41 Review of Systems ROS Statement: Except As Marked, All Systems Reviewed And Found Negative Constitutional: Negative for: Fever Cardiovascular: Negative for: Chest Pain Respiratory: Negative for: Shortness of Breath Musculoskeletal: Positive for: Leg Pain, Foot Pain Physical Exam - Reviewed Nursing Documentation Reviewed: Yes Vital Signs Reviewed: Yes - Physical Exam Appears: Positive for: Non-toxic, No Acute Distress Head Exam: Positive for: ATRAUMATIC, NORMAL INSPECTION, NORMOCEPHALIC Skin: Positive for: Normal Color Extremity: Positive for: Normal ROM, Other ( left leg swollen but non-tender, no ecchymosis, left foot swollen with wound at bottom and no erythema ) Neurological/Psych: Positive for: Awake, Alert, Oriented. Negative for: Motor/Sensory Deficits - Laboratory Results Result Diagrams: 08/08/18 10:20 08/08/18 10:20 - ECG O2 Sat by Pulse Oximetry: 99 (RA) Pulse Ox Interpretation: Normal - Progress Re-evaluation Time: 15:50 Condition: Re-examined, Improved Medical Decision Making Medical Decision Making: Time: 10:10 Impression: left leg swelling, left foot ulcer Plan: --BMP --CBC --Erythrocyte sedimentation rate --Accucheck --X-Ray Left Foot --Ultrasound Left Lower Extremity Ultrasound: FINDINGS: 2-D, color and duplex Doppler analysis of the lower extremity venous circulation using routine protocol from the femoral veins through the popliteal veins. Venous compressibility: Normal. Flow and augmentation patterns: Normal. Visualized veins upper third of calf: Normal. Chavarria cyst: None. There is subcutaneous edema about the calf and ankle. IMPRESSION: No sonographic or Doppler evidence for DVT in left lower extremity. 15:00 Spoke to podiatry who will come evaluate bedside. 1530 Patient is seen by podiatry and recommends discharge with clindamycin and follow up with wound center. Scribe Attestation: Documented by Miranda Marte, acting as a scribe for Davide Up MD. Provider Scribe Attestation: All medical record entries made by the Scribe were at my direction and personally dictated by me. I have reviewed the chart and agree that the record accurately reflects my personal performance of the history, physical exam, medical decision making, and the department course for this patient. I have also personally directed, reviewed, and agree with the discharge instructions and disposition. Disposition - Clinical Impression Clinical Impression: Foot ulcer, Left leg swelling - Patient ED Disposition Is Patient to be Admitted: No Doctor Will See Patient In The: Office Counseled Patient/Family Regarding: Studies Performed, Diagnosis, Need For Followup - Disposition Referrals: [facility] [place] Disposition: Routine/Home Disposition Time: 15:54 Condition: GOOD Additional Instructions: LANDEN TRUONG, thank you for letting us take care of you today. Your provider was Davide Up MD and you were treated for LT FOOT SWELLING. The emergency medical care you received today was directed at your acute symptoms. If you were prescribed any medication, please fill it and take as directed. It may take several days for your symptoms to resolve. Return to the Emergency Department if your symptoms worsen, do not improve, or if you have any other problems. Please contact your doctor or call one of the physicians/clinics you have been referred to that are listed on the Patient Visit Information form that is inc luded in your discharge packet. Bring any paperwork you were given at discharge with you along with any medications you are taking to your follow up visit. Our treatment cannot replace ongoing medical care by a primary care provider outside of the emergency department. Thank you for allowing the [facility] team to be part of your care today. If you had an X-Ray or CT scan: A Radiologist will review the ED reading if any change in treatment is needed we will contact you. If you had a blood, urine, or wound culture: It will take several days for the results, if any change in treatment is needed we will contact you. If you had an STI test: It will take 48 hours for the results. Please call after 1 week if you have not heard back. Prescriptions: Clindamycin [Cleocin] 300 mg PO TID #21 cap Instructions: Diabetic Foot Ulcer (DC), Dependent Edema (DC) Forms: [employer] (Qatari) Print Language: GAMBIAN
--- NOTE | 2018-08-08 14:39 | US ---
Date of service: 08/08/2018 HISTORY: left lower leg swelling. PRIORS: 04/09/2018 FINDINGS: 2-D, color and duplex Doppler analysis of the lower extremity venous circulation using routine protocol from the femoral veins through the popliteal veins. Venous compressibility: Normal. Flow and augmentation patterns: Normal. Visualized veins upper third of calf: Normal. Chavarria cyst: None. There is subcutaneous edema about the calf and ankle. IMPRESSION: No sonographic or Doppler evidence for DVT in left lower extremity.
--- NOTE | 2018-08-08 15:06 | CP.PCM.CON ---
History of Present Illness - History of Present Illness History of Present Illness: Podiatry Consult Note: Dr. Lawson 63 year old male patient, with PMHx of DMII, HLD, seen and evaluated for L foot ulceration, secondary to TMA, with LLE edema. Patient states that has had two surgeries with Dr. Lawson in the past, however recently had a TMA at [facility] [place]. After he had the TMA, he developed a wound and continues to be treated at [facility]. He came to the ED today because he noticed his L leg became more swollen and wanted to make sure his foot ulcer wasn't getting worse. He denies any pain to the area. Denies any nausae/vomiting/fever/shortness of breath/chest pain. PMHx: DMII, HLD PSHx: L TMA ALL: NKDA Review of Systems - Constitutional Constitutional: As Per HPI Past Patient History - Infectious Disease Hx of Infectious Diseases: None - Tetanus Immunizations Tetanus Immunization: Unknown - Past Medical History & Family History Past Medical History?: Yes - Past Social History Alcohol: None Drugs: Denies - CARDIAC Hx Hypercholesterolemia: Yes Hx Hypertension: Yes - PULMONARY Hx Pneumonia: Yes - NEUROLOGICAL Hx Neurological Disorder: No - HEENT Hx HEENT Problems: No - RENAL Hx Chronic Kidney Disease: No - ENDOCRINE/METABOLIC Hx Endocrine Disorders: Yes - HEMATOLOGICAL/ONCOLOGICAL Hx Blood Disorders: No - INTEGUMENTARY Hx Dermatological Problems: No - MUSCULOSKELETAL/RHEUMATOLOGICAL Hx Arthritis: Yes (Bilateral Shoulder) - GASTROINTESTINAL Hx Gastrointestinal Disorders: No - GENITOURINARY/GYNECOLOGICAL Hx Genitourinary Disorders: No - PSYCHIATRIC Hx Psychophysiologic Disorder: No Hx Substance Use: No - SURGICAL HISTORY Hx Surgeries: Yes Hx Musculoskeletal Surgery: Yes (left great toe) Other/Comment: Rt knee I&D, picc-line left arm, neck cyst removal. - ANESTHESIA Hx Anesthesia: Yes Hx Anesthesia Reactions: No Meds Allergies/Adverse Reactions: Allergies Allergy/AdvReac Type Severity Reaction Status Date / Time No Known Allergies Allergy Verified 08/08/18 09:41 Physical Exam - Constitutional Appears: Non-toxic, No Acute Distress - Head Exam Head Exam: ATRAUMATIC, NORMOCEPHALIC - Extremities Exam Additional comments: Vascular: DP/PT 1/4, TG warm to warm, + 2 pitting edema appreciated to L lower extremity from tibial tuberosity to ankle Ortho: No pain with palpation, no pain with calf compression, MMT 5/5 Neuro: Gross sensation diminished, protective sensation absent Derm: Linear ulceration, measuring approximately 7 cm x 1 cm x .02 cm, appreciated to TMA incision site with mixed fibrous/granular base. Additional circular ulceration, measuring 2cm x 2 cm x .8 cm noted to lateral aspect of TMA incision site with about < 1 cc of purulence expressed, probe to bone appreciated. - Neurological Exam Neurological exam: Alert, Oriented x3 - Psychiatric Exam Psychiatric exam: Normal Affect, Normal Mood Results - Vital Signs Recent Vital Signs: Last Vital Signs Temp 97.1 F L 08/08/18 09:33 Pulse 83 08/08/18 09:33 Resp 18 08/08/18 09:33 BP 156/72 H 08/08/18 09:33 Pulse Ox 99 08/08/18 15:00 - Labs Result Diagrams: 08/08/18 10:20 08/08/18 10:20 Labs: Laboratory Results - last 24 hr 08/08/18 08/08/18 08/08/18 10:20 10:20 10:21 WBC 5.1 D RBC 3.83 L Hgb 10.5 L Hct 30.9 L MCV 80.6 D MCH 27.3 MCHC 33.9 RDW 18.0 H Plt Count 229 D MPV 9.4 Neut % (Auto) 57.1 Lymph % (Auto) 26.5 Marion % (Auto) 9.3 Eos % (Auto) 6.5 H Baso % (Auto) 0.6 Neut # (Auto) 2.9 Lymph # (Auto) 1.3 Marion # (Auto) 0.5 Eos # (Auto) 0.3 Baso # (Auto) 0.0 ESR 68 H Sodium 136 Potassium 5.2 H Chloride 98 Carbon Dioxide 27 Anion Gap 16 BUN 26 H Creatinine 1.1 Est GFR ( Amer) > 60 Est GFR (Non-Af Amer) > 60 POC Glucose (mg/dL) 285 H Random Glucose 274 H Calcium 9.4 Assessment & Plan - Assessment and Plan (Free Text) Assessment: 63 year old male patient, with PMHx of DMII, HLD, seen and evaluated for L foot ulceration, secondary to transmetatarsal amputation, with LLE edema. Plan: Patient seen and evaluated Discussed patient in detail with Dr. Lawson WBC 5.1, VSS, ESR 68, glucose elevated LE US; no DVT R foot x-ray; TMA, no soft tissue emphysema appreciated (read by me) L foot wound culture; taken Local wound care; betadine, DSD Patient given prescription for Clindamycin Educated on signs and symptoms of infection, discussed with patient importance of returning to ED if signs or symptoms progress Patient to follow up in [place] [place] with Dr. Lawson - Date & Time Date: 08/08/18 Time: 15:05
[2018-08-08] MEDS ORDERED: Povidone Iodine Oint 10% Foilpak UD ONE (15:12)
--- NOTE | 2018-08-08 15:32 | RAD ---
Date of service: 08/08/2018 PROCEDURE: Left Ankle Radiographs. HISTORY: Ankle swelling COMPARISON: Correlation made with concurrent radiographs of the left foot 08/08/2018. FINDINGS: BONES: Postoperative amputation changes left foot at the level of the proximal metatarsals. Diffuse demineralization however no definitive destructive changes JOINTS: Bony ankle mortise maintained. Mild degenerative osteoarthritis. SOFT TISSUES: Minor bilateral soft tissue swelling about the medial and lateral malleoli.. Additionally, appears to be swelling of the stump soft tissues with what appears to represent a distal cleft like defect within the soft tissues and questionable subcutaneous emphysema; rule out cellulitis. Vascular calcifications again noted OTHER FINDINGS: None. IMPRESSION: Postoperative amputation at the level of the proximal metatarsals. Mild bilateral soft tissue swelling about the medial and lateral malleoli. Additionally, appears to be swelling of the stump soft tissues with what appears to represent a distal cleft like defect within the soft tissues and questionable subcutaneous emphysema; rule out cellulitis. Follow-up MRI recommended if indicated. No definitive bony destructive changes however there does appear to be diffuse demineralization Vascular calcifications again noted
--- NOTE | 2018-08-08 16:04 | RAD ---
Date of service: 08/08/2018 PROCEDURE: Left Foot Radiographs. HISTORY: Left foot swelling. Chronic wound. COMPARISON: Correlation made with concurrent radiographs of the left ankle and radiographs left foot 04/10/2018. FINDINGS: BONES: Postoperative amputation changes left foot at the level of the proximal metatarsals. Diffuse demineralization however no definitive destructive changes JOINTS: Normal. SOFT TISSUES: Minor bilateral soft tissue swelling about the medial and lateral malleoli.. Additionally, appears to be swelling of the stump soft tissues with what appears to represent a distal cleft like defect within the soft tissues and questionable subcutaneous emphysema; rule out cellulitis. OTHER FINDINGS: None. IMPRESSION: Amputation changes left foot at the level of the proximal metatarsals. Minor bilateral soft tissue swelling about the medial and lateral malleoli.. Additionally, appears to be swelling of the stump soft tissues with what appears to represent a distal cleft like defect within the soft tissues and questionable subcutaneous emphysema; rule out cellulitis. Consider follow-up MRI further evaluation.
[2018-08-08 16:05] VITALS: BP 148/80; PULSE 80; TEMP 97.6; O2SAT 97
== END 2018-08-08 16:10 | disposition home or self-care (01) ==
LOC: H.ER 09:19
DX: E11.621 Type 2 diabetes mellitus with foot ulcer (principal); E78.00 Pure hypercholesterolemia, unspecified; I10 Essential (primary) hypertension; L97.529 Non-pressure chronic ulcer of other part of left foot with unspecified severity; Z79.4 Long term (current) use of insulin; E11.51 Type 2 diabetes mellitus with diabetic peripheral angiopathy without gangrene